=== PATIENT | female | born 1980 | race Hispanic/Latino ===

== ENCOUNTER 2017-12-18 16:40 | Emergency (ER) | payer SELFPAY ==
[2017-12-18] MEDS ORDERED: HYDROCODONE/APAP 10/325 TAB ONE (17:52)
[2017-12-18] MEDS ORDERED: IBUPROFEN 400 MG TAB ONE (17:52)
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
[2017-12-18 18:52] VITALS: BP 110/76; TEMP 98.1; O2SAT 96
== END 2017-12-18 18:47 | disposition home or self-care (01) ==
LOC: ER 16:40
DX: S39.012A Strain of muscle, fascia and tendon of lower back, initial encounter (principal); F41.9 Anxiety disorder, unspecified; V49.49XA Driver injured in collision with other motor vehicles in traffic accident, initial encounter
CPT/HCPCS: 72100; 99284

== ENCOUNTER 2020-02-27 18:29 | Emergency (ER) | payer SELFPAY, OTHER ==
--- OUTSIDE RECORDS SUMMARY | 2020-02-27 18:33 | XMS REPORT | Clinical Summary ---
:1980 Author Organization [facility] Address [address] [place] [id number] Care Team Providers Name Role Phone Unavailable Primary Care Provider Unavailable Allergies Active Allergy Reactions Severity Noted Date Comments Codeine Rash, Swelling High 11/14/2019 Medications Medication Sig Dispensed Refills Start End Date Status Date traZODone (DESYREL) Take 1-2 30 tablet 0 Active 50 mg tablets by 9 tabletIndications: mouth Insomnia, unspecified nightly at type bedtime as needed for Sleep. venlafaxine (EFFEXOR Take 1 28 capsule 0 Active XR) 150 mg extended capsule by 9 release mouth daily. capsuleIndications: Bipolar disorder in partial remission, most recent episode unspecified type hydrOXYzine (ATARAX) Take 1 84 tablet 0 Active 25 mg tablet by 9 tabletIndications: mouth 3 Anxiety times daily as needed for Anxiety or Insomnia. divalproex (DEPAKOTE) Take 1 60 tablet 0 Active 500 mg delayed tablet by 9 release mouth 2 tabletIndications: times daily. Bipolar disorder in partial remission, most recent episode unspecified type lurasidone HCl Take by 0 Activ e (LATUDA OR) mouth. ferrous sulfate 325 Take 1 30 tablet 0 Active mg (65 mg iron) tablet by 0 tabletIndications: mouth daily Iron deficiency (with anemia, unspecified breakfast). iron deficiency anemia type famotidine (PEPCID) Take 1 30 tablet 0 Active 40 mg tablet by 0 tabletIndications: mouth daily Gastroesophageal as needed reflux disease, for esophagitis presence Heartburn. not specified ibuprofen (MOTRIN) Take 1 20 tablet 0 A ctive 400 mg tablet by 0 tabletIndications: mouth every Intractable migraine 8 hours as without status needed for migrainosus, Pain. unspecified migraine type SUMAtriptan (IMITREX) Take 1 9 tablet 0 Active 50 mg tablet by 0 tabletIndications: mouth at Intractable migraine onset of without status headache. migrainosus, Repeat after unspecified migraine 2 hours if type needed. Maximum 200mg/24 hours.. fluticasone Use 1 [place] 16 g 0 Active propionate (FLONASE) in each 0 50 mcg/actuation nostril nasal daily. sprayIndications: Seasonal allergic rhinitis, unspecified trigger loratadine (CLARITIN) Take 1 30 tablet 0 Active 10 mg tablet by 0 tabletIndications: mouth daily. Seasonal allergic rhinitis, unspecified trigger propranolol (INDERAL) Take 1 60 tablet 0 Active 40 mg tablet by 0 tabletIndications: mouth 2 Intractable migraine times daily. without status migrainosus, unspecified migraine type meclizine (ANTIVERT) Take 1 60 tablet 0 Active 25 mg TabIndications: tablet by 0 Intermittent mouth 2 lightheadedness times daily. omeprazole (PRILOSEC) Take 1 30 capsule 1 Active 20 mg delayed release capsule by 0 capsuleIndications: mouth every Gastroesophageal morning reflux disease, (before esophagitis presence breakfast). not specified traZODone (DESYREL) Take 1-2 30 tablet 0 03/05/20 Discontinued 50 mg tablets by 05 29 (Reorder) tabletIndications: mouth Insomnia, unspecified nightly at type bedtime as needed for Sleep. propranolol (INDERAL) Take 1 60 tablet 0 03/05/20 Discontinued 40 mg tablet by 05 29 (Reorder) tabletIndications: mouth 2 Anxiety times daily. propranolol (INDERAL) Take 1 60 tablet 0 11/04/19 Discontinued 40 mg tablet by 05 30 (Dose tabletIndications: mouth 2 a djustment) Anxiety times daily. amitriptyline Take 1 30 tablet 0 10/20/19 Discon tinued (ELAVIL) 50 mg tablet by 05 30 (Othe r) tabletIndications: mouth at Bipolar disorder in bedtime partial remission, nightly. most recent episode unspecified type omeprazole (PRILOSEC) Take 1 30 capsule 0 0 Discontinued 20 mg delayed release capsule by 9 19 (Reorder) capsuleIndications: mouth at Gastroesophageal bedtime reflux disease, nightly. esophagitis presence not specified omeprazole (PRILOSEC) Take 1 30 capsule 0 0 Discontinued 20 mg delayed release capsule by 9 20 (Other) capsuleIndications: mouth at Gastroesophageal bedtime reflux disease, nightly. esophagitis presence not specified ferrous sulfate 325 Take 1 30 tablet 0 09/22/19 Discontinued mg (65 mg iron) tablet by 9 20 (Reo rder) tabletIndications: mouth daily Iron deficiency (with anemia, unspecified breakfast). iron deficiency anemia type ibuprofen (MOTRIN) Take 1 20 tablet 0 10/20/19 D iscontinued 400 mg tablet by 9 20 (Reorder) tabletIndications: mouth every Pain, dental 8 hours as needed for Pain. fluticasone Use 1 [place] 16 g 0 11/04/19 Discon tinued propionate (FLONASE) in each 0 20 (Reorder) 50 mcg/actuation nostril nasal daily. sprayIndications: Acute sinusitis, recurrence not specified, unspecified location ferrous sulfate 325 Take 1 30 tablet 0 10/20/19 Discontinued mg (65 mg iron) tablet by 0 20 (Reo rder) tabletIndications: mouth daily Iron deficiency (with anemia, unspecified breakfast). iron deficiency anemia type famotidine (PEPCID) Take 1 30 tablet 0 10/20/19 Discontinued 40 mg tablet by 0 20 (Reorder) tabletIndications: mouth daily Gastroesophageal as needed reflux disease, for esophagitis presence Heartburn. not specified doxycycline Take 1 20 tablet 0 10/02/19 (VIBRA-TABS) 100 mg tablet by 0 20 tabletIndications: mouth 2 Acute sinusitis, times daily recurrence not for 10 days. specified, unspecified location GUAIFENESIN-DM CR Take 1 10 tablet 0 11/18/19 Di scontinued (MUCINEX DM) 30-600 tablet by 0 20 (Patient mg tabletIndications: mouth 2 Discharge) Acute sinusitis, times daily. recurrence not specified, unspecified location SUMAtriptan (IMITREX) Take 1 9 tablet 0 11/04/19 Discontinued 50 mg tablet by 0 20 (Reorder) tabletIndications: mouth at Intractable migraine onset of without status headache. migrainosus, Repeat after unspecified migraine 2 hours if type needed. Maximum 200mg/24 hours.. propranolol (INDERAL) Take 1 60 tablet 0 11/04/19 Discontinued 20 mg tablet by 0 20 (Dose tabletIndications: mouth 2 a djustment) Intractable migraine times daily. without status migrainosus, unspecified migraine type propranolol (INDERAL) Take 1 60 tablet 0 11/04/19 Discontinued 40 mg tablet tablet by 0 20 (Reorde r) mouth 2 times daily. Active Problems Problem Noted Date BPPV (benign paroxysmal positional vertigo), left 04/2020 Class 1 obesity due to excess calories without serious comorbidity with 04/28/2019 body mass index (BMI) of 34.0 to 34.9 in adult Iron deficiency anemia 04/28/2019 Gastroesophageal reflux disease 04/28/2019 Homelessness 04/28/2019 Menorrhagia with irregular cycle 04/28/2019 Blurry vision, bilateral Nonintractable headache Right foot pain Dizziness Palpitations Syncope Intermittent lightheadedness Postural dizziness with presyncope Normocytic anemia Arachnoid cyst Encounters Date Type Specialty Care Team Description 11/26/2019 Emergency Emergency Ashanti Agarwal Right foot pa in Medicine MD Moiz (Primary Dx) 11/13/2019 - Emergency Kevon Cantu Intermittent lightheadedness (Primary Dx); 11/18/2019 MD Lucien Palpitations; Trip [place], Syncope, uns pecified syncope type; Dizziness; Bipolar I disor jaleel; Allergic state, sequela; Anxiety state; Gastroesophagea l reflux disease, esophagitis presence not specified; Menorrhagia wit h irregular cycle; Hearing loss of right ear, unspecified hearing loss type; Postural dizzin ess with presyncope 11/12/2019 - Emergency Emergency Kingsley Peña NP Acute right ankle pain 11/13/2019 Medicine (Primary Dx) 11/04/2019 Office Visit Family Practice Frank Roberson, Intractable migraine without status migrainosus, unspecified migraine type (Primary Dx); Physician Acute sinusitis , recurrence not specified, unspecified location; Seasonal allerg ic rhinitis, unspecified trigger 10/31/2019 Patient Education Health Education Carmen [place] o abuse counseling (Pauly cristal Dx) 10/25/2019 - Emergency Emergency Zeinali, Vargasen, Right foot p ain (Primary Dx); 10/26/2019 Medicine Nonintractable headache, unspecified chronicity pattern, unspecified headache type; Foot sprain, ri ght, initial encounter 10/20/2019 Office Visit [facility] Quiroz Gastroes ophageal reflux disease, esophagitis presence not specified (Primary Dx); Iron deficiency anemia, unspecified iron deficiency anemia type; Pain, dental; Intractable alesia ines without status migrainosus, unspecified migraine type; Influenza vacci ne needed 10/17/2019 - Emergency Emergency Josep Chan, New onset he adache (Primary Dx); 10/18/2019 Medicine Blurry vision, bilateral Candida Craven MD 10/03/2019 Patient Education Health Education Marcella Coffey, Landon tatum abuse MD counseling (Primary Dx) Elisabeth Owen 09/24/2019 Clinical Case [facility] Quang Gomez 09/22/2019 Office Visit [facility] Quiroz Acute si nusitis, recurrence not specified, unspecified location (Primary Dx); Iron deficiency anemia, unspecified iron deficiency anemia type; Gastroesophagea l reflux disease, esophagitis presence not specified 04/28/2019 Clinical Case [facility] Quang Caro 04/28/2019 Office Visit [facility] Quiroz Gastroes ophageal reflux disease, esophagitis presence not specified (Primary Dx); Iron deficiency anemia, unspecified iron deficiency anemia type; Pain, dental; Class 1 obesity due to excess calories without serious comorbidity with body mass index (BMI) of 34.0 to 34.9 in adult; Homelessness; Menorrhagia wit h irregular cycle 03/31/2019 Office Visit [facility] Quiroz Gastroes ophageal reflux disease, esopha gitis presence not sp ecified (Primary Dx) 03/05/2019 Office Visit [facility] Quiroz Bipolar disorder in partial remission, most recent episode unspecified type (Primary Dx); Preventative he alth care; Insomnia, unspe cified type; Anxiety 02/26/2019 Clinical Case [facility] [employer] [facility] Frankie Parham 02/26/2019 Office Visit Family Practice Francisca Quiroz Class 1 obesity due to excess calories without serious comorbidity with body mass index (BMI) of 34.0 to 34.9 in adult (Primary Dx); Family history of diabetes mellitus; Depression, uns pecified depression type; Well woman exam with routine gynecological exam; IV drug abuse after 02/26/2019 Immunizations Name Administration Dates Next Due Influenza, Vaccine <FLUCELVAX>(Preservative-Free) 10/20/2019 Td <Unspecified> 03/05/2016 Twinrix-HEP A&b 03/05/2019 Family History Medical History Relation Name Comments Heart Father Hypertension Father Diabetes Mother Psychiatry Mother Stroke Mother Psychiatry Sister Relation Name Status Comments Father [place] at 56 Mother Anxiety, stroke at 55 years Sister Anxiety Social History Tobacco Use Types Packs/Day Years Used Date Former Smoker Smokeless Tobacco: Never Used Tobacco Cessation: Counseling Given: Yes Comments: Stopped smoking in 2018 Alcohol Use Drinks/Week oz/Week Comments Not Currently Sex Assigned at Date Recorded Not on file Job Start Date Occupation Industry Not on file Not on file Not on file Travel History Travel Start Travel End No recent travel history available. Last Filed Vital Signs Vital Sign Reading Time Taken Comments Blood Pressure 108/68 11/26/2019 11:17 AM CDT Pulse 72 11/26/2019 3:13 PM CDT Temperature 36.7 C (98.1 F) 11/26/2019 3:13 PM CDT Respiratory Rate 18 11/26/2019 3:13 PM CDT Oxygen Saturation 100% 11/26/2019 3:13 PM CDT Inhaled Oxygen Concentration - - Weight 92.3 kg (203 lb 6.4 oz) 11/13/2019 9:00 PM WEATHERIZATION COORDINATOR Height 162.6 cm (5' 4") 11/13/2019 9:00 PM WEATHERIZATION COORDINATOR Body Mass Index 34.91 11/13/2019 9:00 PM WEATHERIZATION COORDINATOR Plan of Treatment Date Type Specialty Care Team Description 03/02/2020 Office Visit Neurology Health Maintenance Due Date Last Done Comments IMM Influenza Seasonal Jun to November (>/= 19 yrs) 06/10/2020 10/20/2019 Cervical Cancer Scrn (5 Yrs) 02/27/2024 02/26/2019 Procedures Procedure Name Priority Date/Time Associated Diagnosis Comme nts XRAY TIBIA AND FIBULA STAT 11/26/2019 2:00 Right foot pain Results for this 2 VIEWS PM CDT procedure are i n the results section. XRAY ANKLE 3 VIEW MIN STAT 11/26/2019 2:00 Right foot pain Results for this PM CDT procedure are i n the results section. XRAY FOOT 3 VIEWS MIN STAT 11/26/2019 2:00 Right foot pain Results for this PM CDT procedure are i n the results section. CBC Routine 11/18/2019 4:22 Results for this AM CDT procedure are i n the results section. MAGNESIUM Routine 11/18/2019 4:22 Results for this AM CDT procedure are i n the results section. BASIC METABOLIC PANEL Routine 11/18/2019 4:22 Re sults for this AM CDT procedure are i n the results section. CBC/DIFF Routine 11/18/2019 4:22 Results for this AM CDT procedure are i n the results section. CBC Routine 11/17/2019 3:46 Results for this AM CDT procedure are i n the results section. MAGNESIUM Routine 11/17/2019 3:46 Results for this AM CDT procedure are i n the results section. BASIC METABOLIC PANEL Routine 11/17/2019 3:46 Re sults for this AM CDT procedure are i n the results section. CBC/DIFF Routine 11/17/2019 3:46 Results for this AM CDT procedure are i n the results section. GLUCOSE POC Routine 11/16/2019 3:54 Results for this PM CDT procedure are i n the results section. MRI BRAIN W/O Routine 11/16/2019 2:46 Intermittent Results fo r this CONTRAST PM CDT lightheadedness procedure ar e in the results section. CBC Routine 11/16/2019 3:44 Results for this AM CDT procedure are i n the results section. MAGNESIUM Routine 11/16/2019 3:44 Results for this AM CDT procedure are i n the results section. BASIC METABOLIC PANEL Routine 11/16/2019 3:44 Re sults for this AM CDT procedure are i n the results section. CBC/DIFF Routine 11/16/2019 3:44 Results for this AM CDT procedure are i n the results section. XRAY SKULL 4 VIEWS Routine 11/15/2019 12:04 Intermittent Resul ts for this MIN PM WEATHERIZATION COORDINATOR lightheadedness procedure ar e in the results section. CBC Routine 11/15/2019 3:57 Results for this AM WEATHERIZATION COORDINATOR procedure are i n the results section. MAGNESIUM Routine 11/15/2019 3:57 Results for this AM WEATHERIZATION COORDINATOR procedure are i n the results section. BASIC METABOLIC PANEL Routine 11/15/2019 3:57 Re sults for this AM WEATHERIZATION COORDINATOR procedure are i n the results section. CBC/DIFF Routine 11/15/2019 3:57 Results for this AM WEATHERIZATION COORDINATOR procedure are i n the results section. LEAD, WHOLE BLOOD Timed 11/14/2019 1:14 Result s for this (ADULT) PM WEATHERIZATION COORDINATOR procedure are i n the results section. INFUSION PUMP Routine 11/14/2019 9:21 AM WEATHERIZATION COORDINATOR CBC Routine 11/14/2019 3:45 Results for this AM WEATHERIZATION COORDINATOR procedure are i n the results section. MAGNESIUM Routine 11/14/2019 3:45 Results for this AM WEATHERIZATION COORDINATOR procedure are i n the results section. BASIC METABOLIC PANEL Routine 11/14/2019 3:45 Re sults for this AM WEATHERIZATION COORDINATOR procedure are i n the results section. CBC/DIFF Routine 11/14/2019 3:45 Results for this AM WEATHERIZATION COORDINATOR procedure are i n the results section. VITAMIN B12 Add-on 11/13/2019 8:01 Results for this PM WEATHERIZATION COORDINATOR procedure are i n the results section. VIT D, 25-HYDROXY Routine 11/13/2019 8:01 Result s for this PM WEATHERIZATION COORDINATOR procedure are i n the results section. SYPHILIS SCREEN FOR Routine 11/13/2019 8:01 Resu lts for this INFECTION PM WEATHERIZATION COORDINATOR procedure are i n the results section. ANASTACIO Routine 11/13/2019 8:01 Results for this PM WEATHERIZATION COORDINATOR procedure are i n the results section. HEPATITIS PANEL Routine 11/13/2019 8:01 Results for this PM WEATHERIZATION COORDINATOR procedure are i n the results section. HIV-1/HIV-2 ROUTINE Routine 11/13/2019 8:01 Resu lts for this SCREENING PM WEATHERIZATION COORDINATOR procedure are i n the results section. FOLIC ACID Routine 11/13/2019 8:01 Results for this PM WEATHERIZATION COORDINATOR procedure are i n the results section. IRON PROFILE Routine 11/13/2019 8:01 Results for this PM WEATHERIZATION COORDINATOR procedure are i n the results section. FERRITIN Routine 11/13/2019 8:01 Results for this PM WEATHERIZATION COORDINATOR procedure are i n the results section. BASIC METABOLIC PANEL Routine 11/13/2019 8:01 Re sults for this PM WEATHERIZATION COORDINATOR procedure are i n the results section. VALPROIC ACID Routine 11/13/2019 8:01 Results fo r this PM WEATHERIZATION COORDINATOR procedure are i n the results section. POCT URINE DIPSTICK - STAT 11/13/2019 9:36 Re sults for this AM WEATHERIZATION COORDINATOR procedure are i n the results section. TEST STAT 11/13/2019 9:31 Results f or this AM WEATHERIZATION COORDINATOR procedure are i n the results section. CT HEAD W/O CONTRAST STAT 11/13/2019 9:26 Intermittent Res ults for this AM WEATHERIZATION COORDINATOR lightheadedness procedure ar e in the results section. CREATININE POC Routine 11/13/2019 6:27 Results f or this AM WEATHERIZATION COORDINATOR procedure are i n the results section. BMP POC Routine 11/13/2019 6:26 Results for this AM WEATHERIZATION COORDINATOR procedure are i n the results section. CBC STAT 11/13/2019 6:21 Results for this AM WEATHERIZATION COORDINATOR procedure are i n the results section. CBC/DIFF STAT 11/13/2019 6:21 Results for this AM WEATHERIZATION COORDINATOR procedure are i n the results section. ECHG EKG PROC 12 LEAD Routine 11/13/2019 5:20 Re sults for this EKG; TRACING ONLY AM WEATHERIZATION COORDINATOR procedure are in the results section. GLUCOSE POC Routine 11/13/2019 4:51 Results for this AM WEATHERIZATION COORDINATOR procedure are i n the results section. XRAY FOOT 3 VIEWS - STAT 11/12/2019 11:10 Acute right ankle pain Results for this ROUTINE PM WEATHERIZATION COORDINATOR procedure are i n the results section. XRAY ANKLE 3 VIEWS - STAT 11/12/2019 11:10 Acute right ankl e pain Results for this ROUTINE PM WEATHERIZATION COORDINATOR procedure are i n the results section. POCT URINE DIPSTICK - STAT 11/12/2019 10:22 Re sults for this PM WEATHERIZATION COORDINATOR procedure are i n the results section. XRAY FOOT 3 VIEWS - STAT 10/25/2019 9:38 Right foot pain R esults for this ROUTINE PM WEATHERIZATION COORDINATOR procedure are i n the results section. CTA HEAD W CONTRAST STAT 10/18/2019 12:51 New onset headach e Results for this AM WEATHERIZATION COORDINATOR procedure are i n the results section. CT HEAD W/O CONTRAST STAT 10/17/2019 11:28 New onset headac he Results for this PM WEATHERIZATION COORDINATOR procedure are i n the results section. AMMONIA STAT 10/17/2019 2:37 Results for this PM WEATHERIZATION COORDINATOR procedure are i n the results section. VALPROIC ACID STAT 10/17/2019 2:37 Results fo r this PM WEATHERIZATION COORDINATOR procedure are i n the results section. TEST STAT 10/17/2019 1:12 Results f or this PM WEATHERIZATION COORDINATOR procedure are i n the results section. CBC STAT 10/17/2019 12:07 Results for this PM WEATHERIZATION COORDINATOR procedure are i n the results section. CBC/DIFF STAT 10/17/2019 12:07 Results for this PM WEATHERIZATION COORDINATOR procedure are i n the results section. BASIC METABOLIC PANEL STAT 10/17/2019 12:07 Re sults for this PM WEATHERIZATION COORDINATOR procedure are i n the results section. POC HIV RAPID Routine 03/05/2019 Preventative health Results for this 1/2-FQHC MANUALLY care procedure are in ENTERED the results section. POC URINE DIPSTICK Routine 02/26/2019 10:48 Well woman exam wi th Results for this W/O MICRO-FQHC AM CDT routine gynecological proc edure are in MANUALLY ENTERED exam the results section. HPV, LOW VOLUME RFX Routine 02/26/2019 9:00 Resu lts for this AM CDT procedure are i n the results section. HEP B SURFACE AB Routine 02/26/2019 9:00 IV drug abuse Result s for this AM CDT procedure are i n the results section. HBSAG SCREEN Routine 02/26/2019 9:00 IV drug abuse Results fo r this AM CDT procedure are i n the results section. HCV ANTIBODY Routine 02/26/2019 9:00 IV drug abuse Results fo r this AM CDT procedure are i n the results section. HEMOGLOBIN A1C Routine 02/26/2019 9:00 Class 1 obesity due to Results for this AM CDT excess calories procedure ar e in without serious the results comorbidity with body sectio n. mass index (BMI) of 34.0 to 34.9 in adult Family history of diabetes mellitus TSH Routine 02/26/2019 9:00 Depression, Results for this AM CDT unspecified depression proce dure are in type the results section. CBC WITH Routine 02/26/2019 9:00 Class 1 obesity due to R esults for this DIFFERENTIAL/PLATELET AM CDT excess calories pro cedure are in without serious the results comorbidity with body sectio n. mass index (BMI) of 34.0 to 34.9 in adult Family history of diabetes mellitus COMPREHENSIVE Routine 02/26/2019 9:00 Class 1 obesity due to Results for this METABOLIC PANEL(14) AM CDT excess calories proce dure are in without serious the results comorbidity with body sectio n. mass index (BMI) of 34.0 to 34.9 in adult Family history of diabetes mellitus PAP IG,HPV-HR Routine 02/26/2019 9:00 Well woman exam with Re sults for this AM CDT routine gynecological proced ure are in exam the results section. T PALLIDUM AB Routine 02/26/2019 9:00 Well woman exam with Re sults for this (FTA-AB) AM CDT routine gynecological proced ure are in exam the results section. CT,NG,TRICH VAG BY Routine 02/26/2019 9:00 Well woman exam wi th Results for this YOLANDA AM CDT routine gynecological proced ure are in exam the results section. POC URINE Routine 02/26/2019 Well woman exam with Results for this [facility] routine gynecological proc edure are in MANUALLY ENTERED exam the results section. after 02/26/2019 Results XRAY FOOT 3 VIEWS MIN (11/26/2019 2:00 PM CDT) Specimen Impressions Performed At IMPRESSION: SMS No acute abnormality seen in the right t ibia and fibula, ankle and foot. Signed By: Janet Wilson MD, 11/26/2019 2:17 PM Narrative Performed At RIGHT TIBIA AND FIBULA SERIES, 2 views. SMS RIGHT ANKLE SERIES, 3 views. RIGHT FOOT SERIES, 3 views. DATE: 11/26/2019 2:13 PM CLINICAL INDICATION: R foot pain s/p fal ling COMPARISON: Right foot and right ankle p erformed 11/12/2019. TECHNIQUE: Frontal and lateral views of the right tibia and fibula, frontal, oblique and lateral views of th e right ankle and right foot are obtained and submitted for interpretatio n. DISCUSSION: There is no fracture or malalignment vis ualized in the tibia, fibula, ankle and foot. Ankle mortise, subtalar joint and tibi ofibular syndesmosis appear preserved. Midtarsal, metatarsal and phalangeal bon es are intact. Joint spaces of the foot are preserved. There is mild hallux valgus deformity, unchanged. No abnormal bone erosions, periosteal re action or flattening is demonstrated. Plantar calcaneal enthesop hyte is again seen. No evidence of joint effusion is noted. The surrounding soft tissues are unremar kable. Procedure Note Interface, Rad/Mammog In - 11/26/2019 2 :22 PM CDT RIGHT TIBIA AND FIBULA SERIES, 2 views. RIGHT ANKLE SERIES, 3 views. RIGHT FOOT SERIES, 3 views. DATE: 11/26/2019 2:13 PM CLINICAL INDICATION: R foot pain s/p fal ling COMPARISON: Right foot and right ankle p erformed 11/12/2019. TECHNIQUE: Frontal and lateral views of the right tibia and fibula, frontal, oblique and lateral views of th e right ankle and right foot are obtained and submitted for interpretatio n. DISCUSSION: There is no fracture or malalignment vis ualized in the tibia, fibula, ankle and foot. Ankle mortise, subtalar joint and tibio fibular syndesmosis appear preserved. Midtarsal, metatarsal and phalangeal bon es are intact. Joint spaces of the foot are preserved. There is mild hallux valgus deformity, unchanged. No abnormal bone erosions, periosteal re action or flattening is demonstrated. Plantar calcaneal enthesop hyte is again seen. No evidence of joint effusion is noted. The surrounding soft tissues are unremar kable. IMPRESSION IMPRESSION: No acute abnormality seen in the right t ibia and fibula, ankle and foot. Signed By: Janet Wilson MD, 11/26/2019 2:17 PM Performing Organization Address City/State/Zipcode Phone Number [facility] XRAY ANKLE 3 VIEW MIN (11/26/2019 2:00 PM CDT) Specimen Impressions Performed At IMPRESSION: [facility] No acute abnormality seen in the right t ibia and fibula, ankle and foot. Signed By: Janet Wilson MD, 11/26/2019 2:17 PM Narrative Performed At RIGHT TIBIA AND FIBULA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 the study and agree with the findings in this report. Signed By: Nixon Gabriel DO, 11/13/2019 3 :59 AM Performing Organization Address City/State/Zipcode Phone Number SMS CTA HEAD W CONTRAST (10/18/2019 12:51 AM WEATHERIZATION COORDINATOR) Specimen Impressions Performed At IMPRESSION: SMS 1. Severely hypoplastic right vertebra l artery, likely congenital. 2. Otherwise, no additional abnormalit ies on this CTA of the head. Specifically, no large vessel occlusion or aneurysm. Dictated By: Stephane Murphy DO, 0 1:13 AM I have reviewed the study and agree with the findings in this report. Signed By: Wendy Craft MD, 10/18/2019 1:20 AM Narrative Performed At Exams: Intracranial CT angiogram SMS History: Headache, acute, normal neuro e xam Comparison studies: Same day head CT. Technique: Axial CT scans obtained from the skull b ase to the vertex without contrast Axial images obtained through the intrac ranial region during injection of IV contrast. Axial CT scans obtained from the skull b ase to the vertex after the CTA. Coronal and sagittal reconstructions obt ained from the axial data. For optimization of anatomic evaluation, multiplanar reconstruction, maximum intensity projections, and [employer] 3-D off-line postprocessing were obtained on a dedicated stand-alone work station under the direct supervision of the interpreting physicia n. IV Contrast 100 cc of Omnipaque. Complication: None Radiation dose: Total DLP: 1032 mGy*cm Estimated Effective Dose: DLP x 0.031 mS v FINDINGS: Head CT with contrast: No interval changes when compared to the previous CT. No enhancing abnormalities. CTA [place]: Carotid arteries: Patent, no abnormalities.. Vertebrobasilar Circulation: Vertebral arteries: The right vertebral artery is not visualized. The left vertebral artery is patent. Basilar artery: Patent, no abnormalities . Anterior cerebral arteries: Patent A1 an d A2 segments. Middle cerebral arteries: Patent M1 and M2 segments. Posterior cerebral arteries: Patent P1 and P2 segments, no abnormalities. Normal Variants: Anteriro communicating artery: Patent Posterior communicating arteries: Not vi sualized bilaterally, may be hypoplastic or absent. Vertebral arteries: The right vertebral artery is not visualized. The left vertebral artery is patent. Incidental findings: Mucosal thickening of the left ethmoid a ir cells. Procedure Note Interface, Rad/Mammog In - 10/18/2019 1 :25 AM WEATHERIZATION COORDINATOR Exams: Intracranial CT angiogram History: Headache, acute, normal neuro e xam Comparison studies: Same day head CT. Technique: Axial CT scans obtained from the skull b ase to the vertex without contrast Axial images obtained through the intrac ranial region during injection of IV contrast. Axial CT scans obtained from the skull b ase to the vertex after the CTA. Coronal and sagittal reconstructions obt ained from the axial data. For optimization of anatomic evaluation, multiplanar reconstruction, maximum intensity projections, and [employer] 3-D off-line postprocessing were obtained on a dedicated stand-alone work station under the direct supervision of the interpreting physicia n. IV Contrast 100 cc of Omnipaque. Complication: None Radiation dose: Total DLP: 1032 mGy*cm Estimated Effective Dose: DLP x 0.031 mS v FINDINGS: Head CT with contrast: No interval changes when compared to the previous CT. No enhancing abnormalities. CTA [place]: Carotid arteries: Patent, no abnormalities.. Vertebrobasilar Circulation: Vertebral arteries: The right vertebral artery is not visualized. The left vertebral artery is patent. Basilar artery: Patent, no abnormalities . Anterior cerebral arteries: Patent A1 an d A2 segments. Middle cerebral arteries: Patent M1 and M2 segments. Posterior cerebral arteries: Patent P1 and P2 segments, no abnormalities. Normal Variants: Anteriro communicating artery: Patent Posterior communicating arteries: Not vi sualized bilaterally, may be hypoplastic or absent. Vertebral arteries: The right vertebral artery is not visualized. The left vertebral artery is patent. Incidental findings: Mucosal thickening of the left ethmoid a ir cells. IMPRESSION IMPRESSION: 1. Severely hypoplastic right vertebral artery, likely congenital. 2. Otherwise, no additional abnormaliti es on this CTA of the head. Specifically, no large vessel occlusion or aneurysm. Dictated By: Stephane Murphy DO, 0 1:13 AM I have reviewed the study and agree with the findings in this report. Signed By: Wendy Craft MD, 10/18/2019 1:20 AM Performing Organization Address City/State/Zipcode Phone Number SMS Ammonia (10/17/2019 2:37 PM WEATHERIZATION COORDINATOR) Pathologist [facility] Ammonia 31.0 16.0 - 53.0 umol/L [facility] Specimen Blood Performing Organization Address City/[facility]/Zipcode Phone Number [facility] [address] [place] [address] POC HIV RAPID 1/2-FQHC MANUALLY ENTERED (03/05/2019) Pathologist [facility] Rapid HIV 1/2 Negative Specimen POC URINE DIPSTICK W/O MICRO-FQHC MANUALLY ENTERED (02/26/2019 10:48 AM CDT) Pathologist Sig nature Blood POC neg Urobilinogen POC 4 Bilirubin POC 1 Protein POC 30 Nitrate POC neg Ketone POC neg Glucose POC neg Ph POC 7 Spec Dumont POC 1.010 Leukocyte POC neg COLOR POC NA Clarity POC NA Specimen Urine COMPREHENSIVE METABOLIC PANEL(14) (02/26/2019 9:00 AM CDT) Pathologist Sig nature Glucose, Serum 86 65 - 99 mg/dL [facility] 01 BUN 18 6 - 20 mg/dL [facility] 01 Creatinine, Serum 0.88 0.57 - 1.00 mg/dL [facility] 01 eGFR If NonAfricn Am 84 >59 mL/min/1.73 [facility] 01 eGFR If Africn Am 97 >59 mL/min/1.73 [facility] 01 BUN/Creatinine Ratio 20 9 - 23 [facility] 01 Sodium, Serum 138 134 - 144 mmol/L [facility] 01 Potassium, Serum 4.7 3.5 - 5.2 mmol/L [facility] 01 Chloride, Serum 100 96 - 106 mmol/L [facility] 01 Carbon Dioxide, Total 25 20 - 29 mmol/L [facility] 01 Calcium, Serum 8.9 8.7 - 10.2 mg/dL [facility] 01 Protein, Total, Serum 6.8 6.0 - 8.5 g/dL [facility] 01 Albumin, Serum 3.9 3.5 - 5.5 g/dL [facility] 01 Globulin, Total 2.9 1.5 - 4.5 g/dL [facility] 01 A/G Ratio 1.3 1.2 - 2.2 [facility] 01 Bilirubin, Total 0.2 0.0 - 1.2 mg/dL [facility] 01 Alkaline Phosphatase 54 39 - 117 IU/L [facility] 01 AST (SGOT) 17 0 - 40 IU/L [facility] 01 ALT (SGPT) 10 0 - 32 IU/L [facility] 01 Specimen Narrative Performed At Performed at: 01 - [facility] [address] [place], [place] [address] 143 Instrumentation Designer: Hemanth Frey MD, Phone: [phone] Performing Organization Address [facility] Phone Number [facility] [address] [place] [address] 145 [facility] 01 T PALLIDUM AB (FTA-AB) (02/26/2019 9:00 AM CDT) Pathologist Sig nature T pallidum Ab (FTA-Ab) Non Reactive Non Reactive [facility] 01 Specimen Narrative Performed At Performed at: - [facility] [address] [place], [place] [address] 361 Instrumentation Designer: Diana Rodriguez MD, Phone: [phone] Performing Organization Address [facility] Phone Number [facility] [address] [place] [address] [phone] [facility] [address],NG,TRICH VAG BY YOLANDA (02/26/2019 9:00 AM CDT) Pathologist Sig nature CHLAMYDIA BY YOLANDA Negative Negative [facility] 01 GONOCOCCUS BY YOLANDA Negative Negative [facility] 01 TRICH VAG BY YOLANDA Negative Negative [facility] 01 Specimen Other (Specify in Comments) - Cervix, en docervix Narrative Performed At Performed at: 01 - [facility] [address] [facility], T X [id number] Instrumentation Designer: Alicja Felipe MD, Phone: [phone] Performing Organization Address City/State/Zipcode Phone Number [facility] [address] [facility], [place] [address] [facility] 01 PAP IG,HPV-HR (02/26/2019 9:00 AM CDT) Diagnosis CommentComment: NEGATIVE [facility] 01 FOR INTRAEPITHELIAL LESION OR MALIGNANCY. Specimen Adequacy: Comment [facility] 01 Comment: Satisfactory for evaluation. Endocervical and/or squ amous metaplastic cells (endocervical component) are present. CLINICIAN PROVIDED Comment [facility] 01 ICD10: Comment: E66.09 Z68.34 Z01.419 Z83.3 F32.9 F19.10 Performed by: CommentComment: Fatmata [facility] 01 Gerard Ear Muff Assembler (ASCP) . . [facility] 01 Note: Comment [facility] 01 Comment: The Pap smear is a screening test designed to aid in t he detection of premalignant and malignant conditions of the uterine c ervix. It is not a diagnostic procedure and should not be used as the kole e means of detecting cervical cancer. Both false-positive and false-negat ina reports do occur. TEST METHODOLOGY: Comment [facility] 01 Comment: This liquid based ThinPrep(R) pap test was screened wi th the use of an image guided system. HPV High Risk CANCELED [facility] 02 Comment: The quantity of specimen remaining in the vial after P ap slide preparation was less than the 4 mL minimum cell suspen francis required. Low sample cellularity may be the cause. See HPV, lo w volume rfx test result. This high-risk HPV test detects thirteen high-risk typ es (16/18/31/33/35/39/45/51/52/56/58/59/68) without diffe rentiation. Result canceled by the ancillary. Specimen Narrative Performed At Performed at: 01 - [facility] [address] [facility] [address] [facility], X [id number] Instrumentation Designer: Alicja Felipe MD, Phone: [phone] Performed at: 02 - [facility] [address] [facility], X [id number] Instrumentation Designer: Alicja Felipe MD, Phone: [phone] Specimen Comment: Source.............Cer vix;Endocervix Specimen Comment: No. of containers..01 ThinPrep Vial Performing Organization Address [facility] Phone Number [facility] [address] [facility], [place] [address] 145 [facility] 01 [facility] 02 HCV ANTIBODY (02/26/2019 9:00 AM CDT) Hep C Virus Ab <0.1 0.0 - 0.9 s/co [facility] 01 Comment: ratio Neg ative: < 0.8 Indetermina te: 0.8 - 0.9 Pos itive: > 0.9 The CDC recommends that a positive HCV antibody resul t be followed up with a HCV Nucleic Acid Amplification test (307641). Specimen Narrative Performed At Performed at: [facility] [address] [place] [id number] 143 Instrumentation Designer: Hemanth Frey MD, Phone: [phone] Performing Organization Address [facility] Phone Number [facility] [address] [facility], [place] [address] [phone] [facility] 01 CBC WITH DIFFERENTIAL/PLATELET (02/26/2019 9:00 AM CDT) Pathologist [facility] WBC 6.1 3.4 - 10.8 [facility] 01 x10E3/uL RBC 4.29 3.77 - 5.28 [facility] 01 x10E6/uL Hemoglobin 10.9 (L) 11.1 - 15.9 g/dL [facility] 01 Hematocrit 35.6 34.0 - 46.6 % [facility] 01 MCV 83 79 - 97 fL [facility] 01 MCH 25.4 (L) 26.6 - 33.0 pg [facility] 01 MCHC 30.6 (L) 31.5 - 35.7 g/dL [facility] 01 RDW 14.6 12.3 - 15.4 % [facility] 01 Platelets 324 150 - 450 x10E3/uL [facility] 01 Neutrophils 66 Not Estab. % [facility] 01 Lymphs 26 Not Estab. % [facility] 01 Monocytes 7 Not Estab. % [facility] 01 Eos 1 Not Estab. % [facility] 01 Basos 0 Not Estab. % [facility] 01 Neutrophils (Absolute) 4.0 1.4 - 7.0 x10E3/uL [facility] 01 Lymphs (Absolute) 1.6 0.7 - 3.1 x10E3/uL [facility] 01 Monocytes(Absolute) 0.4 0.1 - 0.9 x10E3/uL [facility] 01 Eos (Absolute) 0.1 0.0 - 0.4 x10E3/uL [facility] 01 Baso (Absolute) 0.0 0.0 - 0.2 x10E3/uL [facility] 01 Immature Granulocytes 0 Not Estab. % [facility] 01 Immature Grans (Abs) 0.0 0.0 - 0.1 x10E3/uL [facility] 01 Specimen Blood Narrative Performed At Performed at: [address] [place] [address] [facility] [address] [place] [address] 143 Instrumentation Designer: Hemanth Frey MD, Phone: [phone] Performing Organization Address [facility] Phone Number [facility] [address] [place] [address] 145 [facility] 01 HEP B SURFACE AB (02/26/2019 9:00 AM CDT) Pathologist Sig nature Hep B Surface Ab, Non Reactive [facility] 01 Qual Comment: Non Reactive: Inconsistent with i mmunity, less than 10 mIU/mL Reactive: Consistent with i mmunity, greater than 9.9 mIU/mL Specimen Blood Narrative Performed At Performed at: [address] [place] [address] [facility] [address] [place] [id number] Instrumentation Designer: Hemanth Frey MD, Phone: [phone] Performing Organization Address [facility] Phone Number [facility] [address] [place] [address] 145 [facility] 01 HPV, LOW VOLUME RFX (02/26/2019 9:00 AM CDT) Pathologist Sig nature HPV,low volume rfx Negative Negative [facility] 03 Comment: This test detects fourteen high-risk HPV types (16,18, 31,33,35,39,45, 51,52,56,58,59,66,68) without differentiation. Specimen Narrative Performed At Performed at: 03 - [facility] [address] [place], [place] [address] 361 Instrumentation Designer: Diana Rodriguez MD, Phone: [phone] Performing Organization Address City/[facility] Phone Number [facility] [address] [place] [address] 145 [facility] 03 HBSAG SCREEN (02/26/2019 9:00 AM CDT) Pathologist Sig nature HBsAg Screen Negative Negative [facility] 01 Specimen Narrative Performed At [facility]formed at: [facility] [address] [place] [id number] 143 Instrumentation Designer: Hemanth Frey MD, Phone: [phone] Performing Organization Address [facility] Phone Number [facility] [address] [place] [address] 145 [facility] 01 HEMOGLOBIN A1C (02/26/2019 9:00 AM CDT) Pathologist [facility] Hemoglobin A1c 5.2 4.8 - 5.6 % [facility] 01 Comment: Prediabetes: 5.7 - 6.4 Diabetes: >6.4 Glycemic control for adults with diabetes : <7.0 Specimen Blood Narrative Performed At Performed at: [facility] [address] [place], [place] [address] 143 Instrumentation Designer: Hemanth Frey MD, Phone: [phone] Performing Organization Address [facility] Phone Number [facility] [address] [place] [address] [phone] [facility] 01 TSH (02/26/2019 9:00 AM CDT) Pathologist [facility] TSH 2.500 0.450 - 4.500 uIU/mL [facility] 01 Specimen Blood Narrative Performed At Performed at: 01 [facility] [address] [place], [place] [address] 143 Instrumentation Designer: Hemanth Frey MD, Phone: [phone] Performing Organization Address [facility] Phone Number [facility] [address] [place] [address] 145 [facility] 01 POC URINE -FQHC MANUALLY ENTERED (02/26/2019) Pathologist Sig nature POC negative Specimen after 02/26/2019 Insurance Payer Benefit Plan / Subscriber ID Effective Dates Phone Addre ss Type Group [employer] SELF-PAY xxxxxxx 2020-20 [phone] [id number] MADISYN SELF-PAY SCREENED [address] [place] [address] Advance Directives Code Status Date Activated Date Inactivated Comments Full Code 11/13/2019 6:17 PM 11/18/2019 4:30 PM
--- OUTSIDE RECORDS SUMMARY | 2020-02-27 18:37 | XMS REPORT | Continuity of Care Document ---
:1980 Author Organization [facility] t Address [address] [place] [address] Care Team Providers Name Role Phone Ashanti Agarwal MD Attending Clinician Alondra CARNES T Attending Clinician Mahnaz [place] MD Attending Clinician Casey FLOOR PRESS OPERATOR Attending Clinician Da Physician Attending Clinician Valencia Attending Clinician Johnie CARNES Attending Clinician Richie Attending Clinician Dustin CARNES, P Attending Clinician Herber CARNES M Attending Clinician Alexx CARNES Attending Clinician Lexie Attending Clinician Jason Attending Clinician Prasad Attending Clinician Payers Payer Name Policy Type Policy Number Effective Date Expiration Date S [facility] xxxxxxx 2020 2030 [place] [facility] SELF-PAYSELF- 00:00:00 23:59:59 PAY SCREENEDxxxxx [id number] [place] [address] Problems Condition Condition Condition Status Onset Resolution Last Treating Co mments Source Name Details Category Date Date Treatment Clinician Date 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 paroxysmal 00:00: positional positional 00 vertigo), vertigo), left left Class 1 Class 1 Disease Active [place] obesity obesity 04-28 Health due to due to 00:00: excess excess 00 calories calories without without serious serious comorbidit comorbidit y with y with body mass body mass index index (BMI) of (BMI) of 34.0 to 34.0 to 34.9 in 34.9 in adult adult Iron Iron Disease Active Singh deficiency deficiency 04-28 He alth anemia anemia 00:00: 00 Gastroesop Gastroesop Disease Active H arris hageal hageal 04-28 Health reflux reflux 00:00: disease disease 00 Homelessne Homelessne Disease Active H arris ss ss 8 Health 00:00: 00 Menorrhagi Menorrhagi Disease Active H arris a with a with 04-28 Health irregular irregular 00:00: cycle cycle 00 Blurry Blurry Disease Active [place] vision, vision, Health bilateral bilateral Nonintract Nonintract Disease Active H arris able able Health headache headache Right foot Right foot Disease Active H arris pain pain Health Dizziness Dizziness Disease Active [facility] Health Palpitatio Palpitatio Disease Active H arris ns ns Health Syncope Syncope Disease Active [place] [facility] Intermitte Intermitte Disease Active H arris nt nt Health lightheade lightheade dness dness Postural Postural Disease Active Harri s dizziness dizziness Heal th with with presyncope presyncope Normocytic Normocytic Disease Active H arris anemia anemia Health 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 Health Allergies, Adverse Reactions, Alerts Allergy Allergy Status Severity Reaction(s) Onset Inactive Treating Comm ents Source Name Type Date Date Clinician Yessica Lehman Active Rash, Singh ty to Swelling 11-13 Health adverse 00:00: reaction 00 s to drug No Known DA Active [facility] Allergie 24 Clear s 00:00: Sepulveda 00 [facility] Family History Family Member Diagnosis Comments Start Date Stop Date Source Natural father Heart [facility] Natural father Hypertension [facility] Natural mother Diabetes [facility] Natural mother Psychiatry [facility] Natural mother Stroke [facility] Natural sister Psychiatry [facility] Social History Social Habit Start Date Stop Date Quantity Comments Source Sex Assigned At [facility] Alcohol intake 2019-11-16 2019-11-16 [facility] 00:00:00 00:00:00 Tobacco Comment 2019-02-17 2019-02-17 Stopped smoking [facility] 00:00:00 00:00:00 in 2018 Smoking Status Start Date Stop Date Source Former smoker 2019-11-16 00:00:00 2019-11-16 00:00:00 [facility] Medications Ordered Filled Start Stop Current Ordering Indication Dosage Frequency Signature Comments Components Source Medication Medication Date Date Medication? Clinician (SIG) Name Name omeprazole 2019-0 Yes Gastroesoph 20mg QD Take 1 Singh (PRILOSEC) 3-11 ageal capsule by [facility] 20 mg 00:00: reflux mouth delayed 00 disease, every release esophagitis morning capsule presence (before not breakfast) specified . lurasidone 2020-[address] [facility] is HCl (LATUDA 3-10 mouth. Health OR) 14:30: 02 meclizine 2020-0 Yes Intermitten 25mg Q.5D Take 1 Singh (ANTIVERT) 3-10 t tablet by [facility] 25 mg Tab 00:00: lightheaded mouth 2 00 ness times daily. SUMAtriptan 2020-0 Yes Intractable Take 1 Singh (IMITREX) 2-25 migraine tablet by [facility] 50 mg 00:00: without mouth at tablet 00 status onset of migrainosus headache. , Repeat unspecified after 2 migraine hours if type needed. Maximum 200mg/24 hours.. fluticasone 2020-0 Yes Seasonal 1{spray QD Use 1 Singh propionate 2-25 allergic } [place] [facility] (FLONASE) 00:00: rhinitis, each 50 00 unspecified nostril mcg/actuati trigger daily. on nasal spray loratadine 2020-0 Yes Seasonal 10mg QD Take 1 H arris (CLARITIN) 2-25 allergic tablet by [facility] 10 mg 00:00: rhinitis, mouth tablet 00 unspecified daily. trigger propranolol 2019- Yes Intractable 40mg Q.5D Take 1 Singh (INDERAL) 2-25 migraine tablet by [facility] 40 mg 00:00: without mouth 2 tablet 00 status times migrainosus daily. , unspecified migraine type propranolol 2019- No Intractable 20mg Q.5D Take 1 Singh (INDERAL) 2-25 -25 migraine tablet by [facility] 20 mg 00:00: 00:00 without mouth 2 tablet 00 :00 status times migrainosus daily. , unspecified migraine type propranolol 2019- No 40mg Q.5D Take 1 Adelso ris (INDERAL) 2-25 -25 tablet by [facility] 40 mg 00:00: 00:00 mouth 2 tablet 00 :00 times daily. ferrous 2019- Yes Iron 325mg QD Take 1 [place] sulfate 325 2-10 deficiency tablet by [facility] mg (65 mg 00:00: anemia, mouth iron) 00 unspecified daily tablet iron (with deficiency breakfast) anemia type . famotidine Yes Gastroesoph 40mg Take 1 [place] (PEPCID) 40 2-10 ageal tablet by alth mg tablet 00:00: reflux mouth 00 disease, daily as esophagitis needed for presence Heartburn. not specified ibuprofen Yes Intractable 400mg Take 1 Singh (MOTRIN) 2-10 migraine tablet by alth 400 mg 00:00: without mouth tablet 00 status every 8 migrainosus hours as , needed for unspecified Pain. migraine type SUMAtriptan 2019- No Intractable Take 1 Singh (IMITREX) 2-10 - migraine tablet by [facility] 50 mg 00:00: 00:00 without mouth at tablet 00 :00 status onset of migrainosus headache. , Repeat unspecified after 2 migraine hours if type needed. Maximum 200mg/24 hours.. GUAIFENESIN 2019- No Acute 1{tbl} Q.5D Take 1 Singh -DM CR - 03-10 sinusitis, tablet by [facility] (MUCINEX 00:00: 00:00 recurrence mouth 2 DM) 30-600 00 :00 not times mg tablet specified, daily. unspecified location fluticasone 2019- No Acute 1{spray QD Use 1 [place] propionate 09-22 sinusitis, } [place] [facility] (FLONASE) 00:00: 00:00 recurrence each 50 00 :00 not nostril mcg/actuati specified, daily. on nasal unspecified spray location ferrous 2019- No Iron 325mg QD Take 1 Singh sulfate 325 09-22 deficiency tablet by [employer] mg (65 mg 00:00: 00:00 anemia, mouth iron) 00 :00 unspecified daily tablet iron (with deficiency breakfast) anemia type . famotidine No Gastroesoph 40mg Take 1 Singh (PEPCID) 40 09-22 ageal tablet by H ealth mg tablet 00:00: 00:00 reflux mouth 00 :00 disease, daily as esophagitis needed for presence Heartburn. not specified doxycycline 2019- No Acute 100mg Q.5D Take 1 H arris (VIBRA-TABS 09-22 sinusitis, tablet by [facility] ) 100 mg 00:00: 23:59 recurrence mouth 2 tablet 00 :00 not times specified, daily for unspecified 10 days. location omeprazole 2019- No Gastroesoph 20mg Take 1 Singh (PRILOSEC) 04-28 ageal capsule by H ealth 20 mg 00:00: 00:00 reflux mouth at delayed 00 :00 disease, bedtime release esophagitis nightly. capsule presence not specified ibuprofen 2019- No Pain, 400mg Take 1 Ad[place] ris (MOTRIN) 04-28 dental tablet by [facility] lt 400 mg 00:00: 00:00 mouth tablet 00 :00 every 8 hours as needed for Pain. ferrous No Iron 325mg QD Take 1 Singh sulfate 325 04-28 deficiency tablet by [employer] mg (65 mg 00:00: 00:00 anemia, mouth iron) 00 :00 unspecified daily tablet iron (with deficiency breakfast) anemia type . omeprazole No Gastroesoph 20mg Take 1 Singh (PRILOSEC) 03-31 ageal capsule by H ealth 20 mg 00:00: 00:00 reflux mouth at delayed 00 :00 disease, bedtime release esophagitis nightly. capsule presence not specified traZODone Yes Insomnia, 50mg Take 1-2 Singh (DESYREL) 6-26 unspecified tablets by [facility] 50 mg 00:00: type mouth tablet 00 nightly at bedtime as needed for Sleep. venlafaxine Yes Bipolar 150mg QD Take 1 [place] (EFFEXOR 03-05 disorder in capsule by [facility] XR) 150 mg 00:00: partial mouth extended 00 remission, daily. release most recent capsule episode unspecified type hydrOXYzine Yes Anxiety 25mg Take 1 H arris (ATARAX) 25 03-05 tablet by [facility] lth mg tablet 00:00: mouth 3 00 times daily as needed for Anxiety or Insomnia. divalproex Yes Bipolar 500mg Q.5D Take 1 H arris (DEPAKOTE) 03-05 disorder in tablet by [facility] 500 mg 00:00: partial mouth 2 delayed 00 remission, times release most recent daily. tablet episode unspecified type propranolol 2019- No Anxiety 40mg Q.5D Take 1 Singh (INDERAL) 03-05 tablet by [facility] 40 mg 00:00: 00:00 mouth 2 tablet 00 :00 times daily. amitriptyli 2019- No Bipolar 50mg Take 1 [place] ne (ELAVIL) 03-05 disorder in tablet by [facility] 50 mg 00:00: 00:00 partial mouth at tablet 00 :00 remission, bedtime most recent nightly. episode unspecified type traZODone 2019- No Insomnia, 50mg Take 1-2 Singh (DESYREL) 02-17 unspecified tablets by [facility] 50 mg 00:00: 00:00 type mouth tablet 00 :00 nightly at bedtime as needed for Sleep. propranolol 2018- No Anxiety 40mg Q.5D Take 1 [place] (INDERAL) 02-17 tablet by [facility] 40 mg 00:00: 00:00 mouth 2 tablet 00 :00 times daily. Immunizations Ordered Immunization Filled Immunization Date Status Commen ts Source Name Name Influenza, Vaccine 2019-10-20 Completed [facility] <FLUCELVAX>(Preserva 00:00:00 tive-Free) Twinrix-HEP A&b 2019-03-05 Completed [facility] 00:00:00 Td <Unspecified> 2016-03-05 Completed [facility] Vital Signs Vital Name Observation Time Observation Value Comments Source Heart rate 2019-11-26 15:13:00 72 /min [facility] Body temperature 2019-11-26 15:13:00 36.72 Navya Amaris is [facility] Respiratory rate 2019-11-26 15:13:00 18 /min Amaris is [facility] Oxygen saturation in 2019-11-26 15:13:00 100 /min [facility] Arterial blood by Pulse oximetry Systolic blood pressure 2019-11-26 11:17:00 108 mm[Hg] [facility] Diastolic blood pressure 2019-11-26 11:17:00 68 mm[Hg] [facility] Body height 2019-11-13 21:00:00 162.6 cm [facility] Body weight 2019-11-13 21:00:00 92.262 kg [facility] BMI 2019-11-13 21:00:00 34.91 kg/m2 [facility] Procedures Procedure Date / Time Performed Performing Clinician Sourkeron e XRAY FOOT 3 VIEWS MIN 2019-11-26 19:00:00 Chad Candie Leung [facility] XRAY ANKLE 3 VIEW MIN 2019-11-26 19:00:00 Erin Bonillawyatt Leung [facility] XRAY TIBIA AND FIBULA 2 2019-11-26 19:00:00 Candie Bonilla [facility] is Health VIEWS CBC/DIFF 2019-11-18 09:22:00 Mobile [facility] BASIC METABOLIC PANEL 2019-11-18 09:22:00 [facility] hospitalJoberatorJuan Jose Timothy [facility] [employer] MAGNESIUM 2019-11-18 09:22:00 [facility] CBC 2019-11-18 09:22:00 [facility] CBC/DIFF 2019-11-17 08:46:00 [employer] dba BoounceFluidJuan Jose [facility] BASIC METABOLIC PANEL 2019-11-17 08:46:00 Archive Systemsjano Timothy Glassy [employer] MAGNESIUM 2019-11-17 08:46:00 [facility]omThatFluidJuan [facility] CBC 2019-11-17 08:46:00 [facility] GLUCOSE POC 2019-11-16 20:54:00 [facility] [place] [facility] MRI BRAIN W/O CONTRAST 2019-11-16 19:46:18 Deshaun Waldron [facility] Health CBC/DIFF 2019-11-16 08:44:00 Samuel Timothy [facility] BASIC METABOLIC PANEL 2019-11-16 08:44:00 KatarinaMarenJuan Jose Timothy [facility] MAGNESIUM 2019-11-16 08:44:00 Samuel Timothy [facility] CBC 2019-11-16 08:44:00 Samuel Timothy [facility] XRAY SKULL 4 VIEWS MIN 2019-11-15 18:04:17 Deshaun Waldron [facility] Health CBC/DIFF 2019-11-15 09:57:00 Samuel Timothy [facility] BASIC METABOLIC PANEL 2019-11-15 09:57:00 KatarinaMarenJuan Jose Timothy [facility] MAGNESIUM 2019-11-15 09:57:00 Samuel Timothy [facility] CBC 2019-11-15 09:57:00 Samuel Timothy [facility] LEAD, WHOLE BLOOD (ADULT) 2019-11-14 19:14:00 [place] [facility]an [facility] INFUSION PUMP 2019-11-14 15:21:01 [facility] [place] [facility] CBC/DIFF 2019-11-14 09:45:00 Samuel Timothy [facility] BASIC METABOLIC PANEL 2019-11-14 09:45:00 Samuel Timothy [facility] MAGNESIUM 2019-11-14 09:45:00 Samuel Timothy [facility] CBC 2019-11-14 09:45:00 Samuel Timothy [facility] VALPROIC ACID 2019-11-14 02:01:00 Samuel Timothy [facility] BASIC METABOLIC PANEL 2019-11-14 02:01:00 Samuel Timothy [facility] FERRITIN 2019-11-14 02:01:00 Samuel Timothy [facility] IRON PROFILE 2019-11-14 02:01:00 Samuel Timothy [facility] FOLIC ACID 2019-11-14 02:01:00 Samuel Timothy [facility] HIV-1/HIV-2 ROUTINE 2019-11-14 02:01:00 Samuel Timothy [facility] Health SCREENING HEPATITIS PANEL 2019-11-14 02:01:00 Laurel Bakershayy Singh [facility] ANASTACIO 2019-11-14 02:01:00 Laurel Bakershayy Singh [facility] SYPHILIS SCREEN FOR 2019-11-14 02:01:00 Sheestuardo Timothy [facility] INFECTION VIT D, 25-HYDROXY 2019-11-14 02:01:00 KatarinaJuan Jose Timothy [facility] VITAMIN B12 2019-11-14 02:01:00 [facility]INE DIPSTICK - 2019-11-13 15:36:00 Jennifer Ta [facility] TEST 2019-11-13 15:31:[address] HEAD W/O CONTRAST 2019-11-13 15:26:47 Jennifer [facility] CREATININE POC 2019-11-13 12:27:00 Unknown, Provider Francsico [facility] BMP POC 2019-11-13 12:26:00 Unknown, Provider Francisco [facility] CBC/DIFF 2019-11-13 12:21:00 Neelam Germain CBC 2019-11-13 12:21:00 Neelam Germain [facility] ECHG EKG PROC 12 LEAD EKG; 2019-11-13 11:20:07 Neelam Germain [facility] TRACING ONLY GLUCOSE POC 2019-11-13 10:51:00 Kingsley Pe[facility] X[facility] ANKLE 3 VIEWS - ROUTINE 2019-11-13 05:10:00 Phillip Abraham [facility] XRAY FOOT 3 VIEWS - ROUTINE 2019-11-13 05:10:00 Phillip Abraham [facility] POCT URINE DIPSTICK - 2019-11-13 04:22:00 Phillip [facility] XRAY FOOT 3 VIEWS - ROUTINE 2019-10-26 03:38:36 Jennifer Vides [facility] CTA HEAD W CONTRAST 2019-10-18 06:51:[address] HEAD W/O CONTRAST 2019-10-18 05:28:40 Aries Mcintosh [facility] VALPROIC ACID 2019-10-17 20:37:00 [facility] 2019-10-17 20:37:00 Frank Waldronng [facility] h TEST 2019-10-17 19:12:00 Jennifer Vides [facility] BASIC METABOLIC PANEL 2019-10-17 18:07:00 Jennifer Vides Health CBC/DIFF 2019-10-17 18:07:00 Jennifer Vides [facility] CBC 2019-10-17 18:07:00 Jennifer Vides [facility] POC HIV RAPID 1/2-FQHC 2019-03-05 00:00:00 Francisca Quiroz is [facility] MANUALLY ENTERED POC URINE DIPSTICK W/O 2019-02-26 15:48:00 Francisca Quiroz is Health MICRO-FQHC MANUALLY ENTERED CT,NG,TRICH VAG BY YOLANDA 2019-02-26 14:00:00 Francisca Quiroz is Health T PALLIDUM AB (FTA-AB) 2019-02-26 14:00:00 Francisca Quiroz is [facility] PAP IG,HPV-HR 2019-02-26 14:00:00 Francisca Quiroz [facility] COMPREHENSIVE METABOLIC 2019-02-26 14:00:[address] [facility] PANEL(14) CBC WITH 2019-02-26 14:00:00 Francisca Quiroz [facility] DIFFERENTIAL/PLATELET TSH 2019-02-26 14:00:00 Francisca Quiroz [facility] HEMOGLOBIN A1C 2019-02-26 14:00:00 Francisca Quiroz [facility] HCV ANTIBODY 2019-02-26 14:00:00 Francisca Quiroz [facility] HBSAG SCREEN 2019-02-26 14:00:00 Francisca Quiroz [facility] HEP B SURFACE AB 2019-02-26 14:00:00 Francisca Quiroz [facility] HPV, LOW VOLUME RFX 2019-02-26 14:00:00 Francisca Quiroz [facility] POC URINE -FQHC 2019-02-26 00:00:00 [facility] MAN[facility] Plan of Care Planned Activity Planned Date Details Comments Source Future Scheduled Test 2024-02-27 00:00:00 Cervical Cancer Scrn [facility] (5 Yrs) [code = Cervical Cancer Scrn (5 Yrs)] Future Scheduled Test 2020-06-10 00:00:00 IMM Influenza [facility] Seasonal Jun to November (>/= 19 yrs) [code = IMM Influenza Seasonal Jun to November (>/= 19 yrs)] Encounters Start End Encounter Admission Attending Care Care Encounter Source Date/Time Date/Time Type Type Clinicians Facility Department ID 2020-03-02 2020-03-02 Outpatient [facility] [id number] [place] 00:00:00 00:00:00 [facility] 2019-11-26 2019-11-26 Emergency [facility] [id number] [place] 13:47:57 13:47:57 [facility] 2019-11-26 2019-11-26 Emergency [facility] [id number] [place] 11:21:06 11:21:06 [facility] 2019-11-17 2019-11-17 Outpatient [facility] [id number] [facility] 00:00:00 00:00:00 2019-11-16 2019-11-16 Outpatient [facility] [id number] [place] 11:26:52 11:26:52 Health 2019-11-15 2019-11-15 Outpatient [facility] [id number] [place] 11:58:23 11:58:23 Health 2019-11-15 2019-11-15 Outpatient [facility] [id number] [place] 11:43:04 11:43:04 Health 2019-11-14 2019-11-14 Outpatient [facility] [id number] [place] 10:26:02 10:26:02 [facility] 2019-11-13 2019-11-13 Emergency [facility] [id number] [place] 09:21:23 09:21:23 Health 2019-11-13 2019-11-13 Outpatient [facility] [id number] [place] 06:32:39 06:32:39 Health 2019-11-12 2019-11-12 Emergency [facility] [id number] [place] 22:50:38 22:50:38 [facility] 2019-11-12 2019-11-12 Emergency [facility] [id number] [place] 19:42:14 19:42:14 Health 2019-11-04 2019-11-04 Outpatient [facility] [id number] [facility] 14:33:46 14:33:46 2019-10-31 2019-10-31 Outpatient [facility] [id number] [facility] 15:44:39 15:44:39 2019-10-25 2019-10-25 Emergency [facility] [id number] [place] 23:23:24 23:23:24 [facility] 2019-10-25 2019-10-25 Emergency [facility] [id number] [place] 21:03:20 21:03:20 [facility] 2019-10-25 2019-10-25 Emergency [facility] [id number] [place] 00:00:00 00:00:00 [facility] 2019-10-20 2019-10-20 Outpatient [facility] [id number] [facility] 13:26:36 13:26:36 2019-10-18 2019-10-18 Emergency [facility] [id number] [place] 00:10:57 00:10:57 [facility] 2019-10-17 2019-10-17 Emergency [facility] [id number] [place] 23:08:41 23:08:41 [facility] 2019-10-17 2019-10-17 [facility] [id number] [place] 12:52:25 12:52:25 [facility] 2019-09-24 2019-09-24 Outpatient [facility] [id number] [facility] 09:00:30 09:00:30 Results Test Description Test Test Results Result Source Time Comments Comments XR Chest 1 View 2020-02- Patient: SOURAV BEY 16:17:32 Date/Time02/12/2020 16:10 CDTReason for ExamPneumoniaReportDictation location R16:Portable chest one view.HISTORY: PneumoniaCOMMENT: Compared to 02/09/2020 . There is moderate peribronchial thickening with no consolidation, pneumothorax or effusion. The heart and pulmonary vasculature is normal. Visualized soft tissues and skeletal structures are unremarkable.IMPRESSION: No active disease or changes in the chest. Final Dictated by: MD Glez Phebe CDictated DT/TM: 02/12/2020 4:16 pmSigned by: MD Glez Phebe CSigned (Electronic Signature): 02/12/2020 4:17 pm Procalcitonin 2020-02- <0.02 A procalcitonin (PCT) 04 level above 2.0 ng/mL on the 12:09:38 firstday of ICU admission is associated with a high risk forprogression to severe sepsis and/or septic shock. A PCT level below 0.5 ng/mL on the first day of ICUadmission is associated with a low risk for progressionto severe sepsis and/or septic shock. Note: Concentrations <0.5 ng/mL do not exclude aninfection, on account of localized infections (withoutsystemic signs) which can be associated with such lowconcentrations, or a systemic infection in its initialstages (<6 hours).Furthermore, increased procalcitonin can occur withoutinfection. PCT concentrations between 0.5 and 2.0 ng/mLshould be interpreted taking into account the patient'shistory. It is recommended to retest PCT within 6-24 hoursif any concentrations <2 ng/mL are obtained.Performed At: [facility] [id number] Kyle L MD Ph:[phone] Novel Coronavirus 2020-02- Not DetectedTesting was (COVID-19), YOLANDA 04 performed using the miguel(R) LC 10:12:58 SARS-CoV-2 test.This test was developed and its performance characteristicsdetermined by [facility]. This test has not beenFDA cleared or approved. This test has been authorized byFDA under an Emergency Use Authorization (EUA). This testis only authorized for the duration of time the declarationthat circumstances exist justifying the authorization ofthe emergency use of in vitro diagnostic tests fordetection of SARS-CoV-2 virus and/or diagnosis of COVID-19infection under section 564(b)(1) of the Act, 21 U.S.C.360bbb-3(b)(1), unless the authorization is terminated orrevoked sooner. When diagnostic testing is negative, thepossibility of a false negative result should be consideredin the context of a patient's recent exposures and thepresence of clinical signs and symptoms consistent withCOVID-19. An individual without symptoms of COVID-19 andwho is not shedding SARS-CoV-2 virus would expect to have anegative (not detected) result in this assay.Performed At: [address] [id number] Ortiz MD Ph:[id number] Ferritin 2020-02-11 09:17:16 Test Item Value Reference Range Interpretation Comme nts Ferritin Level (test code = Ferritin Level) 18 ng/mL 13-150 Basic Metabolic [id number] 06:58:24 Test Item Value Reference Range Interpretation Comments Sodium Level (test 135.0 mmol/L 135.0-145.0 code = Sodium Level) Potassium Level 4.1 mmol/L 3.5-5.1 (test code = Potassium Level) Chloride Level (test 101 mmol/L 98-105 code = Chloride Level) CO2 (test code = 27 mmol/L 22-29 CO2) Anion Gap (test code 7 mmol/L 7-16 = Anion Gap) BUN (test code = 12.00 mg/dL 6.00-20.00 BUN) Creatinine Level 0.90 mg/dL 0.50-0.90 (test code = Creatinine Level) BUN/Creat Ratio 13 N (test code = BUN/Creat Ratio) Glucose Level (test 100 mg/dL 70-115 code = Glucose Level) Calcium Level (test 8.8 mg/dL 8.3-10.6 code = Calcium Level) eGFR AA (test code = >60 N eGFR (e stimated eGFR AA) mL/min/1.73 m2 Glomerular Filtration Rate ) is an estimated va lue, calculated from the patient's serum creatinine usin g the MDRD equation. It is NOT the patient 's actual GFR. The eGFR provides a more clinically usef ul measure of kidn ey disease than se rum creatinine alone.This calculation sean es sex and race in to account, if the information is provided. If th e race is not provided, and t he patient is -Isabel n, multiply by 1.2 12. If sex is not provided, and t he patient is fema le, multiply by 0.7 42. Results for pat ients <18 years of ag e have not been validated by th e MDRD study and should be interpreted wit h caution. eGFR R esult Interpretation: eGFR > or = 60 is in the Normal RangeeGF R < 60 may mean kid carmelina diseaseeGFR < 1 5 may mean kidney failure Rang es recommended by the National Kidney Foundation, http://nkdep.ni h.gov eGFR Non-AA (test >60.00 N eGFR (rafita mated code = eGFR Non-AA) mL/min/1.73 m2 Glomer ular Filtration Rate ) is an estimated va lue, calculated from the patient's serum creatinine usin g the MDRD equation. It is NOT the patient 's actual GFR. The eGFR provides a more clinically usef ul measure of kidn ey disease than se rum creatinine alone.This calculation sean es sex and race in to account, if the information is provided. If th e race is not provided, and t he patient is -Isabel n, multiply by 1.2 12. If sex is not provided, and t he patient is fema le, multiply by 0.7 42. Results for pat ients <18 years of ag e have not been validated by th e MDRD study and should be interpreted wit h caution. eGFR R esult Interpretation: eGFR > or = 60 is in the Normal RangeeGF R < 60 may mean kid carmelina diseaseeGFR < 1 5 may mean kidney failure Rang es recommended by the National Kidney Foundation, http://nkdep.ni h.gov Hepatic Function [id number] 05:35:45 Test Item Value Reference Range Interpretation Comments Protein Total (test 6.3 g/dL 6.4-8.3 L code = Protein Total) Albumin Level (test 3.5 g/dL 3.5-5.2 code = Albumin Level) Bilirubin Total 0.2 mg/dL 0.1-0.9 (test code = Bilirubin Total) Bilirubin Direct <0.2 mg/dL 0.0-0.3 Direct Bili portillo (test code = methodology may be Bilirubin Direct) affected b y hemolysis. Bilirubin Indirect >0.00 mg/dL N (test code = Bilirubin Indirect) Alk Phos (test code 62 U/L 35-104 = Alk Phos) AST (test code = 18 U/L 1-32 AST) ALT (test code = 12 U/L 1-33 ALT) A/G Ratio (test code 1.2 ratio N = A/G Ratio) Globulin (test code 2.8 g/dL 2.9-3.1 L = Globulin) Lactate [id number] 05:35:45 Test Item Value Reference Range Interpretation Comments LDH (test code = LDH) 206 U/L 135-214 C Reactive [id number] 05:35:45 Test Item Value Reference Range Interpretation Comments CRP (test code = CRP) 6.4 mg/L 0.0-5.0 H Lactic Acid, Plasma (Venous)2020-02-11 05:12:57 Test Item Value Reference Range Interpretation Comments Lactic Acid, Plasma (Venous) (test 0.7 mmol/L 0.5-1.9 code = Lactic Acid, Plasma (Venous)) Fibrinogen [id number] 05:04:01 Test Item Value Reference Range Interpretation Comments Fibrinogen Level (test code = 226.0 mg/dL 188.5-473.8 Fibrinogen Level) D-Dimer [id number] 05:04:01 Test Item Value Reference Range Interpretation Comments D Dimer, (Quant.) (test code = D 406 ng/mL 0-500 Dimer, (Quant.)) Complete Blood Count with [id number] 04:56:23 Test Item Value Reference Range Interpretation Comments WBC (test code = 6.6 x10 4.4-10.5 WBC) RBC (test code = 4.10 x10 3.75-5.20 RBC) Hgb (test code = 10.9 g/dL 12.2-14.8 L Hgb) MCV (test code = 87.60 fL 80.00-100.00 MCV) Hct (test code = 35.9 % 36.5-44.4 L Hct) MCHC (test code = 30.40 g/dL 32.00-37.50 L MCHC) RDW CV (test code = 13.4 % 11.5-14.5 RDW CV) MCH (test code = 26.6 pg 27.0-32.5 L MCH) Platelets (test code 305.0 x10 140.0-440.0 Delta c heck = Platelets) investigated va lues correlate with patients condition, no r mar givenResults ca lled to and read back b y: AUDREY Garcia 02/11/2020 04:56:13 CDT CE MPV (test code = 9.1 fL N MPV) Slide Review (test Auto Auto Result cr eated by code = Slide Review) GL_SJM_ SLIDE_REV_AUTO nRBC (test code = 0 N nRBC) NRBC Abs (test code 0.00 x10 N = NRBC Abs) IPF (test code = 0 % N IPF) Automated [id number] 04:56:23 Test Item Value Reference Range Interpretation Comments Neutro Auto (test code = Neutro 45.7 % 36.0-70.0 Auto) Lymph Auto (test code = Lymph Auto) 39.7 % 12.0-44.0 Barber Auto (test code = Barber Auto) 10.7 % 0.0-11.0 Eos, Auto (test code = Eos, Auto) 2.9 % 0.0-7.0 Basophil Auto (test code = Basophil 0.5 % 0.0-2.0 Auto) Neutro Absolute (test code = Neutro 3.0 x10 1.6-7.4 Absolute) Lymph Absolute (test code = Lymph 2.61 x10 .50-4.60 Absolute) Barber Absolute (test code = Barber .70 x10 .00-1.20 Absolute) Eos Absolute (test code = Eos 0.19 x10 0.00-0.74 Absolute) Baso Absolute (test code = Baso 0.03 x10 0.00-0.21 Absolute) IG [id number] 04:56:23 Test Item Value Reference Range Interpretation Comments IG (test code = IG) 0.5 % 0.0-5.0 IG Abs (test code = IG Abs) 0 x10 N Comprehensive Metabolic [id number] 15:04:07 Test Item Value Reference Range Interpretation Comments Sodium Level (test 135.0 mmol/L 135.0-145.0 code = Sodium Level) Potassium Level 4.4 mmol/L 3.5-5.1 (test code = Potassium Level) Chloride Level (test 101 mmol/L 98-105 code = Chloride Level) CO2 (test code = 27 mmol/L 22-29 CO2) Anion Gap (test code 7 mmol/L 7-16 = Anion Gap) BUN (test code = 13.60 mg/dL 6.00-20.00 BUN) Creatinine Level 0.80 mg/dL 0.50-0.90 (test code = Creatinine Level) BUN/Creat Ratio 17 N (test code = BUN/Creat Ratio) Glucose Level (test 103 mg/dL 70-115 code = Glucose Level) Calcium Level (test 8.1 mg/dL 8.3-10.6 L done on Atellicanew code = Calcium reference ran ge: Level) 8.3-10.6 mg/dL Alk Phos (test code 64 U/L 35-104 = Alk Phos) Bilirubin Total 0.2 mg/dL 0.1-0.9 (test code = Bilirubin Total) Albumin Level (test 3.6 g/dL 3.5-5.2 code = Albumin Level) Protein Total (test 6.5 g/dL 6.4-8.3 code = Protein Total) ALT (test code = 13 U/L 1-33 ALT) AST (test code = 19 U/L 1-32 AST) Globulin (test code 2.9 g/dL 2.9-3.1 = Globulin) A/G Ratio (test code 1.2 ratio N = A/G Ratio) eGFR AA (test code = >60 N eGFR (e stimated eGFR AA) mL/min/1.73 m2 Glomerular Filtration Rate ) is an estimated va lue, calculated from the patient's serum creatinine usin g the MDRD equation. It is NOT the patient 's actual GFR. The eGFR provides a more clinically usef ul measure of kidn ey disease than se rum creatinine alone.This calculation sean es sex and race in to account, if the information is provided. If th e race is not provided, and t he patient is -Isabel n, multiply by 1.2 12. If sex is not provided, and t he patient is fema le, multiply by 0.7 42. Results for pat ients <18 years of ag e have not been validated by th e MDRD study and should be interpreted wit h caution. eGFR R esult Interpretation: eGFR > or = 60 is in the Normal RangeeGF R < 60 may mean kid carmelina diseaseeGFR < 1 5 may mean kidney failure Rang es recommended by the National Kidney Foundation, http://nkdep.ni h.gov eGFR Non-AA (test >60.00 N eGFR (rafita mated code = eGFR Non-AA) mL/min/1.73 m2 Glomer ular Filtration Rate ) is an estimated va lue, calculated from the patient's serum creatinine usin g the MDRD equation. It is NOT the patient 's actual GFR. The eGFR provides a more clinically usef ul measure of kidn ey disease than se rum creatinine alone.This calculation sean es sex and race in to account, if the information is provided. If th e race is not provided, and t he patient is -Isabel n, multiply by 1.2 12. If sex is not provided, and t he patient is fema le, multiply by 0.7 42. Results for pat ients <18 years of ag e have not been validated by th e MDRD study and should be interpreted wit h caution. eGFR R esult Interpretation: eGFR > or = 60 is in the Normal RangeeGF R < 60 may mean kid carmelina diseaseeGFR < 1 5 may mean kidney failure Rang es recommended by the National Kidney Foundation, http://nkdep.ni h.gov C Reactive [id number] 12:02:24 Test Item Value Reference Range Interpretation Comments CRP (test code = CRP) 2.8 mg/L 0.0-5.0 Automated [id number] 10:31:00 Test Item Value Reference Range Interpretation Comments Neutro Auto (test code = Neutro 49.7 % 36.0-70.0 Auto) Lymph Auto (test code = Lymph Auto) 31.5 % 12.0-44.0 Barber Auto (test code = Barber Auto) 12.3 % 0.0-11.0 H Eos, Auto (test code = Eos, Auto) 5.5 % 0.0-7.0 Basophil Auto (test code = Basophil 0.6 % 0.0-2.0 Auto) Neutro Absolute (test code = Neutro 2.3 x10 1.6-7.4 Absolute) Lymph Absolute (test code = Lymph 1.48 x10 .50-4.60 Absolute) Barber Absolute (test code = Barber .58 x10 .00-1.20 Absolute) Eos Absolute (test code = Eos 0.26 x10 0.00-0.74 Absolute) Baso Absolute (test code = Baso 0.03 x10 0.00-0.21 Absolute) IG [id number] 10:31:00 Test Item Value Reference Range Interpretation Comments IG (test code = IG) 0.4 % 0.0-5.0 IG Abs (test code = IG Abs) 0 x10 N Complete Blood Count with [id number] 10:30:59 Test Item Value Reference Range Interpretation Comments WBC (test code = WBC) 4.7 x10 4.4-10.5 RBC (test code = RBC) 4.04 x10 3.75-5.20 Hgb (test code = Hgb) 11.3 g/dL 12.2-14.8 L MCV (test code = MCV) 88.40 fL 80.00-100.00 Hct (test code = Hct) 35.7 % 36.5-44.4 L MCHC (test code = 31.70 g/dL 32.00-37.50 L MCHC) RDW CV (test code = 17.2 % 11.5-14.5 H RDW CV) MCH (test code = MCH) 28.0 pg 27.0-32.5 Platelets (test code = 179.0 x10 140.0-440.0 Platelets) MPV (test code = MPV) 8.7 fL N Slide Review (test Auto Auto Result cr eated by code = Slide Review) GL_SJM_ SLIDE_REV_AUTO nRBC (test code = 0 N nRBC) NRBC Abs (test code = 0.00 x10 N NRBC Abs) IPF (test code = IPF) 0 % N Urine [id number] 10:00:32 C Urine Added by GL_SJM_UA_CUL_IND>=100,000 cfu/ml Diphtheroids 10,000 cfu/ml Gamma Streptococcus <10,000 cfu/ml Alpha Streptococcus Multiple organisms present, no further workup in progress. Fibrinogen [id number] 23:35:18 Test Item Value Reference Range Interpretation Comments Fibrinogen Level (test code = 226.0 mg/dL 188.5-473.8 Fibrinogen Level) [id number] 23:32:29 Test Item Value Reference Range Interpretation Comments Ferritin Level (test code = Ferritin 17 ng/mL 13-150 Level) Lactate [id number] 22:35:45 Test Item Value Reference Range Interpretation Comments LDH (test code = LDH) 246 U/L 135-214 H C Reactive [id number] 22:35:45 Test Item Value Reference Range Interpretation Comments CRP (test code = CRP) 2.8 mg/L 0.0-5.0 Complete Blood Count with [id number] 22:00:38 Test Item Value Reference Range Interpretation Comments WBC (test code = 6.1 x10 4.4-10.5 WBC) RBC (test code = 4.10 x10 3.75-5.20 RBC) Hgb (test code = 11.2 g/dL 12.2-14.8 L Hgb) MCV (test code = 90.00 fL 80.00-100.00 MCV) Hct (test code = 36.9 % 36.5-44.4 Hct) MCHC (test code = 30.40 g/dL 32.00-37.50 L MCHC) RDW CV (test code = 14.1 % 11.5-14.5 RDW CV) MCH (test code = 27.3 pg 27.0-32.5 MCH) Platelets (test code 302.0 x10 140.0-440.0 Delta c heck = Platelets) investigated va lues correlate with patients condition, no r mar givenResults ca lled to and read back b y: Abhishek RN 02/09/2020 22:00:30 CDT CE MPV (test code = 9.1 fL N MPV) Slide Review (test Auto Auto Result cr eated by code = Slide Review) GL_SJM_ SLIDE_REV_AUTO nRBC (test code = 0 N nRBC) NRBC Abs (test code 0.00 x10 N = NRBC Abs) IPF (test code = 0 % N IPF) Automated [id number] 22:00:38 Test Item Value Reference Range Interpretation Comments Neutro Auto (test code = Neutro 45.4 % 36.0-70.0 Auto) Lymph Auto (test code = Lymph Auto) 37.4 % 12.0-44.0 Barber Auto (test code = Barber Auto) 11.4 % 0.0-11.0 H Eos, Auto (test code = Eos, Auto) 4.6 % 0.0-7.0 Basophil Auto (test code = Basophil 0.7 % 0.0-2.0 Auto) Neutro Absolute (test code = Neutro 2.8 x10 1.6-7.4 Absolute) Lymph Absolute (test code = Lymph 2.27 x10 .50-4.60 Absolute) Barber Absolute (test code = Barber .69 x10 .00-1.20 Absolute) Eos Absolute (test code = Eos 0.28 x10 0.00-0.74 Absolute) Baso Absolute (test code = Baso 0.04 x10 0.00-0.21 Absolute) IG [id number] 22:00:38 Test Item Value Reference Range Interpretation Comments IG (test code = IG) 0.5 % 0.0-5.0 IG Abs (test code = IG Abs) 0 x10 N Troponin [id number] 19:40:14 Test Item Value Reference Range Interpretation Comments Troponin-T (test <6.000 ng/L 0.000-14.000 The CV of t he assay at code = Troponin-T) 99th perc entile for both male and female patient population is < 10%. A rise and fall i n DAYO with at least o ne value above the 99th percentile with clinical evidence of desire cardial ischemia would support a diagnosis of AM I. A delta of at farhad st 20% is recommended to assess acute changes i n results above the 99th percentile in s erial measurements. S table DAYO levels (<20%) d elta above the 99th percentile URL would support a diagn osis of chronic myocard ial injury. Urine Drug [id number] 19:31:13 Test Item Value Reference Range Interpretation Comments Amphetamine Screen Ur Negative Negative (test code = Amphetamine Screen Ur) Barbiturate Screen Ur Negative Negative (test code = Barbiturate Screen Ur) Benzodiazepines Ur (test Negative Negative code = Benzodiazepines Ur) Cocaine Screen Ur (test Negative Negative code = Cocaine Screen Ur) U Methadone Scr (test Negative Negative code = U Methadone Scr) Opiate Screen Ur (test Negative Negative code = Opiate Screen Ur) U PCP Scrn (test code = POSITIVE Negative A U PCP Scrn) Cannabinoid Screen Ur Negative Negative (test code = Cannabinoid Screen Ur) U TCA (test code = U Negative Negative The res ults of all TCA) drug screen jan ts are only preliminar y. Clinical consideration a nd professional ju dgment should be appli ed to any drug of abu se test result, particularly wh en preliminary pos itive results are obt ained. Please order a separate confir matory test if desired . HCG Qualitative [id number] 19:08:08 Test Item Value Reference Range Interpretation Comments HCG, Serum Qual (test code = HCG, Negative Serum Qual) Lot # (test code = Lot #) [id number] N Expiration Dt (test code = 2021-07-10 N Expiration Dt) Neg Control (test code = Neg Negative Control) Pos Control (test code = Pos Positive Control) Internal QC (test code = Internal Acceptable QC) Urinalysis [id number] 19:04:03 Test Item Value Reference Range Interpretation Comments UA WBC (test code = UA WBC) None Seen 0-5 UA RBC (test code = UA RBC) 6-10 0-5 A UA Bacteria (test code = UA Few A Bacteria) UA Squam Epithelial (test code = UA 20-29 A Squam Epithelial) Comprehensive Metabolic [id number] 19:03:43 Test Item Value Reference Range Interpretation Comments Sodium Level (test code = Sodium 134.0 mmol/L 135.0-145.0 L Level) Potassium Level (test code = 4.4 mmol/L 3.5-5.1 Potassium Level) Chloride Level (test code = 98 mmol/L 98-105 Chloride Level) CO2 (test code = CO2) 28 mmol/L 22-29 Anion Gap (test code = Anion 8 mmol/L 7-16 Gap) BUN (test code = BUN) 13.90 mg/dL 6.00-20.00 Creatinine Level (test code = 1.00 mg/dL 0.50-0.90 H Creatinine Level) BUN/Creat Ratio (test code = 14 N BUN/Creat Ratio) Glucose Level (test code = 79 mg/dL 70-115 Glucose Level) Calcium Level (test code = 9.7 mg/dL 8.3-10.5 Calcium Level) Alk Phos (test code = Alk Phos) 75 U/L 35-104 Bilirubin Total (test code = 0.2 mg/dL 0.1-0.9 Bilirubin Total) Albumin Level (test code = 4.4 g/dL 3.5-5.2 Albumin Level) Protein Total (test code = 7.8 g/dL 6.4-8.3 Protein Total) ALT (test code = ALT) 16 U/L 1-33 AST (test code = AST) 22 U/L 1-32 Globulin (test code = Globulin) 3.4 g/dL 2.9-3.1 H A/G Ratio (test code = A/G 1.3 ratio N Ratio) Comprehensive Metabolic [id number] 19:03:43 Test Item Value Reference Range Interpretation Comments Sodium Level (test 134.0 mmol/L 135.0-145.0 L code = Sodium Level) Potassium Level 4.4 mmol/L 3.5-5.1 (test code = Potassium Level) Chloride Level (test 98 mmol/L 98-105 code = Chloride Level) CO2 (test code = 28 mmol/L 22-29 CO2) Anion Gap (test code 8 mmol/L 7-16 = Anion Gap) BUN (test code = 13.90 mg/dL 6.00-20.00 BUN) Creatinine Level 1.00 mg/dL 0.50-0.90 H (test code = Creatinine Level) BUN/Creat Ratio 14 N (test code = BUN/Creat Ratio) Glucose Level (test 79 mg/dL 70-115 code = Glucose Level) Calcium Level (test 9.7 mg/dL 8.3-10.5 code = Calcium Level) Alk Phos (test code 75 U/L 35-104 = Alk Phos) Bilirubin Total 0.2 mg/dL 0.1-0.9 (test code = Bilirubin Total) Albumin Level (test 4.4 g/dL 3.5-5.2 code = Albumin Level) Protein Total (test 7.8 g/dL 6.4-8.3 code = Protein Total) ALT (test code = 16 U/L 1-33 ALT) AST (test code = 22 U/L 1-32 AST) Globulin (test code 3.4 g/dL 2.9-3.1 H = Globulin) A/G Ratio (test code 1.3 ratio N = A/G Ratio) eGFR AA (test code = >60 N eGFR (e stimated eGFR AA) mL/min/1.73 m2 Glomerular Filtration Rate ) is an estimated va lue, calculated from the patient's serum creatinine usin g the MDRD equation. It is NOT the patient 's actual GFR. The eGFR provides a more clinically usef ul measure of kidn ey disease than se rum creatinine alone.This calculation sean es sex and race in to account, if the information is provided. If th e race is not provided, and t he patient is -Isabel n, multiply by 1.2 12. If sex is not provided, and t he patient is fema le, multiply by 0.7 42. Results for pat ients <18 years of ag e have not been validated by e MDRD study and should be interpreted wit h caution. eGFR R esult Interpretation: eGFR > or = 60 is in the Normal RangeeGF R < 60 may mean kid carmelina diseaseeGFR < 1 5 may mean kidney failure Rang es recommended by the National Kidney Foundation, http://nkdep.ni h.gov Alcohol [id number] 19:03:43 Test Item Value Reference Range Interpretation Comments Ethanol Level (test <0.00 g/dL 0.00-0.01 Intoxica ginger 0.080 g/dL code = Ethanol or more Level) Ethanol Inst (test <0 N code = Ethanol Inst) Comprehensive Metabolic [id number] 19:03:43 Test Item Value Reference Range Interpretation Comments Sodium Level (test 134.0 mmol/L 135.0-145.0 L code = Sodium Level) Potassium Level 4.4 mmol/L 3.5-5.1 (test code = Potassium Level) Chloride Level (test 98 mmol/L 98-105 code = Chloride Level) CO2 (test code = 28 mmol/L 22-29 CO2) Anion Gap (test code 8 mmol/L 7-16 = Anion Gap) BUN (test code = 13.90 mg/dL 6.00-20.00 BUN) Creatinine Level 1.00 mg/dL 0.50-0.90 H (test code = Creatinine Level) BUN/Creat Ratio 14 N (test code = BUN/Creat Ratio) Glucose Level (test 79 mg/dL 70-115 code = Glucose Level) Calcium Level (test 9.7 mg/dL 8.3-10.5 code = Calcium Level) Alk Phos (test code 75 U/L 35-104 = Alk Phos) Bilirubin Total 0.2 mg/dL 0.1-0.9 (test code = Bilirubin Total) Albumin Level (test 4.4 g/dL 3.5-5.2 code = Albumin Level) Protein Total (test 7.8 g/dL 6.4-8.3 code = Protein Total) ALT (test code = 16 U/L 1-33 ALT) AST (test code = 22 U/L 1-32 AST) Globulin (test code 3.4 g/dL 2.9-3.1 H = Globulin) A/G Ratio (test code 1.3 ratio N = A/G Ratio) eGFR AA (test code = >60 N eGFR (e stimated eGFR AA) mL/min/1.73 m2 Glomerular Filtration Rate ) is an estimated va lue, calculated from the patient's serum creatinine usin g the MDRD equation. It is NOT the patient 's actual GFR. The eGFR provides a more clinically usef ul measure of kidn ey disease than se rum creatinine alone.This calculation sean es sex and race in to account, if the information is provided. If th e race is not provided, and t he patient is -Isabel n, multiply by 1.2 12. If sex is not provided, and t he patient is fema le, multiply by 0.7 42. Results for pat ients <18 years of ag e have not been validated by [facility] MDRD study and should be interpreted wit h caution. eGFR R esult Interpretation: eGFR > or = 60 is in the Normal RangeeGF R < 60 may mean kid carmelina diseaseeGFR < 1 5 may mean kidney failure Rang es recommended by the National Kidney Foundation, http://nkdep.ni h.gov eGFR Non-AA (test >60.00 N eGFR (rafita mated code = eGFR Non-AA) mL/min/1.73 m2 Glomer ular Filtration Rate ) is an estimated va lue, calculated from the patient's serum creatinine usin g the MDRD equation. It is NOT the patient 's actual GFR. The eGFR provides a more clinically usef ul measure of kidn ey disease than se rum creatinine alone.This calculation sean es sex and race in to account, if the information is provided. If th e race is not provided, and t he patient is -Isabel n, multiply by 1.2 12. If sex is not provided, and t he patient is fema le, multiply by 0.7 42. Results for pat ients <18 years of ag e have not been validated by [facility] MDRD study and should be interpreted wit h caution. eGFR R esult Interpretation: eGFR > or = 60 is in the Normal RangeeGF R < 60 may mean kid carmelina diseaseeGFR < 1 5 may mean kidney failure Rang es recommended by the National Kidney Foundation, http://nkdep.ni h.gov XR Chest 1 View [id number] 18:52:37Patient: SOURAV BEY Date/Time02/09/202018:31 CDTReason for ExamShortness of breathReportDICTATION LOCATION: [id number]: Female, 39 years of age with Shortness of breathEXAM: CHEST X-RAY, ONE VIEWCOMPARISON: NoneCOMMENT: Frontal view of the chest is provided. Faint interstitial opacities are seen in the right upper lobe, right lower lobe, and left lower lobe. No lobar consolidation, mass, or pleural effusion. Cardiac silhouette is within normal limits. No acute bony abnormalities.IMPRESSION: Mild nonspecific perihilar interstitialopacities. Imaging features can be seen with COVID-19 pneumonia, though are nonspecific and can occur with a variety of infectious and noninfectious processes. Final Dictated by: Clarissa White LDictated DT/TM: 02/09/2020 6:51 pmSigned by: Clarissa White LSigned (Electronic Signature): 02/09/2020 6:52 pmUrinalysis with Culture, if [id number] 18:46:10 Test Item Value Reference Range Interpretation Comments UA Color (test code = UA Color) YELLO Yellow UA Appear (test code = UA Appear) CLEAR Clear UA pH (test code = UA pH) 6.5 UA Spec Grav (test code = UA Spec 1.020 1.001-1.035 Grav) UA Glucose (test code = UA Glucose) NEG Negative UA Bili (test code = UA Bili) NEG Negative UA Ketones (test code = UA Ketones) NEG Negative UA Blood (test code = UA Blood) MOD Negative A UA Protein (test code = UA Protein) NEG Negative UA Urobilinogen (test code = UA .2 mg/dL >0.2 Urobilinogen) UA Nitrite (test code = UA Nitrite) NEG Negative UA Leuk Est (test code = UA Leuk NEG Negative Est) UA Micro Ind? (test code = UA Micro Indicated Not Indicated A Ind?) IG [id number] 18:42:20 Test Item Value Reference Range Interpretation Comments IG (test code = IG) 0.7 % 0.0-5.0 IG Abs (test code = IG Abs) 0 x10 N Complete Blood Count with [id number] 18:42:19 Test Item Value Reference Range Interpretation Comments WBC (test code = WBC) 5.5 x10 4.4-10.5 RBC (test code = RBC) 4.46 x10 3.75-5.20 Hgb (test code = Hgb) 12.4 g/dL 12.2-14.8 MCV (test code = MCV) 90.80 fL 80.00-100.00 Hct (test code = Hct) 40.5 % 36.5-44.4 MCHC (test code = 30.60 g/dL 32.00-37.50 L MCHC) RDW CV (test code = 21.6 % 11.5-14.5 H RDW CV) MCH (test code = MCH) 27.8 pg 27.0-32.5 Platelets (test code = 195.0 x10 140.0-440.0 Platelets) MPV (test code = MPV) 7.8 fL N Slide Review (test Auto Auto Result cr eated by code = Slide Review) GL_SJM_ SLIDE_REV_AUTO GL_SJM_XN_RFLX nRBC (test code = 0 N nRBC) NRBC Abs (test code = 0.00 x10 N NRBC Abs) Pos Morph XN (test A N code = Pos Morph XN) IPF (test code = IPF) 0 % N Automated [id number] 18:42:19 Test Item Value Reference Range Interpretation Comments Neutro Auto (test code = Neutro 43.0 % 36.0-70.0 Auto) Lymph Auto (test code = Lymph Auto) 39.3 % 12.0-44.0 Barber Auto (test code = Barber Auto) 11.4 % 0.0-11.0 H Eos, Auto (test code = Eos, Auto) 4.9 % 0.0-7.0 Basophil Auto (test code = Basophil 0.7 % 0.0-2.0 Auto) Neutro Absolute (test code = Neutro 2.4 x10 1.6-7.4 Absolute) Lymph Absolute (test code = Lymph 2.17 x10 .50-4.60 Absolute) Barber Absolute (test code = Barber .63 x10 .00-1.20 Absolute) Eos Absolute (test code = Eos 0.27 x10 0.00-0.74 Absolute) Baso Absolute (test code = Baso 0.04 x10 0.00-0.21 Absolute) XRAY TIBIA AND FIBULA 2 [id number] 14:17:40IMPRESSION: No acute abnormality seen in the right tibia and fibula, ankle and foot. Signed By: Janet Wilson MD, 11/26/2019 2:17 PM Interface, Rad/Mammog In - 11/26/2019 2:22 PM CDTRIGHT TIBIA AND FIBULA SERIES, 2 views.RIGHT ANKLE SERIES, 3 views.RIGHT FOOT SERIES, 3 views.DATE: 11/26/2019 2:13 PMCLINICAL INDICATION: R foot pain s/p falling COMPARISON: Right foot and right ankle performed 11/12/2019.TECHNIQUE: Frontal and lateral views of the right tibia and fibula,frontal, oblique and lateral views of the right ankle and right foot areobtained and submitted for interpretation. DISCUSSION: There is no fracture or malalignment visualized in the tibia, fibula,ankle and foot. Ankle mortise, subtalarjoint and tibiofibular syndesmosis appearpreserved. Midtarsal, metatarsal and phalangeal bones are intact. Joint spaces of the foot are preserved. There is mild hallux valgusdeformity, unchanged.No abnormal bone erosions, periosteal reaction or flattening isdemonstrated. Plantar calcaneal enthesophyte is again seen.No evidence of joint effusion is noted. The surrounding soft tissues are unremarkable. IMPRESSIONIMPRESSION:No acute abnormality seen in the right tibia and fibula, ankle and foot.Signed By: Janet Wilson MD, 11/26/2019 2:17 PMHarris HealthXRAY ANKLE 3 VIEW [id number] 14:17:40IMPRESSION: No acute abnormality seen in the right tibia and fibula, ankle and foot. Signed By: Janet Wilson MD, 11/26/2019 2:17 PM Interface, Naga/Nadia In - 11/26/2019 2:22 PM CDTRIGHT TIBIA AND FIBULA SERIES, 2 views.RIGHT ANKLE SERIES, 3 views.RIGHT FOOT SERIES, 3 views.DATE: 11/26/2019 2:13 PMCLINICAL INDICATION: R foot pain s/p falling COMPARISON: Right foot and right ankle performed 11/12/2019.TECHNIQUE: Frontal and lateral views of the right tibia and fibula,frontal, oblique and lateral views of the right ankle and right foot areobtained and submitted for interpretation. DISCUSSION: There is no fracture or malalignment visualized in the tibia, fibula,ankle and foot. Ankle mortise, subtalarjoint and tibiofibular syndesmosis appearpreserved. Midtarsal, metatarsal and phalangeal bones are intact. Joint spaces of the foot are preserved. There is mild hallux valgusdeformity, unchanged.No abnormal bone erosions, periosteal reaction or flattening isdemonstrated. Plantar calcaneal enthesophyte is again seen.No evidence of joint effusion is noted. The surrounding soft tissues are unremarkable. IMPRESSIONIMPRESSION:No acute abnormality seen in the right tibia and fibula, ankle and foot.Signed By: Janet Wilson MD, 11/26/2019 2:17 PMHarris HealthXRAY FOOT 3 VIEWS [id number]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 (test code = 1.3 1.2-2.2 1758-0) Bilirubin, Total (test 0.2 mg/dL 0-1.2 code = 1974-2) Alkaline Phosphatase 54 39- 117 IU/L (test code = 6768-6) AST (SGOT) (test code = 17 0- 40 IU/L 1919-) ALT (SGPT) (test code = 10 0- 32 IU/L 1741-) KARIS (test code = KARIS) Performed at: [facility] [id number] Director: Hemanth Frey MD, Phone: [phone] [facility] WITH DIFFERENTIAL/[id number] 04:09:00 Test Item Value Reference Range Interpretation Comments WBC (test code = 6690-2) 6.1 3.4- 10.8 x10E3/uL RBC (test code = 789-8) 4.29 3.77- 5.28 x10E6/uL Hemoglobin (test code = 10.9 g/dL 11.1-15.9 L 718-7) Hematocrit (test code = 35.6 % 34-46.6 4544-3) MCV (test code = 787-2) 83 fL 79-97 MCH (test code = 785-6) 25.4 pg 26.6-33 L MCHC (test code = 786-4) 30.6 g/dL 31.5-35.7 L RDW (test code = 788-0) 14.6 % 12.3-15.4 Platelets (test code = 324 150- 450 x10E3/uL 777-3) Neutrophils (test code = 66 % Not Estab. 770-8) Lymphs (test code = 26 % Not Estab. 736-9) Monocytes (test code = 7 % Not Estab. 5905-5) Eos (test code = 713-8) 1 % Not Estab. Basos (test code = 0 % Not Estab. 706-2) Neutrophils (Absolute) 4.0 1.4- 7.0 x10E3/uL (test code = 751-8) Lymphs (Absolute) (test 1.6 0.7- 3.1 x10E3/uL code = 731-0) Monocytes(Absolute) 0.4 0.1- 0.9 x10E3/uL (test code = 742-7) Eos (Absolute) (test 0.1 0.0- 0.4 x10E3/uL code = 711-2) Baso (Absolute) (test 0.0 0.0- 0.2 x10E3/uL code = 704-7) Immature Granulocytes 0 % Not Estab. (test code = 92210-9) Immature Grans (Abs) 0.0 0.0- 0.1 x10E3/uL (test code = 06468-3) KARIS (test code = KARIS) Performed at: [address] [place] [id number] Director: Hemanth Frey MD, Phone: [phone] Lab Interpretation (test Abnormal code = 99627-5) [facility] URINE -FQHC MANUALLY [id number] 00:00:00 Test Item Value Reference Range Interpretation Comments POC (test code = 94967379) negative [facility] URINE DIPSTICK W/O MICRO-FQHC MANUALLY [id number] 00:00:00 Test Item Value Reference Range Interpretation Comments Blood POC (test code = 19821863) neg Urobilinogen POC (test code = 98738843) 4 Bilirubin POC (test code = 33977590) 1 Protein POC (test code = 98868204) 30 Nitrate POC (test code = 27180072) neg Ketone POC (test code = 10023226) neg Glucose POC (test code = 43798243) neg Ph POC (test code = 36055414) 7 Spec [place] POC (test code = 56576745) 1.010 Leukocyte POC (test code = 22508689) neg COLOR POC (test code = 56763015) NA Clarity POC (test code = 29914069) NA [facility]- XR CHEST 1 [id number] 12:29:00 FAX: Cali Ramos MD [phone] [place]: St: REG Name: SOURAV BEY [facility] : 1980 Age/S: 38/F [address] [facility] Unit#: [id number] Loc: [place], [place] Phys: [place] [address] Acct: [id number] Dis Date: Status: REG ER PHONE #: [phone] Exam Date: 12/06/2018 1205 FAX #: [phone] Reason: hyperventilation EXAMS: CPT CODE: [id number] XR CHEST 1 V 73050 Chest Radiograph History: hyperventilation Comparison: None at this time Location: R16 A single frontal view of the chest is submitted. The heart is within normal limits in size. Pulmonary vasculature is unremarkable. The visualized lung christensen appear to be free of disease. The bones appear unremarkable. IMPRESSION: There is no radiographic evidence of acute cardiopulmonary disease. at 1997 Reported and signed by: Mathew Vazquez M.D. CC: Cali Ramos MD Technologist: JOSUE BARBA Trnscrd Date/Time/By: 12/06/2018 (8317) : By: HermelindoPMT PAGE 1 Signed Report FAX: Cali Ramos MD [phone] [place]: St: REG Name: SOURAV BEY [facility] : 1980 Age/S: 38/F [address] [facility] [place] Unit [facility]: [id number] Loc: [place], [place]: [place] [id number] Acct: [id number] Dis Date: Status: REG ER PHONE #: [phone] Exam Date: 12/06/2018 1205 FAX #: [phone] Reason: hyperventilation EXAMS: CPT CODE: [id number] XR CHEST 1 V 95284 <Continued> Orig Print D/T: S: 12/06/2018 (2414) PAGE 2 Signed ReportURINALYSIS [id number] 12:27:00 Test Item Value Reference Range Interpretation Comments UA COLOR (test code = COLU) LT YELLOW UA APPEARANCE (test code = CLEAR APPU) UA GLUCOSE DIPSTICK (test NORMAL mg/dl NORMAL code = DGLUU) UA BILIRUBIN DIPSTICK (test NEGATIVE mg/dL NEGATIVE code = BILU) UA KETONE DIPSTICK (test NEGATIVE mg/dl NEGATIVE code = KETU) UA SPECIFIC GRAVITY (test 1.015 1.000-1.030 code = SGU) UA BLOOD DIPSTICK (test NEGATIVE Rik/micL NEGATIVE code = SERENITY) UA PH DIPSTICK (test code = 8.0 5.0-9.0 YVONNE) UA PROTEIN DIPSTICK (test NEGATIVE mg/dl NEGATIVE code = PROU) UA UROBILINIOGEN DIPSTICK NORMAL mg/dl NORMAL (test code = URO) UA NITRITE DIPSTICK (test NEGATIVE NEGATIVE code = JENNIFER) UA LEUKOCYTE ESTERASE NEGATIVE Chloé/micL NEGATIVE DIPSTICK (test code = LEUU) UA WBC (test code = WBCU) 0-2 WBC/HPF NONE UA RBC (test code = RBCU) 0-2 RBC/HPF 0-3 UA EPITHELIAL CELLS (test 0-3 EPI/HPF 0-3 code = EPIU) UA BACTERIA (test code = FEW NONE BACU) URINALYSIS [id number] 12:18:00 Test Item Value Reference Range Interpretation Comments UA COLOR (test code = COLU) LT YELLOW UA APPEARANCE (test code = CLEAR APPU) UA GLUCOSE DIPSTICK (test NORMAL mg/dl NORMAL code = DGLUU) UA BILIRUBIN DIPSTICK (test NEGATIVE mg/dL NEGATIVE code = BILU) UA KETONE DIPSTICK (test NEGATIVE mg/dl NEGATIVE code = KETU) UA SPECIFIC GRAVITY (test 1.015 1.000-1.030 code = SGU) UA BLOOD DIPSTICK (test NEGATIVE Rik/micL NEGATIVE code = SERENITY) UA PH DIPSTICK (test code = 8.0 5.0-9.0 YVONNE) UA PROTEIN DIPSTICK (test NEGATIVE mg/dl NEGATIVE code = PROU) UA UROBILINIOGEN DIPSTICK NORMAL mg/dl NORMAL (test code = URO) UA NITRITE DIPSTICK (test NEGATIVE NEGATIVE code = JENNIFER) UA LEUKOCYTE ESTERASE NEGATIVE Chloé/micL NEGATIVE DIPSTICK (test code = LEUU) UA WBC (test code = WBCU) WBC/HPF NONE UA RBC (test code = RBCU) RBC/HPF 0-3 UA EPITHELIAL CELLS (test EPI/HPF 0-3 code = EPIU) UA BACTERIA (test code = NONE BACU) - CT ABD PELVIS W/O [id number] 10:32:00 FAX: Addie Mccarthy MD [phone] [place]: St: REG Name: SOURAV BEY [facility] : 1980 Age/S: 38/F [address] [facility] [employer] Unit: [id number] Loc: [place], [place]: [place] [address] Acct: [id number] Dis Date: Status: REG ER PHONE #: [phone] Exam Date: 11/22/2018 1012 FAX #: [phone] Reason: LOW BACK/ FLANK PAIN WITH URINARY SX EXAMS: CPT CODE: [id number] CT ABD PELVIS W/O CONT 00553 HISTORY: Low back pain, flank pain with urinary symptoms, kidney infections/stones, left lower quadrant pain over several weeks. CT abdomen and pelvis, unenhanced. Reformatted sagittal and coronal images. COMPARISON: None Automated exposure control, iterative reconstruction technique, and/or adjustment of mA and/or kV according to patient's size was utilized for optimum radiation dose reduction. Neither intravenous nor oral contrast is requested for the exam. Significant pathology may be obscured. The study includes some of the lung bases, which appear to be clear. No pericardial or pleural fluid can be found. The kidneys appear to be symmetric with no evidence of stones, obstruction or stranding. No adjacent edema in the renal fat can be seen. The liver and spleen have normal size and uniform density. Gallbladder intact. The adrenal glands and the pancreas are uniform in thickness and density. Normal aortic diameter. No retroperitoneal adenopathy. Bowel loops do not show obstruction. Large bowel with borderline constipation. Normal appendix seen. The study of the pelvis shows the bladder empty limiting detail. Uterus extending to the abdominal wall likely from scarring of previous C- section. There is a left ovarian cyst, only 2.2 cm in diameter however. Right ovary intact. No bowel loop dilatation. Trace cul-de-sac fluid could be present, likely physiologic. No inguinal hernia or suspicious adenopathy. The bony structures are well mineralized with no bony destructive changes.. Reformatted images show any renal stones edema or stranding. There is some hypodensity in the pancreatic head but not cystic in appearance more of diffuse edema pattern or more focal fatty changes or atrophy. PAGE 1 Signed Report (CONTINUED) FAX: Addie Mccarthy MD [phone] [place]: St: REG Name: SOURAV BEY [facility] : 1980 Age/S: 38/F [address] [facility] Unit: [id number] Loc: [place], [place] Phys: Addie Mccarthy WMD [address] Acct: [id number] Dis Date: Status: REG ER PHONE #: [phone] Exam Date: 11/22/2018 1012 FAX #: [phone] Reason: LOW BACK/ FLANK PAIN WITH URINARY SXEXAMS: CPT CODE: [id number] CT ABD PELVIS W/O CONT 18414 <Continued> Correlate for any pancreatic enzymeabnormalities as to the need for further workup. No obvious contour deformity seen nor mass effect produced on the local structures. IMPRESSION: Limited Study. No kidney stones can be seen nor inflammatory changes. Bladder empty limiting detail.2.2 cm left ovarian cyst. Constipation. Normal appendix. Slightly unusual appearance to the pancreas could indicate some fatty changes. Pancreatic head may be more involved but further correlation clinically with pancreatic enzyme abnormalities may be needed and possibly further workup. Unusual appearance to the pancreas for the age of the patient. Location: U19 at 1032 Reported and signed by: Aries Tierney M.D. CC:Addie Mccarthy MD Technologist: JAMES GERARD Trnscrd Dt/Tm: 11/22/2018 (1032) tANDREE Orig Print D/T: S: 11/22/2018(1035 PAGE 2 Signed ReportBASI METABOLIC [id number] 09:28:00 Test Item Value Reference Range Interpretation Comments SODIUM (test code = NA) 141 mmol/l 134.0-147.0 N POTASSIUM (test code = K) 3.8 mmol/L 3.6-5.2 N CHLORIDE (test code = CL) 106 mmol/l 98.0-107.0 N CARBON DIOXIDE (test code = CO2) 26.7 mmol/l 21.0-33.0 N ANION GAP (test code = GAP) 12.1 0-20 N GLUCOSE (test code = GLU) 87 mg/dl 70.0-110.0 N BLOOD UREA NITROGEN (test code = 7 mg/dl 7.0-18.0 N BUN) CREATININE (test code = CREAT) 0.95 mg/dL 0.60-1.30 N GFR NON BLACK (test code = 70 mL/min 105-110 L GFRNONBLACK) GFR BLACK (test code = GFRBLACK) 85 mL/min 127-133 L CALCIUM (test code = CA) 9.4 mg/dl 8.0-10.5 N Specimen comments: Clean CatchHEPATIC FUNCTION PANEL [id number] 09:28:00 Test Item Value Reference Range Interpretation Comments TOTAL PROTEIN (test code = PROT) 7.4 gm/dL 6.4-8.2 N ALBUMIN (test code = ALB) 3.6 gm/dl 3.2-4.7 N BILIRUBIN TOTAL (test code = BILT) 0.3 mg/dl 0.0-1.0 N BILIRUBIN DIRECT (test code = 0.1 mg/dl 0.0-0.3 N BILD) SGOT/AST (test code = AST) 13 Units/L 15.0-37.0 L SGPT/ALT (test code = ALT) 15 Units/L 12.0-78.0 N ALKALINE PHOSPHATASE TOTAL (test 82 Units/L 50.0-136.0 N code = ALKP) Specimen comments: Clean [id number] 09:28:00 Test Item Value Reference Range Interpretation Comments LIPASE (test code = LIP) 123 Units/L 65.0-230.0 N Specimen comments: Clean CatchHCG SERUM [id number] 09:28:00 Test Item Value Reference Range Interpretation Comments HCG SERUM QUAL (test code = HCGQL) NEGATIVE NEGATIVE Specimen comments: Clean CatchPROTHROMBIN [id number] 09:26:00 Test Item Value Reference Range Interpretation Comments PROTHROMBIN TIME 10.7 SECONDS 9.9-12.8 N PATIENT (test code = PTP) INTERNATIONAL NORMAL 0.9 0.89-1.14 N THE INR IS TO BE USED RATIO (test code = ONLY FOR MONITORING INR) ORAL ANTICOAGULANTTH ERAPY. THE FOLLOWING A RE SUGGESTED RANGE S FROM THEDIGN[facility] LEGE OF CHEST PHYSICIANS:CARMEN CATION INR VALUEPROPHYLAXI S OF VENOUS THROMBOS IS (ORTHOPEDIC ALHAJI KIMI) 2.0 - 3.0PROP HYLAXIS OF VENOUS THROM BOSIS (OTHER THAN HIG H-RISK SURGERY) 2.0 - 3.0TRE ATMENT OF DEEP VEIN THROMBOSIS OR PULMONARY EMBOL ISM 2.0 - 3.0PREV ENTION OF SYSTEMIC EMB OLISM TISSUE HEART VA LVES 2.0 - 3.0 AC RJ MYOCARDIAL INFA RCTION (TO PREVENT SYSTEMIC EMBOLI SM) 2.0 - 3.0 ACUTE MYOCARDIA L INFARCTION (TO PREVENT RECURRE NT INFARCT) 2.5 - 3.0 VALV ULAR HEART DISEASE 2.0 - 3.0 ATRIAL FIBRILATION 2.0 - 3.0BILEAFLET MECHANICAL VALV E IN AORTIC POSITION 2.0 - 3.0MECHAN ICAL PROSTHETIC VALV ES (HIGH RISK) 2.5 - 3.5PRESEN CE OF LUPUS ANTICOAGU LANT OR ANTIPHOSPHOLIP ID ANTIBODIES 2.5 - 3 .5 Specimen comments: Clean CatchURINALYSIS [id number] 09:23:00 Test Item Value Reference Range Interpretation Comments UA COLOR (test code = YELLOW COLU) UA APPEARANCE (test code HAZY = APPU) UA GLUCOSE DIPSTICK (test NORMAL mg/dl NORMAL code = DGLUU) UA BILIRUBIN DIPSTICK NEGATIVE mg/dL NEGATIVE (test code = BILU) UA KETONE DIPSTICK (test NEGATIVE mg/dl NEGATIVE code = KETU) UA SPECIFIC GRAVITY (test 1.020 1.000-1.030 code = SGU) UA BLOOD DIPSTICK (test 25 Rik/micL Rik/micL NEGATIVE A code = SERENITY) UA PH DIPSTICK (test code 6.0 5.0-9.0 = YVONNE) UA PROTEIN DIPSTICK (test 30 mg/dl NEGATIVE A code = PROU) UA UROBILINIOGEN DIPSTICK NORMAL mg/dl NORMAL (test code = URO) UA NITRITE DIPSTICK (test NEGATIVE NEGATIVE code = JENNIFER) UA LEUKOCYTE ESTERASE 500 Chloé/micL NEGATIVE A DIPSTICK (test code = Chloé/micL LEUU) UA WBC (test code = WBCU) 100-200/HPF WBC/HPF NONE A UA RBC (test code = RBCU) 3-5 RBC/HPF 0-3 UA EPITHELIAL CELLS (test 10-15 EPI/HPF 0-3 A code = EPIU) UA BACTERIA (test code = MOD NONE BACU) UA TRICHOMONAS (test code FEW NEGATIVE = TRICHU) Specimen comments: Clean CatchBASIC METABOLIC [id number] 09:23:00 Test Item Value Reference Range Interpretation Comments SODIUM (test code = NA) 141 mmol/l 134.0-147.0 N POTASSIUM (test code = K) 3.8 mmol/L 3.6-5.2 N CHLORIDE (test code = CL) 106 mmol/l 98.0-107.0 N CARBON DIOXIDE (test code = CO2) 26.7 mmol/l 21.0-33.0 N ANION GAP (test code = GAP) 12.1 0-20 N GLUCOSE (test code = GLU) mg/dl 70.0-110.0 BLOOD UREA NITROGEN (test code = mg/dl 7.0-18.0 BUN) CREATININE (test code = CREAT) mg/dL 0.60-1.30 GFR NON BLACK (test code = mL/min 105-110 GFRNONBLACK) GFR BLACK (test code = GFRBLACK) mL/min 127-133 CALCIUM (test code = CA) mg/dl 8.0-10.5 Specimen comments: PlayCafeHEPATIC FUNCTION PANEL [id number] 09:23:00 Test Item Value Reference Range Interpretation Comments TOTAL PROTEIN (test code = PROT) gm/dL 6.4-8.2 ALBUMIN (test code = ALB) gm/dl 3.2-4.7 BILIRUBIN TOTAL (test code = BILT) mg/dl 0.0-1.0 BILIRUBIN DIRECT (test code = BILD) mg/dl 0.0-0.3 SGOT/AST (test code = AST) Units/L 15.0-37.0 SGPT/ALT (test code = ALT) Units/L 12.0-78.0 ALKALINE PHOSPHATASE TOTAL (test Units/L 50.0-136.0 code = ALKP) Specimen comments: Clean [id number] 09:23:00 Test Item Value Reference Range Interpretation Comments LIPASE (test code = LIP) Units/L 65.0-230.0 Specimen comments: Clean CatchHCG SERUM [id number] 09:23:00 Test Item Value Reference Range Interpretation Comments HCG SERUM QUAL (test code = HCGQL) NEGATIVE NEGATIVE Specimen comments: Clean CatchBASIC METABOLIC [id number] 09:21:00 Test Item Value Reference Range Interpretation Comments SODIUM (test code = NA) mmol/l 134.0-147.0 POTASSIUM (test code = K) mmol/L 3.6-5.2 CHLORIDE (test code = CL) mmol/l 98.0-107.0 CARBON DIOXIDE (test code = CO2) mmol/l 21.0-33.0 ANION GAP (test code = GAP) 0-20 GLUCOSE (test code = GLU) mg/dl 70.0-110.0 BLOOD UREA NITROGEN (test code = BUN) mg/dl 7.0-18.0 CREATININE (test code = CREAT) mg/dL 0.60-1.30 GFR NON BLACK (test code = mL/min 105-110 GFRNONBLACK) GFR BLACK (test code = GFRBLACK) mL/min 127-133 CALCIUM (test code = CA) mg/dl 8.0-10.5 Specimen comments: Clean CatchHEPATIC FUNCTION PANEL [id number] 09:21:00 Test Item Value Reference Range Interpretation Comments TOTAL PROTEIN (test code = PROT) gm/dL 6.4-8.2 ALBUMIN (test code = ALB) gm/dl 3.2-4.7 BILIRUBIN TOTAL (test code = BILT) mg/dl 0.0-1.0 BILIRUBIN DIRECT (test code = BILD) mg/dl 0.0-0.3 SGOT/AST (test code = AST) Units/L 15.0-37.0 SGPT/ALT (test code = ALT) Units/L 12.0-78.0 ALKALINE PHOSPHATASE TOTAL (test Units/L 50.0-136.0 code = ALKP) Specimen comments: Clean [id number] 09:21:00 Test Item Value Reference Range Interpretation Comments LIPASE (test code = LIP) Units/L 65.0-230.0 Specimen comments: Clean CatchHCG SERUM [id number] 09:21:00 Test Item Value Reference Range Interpretation Comments HCG SERUM QUAL (test code = HCGQL) NEGATIVE NEGATIVE Specimen comments: Clean CatchURINALYSIS [id number] 09:17:00 Test Item Value Reference Range Interpretation Comments UA COLOR (test code = YELLOW COLU) UA APPEARANCE (test code HAZY = APPU) UA GLUCOSE DIPSTICK (test NORMAL mg/dl NORMAL code = DGLUU) UA BILIRUBIN DIPSTICK NEGATIVE mg/dL NEGATIVE (test code = BILU) UA KETONE DIPSTICK (test NEGATIVE mg/dl NEGATIVE code = KETU) UA SPECIFIC GRAVITY (test 1.020 1.000-1.030 code = SGU) UA BLOOD DIPSTICK (test 25 Rik/micL Rik/micL NEGATIVE A code = SERENITY) UA PH DIPSTICK (test code 6.0 5.0-9.0 = YVONNE) UA PROTEIN DIPSTICK (test 30 mg/dl NEGATIVE A code = PROU) UA UROBILINIOGEN DIPSTICK NORMAL mg/dl NORMAL (test code = URO) UA NITRITE DIPSTICK (test NEGATIVE NEGATIVE code = JENNIFER) UA LEUKOCYTE ESTERASE 500 Chloé/micL NEGATIVE A DIPSTICK (test code = Chloé/micL LEUU) UA WBC (test code = WBCU) WBC/HPF NONE UA RBC (test code = RBCU) RBC/HPF 0-3 UA EPITHELIAL CELLS (test EPI/HPF 0-3 code = EPIU) UA BACTERIA (test code = NONE BACU) Specimen comments: Clean CatchCBC W/AUTO [id number] 09:11:00 Test Item Value Reference Range Interpretation Comments WHITE BLOOD CELL (test code = 5.8 K/mm3 4.5-11.0 N WBC) RED BLOOD CELL (test code = 3.89 M/mm3 3.80-5.20 N RBC) HEMOGLOBIN (test code = HGB) 9.8 gm/dL 12.0-16.0 L HEMATOCRIT (test code = HCT) 32.6 % 36.0-48.0 L MEAN CELL VOLUME (test code = 83.8 UM3 82.0-99.0 N MCV) MEAN CELL HGB (test code = MCH) 25.2 UUG 25.5-32.5 L MEAN CELL HGB CONCETRATION 30.1 gm/dL 29.0-35.5 N (test code = MCHC) RED CELL DISTRIBUTION WIDTH 15.0 % 11.5-15.0 N (test code = RDW) RED CELL DISTRIBUTION WIDTH SD 45.7 fL 34.8-50.2 N (test code = RDW-SD) PLATELET COUNT (test code = 378 K/mm3 150-400 N PLT) MEAN PLATELET VOLUME (test code 9.6 fl 7.4-10.4 N = MPV) NEUTROPHIL % (test code = NT%) 56.5 % 49.0-76.0 N IMMATURE GRANULOCYTE % (test 0.7 % 0.0-0.4 H code = IG%) LYMPHOCYTE % (test code = LY%) 31.8 % 23.0-38.0 N MONOCYTE % (test code = MO%) 9.1 % 1.0-10.0 N EOSINOPHIL % (test code = EO%) 1.2 % 1.0-5.0 N BASOPHIL % (test code = BA%) 0.7 % 0.0-1.0 N NEUTROPHIL # (test code = NT#) 3.3 K/mm3 2.4-6.3 N IMMATURE GRANULOCYTE # (test 0.04 x10 3/uL 0.00-0.07 N code = IG#) LYMPHOCYTE # (test code = LY#) 1.9 K/mm3 1.2-4.0 N MONOCYTE # (test code = MO#) 0.5 K/mm3 0.0-0.6 N EOSINOPHIL # (test code = EO#) 0.1 K/MM3 0.0-0.7 N BASOPHIL # (test code = BA#) 0.0 K/mm3 0.0-0.2 N
--- NOTE | 2020-02-27 20:02 | RAD REPORT ---
EXAM DESCRIPTION: RAD - Chest Single View - 02/27/2020 7:56 pm CLINICAL HISTORY: COUGH Chest pain. COMPARISON: CHEST PA AND LAT 2 VIEW dated 09/13/2013; CHEST SINGLE VIEW dated 03/29/2012; CHEST SINGLE VIEW dated 11/24/2010; CHEST SINGLE VIEW dated 03/18/2009 FINDINGS: Portable technique limits examination quality. Small opacity is seen in the right suprahilar region suggests mild interstitial pneumonia. The lungs are otherwise clear. The heart is normal in size. No displaced fractures.
[2020-02-27] MEDS ORDERED: ALBUTEROL INHALER 60 PUFF/8 GM IH ONE (21:26)
--- NOTE | 2020-02-27 22:10 | ER ---
Nurse's Notes [facility] Name: Sariah Maria Age: 39 yrs Sex: Female : 1980 Arrival Date: 02/27/2020 Time: 18:32 Bed 28 Private MD: Diagnosis: suspected Covid Presentation: 02/26 18:38 Chief complaint: Patient states: SOB for 3 days with chest pressure. + cough. States ll1 she had a positive roommate in [place] 2 weeks ago. Fever 101 at home. + nausea. Coronavirus screen: Surgical mask placed on patient. Patient moved to private room, placed in contact and droplet isolation with eye protection until further assessment. Patient reports a cough. Patient reports shortness of breath or difficulty breathing. Patient reports a measured and/or subjective temperature greater than 100.4F. Patient denies travel on a cruise ship or to a country the [facility] currently lists as an affected area. Patient reports contact with known and/or suspected case of COVID-19. Ebola Screen: Patient denies travel to an Ebola-affected area in the 21 days before illness onset. Initial Sepsis Screen: Does the patient meet any 2 criteria? No. Patient's initial sepsis screen is negative. Risk Assessment: Do you want to hurt yourself or someone else? Patient reports no desire to harm self or others. Onset of symptoms was February 24, 2020. 18:38 Method Of Arrival: Ambulatory ll1 18:38 Acuity: RICHELLE 3 ll1 19:30 Initial Sepsis Screen: Does the patient have a suspected source of infection? No. ea Patient's initial sepsis screen is negative. Historical: - Allergies: 18:41 [place]; ll1 - PMHx: 18:41 Anxiety; ll1 - PSHx: 18:41 3 facial surgery; ; ll1 - Immunization history:: Flu vaccine is up to date. - Social history:: Smoking status: Patient/guardian denies using tobacco, the patient reports quitting approximately 10 years ago, Patient/guardian denies using alcohol, street drugs, tobacco products. Screenin:56 Abuse screen: Denies threats or abuse. Nutritional screening: No deficits noted. ea Tuberculosis screening: No symptoms or risk factors identified. Fall Risk None identified. Assessment: 19:55 General: Appears in no apparent distress. Behavior is appropriate for age. Pain: ea Complains of pain in chest Pain does not radiate. Pain began gradually. Neuro: Level of Consciousness is awake, alert, obeys commands, Oriented to person, place, time, situation. Cardiovascular: Patient's skin is warm and dry. Respiratory: Airway is patent Respiratory effort is even, unlabored, Respiratory pattern is regular, symmetrical. Derm: Skin is pink, warm \T\ dry. 20:39 Reassessment: Patient and/or family updated on plan of care and expected duration. Pain ea level reassessed. Patient is alert, oriented x 3, equal unlabored respirations, skin warm/dry/pink. Awaiting on CT results. 21:00 Reassessment: Patient and/or family updated on plan of care and expected duration. Pain ea level reassessed. Patient is alert, oriented x 3, equal unlabored respirations, skin warm/dry/pink. 21:42 Reassessment: Provider at bedside updating patient on plan of care. ea 22:23 Reassessment: Patient and/or family updated on plan of care and expected duration. Pain ea level reassessed. Patient is alert, oriented x 3, equal unlabored respirations, skin warm/dry/pink. Discharge instruction given to patient, verbalized the understanding of instruction. Pt left ED ambulatory tolerating well. Family at facility to take pt home. Vital Signs: 18:38 BP 107 / 74; Pulse 81; Resp 18; Temp 97.1; Pulse Ox 100% ; Weight 90.72 kg; Height 5 ll1 ft. 4 in. (162.56 cm); Pain 8/10; 20:12 BP 99 / 59; Pulse 78; Resp 18; Pulse Ox 100% on R/A; ea 21:28 BP 110 / 59; Pulse 78; Resp 18; Temp 98.5; Pulse Ox 100% on R/A; ea 22:15 BP 124 / 79; Pulse 75; Resp 18; Pulse Ox 98% on R/A; ea 18:38 Body Mass Index 34.33 (90.72 kg, 162.56 cm) ll1 ED Course: 18:32 Patient arrived in ED. bp1 18:41 Triage completed. ll1 18:42 Arm band placed on. ll1 19:20 Glory Tovar RN is Primary Nurse. ea 19:27 Benjamin Corona MD is Attending Physician. tw4 19:56 Patient has correct armband on for positive identification. Placed in gown. Bed in low ea position. Call light in reach. library monitor on. Pulse ox on. NIBP on. 19:56 Patient maintains SpO2 saturation greater than 95% on room air. ea 19:57 CXR XRAY In Process Unspecified. EDMS 22:23 No provider procedures requiring assistance completed. Patient did not have IV access ea during this emergency room visit. Administered Medications: 21:28 Drug: Albuterol HFA Inhaler 2 puffs Route: Inhalation; ea 22:20 Drug: Atarax 25 mg Route: PO; ea 22:22 Follow up: Response: Medication administered at discharge. ea Outcome: 22:10 Discharge ordered by . tw4 22:23 Discharged to home ambulatory, with family. ea 22:23 Condition: stable 22:23 Discharge instructions given to patient, Instructed on discharge instructions, follow up and referral plans. medication usage, Demonstrated understanding of instructions, follow-up care, medications, Prescriptions given X 1. 22:24 Patient left the ED. ea Addendum: 03/02/2020 18:44 Addendum: Other pt notified of negative COVID-19 swab results. Pt advised to remain in d m5 isolation until fever free for 3 days and to return to the ED for worsening symptoms. Signatures: Dispatcher [employer] Aziza Aguillon, RN RN cesar5 Glory Tovar, RN Benjamin Marks ea, MD MD tw4 Angel Perera RN RN ll1 Farhana Oliveira bp1
--- NOTE | 2020-02-27 22:10 | EDPHYS ---
Physician Documentation [facility] Name: Sariah Maria Age: 39 yrs Sex: Female : 1980 Arrival Date: 02/27/2020 Time: 18:32 Bed 28 Private MD: ED Physician Benjamin Corona HPI: 02/27 06:29 This 39 yrs old Female presents to ER via Ambulatory with complaints of Chest tw4 Pain, Shortness Of Breath. 06:29 The patient or guardian reports chest pain that is located primarily in the anterior tw4 chest wall. The pain does not radiate. Associated signs and symptoms: Pertinent positives: shortness of breath. The chest pain is described as a pressure. Duration: The patient or guardian reports a single episode, that is still ongoing. Modifying factors: The symptoms are alleviated by nothing. the symptoms are aggravated by nothing. Severity of pain: At its worst the pain was moderate in the emergency department the pain is unchanged. The patient has not experienced similar symptoms in the past. Historical: - Allergies: 02/26 18:41 [place]; ll1 - PMHx: 18:41 Anxiety; ll1 - PSHx: 18:41 3 facial surgery; ; ll1 - Immunization history:: Flu vaccine is up to date. - Social history:: Smoking status: Patient/guardian denies using tobacco, the patient reports quitting approximately 10 years ago, Patient/guardian denies using alcohol, street drugs, tobacco products. ROS: 02/27 06:29 Eyes: Negative for injury, pain, redness, and discharge. tw4 06:30 Constitutional: Negative for fever, chills, and weight loss, Cardiovascular: Negative tw4 for chest pain, palpitations, and edema. 06:30 Abdomen/GI: Negative for abdominal pain, nausea, vomiting, diarrhea, and constipation, Back: Negative for injury and pain, MS/Extremity: Negative for injury and deformity, Skin: Negative for injury, rash, and discoloration, Neuro: Negative for headache, weakness, numbness, tingling, and seizure. 06:30 Cardiovascular: Positive for chest pain, Negative for edema, orthopnea, palpitations. 06:30 Respiratory: Positive for cough, shortness of breath, Negative for dyspnea on exertion, hemoptysis, orthopnea, pleurisy. Exam: 06:30 Constitutional: This is a well developed, well nourished patient who is awake, alert, tw4 and in no acute distress. Head/Face: Normocephalic, atraumatic. Chest/axilla: Normal chest wall appearance and motion. Nontender with no deformity. No lesions are appreciated. Cardiovascular: Regular rate and rhythm with a normal S1 and S2. No gallops, murmurs, or rubs. Normal PMI, no JVD. No pulse deficits. Respiratory: Lungs have equal breath sounds bilaterally, clear to auscultation and percussion. No rales, rhonchi or wheezes noted. No increased work of breathing, no retractions or nasal flaring. Abdomen/GI: Soft, non-tender, with normal bowel sounds. No distension or tympany. No guarding or rebound. No evidence of tenderness throughout. Back: No spinal tenderness. No costovertebral tenderness. Full range of motion. MS/ Extremity: Pulses equal, no cyanosis. Neurovascular intact. Full, normal range of motion. Neuro: Awake and alert, GCS 15, oriented to person, place, time, and situation. Cranial nerves II-XII grossly intact. Motor strength 5/5 in all extremities. Sensory grossly intact. Cerebellar exam normal. Normal gait. Vital Signs: 02/26 18:38 BP 107 / 74; Pulse 81; Resp 18; Temp 97.1; Pulse Ox 100% ; Weight 90.72 kg; Height 5 ll1 ft. 4 in. (162.56 cm); Pain 8/10; 20:12 BP 99 / 59; Pulse 78; Resp 18; Pulse Ox 100% on R/A; ea 21:28 BP 110 / 59; Pulse 78; Resp 18; Temp 98.5; Pulse Ox 100% on R/A; ea 22:15 BP 124 / 79; Pulse 75; Resp 18; Pulse Ox 98% on R/A; ea 18:38 Body Mass Index 34.33 (90.72 kg, 162.56 cm) ll1 MDM: 22:10 Patient medically screened. tw4 02/27 06:31 Data reviewed: vital signs, nurses notes. Data interpreted: Pulse oximetry: tw4 Interpretation: normal. Counseling: I had a detailed discussion with the patient and/or guardian regarding: the historical points, exam findings, and any diagnostic results supporting the discharge/admit diagnosis. 02/26 19:21 Order name: Flu 02/26 19:21 Order name: Strep 02/26 19:23 Order name: Influenza Screen (A [facility] 02/26 19:30 Order name: COVID-19 sg 02/26 21:07 Order name: Throat Culture [facility] 02/26 19:21 Order name: CXR XRAY; Complete Time: 22:07 02/26 19:21 Order name: Document PUI# 02/26 19:21 Order name: Droplet/Contact Precautions; Complete Time: 20:22 02/26 19:21 Order name: Labs collected and sent; Complete Time: 20:22 02/26 19:21 Order name: Notify Health Dept [id number]/ 02/26 19:21 Order name: O2 Per Protocol; Complete Time: 20:20 02/26 19:56 Order name: EKG - Nurse/Tech; Complete Time: 20:20 EC:32 Rhythm is regular. QRS [place] is Normal. MO interval is normal. QRS interval is normal. tw4 QT interval is normal. No Q waves. T waves are Normal. No ST changes noted. Clinical impression: Normal ECG. Interpreted by me. Reviewed by me. Administered Medications: 02/26 21:28 Drug: Albuterol HFA Inhaler 2 puffs Route: Inhalation; ea 22:20 Drug: Atarax 25 mg Route: PO; ea 22:22 Follow up: Response: Medication administered at discharge. Disposition: 02/27/20 22:10 Discharged to Home. Impression: suspected Covid. - Condition is Stable. - Discharge Instructions: Upper Respiratory Infection, Adult. - Prescriptions for Zithromax Z- Brandin 250 mg Oral Tablet - take 1 tablet by ORAL route as directed for 5 days Day 1 - take two (2) tablets one time. Day 2, 3, 4 , 5 take one (1) tablet once daily.; 6 tablet. - Medication Reconciliation Form, Thank You Letter, Antibiotic Education, Prescription Opioid Use form. - Follow up: Private Physician; When: Upon discharge from the Emergency Department; Reason: Recheck today's complaints, Continuance of care, Re-evaluation by your physician. - Problem is new. - Symptoms have improved. Signatures: Dispatcher [employer] EDMS Glory Tovar RN RN Benjamin Srivastava MD MD tw4 Angel Perera RN RN ll1 Corrections: (The following items were deleted from the chart) 22:24 22:10 02/27/2020 22:10 Discharged to Home. Impression: suspected Covid. Condition is ea Stable. Forms are Medication Reconciliation Form, Thank You Letter, Antibiotic Education, Prescription Opioid Use. Follow up: Private Physician; When: Upon discharge from the Emergency Department; Reason: Recheck today's complaints, Continuance of care, Re-evaluation by your physician. Problem is new. Symptoms have improved. tw4
[2020-02-27] MEDS ORDERED: hydrOXYzine HCL 25 MG TAB ONE (22:17)
[2020-02-27 22:45] VITALS: TEMP 98.5
[2020-02-27 22:46] VITALS: BP 124/79; O2SAT 98
== END 2020-02-27 22:24 | disposition home or self-care (01) ==
LOC: ER 18:29
DX: R06.02 Shortness of breath (principal); Z20.828 Contact with and (suspected) exposure to other viral communicable diseases
CPT/HCPCS: 71045; 87070; 87081; 87804; 93005; 99285; U0001

== ENCOUNTER 2020-03-17 18:44 | Emergency (ER) | payer OTHER, SELFPAY ==
--- OUTSIDE RECORDS SUMMARY | 2020-03-17 18:47 | XMS REPORT | Clinical Summary ---
:1980 Author Organization [facility] Address [address] [place] [id number] Care Team Providers Name Role Phone Unavailable [...] needed. Maximum 200mg/24 hours.. fluticasone Use 1 [place]en 16 g 0 Active propionate (FLONASE) in [...] disease, (before esophagitis presence breakfast). not specified propranolol (INDERAL) Take 1 60 tablet 0 [...] Discontinued 20 mg delayed release capsule by 05 29 (Reorder) capsuleIndications: mouth at Gastroesophageal bedtime reflux disease, nightly. esophagitis presence not specified omeprazole (PRILOSEC) Take 1 30 capsule 0 0 Discontinued 20 mg delayed release capsule by 05 30 (Other) capsuleIndications: mouth at Gastroesophageal bedtime reflux [...] as needed for Pain. fluticasone Use 1 [place] 16 g 0 11/04/19 Discon tinued propionate [...] (Primary Dx); 11/18/2019 MD Lucien Palpitations; Trip [place], Syncope, uns pecified syncope type; Dizziness; Bipolar [...] (Pauly cristal Dx) 10/25/2019 - Emergency Emergency Yuliana Jett, Right foot p ain (Primary Dx); 10/26/2019 Medicine Nonintractable headache, unspecified chronicity pattern, unspecified headache type; Foot sprain, ri ght, initial encounter 10/20/2019 Office Visit Family Practice Richie, Francisca Gastroes ophageal reflux disease, esophagitis presence not specified (Primary Dx); Iron deficiency anemia, unspecified iron deficiency anemia type; Pain, dental; Intractable alesia ines without status migrainosus, unspecified migraine type; Influenza vacci ne needed 10/17/2019 - Emergency Emergency Dustin Josep Jaleesa, New onset he adache (Primary Dx); 10/18/2019 Medicine MD Blurry vision, bilateral Candida Craven MD 10/03/2019 Patient Education Health Education Marcella Coffey, Landon pace MD counseling (Primary Dx) Elisabeth Owen 09/24/2019 Clinical Case t [employer] Quang Gomez 09/22/2019 Office Visit [facility] Francisca Quiroz Acute si nusitis, recurrence not specified, unspecified location (Primary Dx); Iron deficiency anemia, unspecified iron deficiency anemia type; Gastroesophagea l reflux disease, esophagitis presence not specified 04/28/2019 Clinical Case [facility] [employer] [facility] Quang Gomez 04/28/2019 Office Visit [facility] Francisca Quiroz Gastroes ophageal reflux disease, esophagitis presence not specified (Primary Dx); Iron deficiency anemia, unspecified iron deficiency anemia type; Pain, dental; Class 1 obesity due to excess calories without serious comorbidity with body mass index (BMI) of 34.0 to 34.9 in adult; Homelessness; Menorrhagia wit h irregular cycle 03/31/2019 Office Visit [facility] Ricihe Francisca Gastroes ophageal reflux disease, esopha gitis presence not sp ecified (Primary Dx) after 03/17/2019 Immunizations Name Administration Dates Next Due Influenza, Vaccine <FLUCELVAX>(Preservative-Free) 10/20/2019 Td <Unspecified> 03/05/2016 Twinrix-HEP A&b 03/05/2019 Family History Medical History Relation Name Comments Heart Father Hypertension Father Diabetes Mother Psychiatry Mother Stroke Mother Psychiatry Sister Relation Name Status Comments Father [place] at 56 Mother Anxiety, stroke at 55 [...] (203 lb 6.4 oz) 11/13/2019 9:00 PM ACCESS CLINICIAN Height 162.6 cm (5' 4") 11/13/2019 9:00 PM ACCESS CLINICIAN Body Mass Index 34.91 11/13/2019 9:00 PM ACCESS CLINICIAN Plan of Treatment Health Maintenance Due Date Last Done Comments IMM Influenza Seasonal Jun to November (>/= 19 yrs) 06/10/2020 10/20/2019 Cervical Cancer Scrn (5 Yrs) 02/27/2024 02/26/2019 Procedures Procedure Name Priority Date/Time Associated Diagnosis Comme nts XRAY TIBIA AND STAT 11/26/2019 2:00 Right foot pain Result s for this FIBULA 2 VIEWS PM CDT procedure are in the results section. XRAY ANKLE 3 VIEW STAT 11/26/2019 2:00 Right foot pain Res ults for this MIN PM CDT procedure are i n the results section. XRAY FOOT 3 VIEWS STAT 11/26/2019 2:00 Right foot pain Res ults for this MIN PM CDT procedure are i n the results section. CBC Routine 11/18/2019 4:22 Results for this AM CDT procedure are i n the results section. MAGNESIUM Routine 11/18/2019 4:22 Results for this AM CDT procedure are i n the results section. BASIC METABOLIC Routine 11/18/2019 4:22 Results for this PANEL AM CDT procedure are i n the results section. CBC/DIFF Routine 11/18/2019 4:22 Results for this AM CDT procedure are i n the results section. CBC Routine 11/17/2019 3:46 Results for this AM CDT procedure are i n the results section. MAGNESIUM Routine 11/17/2019 3:46 Results for this AM CDT procedure are i n the results section. BASIC METABOLIC Routine 11/17/2019 3:46 Results for this PANEL AM CDT procedure are i n the [...] i n the results section. BASIC METABOLIC Routine 11/16/2019 3:44 Results for this PANEL AM CDT procedure are i n the results section. CBC/DIFF Routine 11/16/2019 3:44 Results for this AM CDT procedure are i n the results section. XRAY SKULL 4 VIEWS Routine 11/15/2019 12:04 Intermittent Resul ts for this MIN PM ACCESS CLINICIAN lightheadedness procedure ar e in the results section. CBC Routine 11/15/2019 3:57 Results for this AM ACCESS CLINICIAN procedure are i n the results section. MAGNESIUM Routine 11/15/2019 3:57 Results for this AM ACCESS CLINICIAN procedure are i n the results section. BASIC METABOLIC Routine 11/15/2019 3:57 Results for this PANEL AM ACCESS CLINICIAN procedure are i n the results section. CBC/DIFF Routine 11/15/2019 3:57 Results for this AM ACCESS CLINICIAN procedure are i n the results section. LEAD, WHOLE BLOOD Timed 11/14/2019 1:14 Result s for this (ADULT) PM ACCESS CLINICIAN procedure are i n the results section. INFUSION PUMP Routine 11/14/2019 9:21 AM ACCESS CLINICIAN CBC Routine 11/14/2019 3:45 Results for this AM ACCESS CLINICIAN procedure are i n the results section. MAGNESIUM Routine 11/14/2019 3:45 Results for this AM ACCESS CLINICIAN procedure are i n the results section. BASIC METABOLIC Routine 11/14/2019 3:45 Results for this PANEL AM ACCESS CLINICIAN procedure are i n the results section. CBC/DIFF Routine 11/14/2019 3:45 Results for this AM ACCESS CLINICIAN procedure are i n the results section. VITAMIN B12 Add-on 11/13/2019 8:01 Results for this PM ACCESS CLINICIAN procedure are i n the results section. VIT D, 25-HYDROXY Routine 11/13/2019 8:01 Result s for this PM ACCESS CLINICIAN procedure are i n the results section. SYPHILIS SCREEN FOR Routine 11/13/2019 8:01 Resu lts for this INFECTION PM ACCESS CLINICIAN procedure are i n the results section. ANASTACIO Routine 11/13/2019 8:01 Results for this PM ACCESS CLINICIAN procedure are i n the results section. HEPATITIS PANEL Routine 11/13/2019 8:01 Results for this PM ACCESS CLINICIAN procedure are i n the results section. HIV AG/AB COMBO Routine 11/13/2019 8:01 Results for this ROUTINE SCREENING PM ACCESS CLINICIAN procedure are in the results section. FOLIC ACID Routine 11/13/2019 8:01 Results for this PM ACCESS CLINICIAN procedure are i n the results section. IRON PROFILE Routine 11/13/2019 8:01 Results for this PM ACCESS CLINICIAN procedure are i n the results section. FERRITIN Routine 11/13/2019 8:01 Results for this PM ACCESS CLINICIAN procedure are i n the results section. BASIC METABOLIC Routine 11/13/2019 8:01 Results for this PANEL PM ACCESS CLINICIAN procedure are i n the results section. VALPROIC ACID Routine 11/13/2019 8:01 Results fo r this PM ACCESS CLINICIAN procedure are i n the results section. POCT URINE DIPSTICK STAT 11/13/2019 9:36 Resu lts for this - AM ACCESS CLINICIAN procedure are i n the results section. TEST STAT 11/13/2019 9:31 Results f or this AM ACCESS CLINICIAN procedure are i n the results section. CT HEAD W/O STAT 11/13/2019 9:26 Intermittent Results for this CONTRAST AM ACCESS CLINICIAN lightheadedness procedure ar e in the results section. CREATININE POC Routine 11/13/2019 6:27 Results f or this AM ACCESS CLINICIAN procedure are i n the results section. BMP POC Routine 11/13/2019 6:26 Results for this AM ACCESS CLINICIAN procedure are i n the results section. CBC STAT 11/13/2019 6:21 Results for this AM ACCESS CLINICIAN procedure are i n the results section. CBC/DIFF STAT 11/13/2019 6:21 Results for this AM ACCESS CLINICIAN procedure are i n the results section. ECHG EKG PROC 12 Routine 11/13/2019 5:20 Results for this LEAD EKG; TRACING AM ACCESS CLINICIAN procedure are in ONLY the results section. GLUCOSE POC Routine 11/13/2019 4:51 Results for this AM ACCESS CLINICIAN procedure are i n the results section. XRAY FOOT 3 VIEWS - STAT 11/12/2019 11:10 Acute right ankle pain Results for this ROUTINE PM ACCESS CLINICIAN procedure are i n the results section. XRAY ANKLE 3 VIEWS STAT 11/12/2019 11:10 Acute right ankle pain Results for this - ROUTINE PM ACCESS CLINICIAN procedure are i n the results section. POCT URINE DIPSTICK STAT 11/12/2019 10:22 Resu lts for this - PM ACCESS CLINICIAN procedure are i n the results section. XRAY FOOT 3 VIEWS - STAT 10/25/2019 9:38 Right foot pain R esults for this ROUTINE PM ACCESS CLINICIAN procedure are i n the results section. CTA HEAD W CONTRAST STAT 10/18/2019 12:51 New onset headach e Results for this AM ACCESS CLINICIAN procedure are i n the results section. CT HEAD W/O STAT 10/17/2019 11:28 New onset headache Resul ts for this CONTRAST PM ACCESS CLINICIAN procedure are i n the results section. AMMONIA STAT 10/17/2019 2:37 Results for this PM ACCESS CLINICIAN procedure are i n the results section. VALPROIC ACID STAT 10/17/2019 2:37 Results fo r this PM ACCESS CLINICIAN procedure are i n the results section. TEST STAT 10/17/2019 1:12 Results f or this PM ACCESS CLINICIAN procedure are i n the results section. CBC STAT 10/17/2019 12:07 Results for this PM ACCESS CLINICIAN procedure are i n the results section. CBC/DIFF STAT 10/17/2019 12:07 Results for this PM ACCESS CLINICIAN procedure are i n the results section. BASIC METABOLIC STAT 10/17/2019 12:07 Results for this PANEL PM ACCESS CLINICIAN procedure are i n the results section. after 03/17/2019 Results XRAY FOOT 3 VIEWS MIN (11/26/2019 2:00 PM CDT) Specimen Impressions Performed At IMPRESSION: [facility] No acute abnormality seen in the right t ibia and fibula, ankle and foot. Signed By: Janet Wilson MD, 11/26/2019 2:17 PM Narrative Performed At RIGHT TIBIA AND FIBULA SERIES, 2 views. [facility] RIGHT ANKLE SERIES, 3 views. RIGHT FOOT [...] PM Performing Organization Address City/State/Zipcode Phone Number [facility] XRAY ANKLE 3 VIEW MIN (11/26/2019 2:00 PM CDT) Specimen Impressions Performed At IMPRESSION: [facility] No acute abnormality seen in the right [...] and fibula, ankle and foot. Signed By: Latifa Sanhaji MD, 11/26/2019 2:17 PM Performing Organization Address City/State/Zipcode Phone Number SMS XRAY TIBIA AND FIBULA 2 VIEWS (11/26/2019 2:00 PM CDT) Specimen Impressions Performed At IMPRESSION: [facility] No acute abnormality seen in the right t ibia and fibula, ankle and foot. Signed By: Janet Wilson MD, 11/26/2019 2:17 PM Narrative Performed At RIGHT TIBIA AND FIBULA SERIES, 2 views. [facility] RIGHT ANKLE SERIES, 3 views. RIGHT FOOT [...] PM Performing Organization Address City/State/Zipcode Phone Number [facility] CBC/Diff (11/18/2019 4:22 AM CDT)Only the most [...] [facility] Specimen Blood Performing Organization Address [facility] Phone Number [facility] [address] [place], [place] [phone] Magnesium (11/18/2019 4:22 AM CDT)Only the most recent of5 resultswithin the time period is included. Pathologist Sig nature Magnesium 1.8 (L) 1.9 - 2.7 mg/dL [facility] Specimen Blood Performing Organization Address [facility] Phone Number [facility] [address] [place] [address] Basic Metabolic Panel (11/18/2019 4:22 AM CDT)Only [...] [facility] Specimen Blood Performing Organization Address [facility] Phone Number [facility] [address] [place], [place] [phone] POCT GLUCOSE POC docked device (11/16/2019 3:54 PM CDT)Only the most recent of2 resultswithin the time period is included. Pathologist Sig nature Glucose POC 115 (H) 74 - 106 mg/dL [facility] Specimen Blood Performing Organization Address City/State/Zipcode Phone Number [facility] [address] [place] [address] MRI BRAIN W/O CONTRAST (11/16/2019 2:46 PM CDT) Specimen Impressions Performed At IMPRESSION: SMS 1. No acute intracranial abnormality. 2. No [...] 2. No changes compared to Head CT 020, when accounting for differences in technique. If the report is "FINALIZED" it indicate s that the attending/staff radiologist has reviewed the images and agrees with the resident's interpretation. Dictated By: Aries Chang MD, 11/17/2019 3:45 PM I have reviewed the study and agree with the findings in this report. Signed By: Blayne Burgos MD, 11/17/2019 4:11 PM Performing Organization Address City/State/Zipcode Phone Number SMS XRAY SKULL 4 VIEWS MIN (11/15/2019 12:04 PM ACCESS CLINICIAN) Specimen Impressions Performed At IMPRESSION: SMS Punctate [...] MD, 11/16/2019 8:56 AM Performing Organization Address [facility] Phone Number SMS Lead, Whole Blood (Adult) (11/14/2019 1:14 PM ACCESS CLINICIAN) Pathologist [facility] Lead, Blood <1 0 - 4 ug/dL BT [facility] (Adult) Comment: Analysis by atomic absorption spectroscopy (AAS). Environmental E xposure: WHO Recommenda tion <20 Occupational Ex posure: OSHA Lead Std 40 CASIMIRO 30 Detect ion Limit = 1 Specimen Blood Narrative Performed At Performed at: 01 - [facility] [address] [place], [place] [id number] 143 Business Investor: Hemanth Frey MD, Phone: [phone] Performing Organization Address [facility] Phone Number [facility] [address] [place] [address] Syphilis Screen for Infection (11/13/2019 8:01 PM ACCESS CLINICIAN) Pathologist Sig nature TPA Negative Negative, Equivocal [facility] Final Report Negative Negative [facility] Specimen Blood Performing Organization Address [facility] Phone Number [facility] [address] [place] [address] Vitamin D, 25-Hydroxycalciferol (11/13/2019 8:01 PM ACCESS CLINICIAN) Vit D, 25-Hydroxy 33.8 30.0 - 100.0 [facility] ng/mL [facility]ORY Vitamin D Sufficient Sufficient [facility] Interpretation Comment: LABORATORY Sufficient: >30.0 Insufficient: 20.0 - 29.9 Deficient: <20.0 Specimen Blood Performing Organization Address [facility] Phone Number [facility] [address] [place], [place] [phone] HIV-1/HIV-2 Routine Screening (11/13/2019 8:01 PM ACCESS CLINICIAN) Pathologist [facility] HIV Ag/Ab Combo Negative Negative [facility] Specimen Blood Performing Organization Address [facility] Phone Number [facility] [address] [place], [place] [phone] Folic Acid (11/13/2019 8:01 PM ACCESS CLINICIAN) Pathologist [facility] Folic Acid 14.1 5.9 - 24.8 ng/mL [facility] Specimen Blood Performing Organization Address [facility] Phone Number [facility] [address] [place] [address] Ferritin (11/13/2019 8:01 PM ACCESS CLINICIAN) Pathologist [facility] Ferritin 60.2 11.0 - 306.8 ng/mL [facility] Specimen Blood Performing Organization Address [facility] Phone Number [facility] [address] [place] [address] [phone] Vitamin B12 (11/13/2019 8:01 PM ACCESS CLINICIAN) Pathologist [facility] Vitamin B12 894 See comment pg/mL [facility] Comment: Normal: 180-914 pg/mL Intermittent: 145-180 pg/mL Deficient: <=145.0 pg/mL Specimen Blood Performing Organization Address [facility] Phone Number [facility] [address] [place] [address] [phone] Valproic Acid (11/13/2019 8:01 PM ACCESS CLINICIAN)Only the most recent of2 resultswithin the time period is included. Pathologist Sig [facility] Valproic Acid 67.2 50.0 - 100.0 ug/mL [facility] Specimen Blood Performing Organization Address [facility] Phone Number [facility] [address] [place], [place] [phone] Iron Profile (11/13/2019 8:01 PM ACCESS CLINICIAN) Pathologist [facility] Iron 114 50 - 212 ug/dL [facility] TIBC 319 250 - 450 ug/dL [facility] % Iron Sat 36 % [facility] Transferrin 228.14 203.00 - 362.00 mg/dL [facility] Specimen Blood Performing Organization Address [facility] Phone Number [facility] [address] [place] [address] [phone] Hepatitis Panel (11/13/2019 8:01 PM ACCESS CLINICIAN) Pathologist Sig [facility] Hepatitis C Virus (HCV) Negative Negative [facility] RY Antibody Hep B Surface Ag Negative Negative [facility] Hep A Vir Ab IgM Negative Negative [facility] Hep B Core Ab IgM Negative Negative [facility] Specimen Blood Performing Organization Address [facility] Phone Number [facility] [address] [place] [address] ANASTACIO (11/13/2019 8:01 PM ACCESS CLINICIAN) Pathologist Sig [facility] ANASTACIO Screen Negative Negative [facility] Specimen Blood Performing Organization Address [facility] Phone Number [facility] [address] [place] [address] [phone] POCT Urine - (11/13/2019 9:36 AM ACCESS CLINICIAN)Only the most recent of2 results within the time period is included. Pathologist Sig [facility] Control passed negative Test (11/13/2019 9:31 AM ACCESS CLINICIAN)Only the most recent of2 resultswithin the time period is included. Pathologist Sig nature Negative Negative [facility] Specimen Urine Performing Organization Address [facility] Phone Number [facility] [address] [place] [address] CT HEAD W/O CONTRAST (11/13/2019 9:26 AM ACCESS CLINICIAN)Only the most recent of2 results within the [...] Rad/Mammog In - 11/13/2019 11 :25 AM ACCESS CLINICIAN Exam : Head CT without contrast History: [...] MD, 11/13/2019 11:20 AM Performing Organization Address [facility] Phone Number [facility] POCT CREATININE POC docked device (11/13/2019 6:27 AM ACCESS CLINICIAN) Creatinine POC 0.8Comment: 017 0.6 - 1.3 mg/dL [facility] GFR, Estimated >90 >=90 [facility] mL/min/1.73 m2 Specimen Blood, venous Performing Organization Address [facility] Phone Number [facility] [address] [place] [address] POCT BMP POC docked device (11/13/2019 6:26 AM ACCESS CLINICIAN) Sodium POC 141 136 - 145 [facility] [...] LABORATORY Specimen Blood, venous Performing Organization Address [facility] Phone Number [facility] [address] [place] [address] 12 LEAD EKG (11/13/2019 5:20 AM ACCESS CLINICIAN) 12 LEAD EKG FOR [facility] SMS Test Date: 2019-11-13 Pat Name: SARIAH BEY Department : 5520 Room: 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1980 Requested By: NEELAM RASHID Order Number: [id number] Nathaniel dunbar MD: Dolores Walker Measu rements Intervals [place] Rate: 70 P: 49 IA: 162 QRS: 38 QRSD: 84 T: 7 QT: 377 QTc: 409 Interpretive S tatements SINUS RHYTHM NONSPECIFIC T-WAVE ABNORMALITY Electronically Signed On 11-13-2019 5:52:58 ACCESS CLINICIAN by Hiren Walker Specimen Performing Organization Address City/State/Zipcode Phone Number SMS XRAY FOOT 3 VIEWS - ROUTINE (11/12/2019 11:10 PM ACCESS CLINICIAN)Only the most recent of2 resultswithin the time [...] Rad/Mammog In - 11/13/2019 4 :04 AM ACCESS CLINICIAN X-ray right ankle, 3 views X-ray right [...] 11/13/2019 3 :59 AM Performing Organization Address City[facility] Phone Number [facility] XRAY ANKLE 3 VIEWS - ROUTINE (11/12/2019 11:10 PM ACCESS CLINICIAN) Specimen Impressions Performed At IMPRESSION: SMS No [...] Rad/Mammog In - 11/13/2019 4 :04 AM ACCESS CLINICIAN X-ray right ankle, 3 views X-ray right [...] AM Performing Organization Address City/State/Zipcode Phone Number [facility] CTA HEAD W CONTRAST (10/18/2019 12:51 AM ACCESS CLINICIAN) Specimen Impressions Performed At IMPRESSION: SMS 1. [...] evaluation, multiplanar reconstruction, maximum intensity projections, and advan khris 3-D off-line postprocessing were obtained on a dedicated stand-alone work station under the direct supervision of the interpreting physicia n. IV Contrast 100 cc of Omnipaque. Complication: None Radiation dose: Total DLP: 1032 mGy*cm Estimated Effective Dose: DLP x 0.031 mS v FINDINGS: Head CT with contrast: No interval changes when compared to the previous CT. No enhancing abnormalities. CTA [place]: Carotid arteries: Patent, no abnormalities.. [...] Rad/Mammog In - 10/18/2019 1 :25 AM ACCESS CLINICIAN Exams: Intracranial CT angiogram History: Headache, acute, [...] evaluation, multiplanar reconstruction, maximum intensity projections, and advan khris 3-D off-line postprocessing were obtained on a dedicated stand-alone work station under the direct supervision of the interpreting physicia n. IV Contrast 100 cc of Omnipaque. Complication: None Radiation dose: Total DLP: 1032 mGy*cm Estimated Effective Dose: DLP x 0.031 mS v FINDINGS: Head CT with contrast: No interval changes when compared to the previous CT. No enhancing abnormalities. CTA [place]: Carotid arteries: Patent, no abnormalities.. [...] MD, 10/18/2019 1:20 AM Performing Organization Address City/[facility]/Zipcode Phone Number SMS Ammonia (10/17/2019 2:37 PM ACCESS CLINICIAN) Pathologist Sig nature Ammonia 31.0 16.0 - 53.0 umol/L [facility] Specimen Blood Performing Organization Address City/[facility] Phone Number [facility] [address] [place] [address] after 03/17/2019 Insurance Payer Benefit Plan / Subscriber ID Effective Dates Phone Addre ss Type Group HD SELF-PAY xxxxxxx 2020-20 [phone] [id number] SELF-PAY SCREENED [address] [place] [address] Advance Directives Code Status Date Activated Date Inactivated Comments Full Code 11/13/2019 6:17 PM 11/18/2019 4:30 PM
--- OUTSIDE RECORDS SUMMARY | 2020-03-17 18:49 | XMS REPORT | Continuity of Care Document ---
:1980 Author Organization [facility] t Address [address] [place] [address] Care Team Providers Name Role Phone Ashanti Agarwal MD Attending Clinician Alondra CARNES T Attending Clinician Mahnaz [place] MD Attending Clinician Casey MENDOZA Attending Clinician Da Physician Attending Clinician Valencia Attending Clinician Johnie CARNES Attending Clinician Richie Attending Clinician Dustin CARNES, P Attending Clinician Herber CARNES M Attending Clinician Alexx CARNES Attending Clinician Lexie Attending Clinician Jason Attending Clinician Herrera Attending Clinician Unavailable Eron Attending Clinician Unavailable Ace Attending Clinician Unavailable Opal Attending Clinician [phone] Acosta Attending Clinician Unavailable Dicks Unavailable [phone] Payers Payer Name Policy Type Policy Number Effective Date Expiration Date Madhu gonzalez [facility] [id number] 2020 2030 [facility] SELF-PAYSELF 00:00:00 23:59:59 -PAY SCREENEDxxxx xxx2020- 01/13/2030713- [id number] [place] [address] [id number] 2019 2020 [facility] 00:00:00 00:00:00 [facility] [id number] 2019 2020 [facility] 00:00:00 00:00:00 [facility] Problems Condition Condition Condition Status Onset Resolution Last Treating Co mments Source Name Details Category Date Date Treatment Clinician Date BPPV BPPV Disease Active Francisco (benign (benign 08 Health paroxysmal paroxysmal 00:00: positional positional 00 vertigo), vertigo), left left Myopia - Condition Active 2019-05-19 Mark Joseph egacy OU 05-19 15:30:00 [facility]i Communi 00:00: ty 00 Health Regular Condition Active 2019-05-19 Aditi Joseph astigmatis 05-19 15:30:00 Adi Comm uni m, 00:00: ty bilateral 00 Health Class 1 Class 1 Disease Active Singh obesity obesity 04-28 Health due to due to 00:00: excess excess 00 calories calories without without serious serious comorbidit comorbidit y with y with body mass body mass index index (BMI) of (BMI) of 34.0 to 34.0 to 34.9 in 34.9 in adult adult Iron Iron Disease Active Singh deficiency deficiency 04-28 He alth anemia anemia 00:00: 00 Gastroesop Gastroesop Disease Active H lissett hageal hageal 04-28 Health reflux reflux 00:00: disease disease 00 Homelessne Homelessne Disease Active H lissett ss ss 04-28 Health 00:00: 00 Menorrhagi Menorrhagi Disease Active H lisstet a with a with 04-28 Health irregular irregular 00:00: cycle cycle 00 Blurry Blurry Disease Active Francisco vision, vision, Health bilateral bilateral Nonintract Nonintract Disease Active H lissett able able Health headache headache Right foot Right foot Disease Active H arris pain pain Health Dizziness Dizziness Disease Active Adelso [facility] Health Palpitatio Palpitatio Disease Active H arris ns ns Health Syncope Syncope Disease Active [facility] Intermitte Intermitte Disease Active H arris nt nt Health lightheade lightheade dness dness Postural Postural Disease Active Harrjenifer s dizziness dizziness Heal th with with presyncope presyncope Normocytic Normocytic Disease Active H arris anemia anemia Health 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 Health Allergies, Adverse Reactions, Alerts Allergy Allergy Status Severity Reaction(s) Onset Inactive Treating Comm ents Source Name Type Date Date Clinician Yessica Lehman Active Rash, [place] ty to Swelling 11-13 Health adverse 00:00: reaction 00 s to drug No Known DA Active [facility] Allergie 06-03 Clear s 00:00: Sepulveda 00 [facility] Family History Family Member Diagnosis Comments Start Date Stop Date Source Natural father Heart Merged with [facility] Natural father Hypertension [facility] Natural mother Diabetes Merged with [facility] Natural mother Psychiatry Merged with [facility] Natural mother Stroke Merged with [facility] Natural sister Psychiatry Merged with [facility] Social History Social Habit Start Date Stop Date Quantity Comments Source Sex Assigned At [facility] Alcohol intake 2019-11-16 2019-11-16 Merged with [facility] 00:00:00 00:00:00 time of call 2019-05-26 2019-05-26 05/26/2019 10:54 [facility] 10:54:05 10:54:05 AM Health Tobacco Comment 2019-02-17 2019-02-17 Stopped smoking [facility] 00:00:00 00:00:00 in 2018 Smoking Status Start Date Stop Date Source Former smoker 2019-11-16 00:00:00 2019-11-16 00:00:00 [facility] Medications Ordered Filled Start Stop Current Ordering Indication Dosage Frequency Signature Comments Components Source Medication Medication Date Date Medication? Clinician (SIG) Name Name omeprazole Yes Gastroesoph 20mg QD Take 1 Singh (PRILOSEC) 3-11 ageal capsule by Hugh monroy 20 mg 00:00: reflux mouth delayed 00 disease, every release esophagitis morning capsule presence (before not breakfast) specified . lurasidone 2019- Yes Take by [facility] is HCl (LATUDA 3-10 mouth. Health OR) 14:30: 02 meclizine 2020-0 Yes Intermitten 25mg Q.5D Take 1 Singh (ANTIVERT) 3-10 t tablet by [facility] 25 mg Tab 00:00: lightheaded mouth 2 00 ness times daily. SUMAtriptan 2020-0 Yes Intractable Take 1 Singh (IMITREX) 2-25 migraine tablet by H ealth 50 mg 00:00: without mouth at tablet 00 status onset of migrainosus headache. , Repeat unspecified after 2 migraine hours if type needed. Maximum 200mg/24 hours.. fluticasone 2020-0 Yes Seasonal 1{spray QD Use 1 Singh propionate 2-25 allergic } [place] in H ealt (FLONASE) 00:00: rhinitis, each 50 00 unspecified nostril mcg/actuati trigger daily. on nasal spray loratadine 2019-0 Yes Seasonal 10mg QD Take 1 H arris (CLARITIN) 2-25 allergic tablet by [facility] 10 mg 00:00: rhinitis, mouth tablet 00 unspecified daily. trigger propranolol 2019-0 Yes Intractable 40mg Q.5D Take 1 Singh (INDERAL) 2-25 migraine tablet by ealt 40 mg 00:00: without mouth 2 tablet 00 status times migrainosus daily. , unspecified migraine type propranolol 2019-0 2020- No Intractable 20mg Q.5D Take 1 Singh (INDERAL) 2-25 02-25 migraine tablet by [facility] 20 mg 00:00: 00:00 without mouth 2 tablet 00 :00 status times migrainosus daily. , unspecified migraine type propranolol 2020-0 2020- No 40mg Q.5D Take 1 Adelso ris (INDERAL) 2-25 02-25 tablet by [facility] 40 mg 00:00: 00:00 mouth 2 tablet 00 :00 times daily. ferrous 2020-0 Yes Iron 325mg QD Take 1 Singh sulfate 325 2-10 deficiency tablet by [facility] mg (65 mg 00:00: anemia, mouth iron) 00 unspecified daily tablet iron (with deficiency breakfast) anemia type . famotidine 2020-0 Yes Gastroesoph 40mg Take 1 Singh (PEPCID) 40 2-10 ageal tablet by alth mg tablet 00:00: reflux mouth 00 disease, daily as esophagitis needed for presence Heartburn. not specified ibuprofen 2019-0 Yes Intractable 400mg Take 1 Singh (MOTRIN) 2-10 migraine tablet by alth 400 mg 00:00: without mouth tablet 00 status every 8 migrainosus hours as , needed for unspecified Pain. migraine type SUMAtriptan 2019- No Intractable Take 1 Francisco (IMITREX) 10-20 migraine tablet by [facility] 50 mg 00:00: 00:00 without mouth at tablet 00 :00 status onset of migrainosus headache. , Repeat unspecified after 2 migraine hours if type needed. Maximum 200mg/24 hours.. GUAIFENESIN 2019- No Acute 1{tbl} Q.5D Take 1 Singh -DM CR 09-22 sinusitis, tablet by H ealth (MUCINEX 00:00: 00:00 recurrence mouth 2 DM) 30-600 00 :00 not times mg tablet specified, daily. unspecified location fluticasone 2019- No Acute 1{spray QD Use 1 Francisco propionate 09-22 sinusitis, } [place] in Health (FLONASE) 00:00: 00:00 recurrence each 50 00 :00 not nostril mcg/actuati specified, daily. on nasal unspecified spray location ferrous 2019- No Iron 325mg QD Take 1 Francisco sulfate 325 09-22 deficiency tablet by [facility] mg (65 mg 00:00: 00:00 anemia, mouth iron) 00 :00 unspecified daily tablet iron (with deficiency breakfast) anemia type . famotidine 2019- No Gastroesoph 40mg Take 1 Francisco (PEPCID) 40 09-22 ageal tablet by H ealth mg tablet 00:00: 00:00 reflux mouth 00 :00 disease, daily as esophagitis needed for presence Heartburn. not specified doxycycline 2019- No Acute 100mg Q.5D Take 1 H arris (VIBRA-TABS 09-22 sinusitis, tablet by [facility] ) 100 mg 00:00: 23:59 recurrence mouth 2 tablet 00 :00 not times specified, daily for unspecified 10 days. location TRAZODONE Yes [facility] HCL 05-19 Communi (TRAZODONE 00:00: ty HCL TABS) 00 Health TABS DEPAKOTE Yes [facility] (DIVALPROEX 05-19 Communi SODIUM 00:00: ty TBEC) TBEC 00 Health EFFEXOR XR Yes [facility] (VENLAFAXIN 05-19 Communi E HCL) 75 00:00: ty MG 00 Health PA88P-AUG HYDROXYZINE Yes [facility] HCL 05-19 Communi (HYDROXYZIN 00:00: ty E HCL TABS) 00 Health TABS omeprazole 2019- No Gastroesoph 20mg Take 1 Singh (PRILOSEC) 04-28 ageal capsule by H ealth 20 mg 00:00: 00:00 reflux mouth at delayed 00 :00 disease, bedtime release esophagitis nightly. capsule presence not specified ibuprofen 2019- No Pain, 400mg Take 1 Adelso ris (MOTRIN) 04-28 dental tablet by [facility] 400 mg 00:00: 00:00 mouth tablet 00 :00 every 8 hours as needed for Pain. ferrous 2019- No Iron 325mg QD Take 1 Singh sulfate 325 04-28 deficiency tablet by [facility] (65 mg 00:00: 00:00 anemia, mouth [...] 1-2 Singh (DESYREL) 6-26 unspecified tablets by Health 50 mg 00:00: type mouth tablet 00 nightly at bedtime as needed for Sleep. venlafaxine Yes Bipolar 150mg QD Take 1 Singh (EFFEXOR 6-26 disorder in capsule by [facility] XR) 150 mg 00:00: partial mouth extended 00 remission, daily. release most recent capsule episode unspecified type hydrOXYzine Yes Anxiety 25mg Take 1 H arris (ATARAX) 25 6-26 tablet by [facility] lt mg tablet 00:00: mouth 3 00 times daily as needed for Anxiety or Insomnia. divalproex Yes Bipolar 500mg Q.5D Take 1 H arris (DEPAKOTE) 6-26 disorder in tablet by Health 500 mg 00:00: partial mouth 2 delayed 00 remission, times release most recent daily. tablet episode unspecified type propranolol 2019- Anxiety 40mg Q.5D Take 1 [place] (INDERAL) 03-05 tablet by [facility] th 40 mg 00:00: 00:00 mouth 2 tablet 00 :00 times daily. amitriptyli 2019- Bipolar 50mg Take 1 [place] ne (ELAVIL) 03-05 disorder in tablet by Health 50 mg 00:00: 00:00 partial mouth at tablet 00 :00 remission, bedtime most recent nightly. episode unspecified type Immunizations Ordered Immunization Filled Immunization Date Status Commen ts Source Name Name Influenza, Vaccine 2019-10-20 Completed [facility] <FLUCELVAX>(Preserva 00:00:00 tive-Free) Twinrix-HEP A&b 2019-03-05 Completed [facility] alth 00:00:00 Td <Unspecified> 2016-03-05 Completed [facility] Vital Signs Vital Name Observation Time Observation Value Comments Source Heart rate 2019-11-26 15:13:00 72 /min [facility] Body temperature 2019-11-26 15:13:00 36.72 Navya [facility] Respiratory rate 2019-11-26 15:13:00 18 /min [facility] Oxygen saturation in 2019-11-26 15:13:00 100 /min [facility] Arterial blood by Pulse oximetry Systolic blood pressure 2019-11-26 11:17:00 108 mm[Hg] [facility] Diastolic blood pressure 2019-11-26 11:17:00 68 mm[Hg] [facility] Body height 2019-11-13 21:00:00 162.6 cm [facility] Body weight 2019-11-13 21:00:00 92.262 kg [facility] BMI 2019-11-13 21:00:00 34.91 kg/m2 [facility] Procedures Procedure Date / Time Performing Clinician Source Performed XRAY FOOT 3 VIEWS MIN 2019-11-26 19:00:00 Candie Bonilla [facility] XRAY ANKLE 3 VIEW MIN 2019-11-26 19:00:00 Candie Bonilla [facility] XRAY TIBIA AND FIBULA 2 2019-11-26 19:00:00 Candie Bonilla [facility] VIEWS CBC/DIFF 2019-11-18 09:22:00 Samuel Timothy [facility] BASIC METABOLIC PANEL 2019-11-18 09:22:00 Katarina-Juan [facility]Timothy [facility] MAGNESIUM 2019-11-18 09:22:00 Katarina-Juan JoseTimothy [facility] CBC 2019-11-18 09:22:00 Timothy Baker [facility] CBC/DIFF 2019-11-17 08:46:00 Timothy Baker [facility] BASIC METABOLIC PANEL 2019-11-17 08:46:00 Katarina-Juan [facility]Timothy [facility] MAGNESIUM 2019-11-17 08:46:00 Katarina-Juan JoseTimothy [facility] CBC 2019-11-17 08:46:00 Timothy Baker [facility] GLUCOSE POC 2019-11-16 20:54:00 Trip [place] [facility] MRI BRAIN W/O CONTRAST 2019-11-16 19:46:18 Deshaun Waldron s [facility] CBC/DIFF 2019-11-16 08:44:00 Katarina-Timothy Ingram [facility] BASIC METABOLIC PANEL 2019-11-16 08:44:00 Katarina-Juan JoseTimothy [facility] Health MAGNESIUM 2019-11-16 08:44:00 Katarina-Juan JoseTimothy [facility] CBC 2019-11-16 08:44:00 GeorgieoTimothy [facility] XRAY SKULL 4 VIEWS MIN 2019-11-15 18:04:17 Deshaun Waldron s [facility] CBC/DIFF 2019-11-15 09:57:00 Katarina-Juan Jose Timothy [facility] BASIC METABOLIC PANEL 2019-11-15 09:57:00 Preeta-Juan [facility]Timothy [facility] MAGNESIUM 2019-11-15 09:57:00 Preeta-Juan JoseTimothy [facility] CBC 2019-11-15 09:57:00 Katarina-Juan JoseTimothy [facility] LEAD, WHOLE BLOOD 2019-11-14 19:14:00 Trip [place] [facility] lt (ADULT) INFUSION PUMP 2019-11-14 15:21:01 Trip [place] h CBC/DIFF 2019-11-14 09:45:00 EdnaJuan Jose, Timothy [facility] BASIC METABOLIC PANEL 2019-11-14 09:45:00 EdnaJuan Jose [facility] MAGNESIUM 2019-11-14 09:45:00 EdnaJuan Jose Timothy [facility] CBC 2019-11-14 09:45:00 KatarinaRene Timothy [facility] VALPROIC ACID 2019-11-14 02:01:00 Samuel Timothy [facility] BASIC METABOLIC PANEL 2019-11-14 02:01:00 EdnaJuan Jose Timothy [facility] FERRITIN 2019-11-14 02:01:00 PreetwyattJuan Jose Timothy [facility] IRON PROFILE 2019-11-14 02:01:00 FcomaríawyattJuan Jose Timothy [facility] FOLIC ACID 2019-11-14 02:01:00 PreetJuan Jose Timothy [facility] HIV AG/AB COMBO ROUTINE 2019-11-14 02:01:00 Samuel Timothy [facility] SCREENING HEPATITIS PANEL 2019-11-14 02:01:00 PreetwyattJuan Jose Timothy [facility] ANASTACIO 2019-11-14 02:01:00 [facility] SYPHILIS SCREEN FOR 2019-11-14 02:01:00 KatarinaJuan Jose Timothy [facility] INFECTION VIT D, 25-HYDROXY 2019-11-14 02:01:00 [facility] VITAMIN B12 2019-11-14 02:01:00 Deshaun Waldron POCT URINE DIPSTICK - 2019-11-13 15:36:[address] [facility] TEST 2019-11-13 15:31:[address] HEAD W/O CONTRAST 2019-11-13 15:26[facility] 2019-11-13 12:27:00 Unknown, Provider Francisco Lee lt BMP POC 2019-11-13 12:26:00 Unknown, Provider Francisco Lee [facility] CBC/DIFF 2019-11-13 12:21:00 Neelam Germain [facility] h CBC 2019-11-13 12:21:00 Neelam Germain [facility] ECHG EKG PROC 12 LEAD 2019-11-13 11:20:07 Neelam Germain [facility] EKG; TRACING ONLY GLUCOSE POC 2019-11-13 10:51:00 Kingsley Peña [facility] XRAY ANKLE 3 VIEWS - 2019-11-13 05:10:00 Phillip Abraham [facility] ROUTINE XRAY FOOT 3 VIEWS - 2019-11-13 05:10:00 Phillip Abraham [facility] ROUTINE POCT URINE DIPSTICK - 2019-11-13 04:22:00 Phillip Abraham [facility] XRAY FOOT 3 VIEWS - 2019-10-26 03:38:36 Jennifer Vides [facility] ROUTINE CTA HEAD W CONTRAST 2019-10-18 06:51:16 Aries Mcintosh [facility] ealth CT HEAD W/O CONTRAST 2019-10-18 05:28:40 Aries Mcintosh [facility] VALPROIC ACID 2019-10-17 20:37:00 Chivo Frankmj Parker [facility] h AMMONIA 2019-10-17 20:37:00 [facility] 2019-10-17 19:12:00 Jennifer Vides [facility] BASIC METABOLIC PANEL 2019-10-17 18:07:00 Jennifer Vides [facility] CBC/DIFF 2019-10-17 18:07:00 Jennifer Vides [facility] CBC 2019-10-17 18:07:00 Jennifer Vides [facility] Spherocyl, SV, plano to 2019-05-20 09:06:19 Juanita Littlejohn [facility] +/- 4.00d sphere, 0.12 Health to 2.00d cyl, per lens Frames, purchases deluxe 2019-05-20 09:05:57 Juanita Littlejohn [facility] New Patient Intermediate 2019-05-19 15:29:33 Adi Joseph [facility] Opt - [id number] Health Vaccines Ordered - Print 2019-02-14 14:18:30 Macy Shane [facility] Consent/Declination Health Forms Vaccines Ordered - Print 2019-02-12 14:21:00 Macy Shane [facility] Consent/Declination Health Forms Plan of Care Planned Activity Planned Date Details Comments Source Future Scheduled Test 2024-02-27 00:00:00 Cervical Cancer Scrn [facility] (5 Yrs) [code = Cervical Cancer Scrn (5 Yrs)] Future Scheduled Test 2020-06-10 00:00:00 IMM Influenza [facility] Seasonal Jun to November (>/= 19 yrs) [code = IMM Influenza Seasonal Jun to November (>/= 19 yrs)] Encounters Start End Encounter Admission Attending Care Care Encounter Source Date/Time Date/Time Type Type Clinicians Facility Department ID 2020-03-02 2020-03-02 Outpatient [facility] [id number] [place] 00:00:00 00:00:00 Health 2019-11-26 2019-11-26 Emergency [facility] [id number] [place] 13:47:57 13:47:57 Health 2019-11-26 2019-11-26 Emergency [facility] MED [id number] [place] 11:21:06 11:21:06 Health 2019-11-17 2019-11-17 [facility] [id number] [facility] 00:00:00 00:00:00 2019-11-16 2019-11-16 Outpatient [facility] [id number] [place] 11:26:52 11:26:52 Health 2019-11-15 2019-11-15 Outpatient [facility] [id number] [place] 11:58:23 11:58:23 Health 2019-11-15 2019-11-15 Outpatient [facility] [id number] [place] 11:43:04 11:43:04 Health 2019-11-14 2019-11-14 Outpatient [facility] [id number] [place] 10:26:02 10:26:02 Health 2019-11-13 2019-11-13 Emergency [facility] [id number] [place] 09:21:23 09:21:23 Health 2019-11-13 2019-11-13 Outpatient [facility] MED [id number] Singh 06:32:39 06:32:39 Health 2019-11-12 2019-11-12 Emergency [facility] [id number] [place] 22:50:38 22:50:38 Health 2019-11-12 2019-11-12 Emergency [facility] MED [id number] Singh 19:42:14 19:42:14 Health 2019-11-04 2019-11-04 [facility] [id number] [facility] 14:33:46 14:33:46 2019-10-31 2019-10-31 Outpatient [facility] [id number] [facility] 15:44:39 15:44:39 2019-10-25 2019-10-25 Emergency [facility] [id number] Singh 23:23:24 23:23:24 Health 2019-10-25 2019-10-25 Emergency [facility] [id number] Singh 21:03:20 21:03:20 [facility] 2019-10-25 2019-10-25 Emergency [facility] [id number] Singh 00:00:00 00:00:00 [facility] 2019-10-20 2019-10-20 [facility] [id number] [facility] 13:26:36 13:26:36 2019-10-18 2019-10-18 Emergency [facility] [id number] Singh 00:10:57 00:10:57 [facility] 2019-10-17 2019-10-17 Emergency [facility] [id number] [place] 23:08:41 23:08:41 [facility] 2019-10-17 2019-10-17 Emergency [facility] [id number] Singh 12:52:25 12:52:25 [facility] 2019-09-24 2019-09-24 [facility] [id number] [facility] 09:00:30 09:00:30 2019-09-08 2019-09-08 Office Herrera [facility] Vision Encoun ter/ [facility] 00:00:00 00:00:00 Visit Della [id number] Com [place] [id number] [facility] 2019-05-26 2019-05-26 Office Eron [facility] Vision Encoun ter/ [facility] 00:00:00 00:00:00 Visit Juanita [id number] Com [place] [id number] [facility] 2019-05-26 2019-05-26 Office Graciela [facility] Public Enc ounter/ [facility] 00:00:00 00:00:00 Visit Roxanne schneider [facility] [id number] Wi [facility]i Services [id number] [facility] 2019-05-21 2019-05-21 Office Adi Joseph [facility] Vision Enc ounter/ Legacy 00:00:00 00:00:00 Visit [id number] Com [place]on [id number] [facility] 2019-05-19 2019-05-19 [facility] 00:00:00 00:00:00 Visit Juanita [id number] Com [place] [id number] [facility] 2019-05-19 2019-05-19 Office Adi oJseph [facility] Vision Enc ounter/ [facility] 00:00:00 00:00:00 Visit [id number] Com [place] [id number] [facility] 2019-05-19 2019-05-19 Office Adi Joseph [facility] Vision Enc ounter/ [facility] 00:00:00 00:00:00 Visit [id number] Com [place] [id number] [facility] 2019-05-19 2019-05-19 Office Adi Joseph [facility] Vision Enc ounter/ Legacy 00:00:00 00:00:00 Visit [id number] Com [place]on [id number] [facility] 2019-05-19 2019-05-19 Office Adi Joseph [facility] Vision Enc ounter/ [facility] 00:00:00 00:00:00 Visit Eron Juanita [id number] Communi [id number] [facility] 2019-02-14 2019-02-[address] [facility] Adult Encoun ter/ [facility] 00:00:00 00:00:00 Visit Macy Medicine [id number] Co mmuni [id number] [facility] 2019-02-12 2019-02-[address] [facility] Adult Encoun ter/ [facility] 00:00:00 00:00:00 Visit [facility] [id number] Co mmuni [id number] [facility] 2019-02-12 2019-02-[address] [facility] Adult Encoun ter/ [facility] 00:00:00 00:00:00 Visit [facility] [id number] Co mmuni [id number] [facility] Results Test Description Test Test Results Result Source Time Comments Comments XR Chest 1 View 2020-02- Patient: SOURAV BEY REYES 16:17:32 Date/Time02/12/2020 16:10 CDTReason for ExamPneumoniaReportDictation location [...] CSigned (Electronic Signature): 02/12/2020 4:17 pm Procalcitonin LC 2020-02- <0.02 A procalcitonin (PCT) 04 level [...] any concentrations <2 ng/mL are obtained.Performed At: [address] [id number] Kyle L MD Ph:[phone] Novel Coronavirus 2020-02- Not DetectedTesting was (COVID-19), YOLANDA 04 performed using the miguel(R) LC 10:12:58 SARS-CoV-2 test.This test was developed and its performance characteristicsdetermined by [facility]. This test has not beenFDA cleared or approved. This test has been authorized byA under an Emergency Use Authorization (EUA). This [...] (not detected) result in this assay.Performed At: [facility] [id number] Sanjai MD Ph:[phone] Ferritin 2020-02-11 09:17:16 Test Item Value Reference Range Interpretation Comme nts Ferritin Level (test code = Ferritin Level) 18 ng/mL 13-150 Basic Metabolic [id number] 06:58:24 Test Item Value Reference Range Interpretation [...] ag e have not been validated by [facility] MDRD study and should be interpreted wit [...] ag e have not been validated by [facility] MDRD study and should be interpreted wit h caution. eGFR R esult Interpretation: eGFR > or = 60 is in the Normal RangeeGF R < 60 may mean kid carmelina diseaseeGFR < 1 5 may mean kidney failure Rang es recommended by the National Kidney Foundation, http://nkdep.ni h.gov Hepatic Function [id number] 05:35:45 Test Item Value Reference Range Interpretation [...] 2.8 g/dL 2.9-3.1 L = Globulin) Lactate [id number] 05:35:45 Test Item Value Reference Range Interpretation Comments LDH (test code = LDH) 206 U/L 135-214 C Reactive Vbmuujo5469-54-04 05:35:45 Test Item Value Reference Range Interpretation Comments CRP (test code = CRP) 6.4 mg/L 0.0-5.0 H Lactic Acid, Plasma (Venous)2020-02-11 05:12:57 Test Item Value Reference Range Interpretation Comments Lactic Acid, Plasma (Venous) (test 0.7 mmol/L 0.5-1.9 code = Lactic Acid, Plasma (Venous)) Fibrinogen Udlfd8158-73-99 05:04:01 Test Item Value Reference Range Interpretation Comments Fibrinogen Level (test code = 226.0 mg/dL 188.5-473.8 Fibrinogen Level) D-Dimer Qfhhhhkakstz4254-90-86 05:04:01 Test Item Value Reference Range Interpretation Comments D Dimer, (Quant.) (test code = D 406 ng/mL 0-500 Dimer, (Quant.)) Complete Blood Count with Tisaujhztkkj3518-69-54 04:56:23 Test Item Value Reference Range Interpretation [...] code = 0 % N IPF) Automated Mpvnunspqwju9206-54-32 04:56:23 Test Item Value Reference Range Interpretation Comments Neutro Auto (test code = Neutro 45.7 % 36.0-70.0 Auto) Lymph Auto (test code = Lymph Auto) 39.7 % 12.0-44.0 [facility] Auto (test code = [facility] Auto) 10.7 % 0.0-11.0 Eos, Auto (test code = Eos, Auto) 2.9 % 0.0-7.0 Basophil Auto (test code = Basophil 0.5 % 0.0-2.0 Auto) Neutro Absolute (test code = Neutro 3.0 x10 1.6-7.4 Absolute) Lymph Absolute (test code = Lymph 2.61 x10 .50-4.60 Absolute) [facility] Absolute (test code = [facility] .70 x10 .00-1.20 Absolute) Eos Absolute (test code = Eos 0.19 x10 0.00-0.74 Absolute) Baso Absolute (test code = Baso 0.03 x10 0.00-0.21 Absolute) IG Pdqya2650-84-26 04:56:23 Test Item Value Reference Range Interpretation Comments IG (test code = IG) 0.5 % 0.0-5.0 IG Abs (test code = IG Abs) 0 x10 N Comprehensive Metabolic Hhppo7916-73-81 15:04:07 Test Item Value Reference Range Interpretation [...] account, if the information is provided. If e race is not provided, and t he patient is -Isabel n, multiply by 1.2 12. If sex is not provided, and t he patient is fema le, multiply by 0.7 42. Results for pat ients <18 years of ag e have not been validated by [facility] MDRD study and should be interpreted wit h caution. eGFR R esult Interpretation: eGFR > or = 60 is in the Normal RangeeGF R < 60 may mean kid carmelina diseaseeGFR < 1 5 may mean kidney failure Rang es recommended by the National Kidney Foundation, http://nkdep.ni h.gov C Reactive Hvyztsj6562-61-31 12:02:24 Test Item Value Reference Range Interpretation Comments CRP (test code = CRP) 2.8 mg/L 0.0-5.0 Automated Fiwxanknpeor4341-94-67 10:31:00 Test Item Value Reference Range Interpretation Comments Neutro Auto (test code = Neutro 49.7 % 36.0-70.0 Auto) Lymph Auto (test code = Lymph Auto) 31.5 % 12.0-44.0 [facility] Auto (test code = [facility] Auto) 12.3 % 0.0-11.0 H Eos, Auto (test code = Eos, Auto) 5.5 % 0.0-7.0 Basophil Auto (test code = Basophil 0.6 % 0.0-2.0 Auto) Neutro Absolute (test code = Neutro 2.3 x10 1.6-7.4 Absolute) Lymph Absolute (test code = Lymph 1.48 x10 .50-4.60 Absolute) [facility] Absolute (test code = [facility] .58 x10 .00-1.20 Absolute) Eos Absolute (test code = Eos 0.26 x10 0.00-0.74 Absolute) Baso Absolute (test code = Baso 0.03 x10 0.00-0.21 Absolute) IG Uwdbl5968-06-42 10:31:00 Test Item Value Reference Range Interpretation Comments IG (test code = IG) 0.4 % 0.0-5.0 IG Abs (test code = IG Abs) 0 x10 N Complete Blood Count with Ujjriksffsnw2964-95-36 10:30:59 Test Item Value Reference Range Interpretation [...] code = IPF) 0 % N Urine Mmgqwod7728-21-51 10:00:32 C Urine Added by GL_SJM_UA_CUL_IND>=100,000 cfu/ml Diphtheroids 10,000 cfu/ml Gamma Streptococcus <10,000 cfu/ml Alpha Streptococcus Multiple organisms present, no further workup in progress. Fibrinogen Yhvrl0534-31-34 23:35:18 Test Item Value Reference Range Interpretation Comments Fibrinogen Level (test code = 226.0 mg/dL 188.5-473.8 Fibrinogen Level) Ndehxios0417-24-71 23:32:29 Test Item Value Reference Range Interpretation Comments Ferritin Level (test code = Ferritin 17 ng/mL 13-150 Level) Lactate Eoewezydamrcd6331-44-55 22:35:45 Test Item Value Reference Range Interpretation Comments LDH (test code = LDH) 246 U/L 135-214 H C Reactive Klqtuoz2974-97-04 22:35:45 Test Item Value Reference Range Interpretation Comments CRP (test code = CRP) 2.8 mg/L 0.0-5.0 Complete Blood Count with Raysdkuwbkqm7994-34-53 22:00:38 Test Item Value Reference Range Interpretation [...] code = 0 % N IPF) Automated Nmstrjcyspwn3903-74-52 22:00:38 Test Item Value Reference Range Interpretation Comments Neutro Auto (test code = Neutro 45.4 % 36.0-70.0 Auto) Lymph Auto (test code = Lymph Auto) 37.4 % 12.0-44.0 [facility] Auto (test code = [facility] Auto) 11.4 % 0.0-11.0 H Eos, Auto (test code = Eos, Auto) 4.6 % 0.0-7.0 Basophil Auto (test code = Basophil 0.7 % 0.0-2.0 Auto) Neutro Absolute (test code = Neutro 2.8 x10 1.6-7.4 Absolute) Lymph Absolute (test code = Lymph 2.27 x10 .50-4.60 Absolute) [facility] Absolute (test code = [facility] .69 x10 .00-1.20 Absolute) Eos Absolute (test code = Eos 0.28 x10 0.00-0.74 Absolute) Baso Absolute (test code = Baso 0.04 x10 0.00-0.21 Absolute) IG Ubrcp6385-66-54 22:00:38 Test Item Value Reference Range Interpretation Comments IG (test code = IG) 0.5 % 0.0-5.0 IG Abs (test code = IG Abs) 0 x10 N Troponin [id number] 19:40:14 Test Item Value Reference Range Interpretation [...] of chronic myocard ial injury. Urine Drug Qbvkdi6321-53-93 19:31:13 Test Item Value Reference Range Interpretation [...] matory test if desired . HCG Qualitative Rhics3061-99-91 19:08:08 Test Item Value Reference Range Interpretation Comments HCG, Serum Qual (test code = HCG, Negative Serum Qual) Lot # (test code = Lot #) [id number] N Expiration Dt (test code = 2021-07-10 N Expiration Dt) Neg Control (test code = Neg Negative Control) Pos Control (test code = Pos Positive Control) Internal QC (test code = Internal Acceptable QC) Urinalysis Foxsogqtcxs2584-34-45 19:04:03 Test Item Value Reference Range Interpretation Comments UA WBC (test code = UA WBC) None Seen 0-5 UA RBC (test code = UA RBC) 6-10 0-5 A UA Bacteria (test code = UA Few A Bacteria) UA Squam Epithelial (test code = UA 20-29 A Squam Epithelial) Comprehensive Metabolic Ijmnu2708-10-15 19:03:43 Test Item Value Reference Range Interpretation [...] A/G 1.3 ratio N Ratio) Comprehensive Metabolic Teubj7913-64-00 19:03:43 Test Item Value Reference Range Interpretation [...] the National Kidney Foundation, http://nkdep.ni h.gov Alcohol Rbhuo0240-56-86 19:03:43 Test Item Value Reference Range Interpretation Comments Ethanol Level (test <0.00 g/dL 0.00-0.01 Intoxica ginger 0.080 g/dL code = Ethanol or more Level) Ethanol Inst (test <0 N code = Ethanol Inst) Comprehensive Metabolic Nklvi4329-45-90 19:03:43 Test Item Value Reference Range Interpretation [...] Foundation, http://nkdep.ni h.gov XR Chest 1 View Hhmuzgn1944-15-09 18:52:37Patient: SOURAV BEY Date/Time02/09/202018:31 CDTReason for ExamShortness of breathReportDICTATION LOCATION: [id number]: Female, 39 years of age with Shortness [...] Signature): 02/09/2020 6:52 pmUrinalysis with Culture, if curjeggza3788-20-50 18:46:10 Test Item Value Reference Range Interpretation [...] Micro Indicated Not Indicated A Ind?) IG Iidql1984-95-15 18:42:20 Test Item Value Reference Range Interpretation Comments IG (test code = IG) 0.7 % 0.0-5.0 IG Abs (test code = IG Abs) 0 x10 N Complete Blood Count with Vujkwazeqopv4388-82-27 18:42:19 Test Item Value Reference Range Interpretation [...] code = IPF) 0 % N Automated Avxzqoxrlalw8239-73-15 18:42:19 Test Item Value Reference Range Interpretation Comments Neutro Auto (test code = Neutro 43.0 % 36.0-70.0 Auto) Lymph Auto (test code = Lymph Auto) 39.3 % 12.0-44.0 [facility] Auto (test code = [facility] Auto) 11.4 % 0.0-11.0 H Eos, Auto (test code = Eos, Auto) 4.9 % 0.0-7.0 Basophil Auto (test code = Basophil 0.7 % 0.0-2.0 Auto) Neutro Absolute (test code = Neutro 2.4 x10 1.6-7.4 Absolute) Lymph Absolute (test code = Lymph 2.17 x10 .50-4.60 Absolute) [facility] Absolute (test code = [facility] .63 x10 .00-1.20 Absolute) Eos Absolute (test code = Eos 0.27 x10 0.00-0.74 Absolute) Baso Absolute (test code = Baso 0.04 x10 0.00-0.21 Absolute) XRAY TIBIA AND FIBULA 2 PHTQI3407-48-75 14:17:40IMPRESSION: No acute abnormality seen in the [...] 11/26/2019 2:17 PMHarris HealthXRAY ANKLE 3 VIEW PWT7974-64-97 14:17:40IMPRESSION: No acute abnormality seen in the [...] 11/26/2019 2:17 PMHarris HealthXRAY FOOT 3 VIEWS AYB8946-08-83 14:17:40IMPRESSION: No acute abnormality seen in the right tibia and fibula, ankle and foot. Signed By: Janet Wilson MD, 11/26/2019 2:17 PM Interface, Naga/Mammog In - 11/26/2019 2:22 PM CDTRIGHT TIBIA [...] foot.Signed By: Janet Wilson MD, 11/26/2019 2:[facility]2019-11-20 08:12:00 Test Item Value Reference Range Interpretation Comments Lead, Blood <1 0-4 Analysis by yon[facility] (Adult) (test absorption code = spectroscopy (A ). 89420-5) Environmental Exposure: WH O Recommendation <20 Occupational Exposure: OS MORENO Lead Std 40 CASIMIRO 30 Detectio n Limit = 1 [facility] (test code Performed at: 01 = KARIS) - [facility] [address] [place], [place] [id number] Director: Hemanth Frey MD, Phone: [phone] [facility] Metabolic Kpbbh8224-74-65 05:35:00 Test Item Value Reference Range Interpretation Comments Sodium (test code = 2951-2) 138 mmol/L 136-145 Potassium (test code = 2823-3) 4.4 mmol/L 3.5-5.1 Chloride (test code = 2075-0) 104 mmol/L 98-107 CO2 (test code = 26443694) 28 mmol/L 21-31 Urea Nitrogen (test code = 23.0 mg/dL 7-25 84373265) Creatinine (test code = 0.8 mg/dL 0.6-1.2 26163760) Glucose (test code = 89229771) 85 mg/dL 70-110 Calcium (test code = 62029341) 8.4 mg/dL 8.6-10.3 L GFR, Estimated (test code = 80 >=90 mL/min/1.73 m2 L 75133237) Anion Gap (test code = 6 mmol/L 5-16 22079861) Lab Interpretation (test code Abnormal = 33823-4) [facility] HealthZjibqgLopugiced7808-06-91 05:35:00 Test Item Value Reference Range Interpretation Comments Magnesium (test code = 08831744) 1.8 mg/dL 1.9-2.7 L Lab Interpretation (test code = Abnormal 92406-3) [facility] HealthCBC/Yrgi3337-04-93 05:11:00 Test Item Value Reference Range Interpretation [...] g/dL 32-36 L RDW (test code = 15055-2) 48.0 fL 36.4-46.3 H Platelet (test code = 777-3) 208 K/uL 150-400 Mean Platelet Volume (test code = 10.1 fL 9.4-12.4 69259-0) Percent NRBC (test code = 04219152) 0.0 % Neutrophil (test code = 770-8) 55.3 % 34-70 Lymphs (test code = 736-9) 31.9 % 20-50 Monocytes (test code = 5905-5) 10.2 % 5-12 Eos (test code = 713-8) 1.4 % 0.7-5 Basos (test code = 706-2) 0.4 % 0.1-1.2 Immature Granulocytes (test code = 0.8 % 0-0.5 H 09166868) Neutrophils (Absolute) (test code = 4.65 K/uL 1.56-6.13 79351433) Lymphs (Absolute) (test code = 2.68 K/uL 1.18-3.74 67438639) Monocytes(Absolute) (test code = 0.86 K/uL 0.24-0.36 H 41404368) Eos (Absolute) (test code = 0.12 K/uL 0.04-0.36 34829689) Baso (Absolute) (test code = 0.03 K/uL 0.01-0.08 77150779) Immature Grans (Abs) (test code = 0.07 K/uL 0-0.03 H 77354134) Absolute NRBC (test code = 0.00 K/uL 27834087) Lab Interpretation (test code = Abnormal 01236-1) [facility] BRAIN W/O MUFHLXXP9249-73-51 16:11:53IMPRESSION: 1. No acute intracranial abnormality.2. No [...] T1 and T2 flair, gradient echo, Coronal H5Maaog, DWI and ADCContrast: NoneComplic ations: NoneFINDINGS: Scalp: [...] this report.SignedBy: Blayne Burgos MD, 11/17/2019 4:[facility]ed rjgewp2340-65-40 15:55:00 Test Item Value Reference Range Interpretation Comments Glucose POC (test code = 53117049) 115 mg/dL 74-106 H Lab Interpretation (test code = Abnormal 91202-7) [facility] HealthXRAY SKULL 4 VIEWS QGR7860-45-06 08:56:41IMPRESSION: Punctate metallic fragments are seen in [...] this report.Signed By: Gemma Martinez MD,11/16/2019 8:56 [facility]TWU8388-[facility]-18 15:22:00 Test Item Value Reference Range Interpretation Comments ANASTACIO Screen (test code = 41058148) Negative Negative Lab Interpretation (test code = Normal 48690-2) [facility] HealthHepatitis Sqvnx5672-03-31 14:02:00 Test Item Value Reference Range Interpretation Comments Hepatitis C Virus (HCV) Antibody Negative Negative (test code = 87265-7) Hep B Surface Ag (test code = Negative Negative 5196-1) Hep A Vir Ab IgM (test code = Negative Negative 94385-4) Hep B Core Ab IgM (test code = Negative Negative 13892-7) Lab Interpretation (test code = Normal 92080-1) [facility] HealthVitamin Y549838-93-15 11:52:00 Test Item Value Reference Range Interpretation Comments Vitamin B12 (test code 894 pg/mL See comment Esther l: 180-914 = 21020864) pg/mLIntermitte nt: 145-180 pg/mLDeficient: <=145.0 pg/mL [facility] HealthSyphilis Screen for Uwpvtcnxu3716-47-43 08:39:00 Test Item Value Reference Range Interpretation Comments TPA (test code = 76463-5) Negative Negative, Equivocal Final Report (test code = Negative Negative 29271-8) Lab Interpretation (test code = Normal 85629-7) [facility] HealthVitamin D, 96-Ogwbhilszjhxvydtm4398-53-06 08:06:00 Test Item Value Reference Range Interpretation Comments Vit D, 25-Hydroxy (test 33.8 ng/mL 30-100 code = 47579258) Vitamin D Interpretation Sufficient Sufficient Saucedo fficient: (test code = 92509714) >30.0 Insufficient: 20.0 - 29.9Deficient: <20.0 Lab Interpretation (test Normal code = 55947-9) [facility] HealthHIV-1/HIV-2 Routine Iphyfpzsp7973-15-53 21:34:00 Test Item Value Reference Range Interpretation Comments HIV Ag/Ab Combo (test code = Negative Negative 68298-3) Lab Interpretation (test code = Normal 89462-9) [facility] HealthFolic Iwym4205-23-34 21:33:00 Test Item Value Reference Range Interpretation Comments Folic Acid (test code = 92778742) 14.1 ng/mL 5.9-24.8 Lab Interpretation (test code = Normal 47092-8) [facility] HealthBxssrjNooagagc2634-17-42 21:26:00 Test Item Value Reference Range Interpretation Comments Ferritin (test code = 28189164) 60.2 ng/mL 11-306.8 Lab Interpretation (test code = Normal 18086-1) [facility] HealthIron Aecijta4933-43-50 21:07:00 Test Item Value Reference Range Interpretation Comments Iron (test code = 03935477) 114 ug/dL 50-212 TIBC (test code = 45687070) 319 ug/dL 250-450 % Iron Sat (test code = 36 % 25330058) Transferrin (test code = 228.14 mg/dL 203-362 88984878) [facility] HealthValproic Evqg1677-69-55 21:07:00 Test Item Value Reference Range Interpretation Comments Valproic Acid (test code = 67.2 ug/mL 50-100 96818816) Lab Interpretation (test code = Normal 20503-2) [facility] HEAD W/O MZYTWAIW3275-58-39 11:20:20IMPRESSION: No acute abnormalities. No change from [...] report.Signed By: Wendy Craft MD, 11/13/2019 11:20 [facility] HealthP[facility] Iwpd7100-19-28 09:57:00 Test Item Value Reference Range Interpretation Comments (test code = 98763729) Negative Negative Lab Interpretation (test code = Normal 58641-2) [facility] Urine - Isnafjnbj1015-72-06 09:36:00 Test Item Value Reference Range Interpretation Comments Control (test code = 7172) passed (test code = 7173) negative Lab Interpretation (test code = Normal 40852-5) [facility] CREATININE POC docked lbvyxt6862-63-64 06:31:00 Test Item Value Reference Range Interpretation Comments Creatinine POC (test code = 0.8 mg/dL 0.6-1.3 017 26111655) GFR, Estimated (test code = >90 >=90 mL/min/1.73 m2 13141287) Lab Interpretation (test code = Normal 39728-2) [facility] BMP POC docked ttoldj1553-86-71 06:30:00 Test Item Value Reference Range Interpretation Comments Sodium POC (test code = 43945767) 141 mmol/L 136-145 Potassium POC (test code = 4.5 mmol/L 3.5-5.1 63280247) Chloride POC (test code = 102 mmol/L 98-107 94280839) TCO2 POC (test code = 76113519) 32 mmol/L 21-32 017 Urea Nitrogen POC (test code = 19 mg/dL 7-18 H 41368297) Glucose POC (test code = 77268678) 86 mg/dL 74-106 Hemoglobin POC (test code = 13.6 g/dL 12-16 85023554) Hematocrit POC (test code = 40.0 % 37-47 02723349) Lab Interpretation (test code = Abnormal 03128-1) [place] [address] LEAD HZL8963-12-87 05:53:0112 LEAD EKG FOR [facility] Test Date: 7004-73-50Izu Name: SOURAV BEY Department: 5520Patient ID: [id number] Room: Gender: 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 If the report is "FINALIZED" it indicates that the attending/staffradiologist has reviewed the images and agrees with the resident'sinterpretation. Dictated By: Shakir Boyer MD, 11/13/2019 12:55 AM I have reviewed the study and agree with the findings in this report. Signed By: Nixon Gabriel DO, 11/13/2019 3:59 AM InterfaceNaga/Nadia In - 11/13/2019 4:04 AM CSTX-ray right [...] report.Signed By: Nixon Gabriel DO, 11/13/2019 3:59 [facility] HealthXRAY FOOT 3 VIEWS - JVDBNTJ2245-74-33 03:59:29IMPRESSION: No acute abnormalities.Plantar enthesopathy. If the [...] report.Signed By: Nixon Gabriel DO, 11/13/2019 3:59 [facility] HealthCTA HEAD W DTUGJGAO1174-74-49 01:20:17 IMPRESSION: 1. Severely hypoplastic right vertebral artery, likely congenital.2. Otherwise, no additional abnormalities on this CTA of the head.Specifically, no large vessel occlusion or aneurysm. Dictated By: Stephane Murphy DO, 10/18/2019 1:13 AM I have reviewed the study and agree with the findings in this report. Signed By: Wendy Craft MD, 10/18/2019 1:20 AM Interface, Naga/Mammog In - 10/18/2019 1:25 AM CSTExams: Intracranial [...] compared to the previous CT.No enhancing abnormalities.CTA [place]: Carotid arteries:Patent, no abnormalities.. Vertebrobasilar [...] report.Signed By: Wendy Craft MD, 10/18/2019 1:20 [facility] CenterLccbzgOivufzy9602-02-30 16:24:00 Test Item Value Reference Range Interpretation Comments Ammonia (test code = 53606185) 31.0 umol/L 16-53 Lab Interpretation (test code = Normal 32789-3) [facility] results in vd7857-51-58 14:09:10 Test Item Value Reference Range Interpretation Comments PPD results in mm (test code = 745049) 0 mm [facility]- XR CHEST 1 [id number] 12:29:00 FAX: Cali Ramos MD [phone] [place]: St: REG Name: SOURAV BEY [facility] : 1980 Age/S: 38/F [address] [facility] [employer] Unit#: [id number] Loc: [place], [place] Phys: [place] [address] Acct: [id number] Dis Date: Status: REG ER PHONE #: [phone] Exam Date: 12/06/2018 1205 FAX #: [phone] Reason: hyperventilation EXAMS: CPT CODE: [id number] XR CHEST 1 V 04045 Chest Radiograph History: hyperventilation Comparison: None at this time Location: R16 A single frontal view of the chest is submitted. The heart is within normal limits in size. Pulmonary vasculature is unremarkable. The visualized lung christensen appear to be free of disease. The bones appear unremarkable. IMPRESSION: There is no radiographic evidence of acute cardiopulmonary disease. at 7504 Reported and signed by: Mathew Vazquez M.D. CC: Cali Ramos MD Technologist: JOSUE BARBA Trnscrd Date/Time/By: 12/06/2018 (0721) : By: HermelindoPMT PAGE 1 Signed Report FAX: Cali Ramos MD [phone] [place]: St: REG Name: SOURAV BEY [facility] : 1980 Age/S: 38/F [address] [employer] Unit #: [id number] Loc: EARIAN[place], [place]: [place] [address] Acct: [id number] Dis Date: Status: REG ER PHONE #: [phone] Exam Date: 12/06/2018 1205 FAX #: [phone] Reason: hyperventilation EXAMS: CPT CODE: [id number] XR CHEST 1 V 03859 <Continued> Orig Print D/T: S: 12/06/2018 (9681) PAGE 2 Signed ReportURINALYSIS [id number] 12:27:00 Test Item Value Reference Range Interpretation [...] (test code = FEW NONE BACU) URINALYSIS ESBPULHO8589-30-71 12:18:00 Test Item Value Reference Range Interpretation [...] NONE BACU) - CT ABD PELVIS W/O [id number] 10:32:00 FAX: Addie Mccarthy MD [phone] [place]: St: REG Name: SOURAV BEY [facility] : 1980 Age/S: 38/F [address] [facility]: [id number] Loc: E.LIZBETH [place], [place]: [place] [address] Acct: [id number] Dis Date: Status: REG ER PHONE #: [phone] Exam Date: 11/22/2018 1012 FAX #: [phone] Reason: LOW BACK/ FLANK PAIN WITH URINARY SX EXAMS: CPT CODE: [id number] CT ABD PELVIS W/O CONT 13566 HISTORY: Low back pain, flank pain with [...] Signed Report (CONTINUED) FAX: Addie Mccarthy MD [phone] [place]: St: REG Name: SOURAV BEY [facility] : 1980 Age/S: 38/F [address] [facility] Unit: [id number] Loc: E.ERS [place], [place] Phys: Addie Mccarthy WMD [address] Acct: [id number] Dis Date: Status: REG ER PHONE #: [phone] Exam Date: 11/22/2018 1012 FAX #: [phone] Reason: LOW BACK/ FLANK PAIN WITH URINARY SXEXAMS: CPT CODE: [id number] CT ABD PELVIS W/O CONT 71933 <Continued> Correlate for any pancreatic enzymeabnormalities as [...] for the age of the patient. Location: [facility] at 1032 Reported and signed by: Aries Tierney M.D. CC:Addie Mccarthy MD Technologist: JAMES GERARD Trnscrd Dt/Tm: 11/22/2018 (1032) t.AUDREY Orig Print D/T: S: 11/22/2018(1035 PAGE 2 Signed ReportBASIC METABOLIC [id number] 09:28:00 Test Item Value Reference Range Interpretation [...] N Specimen comments: Clean CatchHEPATIC FUNCTION PANEL [id number] 09:28:00 Test Item Value Reference Range Interpretation [...] N code = ALKP) Specimen comments: Clean EyntoCSWEMJ9152-59-18 09:28:00 Test Item Value Reference Range Interpretation Comments LIPASE (test code = LIP) 123 Units/L 65.0-230.0 N Specimen comments: Clean CatchHCG SERUM [id number] 09:28:00 Test Item Value Reference Range Interpretation Comments HCG SERUM QUAL (test code = HCGQL) NEGATIVE NEGATIVE Specimen comments: Clean CatchPROTHROMBIN [id number] 09:26:00 Test Item Value Reference Range Interpretation Comments PROTHROMBIN TIME 10.7 SECONDS 9.9-12.8 N PATIENT (test code = PTP) INTERNATIONAL NORMAL 0.9 0.89-1.14 N THE INR IS TO BE USED RATIO (test code = ONLY FOR MONITORING INR) ORAL ANTICOAGULANTTH ERAPY. THE FOLLOWING A RE SUGGESTED RANGE S FROM [facility] LEGE OF CHEST PHYSICIANS:CARMEN CATION INR VALUEPROPHYLAXI S OF VENOUS THROMBOS IS (ORTHOPEDIC ALHAJI KIMI) 2.0 - 3.0PROP HYLAXIS OF VENOUS THROM BOSIS (OTHER THAN HIG H-RISK SURGERY) 2.0 - 3.0TRE ATMENT OF DEEP VEIN THROMBOSIS OR PULMONARY EMBOL ISM 2.0 - 3.0PREV ENTION OF SYSTEMIC EMB OLISM TISSUE HEART VA LVES 2.0 - 3.0 AC SELDOVIA MYOCARDIAL INFA RCTION (TO PREVENT SYSTEMIC EMBOLI [...] - 3 .5 Specimen comments: Clean CatchURINALYSIS [id number] 09:23:00 Test Item Value Reference Range Interpretation [...] = TRICHU) Specimen comments: Clean CatchBASIC METABOLIC [id number] 09:23:00 Test Item Value Reference Range Interpretation [...] code = CA) mg/dl 8.0-10.5 Specimen comments: Shipping CompanyHEPATIC FUNCTION PANEL [id number] 09:23:00 Test Item Value Reference Range Interpretation [...] 50.0-136.0 code = ALKP) Specimen comments: Clean [id number] 09:23:00 Test Item Value Reference Range Interpretation Comments LIPASE (test code = LIP) Units/L 65.0-230.0 Specimen comments: Clean CatchHCG SERUM [id number] 09:23:00 Test Item Value Reference Range Interpretation Comments HCG SERUM QUAL (test code = HCGQL) NEGATIVE NEGATIVE Specimen comments: Clean CatchBASIC METABOLIC [id number] 09:21:00 Test Item Value Reference Range Interpretation [...] 8.0-10.5 Specimen comments: Clean CatchHEPATIC FUNCTION PANEL [id number] 09:21:00 Test Item Value Reference Range Interpretation [...] 50.0-136.0 code = ALKP) Specimen comments: Clean [id number] 09:21:00 Test Item Value Reference Range Interpretation Comments LIPASE (test code = LIP) Units/L 65.0-230.0 Specimen comments: Clean CatchHCG SERUM [id number] 09:21:00 Test Item Value Reference Range Interpretation Comments HCG SERUM QUAL (test code = HCGQL) NEGATIVE NEGATIVE Specimen comments: Clean CatchURINALYSIS [id number] 09:17:00 Test Item Value Reference Range Interpretation [...] = SGU) UA BLOOD DIPSTICK (test 25 Irk/micL Rik/micL NEGATIVE A code = SERENITY) UA [...] NONE BACU) Specimen comments: Clean CatchCBC W/AUTO [id number] 09:11:00 Test Item Value Reference Range Interpretation [...]
--- NOTE | 2020-03-17 21:14 | RAD REPORT ---
EXAM DESCRIPTION: RAD - Foot Right 3 View - 03/17/2020 9:02 pm CLINICAL HISTORY: PAINfall, twisting injury COMPARISON: No comparisons FINDINGS: No fracture, dislocation or periosteal reaction. No acute or destructive bone process. Mil d hallux valgus deformity is present. No erosive or destructive bone process. Patient has a small charles ntar spur. Soft tissues are thickened or edematous. No air or foreign body. IMPRESSION: Soft tissue swelling with no acute right foot finding. Mild hallux valgus deformity.
--- NOTE | 2020-03-17 21:15 | RAD REPORT ---
EXAM DESCRIPTION: RAD - Ankle Right 3 View - 03/17/2020 9:02 pm CLINICAL HISTORY: PAIN, ankle pain, twisting injury COMPARISON: Ankle Right 3 View dated 03/16/2014 FINDINGS: No fracture, dislocation or periosteal reaction. No joint effusion seen. No joint space na rrowing. Mild soft tissue swelling around the ankle joint. Small plantar spur is present. IMPRESSION: Soft tissue swelling around the right ankle without acute bone or joint finding.
--- NOTE | 2020-03-17 21:20 | ER ---
Nurse's Notes [facility] Name: Sariah Maria Age: 39 yrs Sex: Female : 1980 Arrival Date: 03/17/2020 Time: 18:46 Bed 12 Private MD: Diagnosis: Pain in right ankle and joints of right foot Presentation: 03/17 19:02 Chief complaint: Patient states: R ankle pain that began after falling 2 days ago. Coronavirus screen: Proceed with normal triage. Patient denies a cough. Patient denies shortness of breath or difficulty breathing. Patient denies measured and/or subjective temperature greater than 100.4F prior to today's visit. Patient denies travel on a cruise ship or to a country the [facility] currently lists as an affected area. Patient denies contact with known and/or suspected case of COVID-19. Ebola Screen: Patient denies exposure to infectious person. Patient denies travel to an Ebola-affected area in the 21 days before illness onset. Initial Sepsis Screen: Does the patient meet any 2 criteria? No. Patient's initial sepsis screen is negative. Does the patient have a suspected source of infection? No. Patient's initial sepsis screen is negative. Risk Assessment: Do you want to hurt yourself or someone else? Patient reports no desire to harm self or others. Onset of symptoms was March 15, 2020. 19:02 Method Of Arrival: Ambulatory 19:02 Acuity: RICHELLE 4 Historical: - Allergies: 19:03 [place]; ss - PMHx: 19:03 Anxiety; ss - PSHx: 19:03 3 facial surgery; ; ss - Immunization history:: Adult Immunizations up to date. - Social history:: Smoking status: Patient denies any tobacco usage or history of. Screenin:04 Abuse screen: Denies threats or abuse. Denies injuries from another. Nutritional lp1 screening: No deficits noted. Tuberculosis screening: No symptoms or risk factors identified. Fall Risk None identified. Assessment: 21:01 General: Appears in no apparent distress. Behavior is appropriate for age. Pain: lp1 Complains of pain in right foot Pain currently is 6 out of 10 on a pain scale. Neuro: No deficits noted. Cardiovascular: Patient's skin is warm and dry. Respiratory: No deficits noted. GI: No signs and/or symptoms were reported involving the gastrointestinal system. : No signs and/or symptoms were reported regarding the genitourinary system. EENT: No signs and/or symptoms were reported regarding the EENT system. Derm: Bruising that is dark purple, on right foot. Musculoskeletal: Swelling present in right foot. Vital Signs: 19:03 BP 103 / 70; Pulse 89; Resp 16; Temp 98.1(TE); Pulse Ox 100% on R/A; Weight 102.51 kg; ss Height 5 ft. 4 in. (162.56 cm); Pain 8/10; 19:03 Body Mass Index 38.79 (102.51 kg, 162.56 cm) ED Course: 18:46 Patient arrived in ED. ag5 19:03 Triage completed. ss 19:03 Arm band placed on right wrist. ss 20:42 Yaw Wilburn PA is PHCP. cp 20:42 Yaw Kraus MD is Attending Physician. cp 20:58 Joselyn Sanches, RN is Primary Nurse. lp1 21:04 Patient has correct armband on for positive identification. lp1 21:04 Patient did not have IV access during this emergency room visit. lp1 21:19 Fred Martinez MD is Referral Physician. cp 21:22 No provider procedures requiring assistance completed. lp1 22:10 Crutch training done. Max wrap to right ankle. lp1 Administered Medications: 21:22 Drug: Ibuprofen 800 mg Route: PO; lp1 21:45 Follow up: Response: Medication administered at discharge. lp1 21:22 Drug: Tylenol 650 mg Route: PO; lp1 21:45 Follow up: Response: Medication administered at discharge. lp1 Outcome: 21:20 Discharge ordered by MD. cp 22:11 Discharged to home with crutches. lp1 22:11 Condition: good 22:11 Discharge instructions given to patient, Instructed on discharge instructions, follow up and referral plans. medication usage, Demonstrated understanding of instructions, follow-up care, medications, Prescriptions given X 1. 22:11 Patient left the ED. lp1 Signatures: Samia Renteria RN RN Joselyn Sanches RN RN [facility] Yaw Wilburn PA PA cp Aditi Mack ag5
--- NOTE | 2020-03-17 21:20 | EDPHYS ---
Physician Documentation [facility] Name: Sariah Maria Age: 39 yrs Sex: Female : 1980 Arrival Date: 03/17/2020 Time: 18:46 Bed 12 Private MD: [place]ENT[place] Physician Yaw Kraus HPI: 03/17 19:10 This 39 yrs old Female presents to ER via Ambulatory with complaints of Fall cp Injury, Ankle Injury. 19:10 The patient presents with an injury, pain, that is acute, swelling, tenderness. The cp complaints affect the right ankle, lateral aspect of right foot, anterior aspect of right ankle and dorsum of right foot. Context: resulted from the patient falling, the patient can partially bear weight, the patient is able to ambulate, with moderate difficulty. Onset: The symptoms/episode began/occurred 2 day(s) ago. 19:10 Associated signs and symptoms: Pertinent negatives calf tenderness, numbness, tingling. cp Historical: - Allergies: 19:03 [place]; ss - PMHx: 19:03 Anxiety; ss - PSHx: 19:03 3 facial surgery; ; ss - Immunization history:: Adult Immunizations up to date. - Social history:: Smoking status: Patient denies any tobacco usage or history of. ROS: 19:15 MS/extremity: Positive for ecchymosis, pain, swelling, tenderness, of the right ankle cp and right foot, Negative for deformity. 19:15 Eyes: Negative for injury, pain, redness, and discharge. cp 19:15 Constitutional: Negative for fever. 19:15 Neck: Negative for pain with movement, pain at rest. 19:15 Cardiovascular: Negative for chest pain. 19:15 Respiratory: Negative for cough, shortness of breath. 19:15 Back: Negative for pain at rest, pain with movement. 19:15 All other systems are negative. Exam: 19:22 Constitutional: The patient appears in no acute distress, alert, awake, well developed, cp well nourished. 19:22 Head/Face: Normocephalic, atraumatic. cp 19:22 Chest/axilla: Inspection: normal. 19:22 Cardiovascular: Rate: normal. 19:22 Respiratory: the patient does not display signs of respiratory distress, Respirations: normal. 19:22 Musculoskeletal/extremity: Extremities: grossly normal except: noted in the dorsum of right foot and anterior aspect of right ankle and lateral aspect of right foot and right ankle: ecchymosis, pain, swelling, tenderness, There is no evidence of decreased ROM, ROM: limited passive range of motion due to pain, in the right foot and right ankle, Perfusion: the extremity is normally perfused throughout, Sensation intact. Achilles tendon palpated and intact. 19:22 Skin: intact. Vital Signs: 19:03 BP 103 / 70; Pulse 89; Resp 16; Temp 98.1(TE); Pulse Ox 100% on R/A; Weight 102.51 kg; ss Height 5 ft. 4 in. (162.56 cm); Pain 8/10; 19:03 Body Mass Index 38.79 (102.51 kg, 162.56 cm) ss MDM: 20:42 Patient medically screened. ana 21:00 Differential diagnosis: dislocation, closed fracture, contusion, dislocation. cp 21:16 Data reviewed: vital signs, nurses notes, radiologic studies, plain films. Test cp interpretation: by ED physician or midlevel provider: xrays of right ankle negative for fracture and xrays of right foot negative for fracture. 21:20 Counseling: I had a detailed discussion with the patient and/or guardian regarding: the cp historical points, exam findings, and any diagnostic results supporting the discharge/admit diagnosis, radiology results, to return to the emergency department if symptoms worsen or persist or if there are any questions or concerns that arise at home. 03/17 19:07 Order name: XRAY Ankle RIGHT 3 view 03/17 19:07 Order name: XRAY Foot RIGHT 3 View 03/17 21:16 Order name: RAD; Complete Time: 21:17 EDMN 03/17 21:17 Interpretation: Report reviewed. cp 03/17 21:16 Order name: RAD; Complete Time: 21:17 EDMN 03/17 21:17 Interpretation: Report reviewed. cp 03/17 21:18 Order name: Crutches; Complete Time: 22:10 cp Administered Medications: 21:22 Drug: Ibuprofen 800 mg Route: PO; lp1 21:45 Follow up: Response: Medication administered at discharge. lp1 21:22 Drug: Tylenol 650 mg Route: PO; lp1 21:45 Follow up: Response: Medication administered at discharge. lp1 Disposition: 07/09 06:03 Co-signature as Attending Physician, Yaw Kraus MD I agree with the assessment and ana plan of care. Disposition: 03/17/20 21:20 Discharged to Home. Impression: Pain in right ankle and joints of right foot. - Condition is Stable. - Discharge Instructions: Elastic Bandage and RICE, Ankle Sprain, Foot Sprain. - Prescriptions for Naprosyn 500 mg Oral Tablet - take 1 tablet by ORAL route 2 times per day take with food; 20 tablet. - Medication Reconciliation Form, Thank You Letter, Antibiotic Education, Prescription Opioid Use form. - Follow up: Fred Martinez MD; When: 1 week; Reason: Recheck today's complaints. - Problem is new. - Symptoms have improved. Signatures: Dispatcher [employer] EDMS Yaw Kraus MD MD cha Smirch, Shelby RN RN ss Joselyn Sanches RN RN lp1 Yaw Wilburn, PA PA cp Corrections: (The following items were deleted from the chart) 03/17 22:10 21:18 Walking boot ordered. cp lp1 22:11 21:20 03/17/2020 21:20 Discharged to Home. Impression: Pain in right ankle and joints lp1 of right foot. Condition is Stable. Forms are Medication Reconciliation Form, Thank You Letter, Antibiotic Education, Prescription Opioid Use. Follow up: Fred Martinez; When: 1 week; Reason: Recheck today's complaints. Problem is new. Symptoms have improved. cp
[2020-03-17] MEDS ORDERED: ACETAMINOPHEN 325 MG TABLET ONE (21:27)
[2020-03-17] MEDS ORDERED: IBUPROFEN 400 MG TAB ONE (21:27)
[2020-03-17 23:49] VITALS: BP 103/70; TEMP 98.1; O2SAT 100
== END 2020-03-17 22:11 | disposition home or self-care (01) ==
LOC: ER 18:44
DX: M25.571 Pain in right ankle and joints of right foot (principal); Z91.018 Allergy to other foods
CPT/HCPCS: 99283

== ENCOUNTER 2020-04-14 11:58 | Emergency (ER) | payer SELFPAY ==
--- OUTSIDE RECORDS SUMMARY | 2020-04-14 12:06 | XMS REPORT | Clinical Summary ---
:1980 Author Organization [facility] Address [address] [place] [address] Care Team Providers Name Role Phone Unavailable [...] needed. Maximum 200mg/24 hours.. fluticasone Use 1 [place] 16 g 0 Active propionate (FLONASE) in [...] as needed for Pain. fluticasone Use 1 [place] 16 g 0 11/04/19 Discon tinued propionate [...] ne needed 10/17/2019 - Emergency Emergency Josep Chan Jaleesa, New onset he adache (Primary Dx); 10/18/2019 Medicine MD Blurry vision, bilateral Candida Craven MD 10/03/2019 Patient Education Health Education Marcella Coffey, Landon pace MD counseling (Primary Dx) Elisabeth Owen 09/24/2019 Clinical Case [facility] Quang Gomez 09/22/2019 Office Visit [facility] Francisca Quiroz Acute si nusitis, recurrence not specified, unspecified location (Primary Dx); Iron deficiency anemia, unspecified iron deficiency anemia type; Gastroesophagea l reflux disease, esophagitis presence not specified 04/28/2019 Clinical Case [facility] [place] Quang Gomez 04/28/2019 Office Visit [facility] Francisca Quiroz Gastroes ophageal reflux disease, esophagitis presence not specified (Primary Dx); Iron deficiency anemia, unspecified iron deficiency anemia type; Pain, dental; Class 1 obesity due to excess calories without serious comorbidity with body mass index (BMI) of 34.0 to 34.9 in adult; Homelessness; Menorrhagia wit h irregular cycle after 04/14/2019 Immunizations Name Administration Dates Next Due Influenza, Vaccine <FLUCELVAX>(Preservative-Free) 10/20/2019 Td <Unspecified> 03/05/2016 Twinrix-HEP A&b 03/05/2019 Family History Medical History Relation Name Comments Heart Father Hypertension Father Diabetes Mother Psychiatry Mother Stroke Mother Psychiatry Sister Relation Name Status Comments Father DC at 56 Mother Anxiety, stroke at 55 [...] (203 lb 6.4 oz) 11/13/2019 9:00 PM LOSS CLAIM CLERK Height 162.6 cm (5' 4") 11/13/2019 9:00 PM LOSS CLAIM CLERK Body Mass Index 34.91 11/13/2019 9:00 PM LOSS CLAIM CLERK Plan of Treatment Health Maintenance Due Date [...] Intermittent Resul ts for this MIN PM LOSS CLAIM CLERK lightheadedness procedure ar e in the results section. CBC Routine 11/15/2019 3:57 Results for this AM LOSS CLAIM CLERK procedure are i n the results section. MAGNESIUM Routine 11/15/2019 3:57 Results for this AM LOSS CLAIM CLERK procedure are i n the results section. BASIC METABOLIC Routine 11/15/2019 3:57 Results for this PANEL AM LOSS CLAIM CLERK procedure are i n the results section. CBC/DIFF Routine 11/15/2019 3:57 Results for this AM LOSS CLAIM CLERK procedure are i n the results section. LEAD, WHOLE BLOOD Timed 11/14/2019 1:14 Result s for this (ADULT) PM LOSS CLAIM CLERK procedure are i n the results section. INFUSION PUMP Routine 11/14/2019 9:21 AM LOSS CLAIM CLERK CBC Routine 11/14/2019 3:45 Results for this AM LOSS CLAIM CLERK procedure are i n the results section. MAGNESIUM Routine 11/14/2019 3:45 Results for this AM LOSS CLAIM CLERK procedure are i n the results section. BASIC METABOLIC Routine 11/14/2019 3:45 Results for this PANEL AM LOSS CLAIM CLERK procedure are i n the results section. CBC/DIFF Routine 11/14/2019 3:45 Results for this AM LOSS CLAIM CLERK procedure are i n the results section. VITAMIN B12 Add-on 11/13/2019 8:01 Results for this PM LOSS CLAIM CLERK procedure are i n the results section. VIT D, 25-HYDROXY Routine 11/13/2019 8:01 Result s for this PM LOSS CLAIM CLERK procedure are i n the results section. SYPHILIS SCREEN FOR Routine 11/13/2019 8:01 Resu lts for this INFECTION PM LOSS CLAIM CLERK procedure are i n the results section. ANASTACIO Routine 11/13/2019 8:01 Results for this PM LOSS CLAIM CLERK procedure are i n the results section. HEPATITIS PANEL Routine 11/13/2019 8:01 Results for this PM LOSS CLAIM CLERK procedure are i n the results section. HIV AG/AB COMBO Routine 11/13/2019 8:01 Results for this ROUTINE SCREENING PM LOSS CLAIM CLERK procedure are in the results section. FOLIC ACID Routine 11/13/2019 8:01 Results for this PM LOSS CLAIM CLERK procedure are i n the results section. IRON PROFILE Routine 11/13/2019 8:01 Results for this PM LOSS CLAIM CLERK procedure are i n the results section. FERRITIN Routine 11/13/2019 8:01 Results for this PM LOSS CLAIM CLERK procedure are i n the results section. BASIC METABOLIC Routine 11/13/2019 8:01 Results for this PANEL PM LOSS CLAIM CLERK procedure are i n the results section. VALPROIC ACID Routine 11/13/2019 8:01 Results fo r this PM LOSS CLAIM CLERK procedure are i n the results section. POCT URINE DIPSTICK STAT 11/13/2019 9:36 Resu lts for this - AM LOSS CLAIM CLERK procedure are i n the results section. TEST STAT 11/13/2019 9:31 Results f or this AM LOSS CLAIM CLERK procedure are i n the results section. CT HEAD W/O STAT 11/13/2019 9:26 Intermittent Results for this CONTRAST AM LOSS CLAIM CLERK lightheadedness procedure ar e in the results section. CREATININE POC Routine 11/13/2019 6:27 Results f or this AM LOSS CLAIM CLERK procedure are i n the results section. BMP POC Routine 11/13/2019 6:26 Results for this AM LOSS CLAIM CLERK procedure are i n the results section. CBC STAT 11/13/2019 6:21 Results for this AM LOSS CLAIM CLERK procedure are i n the results section. CBC/DIFF STAT 11/13/2019 6:21 Results for this AM LOSS CLAIM CLERK procedure are i n the results section. ECHG EKG PROC 12 Routine 11/13/2019 5:20 Results for this LEAD EKG; TRACING AM LOSS CLAIM CLERK procedure are in ONLY the results section. GLUCOSE POC Routine 11/13/2019 4:51 Results for this AM LOSS CLAIM CLERK procedure are i n the results section. XRAY FOOT 3 VIEWS - STAT 11/12/2019 11:10 Acute right ankle pain Results for this ROUTINE PM LOSS CLAIM CLERK procedure are i n the results section. XRAY ANKLE 3 VIEWS STAT 11/12/2019 11:10 Acute right ankle pain Results for this - ROUTINE PM LOSS CLAIM CLERK procedure are i n the results section. POCT URINE DIPSTICK STAT 11/12/2019 10:22 Resu lts for this - PM LOSS CLAIM CLERK procedure are i n the results section. XRAY FOOT 3 VIEWS - STAT 10/25/2019 9:38 Right foot pain R esults for this ROUTINE PM LOSS CLAIM CLERK procedure are i n the results section. CTA HEAD W CONTRAST STAT 10/18/2019 12:51 New onset headach e Results for this AM LOSS CLAIM CLERK procedure are i n the results section. CT HEAD W/O STAT 10/17/2019 11:28 New onset headache Resul ts for this CONTRAST PM LOSS CLAIM CLERK procedure are i n the results section. AMMONIA STAT 10/17/2019 2:37 Results for this PM LOSS CLAIM CLERK procedure are i n the results section. VALPROIC ACID STAT 10/17/2019 2:37 Results fo r this PM LOSS CLAIM CLERK procedure are i n the results section. TEST STAT 10/17/2019 1:12 Results f or this PM LOSS CLAIM CLERK procedure are i n the results section. CBC STAT 10/17/2019 12:07 Results for this PM LOSS CLAIM CLERK procedure are i n the results section. CBC/DIFF STAT 10/17/2019 12:07 Results for this PM LOSS CLAIM CLERK procedure are i n the results section. BASIC METABOLIC STAT 10/17/2019 12:07 Results for this PANEL PM LOSS CLAIM CLERK procedure are i n the results section. after 04/14/2019 Results XRAY FOOT 3 VIEWS MIN (11/26/2019 2:00 PM CDT) Specimen Impressions Performed At IMPRESSION: [facility] No acute abnormality seen in the right [...] PM Performing Organization Address City/State/Zipcode Phone Number [facility] XRAY ANKLE 3 VIEW MIN (11/26/2019 2:00 PM CDT) Specimen Impressions Performed At IMPRESSION: [facility] No acute abnormality seen in the right t ibia and fibula, ankle and foot. Signed By: Janet Wilson MD, 11/26/2019 2:17 PM Narrative Performed At RIGHT TIBIA AND FIBULA SERIES, 2 views. [facility] RIGHT ANKLE SERIES, 3 views. RIGHT FOOT [...] PM CDT) Specimen Impressions Performed At IMPRESSION: [facility] No acute abnormality seen in the right t ibia and fibula, ankle and foot. Signed By: Janet Wilson MD, 11/26/2019 2:17 PM Narrative Performed At RIGHT TIBIA AND FIBULA SERIES, 2 views. [facility] RIGHT ANKLE SERIES, 3 views. RIGHT FOOT [...] PM Performing Organization Address City/State/Zipcode Phone Number [facility] CBC/Diff (11/18/2019 4:22 AM CDT)Only the most [...] [facility] Specimen Blood Performing Organization Address [facility] [place] Number [facility] [address] [place] [address] Magnesium (11/18/2019 4:22 AM CDT)Only the most recent of5 resultswithin the time period is included. Pathologist Sig nature Magnesium 1.8 (L) 1.9 - 2.7 mg/dL [facility] Specimen Blood Performing Organization Address [facility] Phone Number [facility] [address] [place] [address] Basic Metabolic Panel (11/18/2019 4:22 AM CDT)Only [...] [facility] Specimen Blood Performing Organization Address [facility] Phone Number [facility] [address] [place] [address] POCT GLUCOSE POC docked device (11/16/2019 3:54 PM CDT)Only the most recent of2 resultswithin the time period is included. Pathologist Sig nature Glucose POC 115 (H) 74 - 106 mg/dL [facility] Specimen Blood Performing Organization Address City/State/Zipcode Phone Number [facility] [address] [place] [address] [phone] MRI BRAIN W/O CONTRAST (11/16/2019 2:46 PM [...] SKULL 4 VIEWS MIN (11/15/2019 12:04 PM LOSS CLAIM CLERK) Specimen Impressions Performed At IMPRESSION: SMS Punctate [...] MD, 11/16/2019 8:56 AM Performing Organization Address [facility] Phone Number SMS Lead, Whole Blood (Adult) (11/14/2019 1:14 PM LOSS CLAIM CLERK) Lead, Blood <1 0 - 4 ug/dL [facility] (Adult) Comment: Analysis by atomic absorption spectroscopy (AAS). Environmental E xposure: WHO Recommenda tion <20 Occupational Ex posure: OSHA Lead Std 40 CASIMIRO 30 Detect ion Limit = 1 Specimen Blood Narrative Performed At Performed at: [facility] [place], [place] [address] 143 Identifier Horse: Hemanth Frey MD, Phone: [phone] Performing Organization Address [facility] Phone Number [facility] [address] [place] [address] Syphilis Screen for Infection (11/13/2019 8:01 PM LOSS CLAIM CLERK) Pathologist Sig nature TPA Negative Negative, Equivocal [facility] Final Report Negative Negative [facility] Specimen Blood Performing Organization Address [facility] Phone Number [facility] [address] [place] [address] [phone] Vitamin D, 25-Hydroxycalciferol (11/13/2019 8:01 PM LOSS CLAIM CLERK) Vit D, 25-Hydroxy 33.8 30.0 - 100.0 [facility] ng/mL [facility] Vitamin D Sufficient Sufficient [facility] Interpretation Comment: [facility] Sufficient: >30.0 Insufficient: 20.0 - 29.9 Deficient: <20.0 Specimen Blood Performing Organization Address [facility] Phone Number [facility] [address] [place] [address] HIV-1/HIV-2 Routine Screening (11/13/2019 8:01 PM LOSS CLAIM CLERK) Pathologist [facility] HIV Ag/Ab Combo Negative Negative [facility] Specimen Blood Performing Organization Address [facility] Phone Number [facility] [address] [place], [place] [phone] Folic Acid (11/13/2019 8:01 PM LOSS CLAIM CLERK) Pathologist [facility] Folic Acid 14.1 5.9 - 24.8 ng/mL [facility] Specimen Blood Performing Organization Address [facility] Phone Number [facility] [address] [place], [place] [phone] Ferritin (11/13/2019 8:01 PM LOSS CLAIM CLERK) Pathologist [facility] Ferritin 60.2 11.0 - 306.8 ng/mL [facility] Specimen Blood Performing Organization [facility] Phone Number [facility] [address] [place] [phone] Vitamin B12 (11/13/2019 8:01 PM LOSS CLAIM CLERK) [facility] Vitamin B12 894 See comment pg/mL [facility] Comment: Normal: 180-914 pg/mL Intermittent: 145-180 pg/mL Deficient: <=145.0 pg/mL Specimen Blood Performing Organization [facility] Number [facility] [address] [place], [place] [phone] Valproic Acid (11/13/2019 8:01 PM LOSS CLAIM CLERK)Only the most recent of2 resultswithin the time period is included. Pathologist [facility] Valproic Acid 67.2 50.0 - 100.0 ug/mL [facility] Specimen Blood Performing Organization Address [facility] Phone Number [facility] [address] [place], [place] [phone] Iron Profile (11/13/2019 8:01 PM LOSS CLAIM CLERK) [facility] Iron 114 50 - 212 ug/dL [facility] TIBC 319 250 - 450 ug/dL [facility] % Iron Sat 36 % [facility] Transferrin 228.14 203.00 - 362.00 mg/dL [facility] Specimen Blood Performing Organization Address [facility] Phone Number [facility] [address] [place] [address] Hepatitis Panel (11/13/2019 8:01 PM LOSS CLAIM CLERK) Pathologist Sig nature Hepatitis C Virus (HCV) Negative Negative [facility] RY Antibody Hep B Surface Ag Negative Negative [facility] Hep A Vir Ab IgM Negative Negative [facility] Hep B Core Ab IgM Negative Negative [facility] Specimen Blood Performing Organization Address [facility] Phone Number [facility] [address] [place] [address] [phone] ANASTACIO (11/13/2019 8:01 PM LOSS CLAIM CLERK) Pathologist Sig nature ANASTACIO Screen Negative Negative [facility] Specimen Blood Performing Organization Address [facility] Phone Number [facility] [address] [place] [address] POCT Urine - (11/13/2019 9:36 AM LOSS CLAIM CLERK)Only the most recent of2 results within the time period is included. Pathologist Sig nature Control passed negative Test (11/13/2019 9:31 AM LOSS CLAIM CLERK)Only the most recent of2 resultswithin the time period is included. Pathologist Sig nature Negative Negative [facility] Specimen Urine Performing Organization Address [facility] Phone Number [facility] [address] [place] [address] [phone] HEAD W/O CONTRAST (11/13/2019 9:26 AM LOSS CLAIM CLERK)Only the most recent of2 results within the [...] Rad/Mammog In - 11/13/2019 11 :25 AM LOSS CLAIM CLERK Exam : Head CT without contrast History: [...] MD, 11/13/2019 11:20 AM Performing Organization Address [facility] Phone Number [facility] POCT CREATININE POC docked device (11/13/2019 6:27 AM LOSS CLAIM CLERK) Creatinine POC 0.8Comment: 017 0.6 - 1.3 mg/dL [facility] GFR, Estimated >90 >=90 [facility] mL/min/1.73 m2 Specimen Blood, venous Performing Organization Address [facility] Phone Number [facility] [address] [place] [address] POCT BMP POC docked device (11/13/2019 6:26 AM LOSS CLAIM CLERK) Sodium POC 141 136 - 145 [facility] [...] LABORATORY Specimen Blood, venous Performing Organization Address 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 : 1980 Requested By: NEELAM RASHID Order Number: [id number] Nathaniel dunbar MD: Dolores Walker Measu rements Intervals [place] Rate: 70 P: 49 NE: 162 QRS: 38 QRSD: 84 T: 7 QT: 377 QTc: 409 Interpretive S tatements SINUS RHYTHM NONSPECIFIC T-WAVE ABNORMALITY Electronically Signed On 11-13-2019 5:52:58 LOSS CLAIM CLERK by Hiren Walker Specimen Performing Organization Address [facility]/Zipcode Phone Number SMS XRAY FOOT 3 VIEWS - ROUTINE (11/12/2019 11:10 PM LOSS CLAIM CLERK)Only the most recent of2 resultswithin the time [...] Rad/Mammog In - 11/13/2019 4 :04 AM LOSS CLAIM CLERK X-ray right ankle, 3 views X-ray right [...] AM Performing Organization Address City/State/Zipcode Phone Number [facility] XRAY ANKLE 3 VIEWS - ROUTINE (11/12/2019 11:10 PM LOSS CLAIM CLERK) Specimen Impressions Performed At IMPRESSION: SMS No [...] Rad/Mammog In - 11/13/2019 4 :04 AM LOSS CLAIM CLERK X-ray right ankle, 3 views X-ray right [...] AM Performing Organization Address City/State/Zipcode Phone Number [facility] CTA HEAD W CONTRAST (10/18/2019 12:51 AM LOSS CLAIM CLERK) Specimen Impressions Performed At IMPRESSION: SMS 1. [...] evaluation, multiplanar reconstruction, maximum intensity projections, and TwoChopan khris 3-D off-line postprocessing were obtained on a dedicated stand-alone work station under the direct supervision of the interpreting physicia n. IV Contrast 100 cc of Omnipaque. Complication: None Radiation dose: Total DLP: 1032 mGy*cm Estimated Effective Dose: DLP x 0.031 mS v FINDINGS: Head CT with contrast: No interval changes when compared to the previous CT. No enhancing abnormalities. CTA [place]: Carotid arteries: Patent, no abnormalities.. [...] Rad/Mammog In - 10/18/2019 1 :25 AM LOSS CLAIM CLERK Exams: Intracranial CT angiogram History: Headache, acute, [...] evaluation, multiplanar reconstruction, maximum intensity projections, and TwoChopan khris 3-D off-line postprocessing were obtained on a dedicated stand-alone work station under the direct supervision of the interpreting physicia n. IV Contrast 100 cc of Omnipaque. Complication: None Radiation dose: Total DLP: 1032 mGy*cm Estimated Effective Dose: DLP x 0.031 mS v FINDINGS: Head CT with contrast: No interval changes when compared to the previous CT. No enhancing abnormalities. CTA [place]: Carotid arteries: Patent, no abnormalities.. [...] the findings in this report. Signed By: Wedny Craft MD, 10/18/2019 1:20 AM Performing Organization Address [facility] Phone Number SMS Ammonia (10/17/2019 2:37 PM LOSS CLAIM CLERK) Pathologist Sig nature Ammonia 31.0 16.0 - 53.0 umol/L [facility] Specimen Blood Performing Organization Address City[facility] Phone Number [facility] [address] [place] [address] after 04/14/2019 Insurance Payer Benefit Plan / Subscriber ID Effective Dates Phone Addre ss Type Group [facility] SELF-PAY xxxxxxx 2020-20 [phone] [id number] M[address]ISYN SELF-PAY SCREENED [address] [place] [address] Advance Directives Code Status Date Activated Date Inactivated Comments Full Code 11/13/2019 6:17 PM 11/18/2019 4:30 PM
--- OUTSIDE RECORDS SUMMARY | 2020-04-14 12:09 | XMS REPORT | Continuity of Care Document ---
:1980 Author Organization [facility] t Address [address] [place] [address] Care Team Providers Name Role Phone Ashanti [...] Ace Attending Clinician Unavailable Opal Attending Clinician [phone] Acosta Attending Clinician Unavailable Dicks Unavailable [id number] Payers Payer Name Policy Type Policy Number Effective Date Expiration Date Madhu gonzalez [facility] xxxxxxx 2020 2030 [facility] SELF-PAYSELF 00:00:00 23:59:59 -PAY SCREENEDxxxx xxx2020- 01/13/2030713- [phone] [place] [address] [id number] 2019 2020 [facility] 00:00:00 00:00:00 [facility]ly [facility] [id number] 2019 2020 [facility] 00:00:00 00:00:00 [facility] Problems Condition Condition Condition Status Onset [...] 00:00: 00 Menorrhagi Menorrhagi Disease Active H lissett a with a with 04-28 Health irregular irregular 00:00: cycle cycle 00 Blurry Blurry Disease Active Francisco vision, vision, Health bilateral bilateral Nonintract Nonintract Disease Active H lissett able able Health headache headache Right foot Right foot Disease Active H arris pain pain Health Dizziness Dizziness Disease Active Adelso [facility] Health Palpitatio Palpitatio Disease Active H arris ns ns Health Syncope Syncope Disease Active [facility] Intermitte Intermitte Disease Active H arris nt [...] Date Date Clinician Yessica Lehman Active Rash, [place] ty to Swelling 11-13 Health adverse 00:00: reaction 00 s to drug No Known DA Active U [facility] Allergie 06-03 Clear s 00:00: Sepulveda 00 [facility] Family History Family Member Diagnosis Comments Start Date Stop Date Source Natural father Heart [facility] Natural father Hypertension [facility] Natural mother Diabetes [facility] Natural mother Psychiatry [facility] Natural mother Stroke [facility] Natural sister Psychiatry [facility] Social History Social Habit Start Date Stop Date Quantity Comments Source Sex Assigned At [facility] Alcohol intake 2019-11-16 2019-11-16 Ex-drinker [facility] 00:00:00 00:00:00 (finding) time of call 2019-05-26 2019-05-26 05/26/2019 10:54 [facility] 10:54:05 10:54:05 AM Health Tobacco Comment 2019-02-17 2019-02-17 Stopped smoking [facility] 00:00:00 00:00:00 in 2018 Smoking Status Start Date Stop Date Source Former smoker 2019-11-16 00:00:00 2019-11-16 00:00:00 [facility] Medications Ordered Filled Start Stop Current Ordering Indication Dosage Frequency Signature Comments Components Source Medication Medication Date Date Medication? Clinician (SIG) Name Name omeprazole Yes Gastroesoph 20mg QD Take 1 Singh (PRILOSEC) 3-11 ageal capsule by Hugh monroy 20 mg 00:00: reflux mouth delayed 00 disease, every release esophagitis morning capsule presence (before not breakfast) specified . lurasidone Yes Take by [facility] is HCl (LATUDA 3-10 mouth. Health OR) 14:30: 02 meclizine 2020-0 Yes Intermitten 25mg Q.5D Take 1 [place] (ANTIVERT) 3-10 t tablet by [facility] 25 mg Tab 00:00: lightheaded mouth 2 00 ness times daily. SUMAtriptan 2020-0 Yes Intractable Take 1 Singh (IMITREX) 2-25 migraine tablet by [facility] 50 mg 00:00: without mouth at tablet 00 status onset of migrainosus headache. , Repeat unspecified after 2 migraine hours if type needed. Maximum 200mg/24 hours.. fluticasone 2020-0 Yes Seasonal 1{spray QD Use 1 Singh propionate 2-25 allergic } [place] [facility] (FL[facility] 00:00: rhinitis, each 50 00 unspecified nostril mcg/actuati trigger daily. on nasal spray loratadine 2019-0 Yes Seasonal 10mg QD Take 1 H arris (CLARITIN) 2-25 allergic tablet by [facility] 10 mg 00:00: rhinitis, mouth tablet 00 unspecified daily. trigger propranolol 2019-0 Yes Intractable 40mg Q.5D Take 1 Singh (INDERAL) 2-25 [facility] 00:00: without mouth 2 tablet 00 status times migrainosus daily. , unspecified migraine type propranolol 2019-0 2020- No Intractable 20mg Q.5D Take 1 Singh (INDERAL) 2-25 02-25 migraine tablet by [facility] 20 mg 00:00: 00:00 without mouth 2 tablet 00 :00 status times migrainosus daily. , unspecified migraine type propranolol 2020-0 2020- No 40mg Q.5D Take 1 Adelso ris (INDERAL) 2-25 02-25 tablet by [facility] 40 mg 00:00: 00:00 mouth 2 tablet 00 :00 times daily. ferrous 2020-0 Yes Iron 325mg QD Take 1 [place] sulfate 325 2-10 deficiency tablet by [facility] mg (65 mg 00:00: anemia, mouth iron) 00 unspecified daily tablet iron (with deficiency breakfast) anemia type . famotidine 2019-0 Yes Gastroesoph 40mg Take 1 [place] (PEPCID) 40 2-10 ageal tablet by alth [...] 2019- No Intractable Take 1 Singh (IMITREX) 10-20 migraine tablet by [facility] 50 mg 00:00: 00:00 without mouth at tablet 00 :00 status onset of migrainosus headache. , Repeat unspecified after 2 migraine hours if type needed. Maximum 200mg/24 hours.. GUAIFENESIN 2019- No Acute 1{tbl} Q.5D Take 1 Singh -DM CR 09-22 sinusitis, tablet by [facility] (MUCINEX 00:00: 00:00 recurrence mouth 2 DM) 30-600 00 :00 not times mg tablet specified, daily. unspecified location fluticasone No Acute 1{spray QD Use 1 Singh propionate 09-22 sinusitis, } [place] in [facility] (FLONASE) 00:00: 00:00 recurrence each 50 00 :00 not nostril mcg/actuati specified, daily. on nasal unspecified spray location ferrous No Iron 325mg QD Take 1 Singh sulfate 325 09-22 deficiency tablet by [facility] mg (65 mg 00:00: 00:00 anemia, mouth iron) 00 :00 unspecified daily tablet iron (with deficiency breakfast) anemia type . famotidine No Gastroesoph 40mg Take 1 [place] (PEPCID) 40 09-22 ageal tablet by H ealth mg tablet 00:00: 00:00 reflux mouth 00 :00 disease, daily as esophagitis needed for presence Heartburn. not specified doxycycline No Acute 100mg Q.5D Take 1 H arris (VIBRA-TABS 09-22 sinusitis, tablet by [facility] ) 100 mg 00:00: 23:59 recurrence mouth 2 tablet 00 :00 not times specified, daily for unspecified 10 days. location TRAZODONE Yes [facility] HCL 05-19 [facility] (TRAZODONE 00:00: ty HCL TABS) 00 Health TABS DEPAKOTE Yes [facility] (DIVALPROEX 05-19 Communi SODIUM 00:00: ty TBEC) TBEC 00 Health EFFEXOR XR Yes [facility] (VENLAFAXIN 05-19 Communi E HCL) 75 00:00: ty MG 00 Health [id number] HYDROXYZINE Yes [facility] HCL 05-19 [facility] (HYDROXYZIN 00:00: ty E HCL TABS) 00 Health TABS omeprazole 2019- No Gastroesoph 20mg Take 1 Singh (PRILOSEC) 04-28 ageal capsule by H ealth 20 mg 00:00: 00:00 reflux mouth at delayed 00 :00 disease, bedtime release esophagitis nightly. capsule presence not specified ibuprofen 2019- No Pain, 400mg Take 1 Adelso ris (MOTRIN) 04-28 dental tablet by [facility] 400 mg 00:00: 00:00 mouth tablet 00 :00 every 8 hours as needed for Pain. ferrous 2019- No Iron 325mg QD Take 1 Singh sulfate 325 04-28 deficiency tablet by [facility] mg (65 mg 00:00: 00:00 anemia, mouth iron) 00 :00 unspecified daily tablet iron (with deficiency breakfast) anemia type . omeprazole No Gastroesoph 20mg Take 1 Singh (PRILOSEC) 03-31 ageal capsule by [facility] 20 mg 00:00: 00:00 reflux mouth at delayed 00 :00 disease, bedtime release esophagitis nightly. capsule presence not specified traZODone Yes Insomnia, 50mg Take 1-2 Singh (DESYREL) 6-26 unspecified tablets by Health 50 mg 00:00: type mouth tablet 00 nightly at bedtime as needed for Sleep. venlafaxine Yes Bipolar 150mg QD Take 1 Singh (EFFEXOR 6-26 disorder in capsule by [employer] XR) 150 mg 00:00: partial mouth extended 00 remission, daily. release most recent capsule episode unspecified type hydrOXYzine Yes Anxiety 25mg Take 1 H arris (ATARAX) 25 6-26 tablet by [facility] lth mg tablet 00:00: mouth 3 00 times daily as needed for Anxiety or Insomnia. divalproex Yes Bipolar 500mg Q.5D Take 1 H arris (DEPAKOTE) 6-26 disorder in tablet by [employer] 500 mg 00:00: partial mouth 2 delayed 00 remission, times release most recent daily. tablet episode unspecified type propranolol 2019- Anxiety 40mg Q.5D Take 1 [place] (INDERAL) 03-05 tablet by [facility] 40 mg 00:00: 00:00 mouth 2 tablet 00 :00 times daily. amitriptyli 2019- Bipolar 50mg Take 1 [facility] (ELAVIL) 03-05 disorder in tablet by [facility] 50 mg 00:00: 00:00 partial mouth at tablet 00 :00 remission, bedtime most recent nightly. episode unspecified type Immunizations Ordered Immunization Filled Immunization Date Status Commen ts Source Name Name Influenza, Vaccine 2019-10-20 Completed [facility] <FLUCELVAX>(Preserva 00:00:00 tive-Free) Twinrix-HEP A&b 2019-03-05 Completed [facility] alth 00:00:00 Td <Unspecified> 2016-03-05 Completed [facility] ealt 00:00:00 Vital Signs Vital Name Observation Time Observation Value Comments Source Heart rate 2019-11-26 15:13:00 72 /min [facility] Body temperature 2019-11-26 15:13:00 36.72 Navya [facility] Respiratory rate 2019-11-26 15:13:00 18 /min [facility] Oxygen saturation in 2019-11-26 15:13:00 100 /min [facility] Arterial blood by Pulse oximetry Systolic blood pressure 2019-11-26 11:17:00 108 mm[Hg] [facility] Diastolic blood pressure 2019-11-26 11:17:00 68 mm[Hg] [facility] Body height 2019-11-13 21:00:00 162.6 cm [facility] Body weight 2019-11-13 21:00:00 92.262 kg [facility] BMI 2019-11-13 21:00:00 34.91 kg/m2 [facility] Procedures Procedure Date / Time Performing Clinician Source Performed XRAY FOOT 3 VIEWS MIN 2019-11-26 14:00:00 Candie Bonilla [facility] XRAY ANKLE 3 VIEW MIN 2019-11-26 14:00:00 Candie Bonilla [facility] XRAY TIBIA AND FIBULA 2 2019-11-26 14:00:[address] [facility] VIEWS CBC/DIFF 2019-11-18 04:22:00 Deleija-Juan JoseTimothy [facility] BASIC METABOLIC PANEL 2019-11-18 04:22:00 Preeta-Juan Jose, [facility] MAGNESI[facility] 2019-11-18 04:22:00 Katarina-Juan JoseTimothy [facility] CBC 2019-11-18 04:22:00 Timothy Baker [facility] CBC/DIFF 2019-11-17 03:46:00 Katarina-Juanj OseTimothy [facility] BASIC METABOLIC PANEL 2019-11-17 03:46:00 Katarina-Juan Jose Timothy [facility] Health MAGNESIUM 2019-11-17 03:46:00 Katarina-Juan JoseTimothy [facility] CBC 2019-11-17 03:46:00 Timothy Baker [facility] GLUCOSE POC 2019-11-16 15:54:00 Trip [place] h MRI BRAIN W/O CONTRAST 2019-11-16 14:46:18 Deshaun Waldron s Health CBC/DIFF 2019-11-16 03:44:00 Katarina-Juan Jose Timothy [facility] BASIC METABOLIC PANEL 2019-11-16 03:44:00 Katarina-Juan Jose [facility] MAGNESIUM 2019-11-16 03:44:00 Preet-Juan Jose Timothy [facility] CBC 2019-11-16 03:44:00 GeorgieoTimothy [facility] XRAY SKULL 4 VIEWS MIN 2019-11-15 12:04:17 [facility] CBC/DIFF 2019-11-15 03:57:00 Katarina-Juan Jose Timothy [facility] BASIC METABOLIC PANEL 2019-11-15 03:57:00 Preeta-Juan Jose Timothy [facility] Health MAGNESIUM 2019-11-15 03:57:00 Preeta-Juan Jose, Timothy [facility] CBC 2019-11-15 03:57:00 Katarina-Juan Jose Timothy [facility] LEAD, WHOLE BLOOD 2019-11-14 13:14:00 Trip [place] [facility] (ADULT) INFUSION PUMP 2019-11-14 09:21:01 [place] h CBC/DIFF 2019-11-14 03:45:00 KatarinaJuan Jose, [facility] BASIC METABOLIC PANEL 2019-11-14 03:45:00 Georgiejimy Timothy [facility] MAGNESIUM 2019-11-14 03:45:00 Georgiejimy Timothy [facility] CBC 2019-11-14 03:45:00 KatarinaJuan Jose [facility] VALPROIC ACID 2019-11-13 20:01:00 KatarinaJuan Jose, [facility] BASIC METABOLIC PANEL 2019-11-13 20:01:00 KatarinaJuan Jose, Timothy [facility] FERRITIN 2019-11-13 20:01:00 [facility] IRON PROFILE 2019-11-13 20:01:00 PreetJuan Jose [facility] FOLIC ACID 2019-11-13 20:01:00 [facility] HIV AG/AB COMBO ROUTINE 2019-11-13 20:01:00 PreetJuan Jose [facility] SCREENING HEPATITIS PANEL 2019-11-13 20:01:00 [facility] ANASTACIO 2019-11-13 20:01:00 [facility] SYPHILIS SCREEN FOR 2019-11-13 20:01:00 [facility] HospitalJuan Jose, Timothy [facility] INFECTION VIT D, 25-HYDROXY 2019-11-13 20:01:00 [facility] VITAMIN B12 2019-11-13 20:01:00 Deshaun Waldron POCT URINE DIPSTICK - 2019-11-13 09:36:00 [facility] TEST 2019-11-13 09:31:[address] HEAD W/O CONTRAST 2019-11-13 09:26:47 [facility] 2019-11-13 06:27:00 Unknown, Provider Francisco Lee lt BMP POC 2019-11-13 06:26:00 Unknown, Provider Francisco Lee lt CBC/DIFF 2019-11-13 06:21:00 Neelam Germain [facility] CBC 2019-11-13 06:21:00 Neelam Germain [facility] ECHG EKG PROC 12 LEAD 2019-11-13 05:20:07 Neelam Germain [facility] EKG; TRACING ONLY GLUCOSE POC 2019-11-13 04:51:00 Kingsley Peña [facility] XRAY ANKLE 3 VIEWS - 2019-11-12 23:10:00 Phillip Abraham [facility] ROUTINE XRAY FOOT 3 VIEWS - 2019-11-12 23:10:00 Phillip Abraham [facility] ROUTINE POCT URINE DIPSTICK - 2019-11-12 22:22:00 Phillip Abraham [facility] XRAY FOOT 3 VIEWS - 2019-10-25 21:38:36 Jennifer Vides [facility] ROUTINE CTA HEAD W CONTRAST 2019-10-18 00:51:16 Aries Mcintosh [facility] ealth CT HEAD W/O CONTRAST 2019-10-17 23:28:40 Aries Mcintosh [facility] VALPROIC ACID 2019-10-17 14:37:00 ChiovFrank [facility] AMMONIA 2019-10-17 14:37:00 [facility] 2019-10-17 13:12:00 Jennifer Vides [facility] BASIC METABOLIC PANEL 2019-10-17 12:07:00 [facility] CBC/DIFF 2019-10-17 12:07:00 Jennifer Vides [facility] CBC 2019-10-17 12:07:00 Elham Videsah Nathaniel [facility] Spherocyl, SV, plano to 2019-05-20 09:06:19 Juanita [facility] +/- 4.00d sphere, 0.12 Health to 2.00d cyl, per lens Frames, purchases deluxe 2019-05-20 09:05:57 Juanita Littlejohn [facility] New Patient Intermediate 2019-05-19 15:29:33 Adi Joseph [facility] Opt - [id number] Health Vaccines Ordered - Print 2019-02-14 14:18:30 Macy Shane [facility] Consent/Declination Health Forms Vaccines Ordered - Print 2019-02-12 14:21:00 Macy Shane [facility] Consent/Declination Health Forms Plan of Care Planned Activity Planned Date Details Comments Source Future Scheduled Test 2024-02-27 00:00:00 Screening for [facility] malignant neoplasm of cervix (procedure) [code = 509027713] Future Scheduled Test 2020-06-10 00:00:00 IMM Influenza [facility] Seasonal Jun to November (>/= 19 yrs) [code = IMM Influenza Seasonal Jun to November (>/= 19 yrs)] Encounters Start End Encounter Admission Attending Care Care Encounter Source Date/Time Date/Time Type Type Clinicians Facility Department ID 2020-03-02 2020-03-02 Outpatient [facility] [id number] [place] 00:00:00 00:00:00 [facility] 2019-11-26 2019-11-26 Emergency [facility] [id number] [place] 13:47:57 13:47:57 Health 2019-11-26 2019-11-26 Emergency [facility] [id number] [place] 11:21:06 11:21:06 Health 2019-11-17 2019-11-17 Outpatient [facility] [id number] [facility] 00:00:00 00:00:00 2019-11-16 2019-11-16 Outpatient [facility] [id number] [place] 11:26:52 11:26:52 Health 2019-11-15 2019-11-15 Outpatient [facility] [id number] [place] 11:58:23 11:58:23 Health 2019-11-15 2019-11-15 Outpatient [facility] [id number] [place] 11:43:04 11:43:04 Health 2019-11-14 2019-11-14 Outpatient [facility] [id number] [place] 10:26:02 10:26:02 Health 2019-11-13 2019-11-13 Emergency [facility] [id number] [place] 09:21:23 09:21:23 Health 2019-11-13 2019-11-13 Outpatient [facility] [id number] Singh 06:32:39 06:32:39 Health 2019-11-12 2019-11-12 Emergency [facility] [id number] Singh 22:50:38 22:50:38 Health 2019-11-12 2019-11-12 Emergency [facility] [id number] Singh 19:42:14 19:42:14 Health 2019-11-04 2019-11-04 Outpatient [facility] [id number] HH 14:33:46 14:33:46 2019-10-31 2019-10-31 Outpatient [facility] [id number] [facility] 15:44:39 15:44:39 2019-10-25 2019-10-25 Emergency [facility] [id number] Singh 23:23:24 23:23:24 Health 2019-10-25 2019-10-25 Emergency [facility] [id number] Singh 21:03:20 21:03:20 Health 2019-10-25 2019-10-25 Emergency [facility] [id number] Singh 00:00:00 00:00:00 [facility] 2019-10-20 2019-10-20 Outpatient [facility] [id number] [facility] 13:26:36 13:26:36 2019-10-18 2019-10-18 Emergency [facility] [id number] Singh 00:10:57 00:10:57 [facility] 2019-10-17 2019-10-17 Emergency [facility] [id number] Singh 23:08:41 23:08:41 Health 2019-10-17 2019-10-17 Emergency [facility] [id number] Singh 12:52:25 12:52:25 [facility] 2019-09-24 2019-09-24 Outpatient [facility] [id number] [facility] 09:00:30 09:00:30 2019-09-08 2019-09-08 Office Herrera [facility] Vision Encoun ter/ [facility] 00:00:00 00:00:00 Visit Della [id number] [place] [id number] [facility] 2019-05-26 2019-05-26 Office Eron [facility] Vision Encoun ter/ [facility] 00:00:00 00:00:00 Visit Juanita [id number] Com [place] [id number] [facility] 2019-05-26 2019-05-26 Office Graciela [facility] Public Enc ounter/ [facility] 00:00:00 00:00:00 Visit Roxanne schneider [facility] [id number] [facility] [id number] [facility] 2019-05-21 2019-05-21 Office Adi Joseph [facility] Vision Enc ounter/ [facility] 00:00:00 00:00:00 Visit [id number] Com [place] [id number] [facility] 2019-05-19 2019-05-19 [facility] 00:00:00 00:00:00 Visit Juanita [id number] Com [place] [id number] [facility] 2019-05-19 2019-05-19 Office Adi Joseph [facility] Vision Enc ounter/ [facility] 00:00:00 00:00:00 Visit [id number] Com [place] [id number] [facility] 2019-05-19 2019-05-19 Office Adi Joseph [facility] Vision Enc ounter/ [facility] 00:00:00 00:00:00 Visit [id number] Com [place] [id number] [facility] 2019-05-19 2019-05-19 Office Adi Joseph [facility] Vision Enc ounter/ [facility] 00:00:00 00:00:00 Visit [id number] Com [place] [id number] [facility] 2019-05-19 2019-05-19 Office Adi Joseph [facility] Vision Enc ounter/ [facility] 00:00:00 00:00:00 Visit Littlejohn Juanita [id number] Communi [id number] [facility] 2019-02-14 2019-02-14 Office [facility] Adult Encoun ter/ [facility] 00:00:00 00:00:00 Visit [facility] [id number] [facility] mmuni [id number] [facility] 2019-02-12 2019-02-12 Office [facility] Adult Encoun ter/ [facility] 00:00:00 00:00:00 Visit [facility] [id number] Co mmuni [id number] [facility] 2019-02-12 2019-02-12 Office [facility] Adult Encoun ter/ [facility] 00:00:00 00:00:00 Visit [facility] [id number] Co mmuni [id number] [facility] Results Test Description Test Test Results Result Source Time Comments Comments XR Chest 1 View 2020-02- Patient: SOURAV BEY AMY 16:17:32 Date/Time02/12/2020 16:10 CDTReason for ExamPneumoniaReportDictation location [...] any concentrations <2 ng/mL are obtained.Performed At: [address] [id number] Hemanth Flores MD Ph:[phone] Novel Coronavirus 2020-02- Not DetectedTesting was (COVID-19), YOLANDA 04 performed using the miguel(R) LC 10:12:58 SARS-CoV-2 test.This test was developed and its performance characteristicsdetermined by [facility]. This test has not beenFDA cleared or [...] (not detected) result in this assay.Performed At: [facility] [id number] Sanjai MD Ph:[phone] Ferritin 2020-02-11 09:17:16 Test Item Value Reference Range Interpretation Comme nts Ferritin Level (test code = Ferritin Level) 18 ng/mL 13-150 Basic Metabolic [id number] 06:58:24 Test Item Value Reference Range Interpretation [...] ag e have not been validated by [facility] MDRD study and should be interpreted wit [...] ag e have not been validated by [facility] MDRD study and should be interpreted wit h caution. eGFR R esult Interpretation: eGFR > or = 60 is in the Normal RangeeGF R < 60 may mean kid carmelina diseaseeGFR < 1 5 may mean kidney failure Rang es recommended by the National Kidney Foundation, http://nkdep.ni h.gov Hepatic Function [id number] 05:35:45 Test Item Value Reference Range Interpretation [...] 2.8 g/dL 2.9-3.1 L = Globulin) Lactate [id number] 05:35:45 Test Item Value Reference Range Interpretation Comments LDH (test code = LDH) 206 U/L 135-214 C Reactive [id number] 05:35:45 Test Item Value Reference Range Interpretation Comments CRP (test code = CRP) 6.4 mg/L 0.0-5.0 H Lactic Acid, Plasma (Venous)2020-02-11 05:12:57 Test Item Value Reference Range Interpretation Comments Lactic Acid, Plasma (Venous) (test 0.7 mmol/L 0.5-1.9 code = Lactic Acid, Plasma (Venous)) Fibrinogen [id number] 05:04:01 Test Item Value Reference Range Interpretation Comments Fibrinogen Level (test code = 226.0 mg/dL 188.5-473.8 Fibrinogen Level) D-Dimer [id number] 05:04:01 Test Item Value Reference Range Interpretation Comments D Dimer, (Quant.) (test code = D 406 ng/mL 0-500 Dimer, (Quant.)) Complete Blood Count with [id number] 04:56:23 Test Item Value Reference Range Interpretation [...] lled to and read back b y: BAUDREY rocah 02/11/2020 04:56:13 CDT CE MPV (test code = 9.1 fL N MPV) Slide Review (test Auto Auto Result cr eated by code = Slide Review) GL_SJM_ SLIDE_REV_AUTO nRBC (test code = 0 N nRBC) NRBC Abs (test code 0.00 x10 N = NRBC Abs) IPF (test code = 0 % N IPF) Automated [id number] 04:56:23 Test Item Value Reference Range Interpretation Comments Neutro Auto (test code = Neutro 45.7 % 36.0-70.0 Auto) Lymph Auto (test code = Lymph Auto) 39.7 % 12.0-44.0 Grant Auto (test code = Grant Auto) 10.7 % 0.0-11.0 Eos, Auto (test code = Eos, Auto) 2.9 % 0.0-7.0 Basophil Auto (test code = Basophil 0.5 % 0.0-2.0 Auto) Neutro Absolute (test code = Neutro 3.0 x10 1.6-7.4 Absolute) Lymph Absolute (test code = Lymph 2.61 x10 .50-4.60 Absolute) Grant Absolute (test code = Grant .70 x10 .00-1.20 Absolute) Eos Absolute (test code = Eos 0.19 x10 0.00-0.74 Absolute) Baso Absolute (test code = Baso 0.03 x10 0.00-0.21 Absolute) IG [id number] 04:56:23 Test Item Value Reference Range Interpretation Comments IG (test code = IG) 0.5 % 0.0-5.0 IG Abs (test code = IG Abs) 0 x10 N Comprehensive Metabolic Wdbcc7551-98-05 15:04:07 Test Item Value Reference Range Interpretation [...] ag e have not been validated by [facility] MDRD study and should be interpreted wit [...] ag e have not been validated by [facility] MDRD study and should be interpreted wit h caution. eGFR R esult Interpretation: eGFR > or = 60 is in the Normal RangeeGF R < 60 may mean kid carmelina diseaseeGFR < 1 5 may mean kidney failure Rang es recommended by the National Kidney Foundation, http://nkdep.ni h.gov C Reactive Khzjnpu6843-89-23 12:02:24 Test Item Value Reference Range Interpretation Comments CRP (test code = CRP) 2.8 mg/L 0.0-5.0 Automated Raqxepexsgak6745-62-43 10:31:00 Test Item Value Reference Range Interpretation Comments Neutro Auto (test code = Neutro 49.7 % 36.0-70.0 Auto) Lymph Auto (test code = Lymph Auto) 31.5 % 12.0-44.0 Grant Auto (test code = Grant Auto) 12.3 % 0.0-11.0 H Eos, Auto (test code = Eos, Auto) 5.5 % 0.0-7.0 Basophil Auto (test code = Basophil 0.6 % 0.0-2.0 Auto) Neutro Absolute (test code = Neutro 2.3 x10 1.6-7.4 Absolute) Lymph Absolute (test code = Lymph 1.48 x10 .50-4.60 Absolute) Grant Absolute (test code = Grant .58 x10 .00-1.20 Absolute) Eos Absolute (test code = Eos 0.26 x10 0.00-0.74 Absolute) Baso Absolute (test code = Baso 0.03 x10 0.00-0.21 Absolute) IG [id number] 10:31:00 Test Item Value Reference Range Interpretation Comments IG (test code = IG) 0.4 % 0.0-5.0 IG Abs (test code = IG Abs) 0 x10 N Complete Blood Count with Petsurmefxej8573-44-39 10:30:59 Test Item Value Reference Range Interpretation [...] code = IPF) 0 % N Urine Fgzmuce4925-87-97 10:00:32 C Urine Added by GL_SJM_UA_CUL_IND>=100,000 cfu/ml Diphtheroids 10,000 cfu/ml Gamma Streptococcus <10,000 cfu/ml Alpha Streptococcus Multiple organisms present, no further workup in progress. Fibrinogen Ewjmj4447-78-46 23:35:18 Test Item Value Reference Range Interpretation Comments Fibrinogen Level (test code = 226.0 mg/dL 188.5-473.8 Fibrinogen Level) Tarnjyim1892-81-66 23:32:29 Test Item Value Reference Range Interpretation Comments Ferritin Level (test code = Ferritin 17 ng/mL 13-150 Level) Lactate Ffxcsedkncfox9601-84-25 22:35:45 Test Item Value Reference Range Interpretation Comments LDH (test code = LDH) 246 U/L 135-214 H C Reactive Qtlbyso1192-00-10 22:35:45 Test Item Value Reference Range Interpretation Comments CRP (test code = CRP) 2.8 mg/L 0.0-5.0 Complete Blood Count with Zraojfimxfka1032-59-82 22:00:38 Test Item Value Reference Range Interpretation [...] code = 0 % N IPF) Automated Jedheligbujt8041-90-19 22:00:38 Test Item Value Reference Range Interpretation Comments Neutro Auto (test code = Neutro 45.4 % 36.0-70.0 Auto) Lymph Auto (test code = Lymph Auto) 37.4 % 12.0-44.0 Grant Auto (test code = Grant Auto) 11.4 % 0.0-11.0 H Eos, Auto (test code = Eos, Auto) 4.6 % 0.0-7.0 Basophil Auto (test code = Basophil 0.7 % 0.0-2.0 Auto) Neutro Absolute (test code = Neutro 2.8 x10 1.6-7.4 Absolute) Lymph Absolute (test code = Lymph 2.27 x10 .50-4.60 Absolute) Grant Absolute (test code = Grant .69 x10 .00-1.20 Absolute) Eos Absolute (test code = Eos 0.28 x10 0.00-0.74 Absolute) Baso Absolute (test code = Baso 0.04 x10 0.00-0.21 Absolute) IG Eddpf4307-78-80 22:00:38 Test Item Value Reference Range Interpretation Comments IG (test code = IG) 0.5 % 0.0-5.0 IG Abs (test code = IG Abs) 0 x10 N Troponin [id number] 19:40:14 Test Item Value Reference Range Interpretation [...] of chronic myocard ial injury. Urine Drug Dnrowk5703-72-08 19:31:13 Test Item Value Reference Range Interpretation [...] matory test if desired . HCG Qualitative Efjkt1053-88-35 19:08:08 Test Item Value Reference Range Interpretation Comments HCG, Serum Qual (test code = HCG, Negative Serum Qual) Lot # (test code = Lot #) [id number] N Expiration Dt (test code = 2021-07-10 N Expiration Dt) Neg Control (test code = Neg Negative Control) Pos Control (test code = Pos Positive Control) Internal QC (test code = Internal Acceptable QC) Urinalysis Huprosfqscj1810-30-28 19:04:03 Test Item Value Reference Range Interpretation Comments UA WBC (test code = UA WBC) None Seen 0-5 UA RBC (test code = UA RBC) 6-10 0-5 A UA Bacteria (test code = UA Few A Bacteria) UA Squam Epithelial (test code = UA 20-29 A Squam Epithelial) Comprehensive Metabolic Ramkz2658-07-56 19:03:43 Test Item Value Reference Range Interpretation [...] A/G 1.3 ratio N Ratio) Comprehensive Metabolic Ytkjb6092-50-55 19:03:43 Test Item Value Reference Range Interpretation [...] the National Kidney Foundation, http://nkdep.ni h.gov Alcohol Cpnop8351-97-13 19:03:43 Test Item Value Reference Range Interpretation Comments Ethanol Level (test <0.00 g/dL 0.00-0.01 Intoxica ginger 0.080 g/dL code = Ethanol or more Level) Ethanol Inst (test <0 N code = Ethanol Inst) Comprehensive Metabolic Kjmrp3420-51-96 19:03:43 Test Item Value Reference Range Interpretation [...] Foundation, http://nkdep.ni h.gov XR Chest 1 View Snatxpi5840-81-99 18:52:37Patient: SOURAV BEY Date/Time02/09/202018:31 CDTReason for ExamShortness of breathReportDICTATION LOCATION: E18TZSDLTS: Female, 39 years of age with Shortness [...] Signature): 02/09/2020 6:52 pmUrinalysis with Culture, if tnyjfxpyh7007-78-66 18:46:10 Test Item Value Reference Range Interpretation [...] Micro Indicated Not Indicated A Ind?) IG Etmua5227-82-56 18:42:20 Test Item Value Reference Range Interpretation Comments IG (test code = IG) 0.7 % 0.0-5.0 IG Abs (test code = IG Abs) 0 x10 N Complete Blood Count with Bpzmoundsaiz4490-08-94 18:42:19 Test Item Value Reference Range Interpretation [...] code = IPF) 0 % N Automated Vjqprwwrpuiw7617-51-12 18:42:19 Test Item Value Reference Range Interpretation Comments Neutro Auto (test code = Neutro 43.0 % 36.0-70.0 Auto) Lymph Auto (test code = Lymph Auto) 39.3 % 12.0-44.0 Grant Auto (test code = Grant Auto) 11.4 % 0.0-11.0 H Eos, Auto (test code = Eos, Auto) 4.9 % 0.0-7.0 Basophil Auto (test code = Basophil 0.7 % 0.0-2.0 Auto) Neutro Absolute (test code = Neutro 2.4 x10 1.6-7.4 Absolute) Lymph Absolute (test code = Lymph 2.17 x10 .50-4.60 Absolute) Grant Absolute (test code = Grant .63 x10 .00-1.20 Absolute) Eos Absolute (test code = Eos 0.27 x10 0.00-0.74 Absolute) Baso Absolute (test code = Baso 0.04 x10 0.00-0.21 Absolute) XRAY TIBIA AND FIBULA 2 [id number] 14:17:40IMPRESSION: No acute abnormality seen in the [...] 11/26/2019 2:17 PMHarris HealthXRAY ANKLE 3 VIEW [id number] 14:17:40IMPRESSION: No acute abnormality seen in the [...] 11/26/2019 2:17 PMHarris HealthXRAY FOOT 3 VIEWS [id number] 14:17:40IMPRESSION: No acute abnormality seen in the [...] foot.Signed By: Janet Wilson MD, 11/26/2019 2:17 [facility] HospitalLe, Whole Blood (Adult)2019-11-20 08:12:00 Test Item Value Reference Range Interpretation Comments Lead, Blood <1 0-4 Analysis by [facility] (Adult) (test absorption code = spectroscopy (A ). 31569-6) Environmental Exposure: WH O Recommendation <20 Occupational Exposure: OS MORENO Lead Std 40 CASIMIRO 30 Detectio n Limit = 1 [facility] (test code Performed at: 01 = [facility]IS) - [facility] [address], [place] [id number] Director: Hemanth Frey MD, Phone: [phone] [facility] Metabolic Yjeir2802-31-30 05:35:00 Test Item Value Reference Range Interpretation Comments Sodium (test code = 2951-2) 138 mmol/L 136-145 Potassium (test code = 2823-3) 4.4 mmol/L 3.5-5.1 Chloride (test code = 2075-0) 104 mmol/L 98-107 CO2 (test code = 51985269) 28 mmol/L 21-31 Urea Nitrogen (test code = 23.0 mg/dL 7-25 36304490) Creatinine (test code = 0.8 mg/dL 0.6-1.2 36151595) Glucose (test code = 84042188) 85 mg/dL 70-110 Calcium (test code = 12801836) 8.4 mg/dL 8.6-10.3 L GFR, Estimated (test code = 80 >=90 mL/min/1.73 m2 L 26244234) Anion Gap (test code = 6 mmol/L 5-16 39104419) Lab Interpretation (test code Abnormal = 13876-4) [facility] HospitalKenratOkzxsibpb2906-69-10 05:35:00 Test Item Value Reference Range Interpretation Comments Magnesium (test code = 49983837) 1.8 mg/dL 1.9-2.7 L Lab Interpretation (test code = Abnormal 59208-2) [facility] HospitalCBC/Fohq4735-92-76 05:11:00 Test Item Value Reference Range Interpretation [...] g/dL 32-36 L RDW (test code = 53579-7) 48.0 fL 36.4-46.3 H Platelet (test code = 777-3) 208 K/uL 150-400 Mean Platelet Volume (test code = 10.1 fL 9.4-12.4 10023-5) Percent NRBC (test code = 22108940) 0.0 % Neutrophil (test code = 770-8) 55.3 % 34-70 Lymphs (test code = 736-9) 31.9 % 20-50 Monocytes (test code = 5905-5) 10.2 % 5-12 Eos (test code = 713-8) 1.4 % 0.7-5 Basos (test code = 706-2) 0.4 % 0.1-1.2 Immature Granulocytes (test code = 0.8 % 0-0.5 H 94797682) Neutrophils (Absolute) (test code = 4.65 K/uL 1.56-6.13 19444559) Lymphs (Absolute) (test code = 2.68 K/uL 1.18-3.74 23761902) Monocytes(Absolute) (test code = 0.86 K/uL 0.24-0.36 H 58236062) Eos (Absolute) (test code = 0.12 K/uL 0.04-0.36 34305087) Baso (Absolute) (test code = 0.03 K/uL 0.01-0.08 91203734) Immature Grans (Abs) (test code = 0.07 K/uL 0-0.03 H 85282505) Absolute NRBC (test code = 0.00 K/uL 27572955) Lab Interpretation (test code = Abnormal 70217-4) [facility] BRAIN W/O ETTOCAGR8928-86-10 16:11:53IMPRESSION: 1. No acute intracranial abnormality.2. No [...] T1 and T2 flair, gradient echo, Coronal G0Hdmkb, DWI and ADCContrast: NoneComplic ations: NoneFINDINGS: Scalp: [...] this report.SignedBy: Blayne Burgos MD, 11/17/2019 4:11 PMWeirton Unity TechnologiesUngalli GLUCOSE POC docked rablvo5502-79-94 15:55:00 Test Item Value Reference Range Interpretation Comments Glucose POC (test code = 91952244) 115 mg/dL 74-106 H Lab Interpretation (test code = Abnormal 38331-4) [facility] HospitalXRAY SKULL 4 VIEWS UQH3571-31-51 08:56:41IMPRESSION: Punctate metallic fragments are seen in [...] this report.Signed By: Gemma Martinez MD,11/16/2019 8:56 [facility] HospitalWortxvHMJ8385-23-98 15:22:00 Test Item Value Reference Range Interpretation Comments ANASTACIO Screen (test code = 63212972) Negative Negative Lab Interpretation (test code = Normal 52537-1) [facility] HospitalHepatitis Bodny7249-30-08 14:02:00 Test Item Value Reference Range Interpretation Comments Hepatitis C Virus (HCV) Antibody Negative Negative (test code = 16730-1) Hep B Surface Ag (test code = Negative Negative 5196-1) Hep A Vir Ab IgM (test code = Negative Negative 49526-3) Hep B Core Ab IgM (test code = Negative Negative 22752-3) Lab Interpretation (test code = Normal 10400-1) [facility] HospitalVitamin I169419-98-02 11:52:00 Test Item Value Reference Range Interpretation Comments Vitamin B12 (test code 894 pg/mL See comment Esther l: 180-914 = 17497318) pg/mLIntermitte nt: 145-180 pg/mLDeficient: <=145.0 pg/mL [facility] HospitalSyphilis Screen for Xitnopura8335-44-72 08:39:00 Test Item Value Reference Range Interpretation Comments TPA (test code = 58241-6) Negative Negative, Equivocal Final Report (test code = Negative Negative 75203-7) Lab Interpretation (test code = Normal 41386-4) [facility] HospitalVitamin D, 91-Dbymfyqwzxwlfphqb6325-87-06 08:06:00 Test Item Value Reference Range Interpretation Comments Vit D, 25-Hydroxy (test 33.8 ng/mL 30-100 code = 08903923) Vitamin D Interpretation Sufficient Sufficient Saucedo fficient: (test code = 83907953) >30.0 Insufficient: 20.0 - 29.9Deficient: <20.0 Lab Interpretation (test Normal code = 63064-5) [facility] HospitalHIV-1/HIV-2 Routine Khtoilxnr1522-42-69 21:34:00 Test Item Value Reference Range Interpretation Comments HIV Ag/Ab Combo (test code = Negative Negative 29438-0) Lab Interpretation (test code = Normal 55250-7) [facility] HospitalFolic Utiw3465-93-77 21:33:00 Test Item Value Reference Range Interpretation Comments Folic Acid (test code = 05780778) 14.1 ng/mL 5.9-24.8 Lab Interpretation (test code = Normal 94557-6) [facility] HospitalXbdjewTnttazpd1689-00-69 21:26:00 Test Item Value Reference Range Interpretation Comments Ferritin (test code = 56983670) 60.2 ng/mL 11-306.8 Lab Interpretation (test code = Normal 24310-4) [facility] HospitalIron Ltuuqqx9906-83-45 21:07:00 Test Item Value Reference Range Interpretation Comments Iron (test code = 85963037) 114 ug/dL 50-212 TIBC (test code = 84179761) 319 ug/dL 250-450 % Iron Sat (test code = 36 % 75623384) Transferrin (test code = 228.14 mg/dL 203-362 86476964) [facility] HospitalValproic Vdxp3141-66-20 21:07:00 Test Item Value Reference Range Interpretation Comments Valproic Acid (test code = 67.2 ug/mL 50-100 17320969) Lab Interpretation (test code = Normal 84396-7) [facility] HEAD W/O IPLBZYZB3343-72-87 11:20:20IMPRESSION: No acute abnormalities. No change from [...] report.Signed By: Wendy Craft MD, 11/13/2019 11:20 [facility] HospitalPregnancy Zdod6110-38-33 09:57:00 Test Item Value Reference Range Interpretation Comments (test code = 08228429) Negative Negative Lab Interpretation (test code = Normal 75003-5) [facility] Urine - Fkhmrckym9020-11-14 09:36:00 Test Item Value Reference Range Interpretation Comments Control (test code = 7172) passed (test code = 7173) negative Lab Interpretation (test code = Normal 59374-6) [facility] CREATININE POC docked urhkhx0062-19-62 06:31:00 Test Item Value Reference Range Interpretation Comments Creatinine POC (test code = 0.8 mg/dL 0.6-1.3 017 44023423) GFR, Estimated (test code = >90 >=90 mL/min/1.73 m2 25856004) Lab Interpretation (test code = Normal 96946-9) [facility] BMP POC docked estchz5136-06-43 06:30:00 Test Item Value Reference Range Interpretation Comments Sodium POC (test code = 31740361) 141 mmol/L 136-145 Potassium POC (test code = 4.5 mmol/L 3.5-5.1 47799251) Chloride POC (test code = 102 mmol/L 98-107 40772307) TCO2 POC (test code = 94433089) 32 mmol/L 21-32 017 Urea Nitrogen POC (test code = 19 mg/dL 7-18 H 34072247) Glucose POC (test code = 69781097) 86 mg/dL 74-106 Hemoglobin POC (test code = 13.6 g/dL 12-16 43932632) Hematocrit POC (test code = 40.0 % 37-47 18352082) Lab Interpretation (test code = Abnormal 78853-3) [place] [address] LEAD INL1785-03-26 05:53:0112 LEAD EKG FOR [facility] Test Date: 9170-05-71Zwu Name: SOURAV BEY Department: 5520Patient ID: [id number] Room: Gender: F Rn Plastic Surgery: [id number]: 1980 Requested By: NEELAM GERMAIN Order Number: [id number] Reading MD: Dolores Walker MeasurementsIntervals [place] Rate: 70 P: 49PR: 162 QRS: 38QRSD: 84 T: 7QT: 377 QTc: 409 Interpretive StatementsSINUS RHYTHMNONSPECIFIC T-WAVE ABNORMALITYElectronically Signed On 11-13-2019 5:52:58 OTHER SPATIAL SCIENTIST by Dolores NathanPenn State Health [facility] Medical CenterXRAY ANKLE 3 VIEWS - JKJFVKG7498-64-53 03:59:29 IMPRESSION: No acute abnormalities.Plantar enthesopathy. If the report is "FINALIZED" it indicates that the attending/staffradiologist has reviewed the images and agrees with the resident'sinterpretation. Dictated By: Shakir Boyer MD, 11/13/2019 12:55 AM I have reviewed the study and agree with the findings in this report. Signed By: Nixon Gabriel DO, 11/13/2019 3:59 AM Interface, Naga/Mammog In - 11/13/2019 4:04 AM CSTX-ray right [...] report.Signed By: Nixon Gabriel DO, 11/13/2019 3:59 [facility] HospitalXRAY FOOT 3 VIEWS - DZOSFKH4389-65-85 03:59:29IMPRESSION: No acute abnormalities.Plantar enthesopathy. If the [...] report.Signed By: Nixon Gabriel DO, 11/13/2019 3:59 [facility] HealthCTA HEAD W VZNYGOMI2755-11-90 01:20:17 IMPRESSION: 1. Severely hypoplastic right vertebral artery, likely congenital.2. Otherwise, no additional abnormalities on this CTA of the head.Specifically, no large vessel occlusion or aneurysm. Dictated By: Stephane Murphy DO, 10/18/2019 1:13 AM I have reviewed the study and agree with the findings in this report. Signed By: Wendy Craft MD, 10/18/2019 1:20 AM Interface, Naga/Nadia In - 10/18/2019 1:25 AM CSTExams: Intracranial [...] compared to the previous CT.No enhancing abnormalities.CTA [facility] [employer] [place] [facility] [place]: Carotid arteries:Patent, no abnormalities.. Vertebrobasilar [...] the findings in this report.Signed By: Wendy Carft MD, 10/18/2019 1:20 [facility] HospitalQwliuiZsewtzb9490-68-45 16:24:00 Test Item Value Reference Range Interpretation Comments Ammonia (test code = 26337943) 31.0 umol/L 16-53 Lab Interpretation (test code = Normal 20895-4) [facility] results in oh5681-26-95 14:09:10 Test Item Value Reference Range Interpretation Comments PPD results in mm (test code = 983413) 0 mm [facility] CHEST 1 [id number] 12:29:00 FAX: Cali Ramos MD [phone] [place]: St: REG Name: SOURAV BEY [facility] : 1980 Age/S: 38/F [address] [facility] Unit#: [id number] Loc: UL[place], [place] Phys: [place] [address] Acct: [id number] Dis Date: Status: REG ER PHONE #: [phone] Exam Date: 12/06/2018 1205 FAX #: [phone] Reason: hyperventilation EXAMS: CPT CODE: [id number] XR CHEST 1 V 12191 Chest Radiograph History: hyperventilation Comparison: None at this time Location: R16 A single frontal view of the chest is submitted. The heart is within normal limits in size. Pulmonary vasculature is unremarkable. The visualized lung christensen appear to be free of disease. The bones appear unremarkable. IMPRESSION: There is no radiographic evidence of acute cardiopulmonary disease. at 7281 Reported and signed by: Mathew Vazquez M.D. CC: Cali Ramos MD Technologist: JOSUE BARBA Trnscrd Date/Time/By: 12/06/2018 (2305) : By: HermelindoPMT PAGE 1 Signed Report FAX: Cali Ramos MD [phone] [place]: St: REG Name: SOURAV BEY [facility] : 1980 Age/S: 38/F [address] Unit #: [id number] Loc: E.[place], [place]: [place] [address] Acct: [id number] Dis Date: Status: REG ER PHONE #: [phone] Exam Date: 12/06/2018 1205 FAX #: [phone] Reason: hyperventilation EXAMS: CPT CODE: [id number] XR CHEST 1 V 10980 <Continued> Orig Print D/T: S: 12/06/2018 (0418) PAGE 2 Signed ReportURINALYSIS [id number] 12:27:00 Test Item Value Reference Range Interpretation [...] (test code = FEW NONE BACU) URINALYSIS [id number] 12:18:00 Test Item Value Reference Range Interpretation [...] NONE BACU) - CT ABD PELVIS W/O [id number] 10:32:00 FAX: Addie Mccarthy MD [phone] [place]: St: REG Name: SOURAV BEY [facility] : 1980 Age/S: 38/F [address] [facility] Unit: [id number] [place]: [place] [address] Acct: [id number] Dis Date: Status: REG ER PHONE #: [phone] Exam Date: 11/22/2018 1012 FAX #: [phone] Reason: LOW BACK/ FLANK PAIN WITH URINARY SX EXAMS: CPT CODE: [id number] CT ABD PELVIS W/O CONT 25406 HISTORY: Low back pain, flank pain with [...] Signed Report (CONTINUED) FAX: Addie Mccarthy MD [phone] [place]: St: REG Name: SOURAV BEY [facility] : 1980 Age/S: 38/F [address] [facility] Unit: [id number] Loc: ULICES [place], [place] Phys: Addie Mccarthy WMD [address] Acct: [id number] Dis Date: Status: REG ER PHONE #: [phone] Exam Date: 11/22/2018 1012 FAX #: [phone] Reason: LOW BACK/ FLANK PAIN WITH URINARY SXEXAMS: CPT CODE: [id number] CT ABD PELVIS W/O CONT 63314 <Continued> Correlate for any pancreatic enzymeabnormalities as [...] for the age of the patient. Location: 9 at 1032 Reported and signed by: Aries Tierney M.D. CC:Addie Mccarthy MD Technologist: JAMES GERARD [facility] Centerscrd Dt/Tm: 11/22/2018 (1032) tANDREE Orig Print D/T: S: 11/22/2018(1035 PAGE 2 Signed ReportBASIC METABOLIC [id number] 09:28:00 Test Item Value Reference Range Interpretation [...] N Specimen comments: Clean CatchHEPATIC FUNCTION PANEL [id number] 09:28:00 Test Item Value Reference Range Interpretation [...] N code = ALKP) Specimen comments: Clean ZhhsuQGBUDL9045-33-35 09:28:00 Test Item Value Reference Range Interpretation Comments LIPASE (test code = LIP) 123 Units/L 65.0-230.0 N Specimen comments: Clean CatchHCG SERUM [id number] 09:28:00 Test Item Value Reference Range Interpretation Comments HCG SERUM QUAL (test code = HCGQL) NEGATIVE NEGATIVE Specimen comments: Clean CatchPROTHROMBIN [id number] 09:26:00 Test Item Value Reference Range Interpretation Comments PROTHROMBIN TIME 10.7 SECONDS 9.9-12.8 N PATIENT (test code = PTP) INTERNATIONAL NORMAL 0.9 0.89-1.14 N THE INR IS TO BE USED RATIO (test code = ONLY FOR MONITORING INR) ORAL ANTICOAGULANTTH ERAPY. THE FOLLOWING A RE SUGGESTED RANGE S FROM THEENCOM[facility] LEGE OF CHEST PHYSICIANS:CARMEN CATION INR [...] - 3 .5 Specimen comments: Clean CatchURINALYSIS [id number] 09:23:00 Test Item Value Reference Range Interpretation [...] = TRICHU) Specimen comments: Clean CatchBASIC METABOLIC [id number] 09:23:00 Test Item Value Reference Range Interpretation [...] code = CA) mg/dl 8.0-10.5 Specimen comments: codebenderHEPATIC FUNCTION PANEL [id number] 09:23:00 Test Item Value Reference Range Interpretation [...] 50.0-136.0 code = ALKP) Specimen comments: Clean [id number] 09:23:00 Test Item Value Reference Range Interpretation Comments LIPASE (test code = LIP) Units/L 65.0-230.0 Specimen comments: Clean CatchHCG SERUM [id number] 09:23:00 Test Item Value Reference Range Interpretation Comments HCG SERUM QUAL (test code = HCGQL) NEGATIVE NEGATIVE Specimen comments: Clean RuffaloCODYBASIC METABOLIC [id number] 09:21:00 Test Item Value Reference Range Interpretation [...] 8.0-10.5 Specimen comments: Clean CatchHEPATIC FUNCTION PANEL [id number] 09:21:00 Test Item Value Reference Range Interpretation [...] 50.0-136.0 code = ALKP) Specimen comments: Clean [id number] 09:21:00 Test Item Value Reference Range Interpretation Comments LIPASE (test code = LIP) Units/L 65.0-230.0 Specimen comments: Clean CatchHCG SERUM [id number] 09:21:00 Test Item Value Reference Range Interpretation Comments HCG SERUM QUAL (test code = HCGQL) NEGATIVE NEGATIVE Specimen comments: Clean CatchURINALYSIS [id number] 09:17:00 Test Item Value Reference Range Interpretation [...] NONE BACU) Specimen comments: Clean CatchCBC W/AUTO [id number] 09:11:00 Test Item Value Reference Range Interpretation [...]
[2020-04-14 13:48] LABS: Urine Blood NEGATIVE (NEG); Urine Glucose NEGATIVE (NEG); Urine Protein NEGATIVE (NEG); Urine pH 7.5 (5.0-7.0)
[2020-04-14 13:56] LABS: Absolute Lymphocytes (CBC) 1.4 K/uL (0.7-4.9); Basophils % 1.4 % (0-1.3); Hematocrit 27.8 % (36.0-45.0); Lymphocytes % 25.8 % (15.3-44.8); MPV 7.9 fL (7.6-11.3); RBC Red Blood Cell Count 3.47 M/uL (3.86-4.86)
[2020-04-14 13:57] LABS: Protime INR 0.91
[2020-04-14] MEDS ORDERED: MORPHINE 4 MG/ML SYR ONE (14:07)
[2020-04-14] MEDS ORDERED: ONDANSETRON 4 MG/2 ML VIAL ONE (14:07)
[2020-04-14] MEDS ORDERED: FUROSEMIDE 40 MG/4 ML VIAL ONE (14:07)
[2020-04-14 14:23] LABS: ALT/SGPT 25 U/L (12-78); AST/SGOT 27 U/L (15-37); Albumin 2.8 g/dL (3.4-5.0); Alkaline Phosphatase 69 U/L (45-117); BUN Blood Urea Nitrogen 11 mg/dL (7-18); Bicarbonate 29 mmol/L (21-32); Bilirubin Direct < 0.1 mg/dL (0-0.2); Bilirubin Total 0.3 mg/dL (0.2-1.0); Glucose Level 96 mg/dL (74-106); Magnesium 2.2 mg/dL (1.8-2.4); NT PRO-BNP 1137 pg/mL (<125); Potassium 3.8 mmol/L (3.5-5.1); Protein, Total 6.8 g/dL (6.4-8.2); Sodium Level 140 mmol/L (136-145); Troponin (Emerg Dept Use Only) < 0.02 ng/mL (0.0-0.045)
--- NOTE | 2020-04-14 15:02 | RAD REPORT ---
EXAM DESCRIPTION: US - Extrem Venous W Compress Juan - 04/14/2020 2:46 pm CLINICAL HISTORY: Pain;Swelling COMPARISON: None. TECHNIQUE: Real-time sonographic evaluation of the bilateral lower extremity common femoral, superfi cial femoral, popliteal and posterior tibial veins was performed. FINDINGS: Normal compressibility, flow augmentation, phasic flow and spontaneous flow are identified in the left and right lower extremity common femoral, superficial femoral, popliteal and posterior t ibial veins. No intraluminal filling defects seen. IMPRESSION: No DVT in either lower extremity.
--- NOTE | 2020-04-14 16:06 | RAD REPORT ---
EXAM DESCRIPTION: CT - Chest For Pe Angio - 04/14/2020 3:50 pm CLINICAL HISTORY: COUGH COMPARISON: Extrem Venous W Compress Juan dated 04/14/2020; Chest Single View dated 04/14/2020 TECHNIQUE: Dynamically enhanced 3 mm thick images of the chest were obtained during administration o f approximately 150mL Isovue 370 IV contrast. Coronal and oblique MIP reconstruction images were gene rated and reviewed. Exam utilizes a protocol to evaluate the pulmonary arterial tree. All CT scans are performed using dose optimization technique as appropriate and may include automated exposure control or mA/KV adjustment according to patient size. FINDINGS: No pulmonary emboli are identified. The aorta as imaged shows no acute or suspicious finding. No pericardial thickening or effusion. No focal mass or consolidation. Interstitial markings are mildly prominent and could be edema or infi ltrate. No ground-glass opacification or other findings specific for a COVID-19 pneumonia. No pleural effusion or pleural thickening. No mediastinal or hilar suspicious masses. No chest wall masses or abnormal axillary lymphadenopathy. IMPRESSION: No pulmonary emboli identified. Increased interstitial prominence from infiltrate or edema.
--- NOTE | 2020-04-14 16:13 | RAD REPORT ---
EXAM DESCRIPTION: RAD - Chest Single View - 04/14/2020 3:49 pm CLINICAL HISTORY: SOB COMPARISON: Portable February 26 TECHNIQUE: AP portable chest image was obtained 04/14/2020 3:49 pm . FINDINGS: Lung volumes are low. No peripheral mass or consolidation identifiable. No failure or volu me overload. Heart and vasculature are normal. No measurable pleural effusion and no pneumothorax. No acute bony abnormality seen. No acute aortic findings suspected. IMPRESSION: No acute cardiopulmonary process. No suspicious change from comparison.
[2020-04-14] MEDS ORDERED: FENTANYL CITR 100 MCG/2 ML ONE (16:30)
--- NOTE | 2020-04-14 17:41 | ER ---
Nurse's Notes [facility] Name: Sariah Maria Age: 39 yrs Sex: Female : 1980 Arrival Date: 04/14/2020 Time: 12:05 Bed 16 Private MD: Diagnosis: Peripheral Edema Presentation: 04/14 12:18 Chief complaint: Patient states: SOB x 1-2 weeks, wheezing. Denies cough. Chest pain x ca1 1-2 weeks. Timothy leg swelling x 3 weeks with pain and tightness. Denies fever. Coronavirus screen: Client denies travel out of the [place] in the last 14 days. At this time, the client does not indicate any symptoms associated with coronavirus-19. Ebola Screen: Patient negative for fever greater than or equal to 101.5 degrees Fahrenheit, and additional compatible Ebola Virus Disease symptoms Patient denies exposure to infectious person. Patient denies travel to an Ebola-affected area in the 21 days before illness onset. No symptoms or risks identified at this time. Initial Sepsis Screen: Does the patient meet any 2 criteria? No. Patient's initial sepsis screen is negative. Does the patient have a suspected source of infection? No. Patient's initial sepsis screen is negative. Risk Assessment: Do you want to hurt yourself or someone else? Patient reports no desire to harm self or others. Onset of symptoms was April 14, 2020. 12:18 Method Of Arrival: Wheelchair ca1 12:18 Acuity: RICHELLE 3 ca1 MANAGER OF CARE: 12:24 LMP 04/09/2020 ca1 Historical: - Allergies: 12:24 [place]; ca1 18:06 Tylenol-Codeine #3; jr10 - Home Meds: 12:24 Ambien Oral [Active]; Zoloft Oral [Active]; Effexor Oral [Active]; Depakote Oral ca1 [Active]; Propranolol Oral [Active]; Latuda oral oral [Active]; - PMHx: 12:24 Anxiety; Bipolar disorder; Depression; ca1 - PSHx: 12:24 3 facial surgery; ; ca1 - Immunization history:: Adult Immunizations up to date. - Social history:: Smoking status: Patient denies any tobacco usage or history of. Screenin:35 Abuse screen: Denies threats or abuse. Denies injuries from another. Nutritional jr10 screening: No deficits noted. Tuberculosis screening: No symptoms or risk factors identified. Fall Risk IV access (20 points). Assessment: 13:35 General: Appears uncomfortable, Behavior is calm, cooperative, appropriate for age. jr10 Pain: Complains of pain in chest, right leg and left leg Pain currently is 7 out of 10 on a pain scale. Neuro: No deficits noted. Cardiovascular: Reports chest pain, shortness of breath, Capillary refill < 3 seconds Pulses are all present. Edema is 3+ to left midcalf, left ankle, left foot, left toes, right midcalf, right ankle, right foot and right toes Rhythm is pt reports anterior chest wall pain that began approx 1 week ago and has worsened over time with swelling in timothy lower extremities. Pt denies any hx of CHF or renal dx. Reports cp worse with deep breathing. Respiratory: Reports shortness of breath on exertion pain with respiration Airway is patent Respiratory effort is even, unlabored, Respiratory pattern is regular, symmetrical, Breath sounds are clear bilaterally. GI: No deficits noted. GI: No signs and/or symptoms were reported involving the gastrointestinal system. : No deficits noted. No signs and/or symptoms were reported regarding the genitourinary system. EENT: No deficits noted. No signs and/or symptoms were reported regarding the EENT system. Derm: No deficits noted. No signs and/or symptoms reported regarding the dermatologic system. Musculoskeletal: No deficits noted. No signs and/or symptoms reported regarding the musculoskeletal system. Vital Signs: 12:18 BP 99 / 70; Pulse 91; Resp 15 S; Temp 97.1(TE); Pulse Ox 98% on R/A; Weight 106.14 kg ca1 (R); Height 5 ft. 4 in. (162.56 cm) (R); Pain 7/10; 13:55 BP 115 / 85; Pulse 82; Resp 20; Pulse Ox 99% on R/A; Pain 7/10; jr10 14:11 BP 116 / 77; Pulse 85; Resp 18; Pulse Ox 97% on R/A; jr10 15:18 BP 166 / 77; Pulse 85; Resp 20; Pulse Ox 97% on R/A; jr10 16:27 BP 100 / 80; Pulse 76; Resp 16; Pulse Ox 95% on R/A; jr10 18:06 BP 116 / 76; Pulse 82; Resp 20; Temp 97.6; Pulse Ox 100% on R/A; Pain 0/10; jr10 12:18 Body Mass Index 40.17 (106.14 kg, 162.56 cm) ca1 ED Course: 12:05 Patient arrived in ED. ds1 12:22 Triage completed. ca1 12:24 Arm band placed on right wrist. ca1 12:31 Sherrell Reed, AUDREY is Primary Nurse. jr10 13:23 Ko Silva MD is Attending Physician. kdr 13:33 No provider procedures requiring assistance completed. Inserted saline lock: 20 gauge jr10 in right antecubital area, using aseptic technique. IV is patent, is intact, with good blood return, Flushed. 13:35 Patient has correct armband on for positive identification. Call light in reach. Side jr10 rails up X2. Adult w/ patient. monitor car operator on. Pulse ox on. NIBP on. 14:46 US Extremity Venous W Compression Timothy In Process Unspecified. EDMS 15:49 Chest Single View XRAY In Process Unspecified. EDMS 15:51 CT Chest For PE Angio In Process Unspecified. EDMS 17:40 Shaka Galan DO is Referral Physician. kdr 18:07 IV discontinued, bleeding controlled, No redness/swelling at site. Pressure dressing jr10 applied. Administered Medications: 14:00 Drug: Zofran (Ondansetron) 4 mg Route: IVP; Site: right antecubital; jr10 14:17 Follow up: Response: No adverse reaction jr10 14:02 Drug: morphine 4 mg Route: IVP; Site: right antecubital; jr10 14:17 Follow up: Response: No adverse reaction; Pain is decreased jr10 14:06 Drug: Lasix 40 mg Route: IVP; Site: right antecubital; jr10 14:17 Follow up: Response: No adverse reaction jr10 16:29 Drug: fentaNYL (PF) 50 mcg Route: IVP; Site: right antecubital; jr10 18:07 Follow up: Response: No adverse reaction; Pain is decreased jr10 Outcome: 17:41 Discharge ordered by . kdr 18:07 Discharged to home ambulatory. jr10 18:07 Condition: improved 18:07 Discharge instructions given to patient, Instructed on discharge instructions, follow up and referral plans. Demonstrated understanding of instructions, follow-up care, medications, Prescriptions given X 3. 18:08 Patient left the ED. jr10 Signatures: Dispatcher [employer] Ko Valdovinos MD MD kdr [place], Demi ds1 Hui Gómez RN RN ca1 Sherrell Reed RN RN jr10 Corrections: (The following items were deleted from the chart) 16:32 16:30 BP 134 / 89; Pulse 84bpm; Resp 20bpm; Pulse Ox 98% RA; jr10 jr10
--- NOTE | 2020-04-14 17:41 | EDPHYS ---
Physician Documentation [facility] Name: Sariah Maria Age: 39 yrs Sex: Female : 1980 Arrival Date: 04/14/2020 Time: 12:05 Bed 16 Private MD: ED Physician Ko Silva HPI: 04/15 07:47 This 39 yrs old Female presents to ER via Wheelchair with complaints of Leg kdr Pain \T\ awelling. 07:47 The patient presents with swelling, tenderness. The complaints affect the lateral kdr aspect of left calf, left calf, medial aspect of left calf and left gibson, lateral aspect of right calf, right calf, medial aspect of right calf and right gibson. Context: The problem was sustained at home, resulted from an unknown cause, the patient can fully bear weight, the patient is able to ambulate, with mild difficulty. Onset: The symptoms/episode began/occurred gradually, 2 month(s) ago. Modifying factors: The symptoms are alleviated by nothing. the symptoms are aggravated by movement, weight bearing. Associated signs and symptoms: Pertinent positives: calf tenderness, swelling. Treatment prior to arrival includes: no previous treatment. Severity of symptoms: At their worst the symptoms were moderate, severe, in the emergency department the symptoms are actually worse. The patient has not experienced similar symptoms in the past. The patient has not recently seen a physician. DREDGE PUMPER: 04/14 12:24 LMP 04/09/2020 ca1 Historical: - Allergies: 12:24 [place]; ca1 18:06 Tylenol-Codeine #3; jr10 - Home Meds: 12:24 Ambien Oral [Active]; Zoloft Oral [Active]; Effexor Oral [Active]; Depakote Oral ca1 [Active]; Propranolol Oral [Active]; Latuda oral oral [Active]; - PMHx: 12:24 Anxiety; Bipolar disorder; Depression; ca1 - PSHx: 12:24 3 facial surgery; ; ca1 - Immunization history:: Adult Immunizations up to date. - Social history:: Smoking status: Patient denies any tobacco usage or history of. ROS: 04/15 07:47 Constitutional: Negative for fever, chills, and weight loss, Eyes: Negative for injury, kdr pain, redness, and discharge, ENT: Negative for injury, pain, and discharge, Neck: Negative for injury, pain, and swelling, Cardiovascular: Negative for chest pain, palpitations, and edema, Respiratory: Negative for shortness of breath, cough, wheezing, and pleuritic chest pain, Abdomen/GI: Negative for abdominal pain, nausea, vomiting, diarrhea, and constipation, Back: Negative for injury and pain, : Negative for injury, bleeding, discharge, and swelling, Skin: Negative for injury, rash, and discoloration, Neuro: Negative for headache, weakness, numbness, tingling, and seizure activity. Psych: Negative for depression, anxiety, suicide ideation, homicidal ideation, and hallucinations, Allergy/Immunology: Negative for hives, rash, and allergies, Endocrine: Negative for neck swelling, polydipsia, polyuria, polyphagia, and marked weight changes, Hematologic/Lymphatic: Negative for swollen nodes, abnormal bleeding, and unusual bruising. MS/extremity: Positive for swelling, tenderness, Both lower extremities symmetircally. Exam: 04/14 18:55 ECG was reviewed by the Attending Physician. kdr 04/15 07:47 Constitutional: This is a well developed, well nourished patient who is awake, alert, kdr and in no acute distress. Head/Face: Normocephalic, atraumatic. Eyes: Pupils equal round and reactive to light, extra-ocular motions intact. Lids and lashes normal. Conjunctiva and sclera are non-icteric and not injected. Cornea within normal limits. Periorbital areas with no swelling, redness, or edema. Neck: Trachea midline, no thyromegaly or masses palpated, and no cervical lymphadenopathy. Supple, full range of motion without nuchal rigidity, or vertebral point tenderness. No Meningismus. Chest/axilla: Normal chest wall appearance and motion. Nontender with no deformity. No lesions are appreciated. Cardiovascular: Regular rate and rhythm with a normal S1 and S2. No gallops, murmurs, or rubs. Normal PMI, no JVD. No pulse deficits. Respiratory: Lungs have equal breath sounds bilaterally, clear to auscultation and percussion. No rales, rhonchi or wheezes noted. No increased work of breathing, no retractions or nasal flaring. Abdomen/GI: Soft, non-tender, with normal bowel sounds. No distension or tympany. No guarding or rebound. No evidence of tenderness throughout. Back: No spinal tenderness. No costovertebral tenderness. Full range of motion. Skin: Warm, dry with normal turgor. Normal color with no rashes, no lesions, and no evidence of cellulitis. Neuro: Awake and alert, GCS 15, oriented to person, place, time, and situation. Cranial nerves II-XII grossly intact. Motor strength 5/5 in all extremities. Sensory grossly intact. Cerebellar exam normal. Normal gait. Psych: Awake, alert, with orientation to person, place and time. Behavior, mood, and affect are within normal limits. Musculoskeletal/extremity: Extremities: grossly normal except: Both lower extremities are swollen and tense - o/w full ROM. Vital Signs: 04/14 12:18 BP 99 / 70; Pulse 91; Resp 15 S; Temp 97.1(TE); Pulse Ox 98% on R/A; Weight 106.14 kg ca1 (R); Height 5 ft. 4 in. (162.56 cm) (R); Pain 7/10; 13:55 BP 115 / 85; Pulse 82; Resp 20; Pulse Ox 99% on R/A; Pain 7/10; jr10 14:11 BP 116 / 77; Pulse 85; Resp 18; Pulse Ox 97% on R/A; jr10 15:18 BP 166 / 77; Pulse 85; Resp 20; Pulse Ox 97% on R/A; jr10 16:27 BP 100 / 80; Pulse 76; Resp 16; Pulse Ox 95% on R/A; jr10 18:06 BP 116 / 76; Pulse 82; Resp 20; Temp 97.6; Pulse Ox 100% on R/A; Pain 0/10; jr10 12:18 Body Mass Index 40.17 (106.14 kg, 162.56 cm) ca1 MDM: 17:41 Patient medically screened. kdr 04/15 07:47 Data reviewed: vital signs, nurses notes, lab test result(s), radiologic studies. kdr Counseling: I had a detailed discussion with the patient and/or guardian regarding: the historical points, exam findings, and any diagnostic results supporting the discharge/admit diagnosis, lab results, radiology results, the need for outpatient follow up. Medical screen evaluation completed. [facility]. 04/14 13:32 Order name: Basic Metabolic Panel; Complete Time: 16:28 jr10 04/14 13:32 Order name: CBC with Diff; Complete Time: 16:28 jr10 04/14 13:32 Order name: LFT's; Complete Time: 16:29 jr10 04/14 13:32 Order name: Magnesium; Complete Time: 16:29 jr10 04/14 13:32 Order name: NT PRO-BNP; Complete Time: 16:29 jr10 04/14 13:32 Order name: PT-INR; Complete Time: 16:29 10 04/14 13:32 Order name: Troponin (emerg Dept Use Only); Complete Time: 16:29 jr10 04/14 13:36 Order name: DD; Complete Time: 16:29 kdr 04/14 13:36 Order name: US Extremity Venous W Compression Juan; Complete Time: 16:29 kdr 04/14 13:43 Order name: Urine Dipstick--Ancillary (enter results); Complete Time: 16:29 bd 04/14 13:43 Order name: Urine --Ancillary (enter results); Complete Time: 16:29 bd 04/14 14:56 Order name: Chest Single View XRAY; Complete Time: 16:29 jr10 04/14 15:17 Order name: CT Chest For PE Angio; Complete Time: 16:29 kdr 04/14 13:32 Order name: EKG; Complete Time: 13:34 04/14 13:32 Order name: Cardiac monitoring; Complete Time: 13:32 jr10 04/14 13:32 Order name: EKG - Nurse/Tech; Complete Time: 13:32 10 04/14 13:32 Order name: IV Saline Lock; Complete Time: 13:32 10 04/14 13:32 Order name: Labs collected and sent; Complete Time: 13:32 jr10 04/14 13:32 Order name: O2 Per Protocol; Complete Time: 13:32 jr10 04/14 13:32 Order name: O2 Sat Monitoring; Complete Time: 13:32 EC/05 18:55 Rate is 84 beats/min. Rhythm is regular, Normal Sinus Rhythm with No ectopy. QRS [place] kdr is Normal. SC interval is normal. QRS interval is normal. QT interval is normal. No Q waves. Clinical impression: Normal ECG. Administered Medications: 14:00 Drug: Zofran (Ondansetron) 4 mg Route: IVP; Site: right antecubital; jr10 14:17 Follow up: Response: No adverse reaction jr10 14:02 Drug: morphine 4 mg Route: IVP; Site: right antecubital; jr10 14:17 Follow up: Response: No adverse reaction; Pain is decreased jr10 14:06 Drug: Lasix 40 mg Route: IVP; Site: right antecubital; jr10 14:17 Follow up: Response: No adverse reaction jr10 16:29 Drug: fentaNYL (PF) 50 mcg Route: IVP; Site: right antecubital; jr10 18:07 Follow up: Response: No adverse reaction; Pain is decreased jr10 Disposition: 04/14/20 17:41 Discharged to Home. Impression: Peripheral Edema. - Condition is Stable. - Discharge Instructions: Edema, [id number], Peripheral Edema. - Prescriptions for Lasix 20 mg Oral Tablet - take 1 tablet by ORAL route once daily; 20 tablet. Potassium Chloride 20 meq Oral Packet - take 1 packet by ORAL route once daily 1 packet in 6 (six) ounces of water or juice; Take after meal; 30 packet. Tramadol 50 mg Oral Tablet - take 1 tablet by ORAL route every 8 hours as needed; 20 tablet. - Medication Reconciliation Form, Thank You Letter form. - Follow up: Private Physician; When: 2 - 3 days; Reason: If symptoms return, Further diagnostic work-up, Recheck today's complaints, Continuance of care, Re-evaluation by your physician. Follow up: Shaka Galan DO; When: 2 - 3 days; Reason: If symptoms return, Further diagnostic work-up, Recheck today's complaints, Continuance of care, Re-evaluation by your physician. - Problem is new. - Symptoms have improved. Signatures: Dispatcher [employer] EDMN Ko Silva MD MD kdr Acob, Cheryl RN RN ca1 Sherrell Reed RN RN jr10 Corrections: (The following items were deleted from the chart) 18:08 17:41 04/14/2020 17:41 Discharged to Home. Impression: Peripheral Edema. Condition is jr10 Stable. Forms are Medication Reconciliation Form, Thank You Letter, Antibiotic Education, Prescription Opioid Use. Follow up: Private Physician; When: 2 - 3 days; Reason: If symptoms return, Further diagnostic work-up, Recheck today's complaints, Continuance of care, Re-evaluation by your physician. Follow up: Shaka Galan; When: 2 - 3 days; Reason: If symptoms return, Further diagnostic work-up, Recheck today's complaints, Continuance of care, Re-evaluation by your physician. Problem is new. Symptoms have improved. kdr
[2020-04-14 19:01] VITALS: BP 116/76; TEMP 97.6; O2SAT 100
== END 2020-04-14 18:08 | disposition home or self-care (01) ==
LOC: ER 11:58
DX: R60.9 Edema, unspecified (principal); F31.9 Bipolar disorder, unspecified; Z88.5 Allergy status to narcotic agent; Z91.018 Allergy to other foods
CPT/HCPCS: 36415; 71045; 71275; 80048; 80076; 81003; 81025; 83735; 83880; 84484; 85025; 85379; 85610; 93005; 93970; 96374; 96375; 99284; J1940; J2405; J3010; Q9967

== ENCOUNTER 2020-05-08 18:41 | Emergency (ER) | payer SELFPAY ==
--- OUTSIDE RECORDS SUMMARY | 2020-05-08 18:45 | XMS REPORT | Clinical Summary ---
:1980 Author Organization [facility] Address [address] [place] [id number] Care Team Providers Name Role Phone Unavailable [...] needed. Maximum 200mg/24 hours.. fluticasone Use 1 [place] 16 g 0 Active propionate (FLONASE) in [...] 0 11/04/19 Discontinued 40 mg tablet by 20 (Dose tabletIndications: mouth 2 a djustment) Anxiety times daily. amitriptyline Take 1 30 tablet 0 10/20/19 Discon tinued (ELAVIL) 50 mg tablet by 20 (Othe r) tabletIndications: mouth at Bipolar disorder in bedtime partial remission, nightly. most recent episode unspecified type omeprazole (PRILOSEC) Take 1 30 capsule 0 0 Discontinued 20 mg delayed release capsule by 20 (Other) capsuleIndications: mouth at Gastroesophageal bedtime reflux disease, nightly. esophagitis presence not specified ferrous sulfate 325 Take 1 30 tablet 0 09/22/19 Discontinued mg (65 mg iron) tablet by 20 (Reo rder) tabletIndications: mouth daily Iron deficiency (with anemia, unspecified breakfast). iron deficiency anemia type ibuprofen (MOTRIN) Take 1 20 tablet 0 10/20/19 D iscontinued 400 mg tablet by 9 20 (Reorder) tabletIndications: mouth every Pain, dental 8 hours as needed for Pain. fluticasone Use 1 [place] 16 g 0 11/04/19 Discon tinued propionate [...] (Pauly cristal Dx) 10/25/2019 - Emergency Emergency ZeYuliana shah, Right foot p ain (Primary Dx); 10/26/2019 Medicine Nonintractable headache, unspecified chronicity pattern, unspecified headache type; Foot sprain, ri ght, initial encounter 10/20/2019 Office Visit Family Practice Francisca Quiroz ophageal reflux disease, esophagitis presence not specified (Primary Dx); Iron deficiency anemia, unspecified iron deficiency anemia type; Pain, dental; Intractable alesia ines without status migrainosus, unspecified migraine type; Influenza vacci ne needed 10/17/2019 - Emergency Emergency Josep Chan, New onset he adache (Primary Dx); 10/18/2019 Medicine Blurry vision, bilateral Candida Craven MD 10/03/2019 Patient Education Health Education Marcella Coffey, To deepti pace MD counseling (Primary Dx) Owen Elisabeth 09/24/2019 Clinical Case Mgt Social Work Jason Quang 09/22/2019 Office Visit Family Practice Francisca Quiroz Acute si nusitis, recurrence not specified, unspecified location (Primary Dx); Iron deficiency anemia, unspecified iron deficiency anemia type; Gastroesophagea l reflux disease, esophagitis presence not specified after 05/08/2019 Immunizations Name Administration Dates Next Due Influenza, [...] (203 lb 6.4 oz) 11/13/2019 9:00 PM FIELD CLINICAL ENGINEER Height 162.6 cm (5' 4") 11/13/2019 9:00 PM FIELD CLINICAL ENGINEER Body Mass Index 34.91 11/13/2019 9:00 PM FIELD CLINICAL ENGINEER Plan of Treatment Health Maintenance Due Date [...] Intermittent Resul ts for this MIN PM FIELD CLINICAL ENGINEER lightheadedness procedure ar e in the results section. CBC Routine 11/15/2019 3:57 Results for this AM FIELD CLINICAL ENGINEER procedure are i n the results section. MAGNESIUM Routine 11/15/2019 3:57 Results for this AM FIELD CLINICAL ENGINEER procedure are i n the results section. BASIC METABOLIC Routine 11/15/2019 3:57 Results for this PANEL AM FIELD CLINICAL ENGINEER procedure are i n the results section. CBC/DIFF Routine 11/15/2019 3:57 Results for this AM FIELD CLINICAL ENGINEER procedure are i n the results section. LEAD, WHOLE BLOOD Timed 11/14/2019 1:14 Result s for this (ADULT) PM FIELD CLINICAL ENGINEER procedure are i n the results section. INFUSION PUMP Routine 11/14/2019 9:21 AM FIELD CLINICAL ENGINEER CBC Routine 11/14/2019 3:45 Results for this AM FIELD CLINICAL ENGINEER procedure are i n the results section. MAGNESIUM Routine 11/14/2019 3:45 Results for this AM FIELD CLINICAL ENGINEER procedure are i n the results section. BASIC METABOLIC Routine 11/14/2019 3:45 Results for this PANEL AM FIELD CLINICAL ENGINEER procedure are i n the results section. CBC/DIFF Routine 11/14/2019 3:45 Results for this AM FIELD CLINICAL ENGINEER procedure are i n the results section. VITAMIN B12 Add-on 11/13/2019 8:01 Results for this PM FIELD CLINICAL ENGINEER procedure are i n the results section. VIT D, 25-HYDROXY Routine 11/13/2019 8:01 Result s for this PM FIELD CLINICAL ENGINEER procedure are i n the results section. SYPHILIS SCREEN FOR Routine 11/13/2019 8:01 Resu lts for this INFECTION PM FIELD CLINICAL ENGINEER procedure are i n the results section. ANASTACIO Routine 11/13/2019 8:01 Results for this PM FIELD CLINICAL ENGINEER procedure are i n the results section. HEPATITIS PANEL Routine 11/13/2019 8:01 Results for this PM FIELD CLINICAL ENGINEER procedure are i n the results section. HIV AG/AB COMBO Routine 11/13/2019 8:01 Results for this ROUTINE SCREENING PM FIELD CLINICAL ENGINEER procedure are in the results section. FOLIC ACID Routine 11/13/2019 8:01 Results for this PM FIELD CLINICAL ENGINEER procedure are i n the results section. IRON PROFILE Routine 11/13/2019 8:01 Results for this PM FIELD CLINICAL ENGINEER procedure are i n the results section. FERRITIN Routine 11/13/2019 8:01 Results for this PM FIELD CLINICAL ENGINEER procedure are i n the results section. BASIC METABOLIC Routine 11/13/2019 8:01 Results for this PANEL PM FIELD CLINICAL ENGINEER procedure are i n the results section. VALPROIC ACID Routine 11/13/2019 8:01 Results fo r this PM FIELD CLINICAL ENGINEER procedure are i n the results section. POCT URINE DIPSTICK STAT 11/13/2019 9:36 Resu lts for this - AM FIELD CLINICAL ENGINEER procedure are i n the results section. TEST STAT 11/13/2019 9:31 Results f or this AM FIELD CLINICAL ENGINEER procedure are i n the results section. CT HEAD W/O STAT 11/13/2019 9:26 Intermittent Results for this CONTRAST AM FIELD CLINICAL ENGINEER lightheadedness procedure ar e in the results section. CREATININE POC Routine 11/13/2019 6:27 Results f or this AM FIELD CLINICAL ENGINEER procedure are i n the results section. BMP POC Routine 11/13/2019 6:26 Results for this AM FIELD CLINICAL ENGINEER procedure are i n the results section. CBC STAT 11/13/2019 6:21 Results for this AM FIELD CLINICAL ENGINEER procedure are i n the results section. CBC/DIFF STAT 11/13/2019 6:21 Results for this AM FIELD CLINICAL ENGINEER procedure are i n the results section. ECHG EKG PROC 12 Routine 11/13/2019 5:20 Results for this LEAD EKG; TRACING AM FIELD CLINICAL ENGINEER procedure are in ONLY the results section. GLUCOSE POC Routine 11/13/2019 4:51 Results for this AM FIELD CLINICAL ENGINEER procedure are i n the results section. XRAY FOOT 3 VIEWS - STAT 11/12/2019 11:10 Acute right ankle pain Results for this ROUTINE PM FIELD CLINICAL ENGINEER procedure are i n the results section. XRAY ANKLE 3 VIEWS STAT 11/12/2019 11:10 Acute right ankle pain Results for this - ROUTINE PM FIELD CLINICAL ENGINEER procedure are i n the results section. POCT URINE DIPSTICK STAT 11/12/2019 10:22 Resu lts for this - PM FIELD CLINICAL ENGINEER procedure are i n the results section. XRAY FOOT 3 VIEWS - STAT 10/25/2019 9:38 Right foot pain R esults for this ROUTINE PM FIELD CLINICAL ENGINEER procedure are i n the results section. CTA HEAD W CONTRAST STAT 10/18/2019 12:51 New onset headach e Results for this AM FIELD CLINICAL ENGINEER procedure are i n the results section. CT HEAD W/O STAT 10/17/2019 11:28 New onset headache Resul ts for this CONTRAST PM FIELD CLINICAL ENGINEER procedure are i n the results section. AMMONIA STAT 10/17/2019 2:37 Results for this PM FIELD CLINICAL ENGINEER procedure are i n the results section. VALPROIC ACID STAT 10/17/2019 2:37 Results fo r this PM FIELD CLINICAL ENGINEER procedure are i n the results section. TEST STAT 10/17/2019 1:12 Results f or this PM FIELD CLINICAL ENGINEER procedure are i n the results section. CBC STAT 10/17/2019 12:07 Results for this PM FIELD CLINICAL ENGINEER procedure are i n the results section. CBC/DIFF STAT 10/17/2019 12:07 Results for this PM FIELD CLINICAL ENGINEER procedure are i n the results section. BASIC METABOLIC STAT 10/17/2019 12:07 Results for this PANEL PM FIELD CLINICAL ENGINEER procedure are i n the results section. after 05/08/2019 Results XRAY FOOT 3 VIEWS MIN (11/26/2019 2:00 PM CDT) Specimen Impressions Performed At IMPRESSION: [facility] No acute abnormality seen in the right t ibia and fibula, ankle and foot. Signed By: Janet Wilson MD, 11/26/2019 2:17 PM Narrative Performed At RIGHT TIBIA AND FIBULA SERIES, 2 views. [facility] RIGHT ANKLE SERIES, 3 views. [...] MD, 11/26/2019 2:17 PM Performing Organization Address City[facility] Phone Number [facility] XRAY ANKLE 3 VIEW MIN (11/26/2019 2:00 PM CDT) Specimen Impressions Performed At IMPRESSION: [facility] No acute abnormality seen in [...] PM Performing Organization Address City/State/Zipcode Phone Number [facility] XRAY TIBIA AND FIBULA 2 VIEWS (11/26/2019 2:00 PM CDT) Specimen Impressions Performed At IMPRESSION: [facility] No acute abnormality seen in the right t ibia and fibula, ankle and foot. Signed By: Janet Wilson MD, 11/26/2019 2:17 PM Narrative Performed At RIGHT TIBIA AND FIBULA SERIES, 2 views. [facility] RIGHT ANKLE SERIES, 3 views. [...] Number [facility] [address] [place] [address] Magnesium (11/18/2019 4:22 AM CDT)Only the most recent of5 resultswithin the time period is included. Pathologist Sig nature Magnesium 1.8 (L) 1.9 - 2.7 mg/dL [facility] Specimen Blood Performing Organization Address [facility] Phone Number [facility] [address] [place] [address] [phone] Basic Metabolic Panel (11/18/2019 4:22 AM CDT)Only [...] [facility] Specimen Blood Performing Organization Address [facility] Phone Number [facility] [address] [place] [address] POCT GLUCOSE POC docked device (11/16/2019 3:54 PM CDT)Only the most recent of2 resultswithin the time period is included. Pathologist Sig nature Glucose POC 115 (H) 74 - 106 mg/dL [facility] Specimen Blood Performing Organization Address [facility] Phone Number [facility] [address] [place] [address] MRI BRAIN W/O CONTRAST (11/16/2019 2:46 PM CDT) Specimen Impressions Performed At IMPRESSION: [facility] 1. No acute intracranial abnormality. 2. No [...] the findings in this report. Signed By: Blanye Burgos MD, 11/17/2019 4:11 PM Performing Organization Address City/[facility] Phone Number SMS XRAY SKULL 4 VIEWS MIN (11/15/2019 12:04 PM FIELD CLINICAL ENGINEER) Specimen Impressions Performed At IMPRESSION: SMS Punctate [...] MD, 11/16/2019 8:56 AM Performing Organization Address City/[facility] Phone Number SMS Lead, Whole Blood (Adult) (11/14/2019 1:14 PM FIELD CLINICAL ENGINEER) Lead, Blood <1 0 - 4 ug/dL [facility] (Adult) Comment: Analysis by atomic absorption spectroscopy (AAS). Environmental E xposure: WHO Recommenda tion <20 Occupational Ex posure: OSHA Lead Std 40 CASIMIRO 30 Detect ion Limit = 1 Specimen Blood Narrative Performed At Performed at: 01 - [facility] [address] [place], [place] [id number] 143 [facility] Blood Bank: Hemanth Frey MD, Phone: [phone] Performing Organization Address [facility] Phone Number [facility] [address] [place] [address] Syphilis Screen for Infection (11/13/2019 8:01 PM FIELD CLINICAL ENGINEER) [facility] nature TPA Negative Negative, Equivocal [facility] Final Report Negative Negative [facility] Specimen Blood Performing Organization Address [facility] Phone Number [facility] [address] [place] [address] Vitamin D, 25-Hydroxycalciferol (11/13/2019 8:01 PM FIELD CLINICAL ENGINEER) [facility] Vit D, 25-Hydroxy 33.8 30.0 - 100.0 [facility] ng/mL [facility] Vitamin D Sufficient Sufficient [facility] Interpretation Comment: [facility] Sufficient: >30.0 Insufficient: 20.0 - 29.9 Deficient: <20.0 Specimen Blood Performing Organization Address [facility] Phone Number [facility] [address] [place] [address] [phone] HIV-1/HIV-2 Routine Screening (11/13/2019 8:01 PM FIELD CLINICAL ENGINEER) [facility] HIV Ag/Ab Combo Negative Negative [facility] Specimen Blood Performing Organization Address [facility] Phone Number [facility] [address] [place] [address] [phone] Folic Acid (11/13/2019 8:01 PM FIELD CLINICAL ENGINEER) [facility] Folic Acid 14.1 5.9 - 24.8 ng/mL [facility] Specimen Blood Performing Organization Address [facility] Phone Number [facility] [address] [place] [address] Ferritin (11/13/2019 8:01 PM FIELD CLINICAL ENGINEER) Pathologist [facility] Ferritin 60.2 11.0 - 306.8 ng/mL [facility] Specimen Blood Performing Organization Address [facility] Phone Number [facility] [address] [place] [address] Vitamin B12 (11/13/2019 8:01 PM FIELD CLINICAL ENGINEER) [facility] Vitamin B12 894 See comment pg/mL [facility] Comment: Normal: 180-914 pg/mL Intermittent: 145-180 pg/mL Deficient: <=145.0 pg/mL Specimen Blood Performing Organization Address [facility] Phone Number [facility] [address] [place] [address] [phone] Valproic Acid (11/13/2019 8:01 PM FIELD CLINICAL ENGINEER)Only the most recent of2 resultswithin the time period is included. [facility] Valproic Acid 67.2 50.0 - 100.0 ug/mL [facility] Specimen Blood Performing Organization Address [facility] Phone Number [facility] [address] [place] [address] Iron Profile (11/13/2019 8:01 PM FIELD CLINICAL ENGINEER) [facility] Iron 114 50 - 212 ug/dL [facility] TIBC 319 250 - 450 ug/dL [facility] % Iron Sat 36 % [facility] Transferrin 228.14 203.00 - 362.00 mg/dL [facility] Specimen Blood Performing Organization Address [facility] Phone Number [facility] [address] [place] [address] Hepatitis Panel (11/13/2019 8:01 PM FIELD CLINICAL ENGINEER) [facility] Hepatitis C Virus (HCV) Negative Negative [facility] RY Antibody Hep B Surface Ag Negative Negative [facility] Hep A Vir Ab IgM Negative Negative [facility] Hep B Core Ab IgM Negative Negative [facility] Specimen Blood Performing Organization Address [facility] Phone Number [facility] [address] [place] [address] ANASTACIO (11/13/2019 8:01 PM FIELD CLINICAL ENGINEER) Pathologist Sig nature ANASTACIO Screen Negative Negative [facility] Specimen Blood Performing Organization Address City/State/Zipcode Phone Number [facility] [address] [place] [address] [phone] POCT Urine - (11/13/2019 9:36 AM FIELD CLINICAL ENGINEER)Only the most recent of2 results within the time period is included. Pathologist Sig nature Control passed negative Test (11/13/2019 9:31 AM FIELD CLINICAL ENGINEER)Only the most recent of2 resultswithin the time period is included. Pathologist Sig nature Negative Negative [facility] Specimen Urine Performing Organization Address City/State/Zipcode Phone Number [facility] [address] [place] [address] CT HEAD W/O CONTRAST (11/13/2019 9:26 AM FIELD CLINICAL ENGINEER)Only the most recent of2 results within the [...] Rad/Mammog In - 11/13/2019 11 :25 AM FIELD CLINICAL ENGINEER Exam : Head CT without contrast History: [...] MD, 11/13/2019 11:20 AM Performing Organization Address City/[facility] Phone Number [facility] POCT CREATININE POC docked device (11/13/2019 6:27 AM FIELD CLINICAL ENGINEER) Creatinine POC 0.8Comment: 017 0.6 - 1.3 mg/dL [facility] GFR, Estimated >90 >=90 [facility] mL/min/1.73 m2 Specimen Blood, venous Performing Organization Address [facility] Phone Number [facility] [address] [place] [address] POCT BMP POC docked device (11/13/2019 6:26 AM FIELD CLINICAL ENGINEER) Sodium POC 141 136 - 145 [facility] [...] Hematocrit POC 40.0 37.0 - 47.0 % [facility] Specimen Blood, venous Performing Organization Address [facility] Phone Number [facility] [address] [place] [address] 12 LEAD EKG (11/13/2019 5:20 AM FIELD CLINICAL ENGINEER) 12 LEAD EKG FOR [facility] SMS Test Date: 2019-11-13 Pat Name: SARIAH BEY Department : [id number] Room: Gender: F 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: [phone] : 1980 Requested By: NEELAM RASHID Order Number: [id number] Nathaniel dunbar MD: Dolores Walker Measu rements Intervals [place] Rate: 70 P: 49 LA: 162 QRS: 38 QRSD: 84 T: 7 QT: 377 QTc: 409 Interpretive S tatements SINUS RHYTHM NONSPECIFIC T-WAVE ABNORMALITY Electronically Signed On 11-13-2019 5:52:58 FIELD CLINICAL ENGINEER by Hiren Walker Specimen Performing Organization Address [facility] Phone Number [facility] XRAY FOOT 3 VIEWS - ROUTINE (11/12/2019 11:10 PM FIELD CLINICAL ENGINEER)Only the most recent of2 resultswithin the time period is included. Specimen Impressions Performed At IMPRESSION: [facility] No acute abnormalities. Plantar enthesopathy. If the [...] Rad/Mammog In - 11/13/2019 4 :04 AM FIELD CLINICAL ENGINEER X-ray right ankle, 3 views X-ray right [...] AM Performing Organization Address City/State/Zipcode Phone Number [facility] XRAY ANKLE 3 VIEWS - ROUTINE (11/12/2019 11:10 PM FIELD CLINICAL ENGINEER) Specimen Impressions Performed At IMPRESSION: [facility] No acute abnormalities. Plantar enthesopathy. If the [...] Rad/Mammog In - 11/13/2019 4 :04 AM FIELD CLINICAL ENGINEER X-ray right ankle, 3 views X-ray right [...] AM Performing Organization Address City/State/Zipcode Phone Number [facility] CTA HEAD W CONTRAST (10/18/2019 12:51 AM FIELD CLINICAL ENGINEER) Specimen Impressions Performed At IMPRESSION: SMS 1. [...] evaluation, multiplanar reconstruction, maximum intensity projections, and dineoutan [employer] 3-D off-line postprocessing were obtained on a dedicated stand-alone work station under the direct supervision of the interpreting physicia n. IV Contrast 100 cc of Omnipaque. Complication: None Radiation dose: Total DLP: 1032 mGy*cm Estimated Effective Dose: DLP x 0.031 mS v FINDINGS: Head CT with contrast: No interval changes when compared to the previous CT. No enhancing abnormalities. CTA [place]: Carotid arteries: Patent, no abnormalities.. [...] Rad/Mammog In - 10/18/2019 1 :25 AM FIELD CLINICAL ENGINEER Exams: Intracranial CT angiogram History: Headache, acute, [...] evaluation, multiplanar reconstruction, maximum intensity projections, and Ampere 3-D off-line postprocessing were obtained on a dedicated stand-alone work station under the direct supervision of the interpreting physicia n. IV Contrast 100 cc of Omnipaque. Complication: None Radiation dose: Total DLP: 1032 mGy*cm Estimated Effective Dose: DLP x 0.031 mS v FINDINGS: Head CT with contrast: No interval changes when compared to the previous CT. No enhancing abnormalities. CTA [place]: Carotid arteries: Patent, no abnormalities.. [...] Phone Number SMS Ammonia (10/17/2019 2:37 PM FIELD CLINICAL ENGINEER) Pathologist Sig nature Ammonia 31.0 16.0 - 53.0 umol/L [facility] Specimen Blood Performing Organization Address City/State/Zipcode Phone Number [facility] [address] [place] [address] after 05/08/2019 Insurance Payer Benefit Plan / Subscriber ID Effective Dates Phone Addre ss Type Group [employer] SELF-PAY xxxxxxx 2020-20 [phone] [id number] MADISYN SELF-PAY SCREENED [address] [place] [address] Advance Directives Code Status Date Activated Date Inactivated Comments Full Code 11/13/2019 6:17 PM 11/18/2019 4:30 PM
--- OUTSIDE RECORDS SUMMARY | 2020-05-08 18:47 | XMS REPORT | Continuity of Care Document ---
:1980 Author Organization Formerly [facility] t Address [address] [place] [address] Care Team Providers Name Role Phone Ashanti [...] Ace Attending Clinician Unavailable Opal Attending Clinician [phone] Acosta Attending Clinician Unavailable Opal Unavailable [phone] Payers Payer Name Policy Type Policy Number Effective Date Expiration Date Madhu gonzalez [facility] xxxxxxx 2020 2030 [facility] SELF-PAYSELF 00:00:00 23:59:59 -PAY SCREENEDxxxx xxx2020- 01/13/2030713- [phone] [place] [address] [id number] 2019 2020 [facility] 00:00:00 00:00:00 [facility] Health [id number] 2019 2020 [facility] 00:00:00 00:00:00 [facility] Health Problems Condition Condition Condition Status Onset Resolution Last Treating Co mments Source Name Details Category Date Date Treatment Clinician Date BPPV BPPV Disease Active Francisco (benign (benign 08 Health paroxysmal paroxysmal 00:00: positional positional 00 vertigo), vertigo), left left Myopia - Condition Active 2019-05-19 Mark Joseph egacy OU 05-19 15:30:00 Adimj Khoury 00:00: ty 00 Health Regular Condition Active 2019-05-19 Aditi Joseph gacy astigmatis 05-19 15:30:00 Adi Comm uni m, 00:00: ty bilateral 00 Health Class 1 Class 1 Disease Active Francisco obesity obesity 04-28 Health due to due [...] disease disease 00 Homelessne Homelessne Disease Active lissett ss ss 04-28 Health 00:00: 00 Menorrhagi Menorrhagi Disease Active H lissett a with a with 04-28 Health irregular irregular 00:00: cycle cycle 00 Blurry Blurry Disease Active Singh vision, vision, Health bilateral bilateral Nonintract Nonintract Disease Active H lissett able able Health headache headache Right foot Right foot Disease Active H arris pain pain Health Dizziness Dizziness Disease Active Adelso [facility] Health Palpitatio Palpitatio Disease Active H arris ns ns Health Syncope Syncope Disease Active [facility] Intermitte Intermitte Disease Active H arris nt nt Health lightheade lightheade dness dness Postural Postural Disease Active Neto s dizziness dizziness Heal th with with presyncope presyncope Normocytic Normocytic Disease Active H arris anemia anemia Health 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 Health Allergies, Adverse Reactions, Alerts Allergy Allergy Status Severity Reaction(s) Onset Inactive Treating Comm ents Source Name Type Date Date Clinician Yessica Lehman Active Rash, [place] ty to Swelling 11-13 Health adverse 00:00: reaction 00 s to drug No Known DA Active [facility] Allergie 06-03 Clear s 00:00: Sepulveda 00 [facility] Family History Family Member Diagnosis Comments Start Date Stop Date Source Natural father Heart [facility] Natural father Hypertension [facility] Natural mother Diabetes [facility] Natural mother Psychiatry [facility] Natural mother Stroke [facility] Natural sister Psychiatry [facility] Social History Social Habit Start Date Stop Date Quantity Comments Source Sex Assigned At [facility] Alcohol intake 2019-11-16 2019-11-16 Ex-drinker [facility] 00:00:00 00:00:00 (finding) time of call 2019-05-26 2019-05-26 05/26/2019 10:54 [facility] 10:54:05 10:54:05 AM Health Tobacco Comment 2019-02-17 2019-02-17 Stopped smoking [facility] 00:00:00 00:00:00 in 2018 Smoking Status Start Date Stop Date Source Former smoker 2019-11-16 00:00:00 2019-11-16 00:00:00 [facility] Medications Ordered Filled Start Stop Current Ordering Indication Dosage Frequency Signature Comments Components Source Medication Medication Date Date Medication? Clinician (SIG) Name Name omeprazole Yes Gastroesoph 20mg QD Take 1 Singh (PRILOSEC) 3-11 ageal capsule by Hugh monroy 20 mg 00:00: reflux mouth delayed 00 disease, every release esophagitis morning capsule presence (before not breakfast) specified . lurasidone Yes Take by [facility] is HCl (LATUDA 3-10 mouth. Health OR) 14:30: 02 meclizine 2020-0 Yes Intermitten 25mg Q.5D Take 1 [place] (ANTIVERT) 3-10 t tablet by [facility] 25 mg Tab 00:00: lightheaded mouth 2 00 ness times daily. SUMAtriptan 2020-0 Yes Intractable Take 1 Singh (IMITREX) 2-25 migraine tablet by [facility] 50 mg 00:00: without mouth at tablet 00 status onset of migrainosus headache. , Repeat unspecified after 2 migraine hours if type needed. Maximum 200mg/24 hours.. fluticasone 2020-0 Yes Seasonal 1{spray QD Use 1 Singh propionate 2-25 allergic } [place] in H ealt (FLONASE) 00:00: rhinitis, each 50 00 unspecified nostril mcg/actuati trigger daily. on nasal spray loratadine 2020-0 Yes Seasonal 10mg QD Take 1 H arris (CLARITIN) 2-25 allergic tablet by [facility] 10 mg 00:00: rhinitis, mouth tablet 00 unspecified daily. trigger propranolol 2019-0 Yes Intractable 40mg Q.5D Take 1 Singh (INDERAL) 2-25 migraine tablet by [facility] 40 mg 00:00: without mouth 2 tablet 00 status times migrainosus daily. , unspecified migraine type propranolol 2020-0 2020- No Intractable 20mg Q.5D Take 1 Singh (INDERAL) 2-25 02-25 migraine tablet by [facility] 20 mg 00:00: 00:00 without mouth 2 tablet 00 :00 status times migrainosus daily. , unspecified migraine type propranolol 2020-0 2020- No 40mg Q.5D Take 1 Adelso ris (INDERAL) 2-25 02-25 tablet by [facility] 40 mg 00:00: 00:00 mouth 2 tablet 00 :00 times daily. ferrous 2020-0 Yes Iron 325mg QD Take 1 [place] sulfate 325 2-10 deficiency tablet by [facility] mg (65 mg 00:00: anemia, mouth iron) 00 unspecified daily tablet iron (with deficiency breakfast) anemia type . famotidine 2020-0 Yes Gastroesoph 40mg Take 1 [place] (PEPCID) 40 2-10 ageal tablet by alth mg tablet 00:00: reflux mouth 00 disease, daily as esophagitis needed for presence Heartburn. not specified ibuprofen 2020-0 Yes Intractable 400mg Take 1 Singh (MOTRIN) 2-10 migraine tablet by [facility] 400 mg 00:00: without mouth tablet 00 status every 8 migrainosus hours as , needed for unspecified Pain. migraine type SUMAtriptan 2019- No Intractable Take 1 Singh (IMITREX) 10-20 migraine tablet by [facility] 50 mg 00:00: 00:00 without mouth [...] Use 1 Singh propionate 09-22 sinusitis, } [place] in [facility] (FLONASE) 00:00: 00:00 recurrence each 50 00 :00 not nostril mcg/actuati specified, daily. on nasal unspecified spray location ferrous 2019- No Iron 325mg QD Take 1 Singh sulfate 325 09-22 deficiency tablet by [facility] mg (65 mg 00:00: 00:00 anemia, [...] H arris (VIBRA-TABS 09-22 sinusitis, tablet by [facility] ) 100 mg 00:00: 23:59 recurrence mouth 2 tablet 00 :00 not times specified, daily for unspecified 10 days. location TRAZODONE Yes [facility] HCL 05-19 [facility] (TRAZODONE 00:00: ty HCL TABS) 00 Health TABS DEPAKOTE Yes [facility] (DIVALPROEX 05-19 Communi SODIUM 00:00: ty TBEC) TBEC 00 Health EFFEXOR XR Yes [facility] (VENLAFAXIN 05-19 Communi E HCL) 75 00:00: ty MG 00 [facility] [id number] HYDROXYZINE Yes [facility] HCL 05-19 Communi (HYDROXYZIN 00:00: ty E HCL TABS) 00 Health TABS omeprazole 2019- No Gastroesoph 20mg Take 1 Singh (PRILOSEC) 04-28 ageal capsule by [facility] 20 mg 00:00: 00:00 reflux mouth at delayed 00 :00 disease, bedtime release esophagitis nightly. capsule presence not specified ibuprofen 2019- No Pain, 400mg Take 1 Adelso ris (MOTRIN) 04-28 dental tablet by [facility] 400 mg 00:00: 00:00 mouth tablet 00 :00 every 8 hours as needed for Pain. ferrous Iron 325mg QD Take 1 Singh sulfate 325 04-28 deficiency tablet by [facility] mg (65 mg 00:00: 00:00 anemia, mouth iron) 00 :00 unspecified daily tablet iron (with deficiency breakfast) anemia type . traZODone Yes Insomnia, 50mg Take 1-2 Singh (DESYREL) 6-26 unspecified tablets by [facility] 50 mg 00:00: type mouth tablet 00 nightly at bedtime as needed for Sleep. venlafaxine Yes Bipolar 150mg QD Take 1 Singh (EFFEXOR 6-26 disorder in capsule by [facility] XR) 150 mg 00:00: partial mouth extended 00 remission, daily. release most recent capsule episode unspecified type hydrOXYzine Yes Anxiety 25mg Take 1 H arris (ATARAX) 25 6-26 tablet by [facility] mg tablet 00:00: mouth 3 00 times daily as needed for Anxiety or Insomnia. divalproex Yes Bipolar 500mg Q.5D Take 1 H arris (DEPAKOTE) 6-26 disorder in tablet by [facility] 500 mg 00:00: partial mouth 2 delayed 00 remission, times release most recent daily. tablet episode unspecified type propranolol No Anxiety 40mg Q.5D Take 1 Singh (INDERAL) 6- 02-25 tablet by [facility] 40 mg 00:00: 00:00 mouth 2 tablet 00 :00 times daily. amitriptyli 2019- Bipolar 50mg Take 1 [place] ne (ELAVIL) 03-05 disorder in tablet by [facility] 50 mg 00:00: 00:00 partial mouth at tablet 00 :00 remission, bedtime most recent nightly. episode unspecified type Immunizations Ordered Immunization Filled Immunization Date Status Commen ts Source Name Name Influenza, Vaccine 2019-10-20 Completed [facility] <FLUCELVAX>(Preserva 00:00:00 tive-Free) Twinrix-HEP A&b 2019-03-05 Completed [facility] alth 00:00:00 Td <Unspecified> 2016-03-05 [facility] V[facility] Signs Vital Name Observation Time Observation Value Comments Source Heart rate 2019-11-26 15:13:00 72 /min [facility] Body temperature 2019-11-26 15:13:00 36.72 Navya Amaris is [facility] Respiratory rate 2019-11-26 15:13:00 18 /min Amaris [facility] Oxygen saturation in 2019-11-26 15:13:00 100 /min [facility] Arterial blood by Pulse oximetry Systolic blood pressure 2019-11-26 11:17:00 108 mm[Hg] [facility] Diastolic blood pressure 2019-11-26 11:17:00 68 mm[Hg] [facility] Body height 2019-11-13 21:00:00 162.6 cm [facility] Body weight 2019-11-13 21:00:00 92.262 kg [facility] BMI 2019-11-13 21:00:00 34.91 kg/m2 [facility] Procedures Procedure Date / Time Performing Clinician Source Performed XRAY FOOT 3 VIEWS MIN 2019-11-26 14:00:00 Candie Bonilla [facility] XRAY ANKLE 3 VIEW MIN 2019-11-26 14:00:00 Candie Bonilla [facility] XRAY TIBIA AND FIBULA 2 2019-11-26 14:00:00 Candie Bonilla is Health VIEWS CBC/DIFF 2019-11-18 04:22:00 Timothy Baker [facility] BASIC METABOLIC PANEL 2019-11-18 04:22:00 [facility] 2019-11-18 04:22:00 Samuel Timothy [facility] CBC 2019-11-18 04:22:00 Katarina-Juan JoseTimothy [facility] CBC/DIFF 2019-11-17 03:46:00 Katarina-Juan JoseTimothy [facility] BASIC METABOLIC PANEL 2019-11-17 03:46:00 [facility] 2019-11-17 03:46:00 Fcomaríawyatt-Juan JoseTimothy [facility] CBC 2019-11-17 03:46:00 FcomaríajovitaJuan JoseTimothy [facility] GLUCOSE POC 2019-11-16 15:54:00 Trip [place] h MRI BRAIN W/O CONTRAST 2019-11-16 14:46:18 ChivoDeshaun s [facility] CBC/DIFF 2019-11-16 03:44:00 Katarina-Juan JoseTimothy [facility] BASIC METABOLIC PANEL 2019-11-16 03:44:00 Katarina[facility]Juan Jose [facility] 2019-11-16 03:44:00 Fcomaríawyatt-Juan Jose Timothy [facility] CBC 2019-11-16 03:44:00 Katarina-Juan JoseTimothy [facility] XRAY SKULL 4 VIEWS MIN 2019-11-15 12:04:17 Deshaun Waldron Neto s [facility] CBC/DIFF 2019-11-15 03:57:00 Preeta-Juan Jose Timothy [facility] BASIC METABOLIC PANEL 2019-11-15 03:57:00 Fcomaríaa-Juan Jose Timothy arris Health MAGNESIUM 2019-11-15 03:57:00 Preeta-Juan Jose Timothy [facility] CBC 2019-11-15 03:57:00 Fcomaríaa-Juan Jose Timothy [facility] LEAD, WHOLE BLOOD 2019-11-14 13:14:00 Trip [place] [facility] lt (ADULT) INFUSION PUMP 2019-11-14 09:21:01 Trip [place] h CBC/DIFF 2019-11-14 03:45:00 Preeta-Juan Jose Timothy [facility] BASIC METABOLIC PANEL 2019-11-14 03:45:00 Deleija-[facility]uan [facility] 2019-11-14 03:45:00 Deleija-Juan JoseTimothy [facility] CBC 2019-11-14 03:45:00 EdnaJuan Jose Timothy [facility] VALPROIC ACID 2019-11-13 20:01:00 EdnaJuan Jose, Timothy [facility] BASIC METABOLIC PANEL 2019-11-13 20:01:00 EdnaJuan Jose Timothy arris [facility] FERRITIN 2019-11-13 20:01:00 EdnaJuan Jose Timothy [facility] IRON PROFILE 2019-11-13 20:01:00 EdnaJuan Jose, Timothy [facility] FOLIC ACID 2019-11-13 20:01:00 KatarinaJuan Jose Timothy [facility] HIV AG/AB COMBO ROUTINE 2019-11-13 20:01:00 KatarinaJuan Jose, Timothy [facility] SCREENING HEPATITIS PANEL 2019-11-13 20:01:00 KatarinaJuan Jose Timothy [facility] ANASTACIO 2019-11-13 20:01:00 KatarinaJuan Jose Timothy [facility] SYPHILIS SCREEN FOR 2019-11-13 20:01:00 KatarinaJuan JoseTimothy [facility] INFECTION VIT D, 25-HYDROXY 2019-11-13 20:01:00 [facility]Juan JoseFormerly named [facility] VITAMIN B12 2019-11-13 20:01:00 Deshaun Waldron POCT URINE DIPSTICK - 2019-11-13 09:36:00 [facility] TEST 2019-11-13 09:31:[address] HEAD W/O CONTRAST 2019-11-13 09:26:47 [facility] CREATININE POC 2019-11-13 06:27:00 Unknown, Provider Francisco Lee lt BMP POC 2019-11-13 06:26:00 Unknown, Provider Francisco Lee lt CBC/DIFF 2019-11-13 06:21:00 Neelam Germain h CBC 2019-11-13 06:21:00 Neelam Germain [facility] EKG PROC 12 LEAD 2019-11-13 05:20:07 Neelam Germain [facility] EKG; TRACING ONLY GLUCOSE POC 2019-11-13 04:51:00 Kingsley Peña [facility]erg[facility] h XRAY ANKLE 3 VIEWS - 2019-11-12 23:10:00 Phillip Abraham [facility] Health ROUTINE XRAY FOOT 3 VIEWS - 2019-11-12 23:10:00 Phillip Abraham [facility] ROUTINE POCT URINE DIPSTICK - 2019-11-12 22:22:00 Phillip Abraham [facility] XRAY FOOT 3 VIEWS - 2019-10-25 21:38:36 Jennifer Vides [facility] ROUTINE CTA HEAD W CONTRAST 2019-10-18 00:51:16 Aries Mcintosh [facility] ealth CT HEAD W/O CONTRAST 2019-10-17 23:28:40 Aires Mcintosh [facility] VALPROIC ACID 2019-10-17 14:37:00 [facility]ivoAnuragmj [facility] AMMONIA 2019-10-17 14:37:00 Frank [facility]ron [facility] TEST 2019-10-17 13:12:00 Jennifer Vides [facility] BASIC METABOLIC PANEL 2019-10-17 12:07:00 Jennifer Vides [facility] CBC/DIFF 2019-10-17 12:07:00 Jennifer Vides [facility] CBC 2019-10-17 12:07[facility]00 [facility] to 2019-05-20 09:06:19 Juanita Littlejohn [facility] +/- 4.00d sphere, 0.12 Health to 2.00d cyl, per lens Frames, purchases deluxe 2019-05-20 09:05:57 Juanita [facility] New Patient Intermediate 2019-05-19 15:29:33 Adi Joseph [facility] Opth - [id number] Health Vaccines Ordered - Print 2019-02-14 14:18:30 [facility] Forms Vaccines Ordered - Print 2019-02-12 14:21:00 [facility]Declination Health Forms Plan of Care Planned Activity Planned Date Details Comments Source Future Scheduled Test 2024-02-27 00:00:00 Screening for [facility] malignant neoplasm of cervix (procedure) [code = 033679661] Future Scheduled Test 2020-06-10 00:00:00 IMM Influenza [facility] Seasonal Jun to November (>/= 19 yrs) [code = IMM Influenza Seasonal Jun to November (>/= 19 yrs)] Encounters Start End Encounter Admission Attending Care Care Encounter Source Date/Time Date/Time Type Type Clinicians Facility Department ID 2020-03-02 2020-03-02 Outpatient [facility] [id number] [place] 00:00:00 00:00:00 [facility] 2019-11-26 2019-11-26 Emergency [facility] [id number] [place] 13:47:57 13:47:57 [facility] 2019-11-26 2019-11-26 Emergency [facility] [id number] [place] 11:21:06 11:21:06 [facility] 2019-11-17 2019-11-17 Outpatient [facility] [id number] [facility] 00:00:00 00:00:00 2019-11-16 2019-11-16 Outpatient [facility] [id number] [place] 11:26:52 11:26:52 Health 2019-11-15 2019-11-15 Outpatient [facility] [id number] [place] 11:58:23 11:58:23 Health 2019-11-15 2019-11-15 Outpatient [facility] [id number] [place] 11:43:04 11:43:04 Health 2019-11-14 2019-11-14 Outpatient [facility] [id number] [place] 10:26:02 10:26:02 [facility] 2019-11-13 2019-11-13 Emergency [facility] [id number] [place] 09:21:23 09:21:23 Health 2019-11-13 2019-11-13 Outpatient [facility] [id number] [place] 06:32:39 06:32:39 Health 2019-11-12 2019-11-12 Emergency [facility] [id number] [place] 22:50:38 22:50:38 Health 2019-11-12 2019-11-12 Emergency [facility] [id number] [place] 19:42:14 19:42:14 Health 2019-11-04 2019-11-04 Outpatient [facility] [id number] [facility] 14:33:46 14:33:46 2019-10-31 2019-10-[address] [facility] [id number] [facility] 15:44:39 15:44:39 2019-10-25 2019-10-25 Emergency [facility] [id number] [place] 23:23:24 23:23:24 Health 2019-10-25 2019-10-25 Emergency [facility] [id number] Singh 21:03:20 21:03:20 Health 2019-10-25 2019-10-25 Emergency [facility] [id number] [place] 00:00:00 00:00:00 [facility] 2019-10-20 2019-10-20 Outpatient [facility] [id number] [facility] 13:26:36 13:26:36 2019-10-18 2019-10-18 Emergency [facility] [id number] [place] 00:10:57 00:10:57 Health 2019-10-17 2019-10-17 Emergency [facility] [id number] [place] 23:08:41 23:08:41 Health 2019-10-17 2019-10-17 Emergency [facility] [id number] [place] 12:52:25 12:52:25 [facility] 2019-09-24 2019-09-24 Outpatient [facility] [id number] [facility] 09:00:30 09:00:30 2019-09-08 2019-09-08 Office [place], [facility] Vision Encoun ter/ [facility] 00:00:00 00:00:00 Visit Della [id number] Com leighton [id number] [facility] 2019-05-26 2019-05-26 [facility] 00:00:00 00:00:00 Visit Juanita [id number] Com leighton [id number] [facility] 2019-05-26 2019-05-26 Office Graciela [facility] Public Enc ounter/ [facility] 00:00:00 00:00:00 Visit Roxanne schneider [facility] [id number] [facility] [id number] [facility] 2019-05-21 2019-05-21 Office Adi Joseph [facility] Vision Enc ounter/ [facility] 00:00:00 00:00:00 Visit [id number] Com leighton [id number] [facility] 2019-05-19 2019-05-19 Office Littlejohn, [facility] Vision Encoun ter/ [facility] 00:00:00 00:00:00 Visit Juanita [id number] Corby leighton [id number] [facility] 2019-05-19 2019-05-19 Office Adi Joseph [facility] Vision Enc ounter/ [facility] 00:00:00 00:00:00 Visit [id number] Com leighton [id number] [facility] 2019-05-19 2019-05-19 Office Adi Joseph [facility] Vision Enc ounter/ [facility] 00:00:00 00:00:00 Visit [id number] Com leighton [id number] [facility] 2019-05-19 2019-05-19 Office Adi Joseph [facility] Vision Enc ounter/ [facility] 00:00:00 00:00:00 Visit [id number] Com leighton [id number] [facility] 2019-05-19 2019-05-19 Office Adi Joseph [facility] Vision Enc ounter/ [facility] 00:00:00 00:00:00 Visit Nick Littlejohnie [phone] Communi [id number] [facility] 2019-02-14 2019-02-14 Office [facility] Adult Encoun ter/ [facility] 00:00:00 00:00:00 Visit [facility] [id number] Co mmuni [id number] [facility] 2019-02-12 2019-02-12 Office [facility] Adult Encoun ter/ [facility] 00:00:00 00:00:00 Visit [facility] [id number] Co mmuni [id number] [facility] 2019-02-12 2019-02-12 Office [facility] Adult Encoun ter/ [facility] 00:00:00 00:00:00 Visit [facility] [id number] Co mmuni [id number] [facility] Results Test Description Test Test Results Result [...] any concentrations <2 ng/mL are obtained.Performed At: [address] [id number] Hemanth Flores MD Ph:[phone] Novel Coronavirus 2020-02- Not DetectedTesting was (COVID-19), YOLANDA 04 performed using the miguel(R) LC 10:12:58 SARS-CoV-2 test.This test was developed and its performance characteristicsdetermined by [employer]. This test has not beenFDA cleared or [...] (not detected) result in this assay.Performed At: [facility] [id number] Sanjai MD Ph:[phone] Ferritin 2020-02-11 09:17:16 Test Item Value Reference Range Interpretation Comme nts Ferritin Level (test code = Ferritin Level) 18 ng/mL 13-150 Basic Metabolic [id number] 06:58:24 Test Item Value Reference Range Interpretation [...] ag e have not been validated by [facility] MDRD study and should be interpreted [...] ag e have not been validated by [facility] MDRD study and should be interpreted wit h caution. eGFR R esult Interpretation: eGFR > or = 60 is in the Normal RangeeGF R < 60 may mean kid carmelina diseaseeGFR < 1 5 may mean kidney failure Rang es recommended by the National Kidney Foundation, http://nkdep.ni h.gov Hepatic Function [id number] 05:35:45 Test Item Value Reference Range Interpretation [...] 2.8 g/dL 2.9-3.1 L = Globulin) Lactate [id number] 05:35:45 Test Item Value Reference Range Interpretation Comments LDH (test code = LDH) 206 U/L 135-214 C Reactive [id number] 05:35:45 Test Item Value Reference Range Interpretation Comments CRP (test code = CRP) 6.4 mg/L 0.0-5.0 H Lactic Acid, Plasma (Venous)2020-02-11 05:12:57 Test Item Value Reference Range Interpretation Comments Lactic Acid, Plasma (Venous) (test 0.7 mmol/L 0.5-1.9 code = Lactic Acid, Plasma (Venous)) Fibrinogen [id number] 05:04:01 Test Item Value Reference Range Interpretation Comments Fibrinogen Level (test code = 226.0 mg/dL 188.5-473.8 Fibrinogen Level) D-Dimer [id number] 05:04:01 Test Item Value Reference Range Interpretation Comments D Dimer, (Quant.) (test code = D 406 ng/mL 0-500 Dimer, (Quant.)) Complete Blood Count with [id number] 04:56:23 Test Item Value Reference Range Interpretation [...] to and read back b y: BAUDREY roach 02/11/2020 04:56:13 CDT CE MPV (test code = 9.1 fL N MPV) Slide Review (test Auto Auto Result cr eated by code = Slide Review) GL_SJM_ SLIDE_REV_AUTO nRBC (test code = 0 N nRBC) NRBC Abs (test code 0.00 x10 N = NRBC Abs) IPF (test code = 0 % N IPF) Automated [id number] 04:56:23 Test Item Value Reference Range Interpretation Comments Neutro Auto (test code = Neutro 45.7 % 36.0-70.0 Auto) Lymph Auto (test code = Lymph Auto) 39.7 % 12.0-44.0 Gonzales Auto (test code = Gonzales Auto) 10.7 % 0.0-11.0 Eos, Auto (test code = Eos, Auto) 2.9 % 0.0-7.0 Basophil Auto (test code = Basophil 0.5 % 0.0-2.0 Auto) Neutro Absolute (test code = Neutro 3.0 x10 1.6-7.4 Absolute) Lymph Absolute (test code = Lymph 2.61 x10 .50-4.60 Absolute) Gonzales Absolute (test code = Gonzales .70 x10 .00-1.20 Absolute) Eos Absolute (test code = Eos 0.19 x10 0.00-0.74 Absolute) Baso Absolute (test code = Baso 0.03 x10 0.00-0.21 Absolute) IG [id number] 04:56:23 Test Item Value Reference Range Interpretation Comments IG (test code = IG) 0.5 % 0.0-5.0 IG Abs (test code = IG Abs) 0 x10 N Comprehensive Metabolic Loioa5270-22-62 15:04:07 Test Item Value Reference Range Interpretation [...] National Kidney Foundation, http://nkdep.ni h.gov C Reactive Tckvglf7888-01-36 12:02:24 Test Item Value Reference Range Interpretation Comments CRP (test code = CRP) 2.8 mg/L 0.0-5.0 Automated Ypvkwpglgcxr5724-34-29 10:31:00 Test Item Value Reference Range Interpretation Comments Neutro Auto (test code = Neutro 49.7 % 36.0-70.0 Auto) Lymph Auto (test code = Lymph Auto) 31.5 % 12.0-44.0 Gonzales Auto (test code = Gonzales Auto) 12.3 % 0.0-11.0 H Eos, Auto (test code = Eos, Auto) 5.5 % 0.0-7.0 Basophil Auto (test code = Basophil 0.6 % 0.0-2.0 Auto) Neutro Absolute (test code = Neutro 2.3 x10 1.6-7.4 Absolute) Lymph Absolute (test code = Lymph 1.48 x10 .50-4.60 Absolute) Gonzales Absolute (test code = Gonzales .58 x10 .00-1.20 Absolute) Eos Absolute (test code = Eos 0.26 x10 0.00-0.74 Absolute) Baso Absolute (test code = Baso 0.03 x10 0.00-0.21 Absolute) IG [id number] 10:31:00 Test Item Value Reference Range Interpretation Comments IG (test code = IG) 0.4 % 0.0-5.0 IG Abs (test code = IG Abs) 0 x10 N Complete Blood Count with Vkjxcfarzbcg9286-91-11 10:30:59 Test Item Value Reference Range Interpretation [...] code = IPF) 0 % N Urine Jtvtvph4931-68-33 10:00:32 C Urine Added by GL_SJM_UA_CUL_IND>=100,000 cfu/ml Diphtheroids 10,000 cfu/ml Gamma Streptococcus <10,000 cfu/ml Alpha Streptococcus Multiple organisms present, no further workup in progress. Fibrinogen Dfypi6574-80-03 23:35:18 Test Item Value Reference Range Interpretation Comments Fibrinogen Level (test code = 226.0 mg/dL 188.5-473.8 Fibrinogen Level) Qvuydeqc2656-85-53 23:32:29 Test Item Value Reference Range Interpretation Comments Ferritin Level (test code = Ferritin 17 ng/mL 13-150 Level) Lactate Khlemmzawvgfo6854-32-56 22:35:45 Test Item Value Reference Range Interpretation Comments LDH (test code = LDH) 246 U/L 135-214 H C Reactive Sviksna2405-73-35 22:35:45 Test Item Value Reference Range Interpretation Comments CRP (test code = CRP) 2.8 mg/L 0.0-5.0 Complete Blood Count with Pbbhwnkxmuqh1183-91-15 22:00:38 Test Item Value Reference Range Interpretation [...] code = 0 % N IPF) Automated Bhwdiqdmynhu1986-84-01 22:00:38 Test Item Value Reference Range Interpretation Comments Neutro Auto (test code = Neutro 45.4 % 36.0-70.0 Auto) Lymph Auto (test code = Lymph Auto) 37.4 % 12.0-44.0 Gonzales Auto (test code = Gonzales Auto) 11.4 % 0.0-11.0 H Eos, Auto (test code = Eos, Auto) 4.6 % 0.0-7.0 Basophil Auto (test code = Basophil 0.7 % 0.0-2.0 Auto) Neutro Absolute (test code = Neutro 2.8 x10 1.6-7.4 Absolute) Lymph Absolute (test code = Lymph 2.27 x10 .50-4.60 Absolute) Gonzales Absolute (test code = Gonzales .69 x10 .00-1.20 Absolute) Eos Absolute (test code = Eos 0.28 x10 0.00-0.74 Absolute) Baso Absolute (test code = Baso 0.04 x10 0.00-0.21 Absolute) IG Sjfdw1599-71-24 22:00:38 Test Item Value Reference Range Interpretation Comments IG (test code = IG) 0.5 % 0.0-5.0 IG Abs (test code = IG Abs) 0 x10 N Troponin [id number] 19:40:14 Test Item Value Reference Range Interpretation [...] of chronic myocard ial injury. Urine Drug Dragqc1086-10-49 19:31:13 Test Item Value Reference Range Interpretation [...] matory test if desired . HCG Qualitative Zvjve2014-19-20 19:08:08 Test Item Value Reference Range Interpretation Comments HCG, Serum Qual (test code = HCG, Negative Serum Qual) Lot # (test code = Lot #) [id number] N Expiration Dt (test code = 2021-07-10 N Expiration Dt) Neg Control (test code = Neg Negative Control) Pos Control (test code = Pos Positive Control) Internal QC (test code = Internal Acceptable QC) Urinalysis Jdknsnxxtbb7858-28-40 19:04:03 Test Item Value Reference Range Interpretation Comments UA WBC (test code = UA WBC) None Seen 0-5 UA RBC (test code = UA RBC) 6-10 0-5 A UA Bacteria (test code = UA Few A Bacteria) UA Squam Epithelial (test code = UA 20-29 A Squam Epithelial) Comprehensive Metabolic Kychl5514-21-46 19:03:43 Test Item Value Reference Range Interpretation [...] A/G 1.3 ratio N Ratio) Comprehensive Metabolic Qtqrt3143-61-16 19:03:43 Test Item Value Reference Range Interpretation [...] the National Kidney Foundation, http://nkdep.ni h.gov Alcohol Gimrh6868-14-01 19:03:43 Test Item Value Reference Range Interpretation Comments Ethanol Level (test <0.00 g/dL 0.00-0.01 Intoxica ginger 0.080 g/dL code = Ethanol or more Level) Ethanol Inst (test <0 N code = Ethanol Inst) Comprehensive Metabolic Plzda3756-97-88 19:03:43 Test Item Value Reference Range Interpretation [...] Foundation, http://nkdep.ni h.gov XR Chest 1 View Kncfopf6613-13-90 18:52:37Patient: SOURAV BEY Date/Time02/09/202018:31 CDTReason for ExamShortness of breathReportDICTATION LOCATION: [id number]: Female, 39 years of age with Shortness [...] Signature): 02/09/2020 6:52 pmUrinalysis with Culture, if ippuhzofg5456-97-75 18:46:10 Test Item Value Reference Range Interpretation [...] Micro Indicated Not Indicated A Ind?) IG Tobcu8070-60-86 18:42:20 Test Item Value Reference Range Interpretation Comments IG (test code = IG) 0.7 % 0.0-5.0 IG Abs (test code = IG Abs) 0 x10 N Complete Blood Count with Lxeyidtdsdsz8645-30-52 18:42:19 Test Item Value Reference Range Interpretation [...] code = IPF) 0 % N Automated Ptmwymdeiyve6724-70-94 18:42:19 Test Item Value Reference Range Interpretation Comments Neutro Auto (test code = Neutro 43.0 % 36.0-70.0 Auto) Lymph Auto (test code = Lymph Auto) 39.3 % 12.0-44.0 Gonzales Auto (test code = Gonzales Auto) 11.4 % 0.0-11.0 H Eos, Auto (test code = Eos, Auto) 4.9 % 0.0-7.0 Basophil Auto (test code = Basophil 0.7 % 0.0-2.0 Auto) Neutro Absolute (test code = Neutro 2.4 x10 1.6-7.4 Absolute) Lymph Absolute (test code = Lymph 2.17 x10 .50-4.60 Absolute) Gonzales Absolute (test code = Gonzales .63 x10 .00-1.20 Absolute) Eos Absolute (test code = Eos 0.27 x10 0.00-0.74 Absolute) Baso Absolute (test code = Baso 0.04 x10 0.00-0.21 Absolute) XRAY TIBIA AND FIBULA 2 [id number] 14:17:40IMPRESSION: No acute abnormality seen in the [...] 11/26/2019 2:17 PMHarris HealthXRAY ANKLE 3 VIEW [id number] 14:17:40IMPRESSION: No acute abnormality seen in the [...] 11/26/2019 2:17 PMHarris HealthXRAY FOOT 3 VIEWS [id number] 14:17:40IMPRESSION: No acute abnormality seen in the [...] foot.Signed By: Janet Wilson MD, 11/26/2019 2:17 [facility], Whole Blood (Adult)2019-11-20 08:12:00 Test Item Value Reference Range Interpretation Comments Lead, Blood <1 0-4 Analysis by yonis malu (Adult) (test absorption code = spectroscopy (A ). 84850-2) Environmental Exposure: WH O Recommendation <20 Occupational Exposure: OS MORENO Lead Std 40 CASIMIRO 30 Detectio n Limit = 1 [facility] (test code Performed at: 01 = KARIS) - [facility] [address] [place], [place] [address]xh Director: Hemanth Frey MD, Phone: [phone] [facility] Metabolic Jcsgk6537-27-69 05:35:00 Test Item Value Reference Range Interpretation Comments Sodium (test code = 2951-2) 138 mmol/L 136-145 Potassium (test code = 2823-3) 4.4 mmol/L 3.5-5.1 Chloride (test code = 2075-0) 104 mmol/L 98-107 CO2 (test code = 42006796) 28 mmol/L 21-31 Urea Nitrogen (test code = 23.0 mg/dL 7-25 39138544) Creatinine (test code = 0.8 mg/dL 0.6-1.2 60469936) Glucose (test code = 58532494) 85 mg/dL 70-110 Calcium (test code = 04678931) 8.4 mg/dL 8.6-10.3 L GFR, Estimated (test code = 80 >=90 mL/min/1.73 m2 L 25592823) Anion Gap (test code = 6 mmol/L 5-16 53757369) Lab Interpretation (test code Abnormal = 05435-2) [facility]ShaopmXznsfkzhl9059-99-99 05:35:00 Test Item Value Reference Range Interpretation Comments Magnesium (test code = 70775926) 1.8 mg/dL 1.9-2.7 L Lab Interpretation (test code = Abnormal 08999-5) [facility]CBC/Uasv4690-53-25 05:11:00 Test Item Value Reference Range Interpretation [...] g/dL 32-36 L RDW (test code = 70385-9) 48.0 fL 36.4-46.3 H Platelet (test code = 777-3) 208 K/uL 150-400 Mean Platelet Volume (test code = 10.1 fL 9.4-12.4 16022-8) Percent NRBC (test code = 89153618) 0.0 % Neutrophil (test code = 770-8) 55.3 % 34-70 Lymphs (test code = 736-9) 31.9 % 20-50 Monocytes (test code = 5905-5) 10.2 % 5-12 Eos (test code = 713-8) 1.4 % 0.7-5 Basos (test code = 706-2) 0.4 % 0.1-1.2 Immature Granulocytes (test code = 0.8 % 0-0.5 H 16829106) Neutrophils (Absolute) (test code = 4.65 K/uL 1.56-6.13 25089593) Lymphs (Absolute) (test code = 2.68 K/uL 1.18-3.74 49849638) Monocytes(Absolute) (test code = 0.86 K/uL 0.24-0.36 H 30152146) Eos (Absolute) (test code = 0.12 K/uL 0.04-0.36 78563561) Baso (Absolute) (test code = 0.03 K/uL 0.01-0.08 40585311) Immature Grans (Abs) (test code = 0.07 K/uL 0-0.03 H 18816492) Absolute NRBC (test code = 0.00 K/uL 57444273) Lab Interpretation (test code = Abnormal 78652-3) [facility] BRAIN W/O TXYUYFVA0067-29-26 16:11:53IMPRESSION: 1. No acute intracranial abnormality.2. No [...] T1 and T2 flair, gradient echo, Coronal A1Zmzhc, DWI and ADCContrast: NoneComplic ations: NoneFINDINGS: Scalp: [...] this report.SignedBy: Blayne Burgos MD, 11/17/2019 4:11 [facility]SE P[facility] docked qxtbqf6575-28-47 15:55:00 Test Item Value Reference Range Interpretation Comments Glucose POC (test code = 02588621) 115 mg/dL 74-106 H Lab Interpretation (test code = Abnormal 58030-0) [facility] SKULL 4 VIEWS CZG3543-09-75 08:56:41IMPRESSION: Punctate metallic fragments are seen in [...] this report.Signed By: Gemma Martinez MD,11/16/2019 8:56 [facility]KrpxswXOW4634-87-57 15:22:00 Test Item Value Reference Range Interpretation Comments ANASTACIO Screen (test code = 14777242) Negative Negative Lab Interpretation (test code = Normal 19169-2) [facility] Zoidw6495-25-30 14:02:00 Test Item Value Reference Range Interpretation Comments Hepatitis C Virus (HCV) Antibody Negative Negative (test code = 57588-8) Hep B Surface Ag (test code = Negative Negative 5196-1) Hep A Vir Ab IgM (test code = Negative Negative 32483-9) Hep B Core Ab IgM (test code = Negative Negative 02003-3) Lab Interpretation (test code = Normal 54224-0) [facility] [id number] 11:52:00 Test Item Value Reference Range Interpretation Comments Vitamin B12 (test code 894 pg/mL See comment Esther l: 180-914 = 32004148) pg/mLIntermitte nt: 145-180 pg/mLDeficient: <=145.0 pg/mL [facility]philis Screen for Yovqvlxdl5253-81-01 08:39:00 Test Item Value Reference Range Interpretation Comments TPA (test code = 35110-6) Negative Negative, Equivocal Final Report (test code = Negative Negative 55731-9) Lab Interpretation (test code = Normal 43345-6) [facility]itamin D, 15-Kwzrxcrmjwomvqsyl7924-28-06 08:06:00 Test Item Value Reference Range Interpretation Comments Vit D, 25-Hydroxy (test 33.8 ng/mL 30-100 code = 60728954) Vitamin D Interpretation Sufficient Sufficient Saucedo fficient: (test code = 67229256) >30.0 Insufficient: 20.0 - 29.9Deficient: <20.0 Lab Interpretation (test Normal code = 04096-9) [facility]-1/HIV-2 Routine Cbmiqiatq8222-59-90 21:34:00 Test Item Value Reference Range Interpretation Comments HIV Ag/Ab Combo (test code = Negative Negative 28363-2) Lab Interpretation (test code = Normal 00930-3) [facility] Pdws0768-01-89 21:33:00 Test Item Value Reference Range Interpretation Comments Folic Acid (test code = 60943604) 14.1 ng/mL 5.9-24.8 Lab Interpretation (test code = Normal 92514-6) [facility] HealthcareUqovfaZaeulumg8751-51-72 21:26:00 Test Item Value Reference Range Interpretation Comments Ferritin (test code = 70011027) 60.2 ng/mL 11-306.8 Lab Interpretation (test code = Normal 64059-1) [facility] Qbbzwxg0313-13-77 21:07:00 Test Item Value Reference Range Interpretation Comments Iron (test code = 65826052) 114 ug/dL 50-212 TIBC (test code = 77670651) 319 ug/dL 250-450 % Iron Sat (test code = 36 % 40696358) Transferrin (test code = 228.14 mg/dL 203-362 97975951) [facility] HealthcareValproic Csxu6709-15-74 21:07:00 Test Item Value Reference Range Interpretation Comments Valproic Acid (test code = 67.2 ug/mL 50-100 21811721) Lab Interpretation (test code = Normal 46204-3) [facility] HEAD W/O WXCEYCPT7260-23-07 11:20:20IMPRESSION: No acute abnormalities. No change from [...] report.Signed By: Wendy Craft MD, 11/13/2019 11:20 [facility] HealthPregnancy Gsev2647-62-29 09:57:00 Test Item Value Reference Range Interpretation Comments (test code = 75261486) Negative Negative Lab Interpretation (test code = Normal 44213-1) [facility] Urine - Nanjylifh5290-48-44 09:36:00 Test Item Value Reference Range Interpretation Comments Control (test code = 7172) passed (test code = 7173) negative Lab Interpretation (test code = Normal 68527-8) [facility] CREATININE POC docked ihcrgw5453-52-81 06:31:00 Test Item Value Reference Range Interpretation Comments Creatinine POC (test code = 0.8 mg/dL 0.6-1.3 017 91346074) GFR, Estimated (test code = >90 >=90 mL/min/1.73 m2 72671755) Lab Interpretation (test code = Normal 27126-9) [facility] BMP POC docked fqdtuj3675-86-23 06:30:00 Test Item Value Reference Range Interpretation Comments Sodium POC (test code = 80944718) 141 mmol/L 136-145 Potassium POC (test code = 4.5 mmol/L 3.5-5.1 09294379) Chloride POC (test code = 102 mmol/L 98-107 92949586) TCO2 POC (test code = 13906010) 32 mmol/L 21-32 017 Urea Nitrogen POC (test code = 19 mg/dL 7-18 H 44632126) Glucose POC (test code = 20570284) 86 mg/dL 74-106 Hemoglobin POC (test code = 13.6 g/dL 12-16 00059138) Hematocrit POC (test code = 40.0 % 37-47 01211274) Lab Interpretation (test code = Abnormal 41058-4) [place] [address] LEAD OPG9890-38-85 05:53:0112 LEAD EKG FOR CHP [facility] Test Date: 9669-11-10Dta Name: SOURAV BEY Department: 5520Patient ID: [id number] Room: Gender: F Cost Control Specialist: [id number]: 1980 Requested By: NEELAM GERMAIN Order Number: [id number] Reading MD: Dolores Walker MeasurementsIntervals [place] Rate: 70 P: 49PR: 162 QRS: 38QRSD: 84 T: 7QT: 377 QTc: 409 Interpretive StatementsSINUS RHYTHMNONSPECIFIC T-WAVE ABNORMALITYElectronically Signed On 11-13-2019 5:52:58 NUTRITION CONSULTANT by Dolores NathanLehigh [facility] Hospital - PoconoXR ANKLE 3 VIEWS - WKAIQDK4274-45-46 03:59:29 IMPRESSION: No acute abnormalities.Plantar enthesopathy. If [...] report.Signed By: Nixon Gabriel DO, 11/13/2019 3:59 [facility] HospitalX[facility] FOOT 3 VIEWS - FMHSRRC0266-85-64 03:59:29IMPRESSION: No acute abnormalities.Plantar enthesopathy. If the [...] report.Signed By: Nixon Gabriel DO, 11/13/2019 3:59 [facility] HospitalCTA HEAD W VJQTJVSP5865-83-62 01:20:17 IMPRESSION: 1. Severely hypoplastic right vertebral artery, likely congenital.2. Otherwise, no additional abnormalities on this CTA of the head.Specifically, no large vessel occlusion or aneurysm. Dictated By: Stephane Murphy DO, 10/18/2019 1:13 AM I have reviewed the study and agree with the findings in this report. Signed By: Wendy Craft MD, 10/18/2019 1:20 AM Interface, Shannan In - 10/18/2019 1:25 AM CSTExams: Intracranial [...] compared to the previous CT.No enhancing abnormalities.CTA [place]: Carotid arteries:Patent, no abnormalities.. Vertebrobasilar [...] report.Signed By: Wendy Craft MD, 10/18/2019 1:20 [facility] HospitalCsjopkPiskice9232-49-74 16:24:00 Test Item Value Reference Range Interpretation Comments Ammonia (test code = 06064407) 31.0 umol/L 16-53 Lab Interpretation (test code = Normal 48170-2) [facility] zq2081-10-47 14:09:10 Test Item Value Reference Range Interpretation Comments PPD results in mm (test code = 769085) 0 mm [facility]- XR CHEST 1 [id number] 12:29:00 FAX: Cali Ramos MD [phone] [place]: St: REG Name: SOURAV BEY [facility] : 1980 Age/S: 38/F [address] [facility] [place] Unit#: [id number] [place] [id number] Acct: [id number] Dis Date: Status: REG ER PHONE #: [phone] Exam Date: 12/06/2018 1205 FAX #: [phone] Reason: hyperventilation EXAMS: CPT CODE: [id number] XR CHEST 1 V 00252 Chest Radiograph History: hyperventilation Comparison: None at this time Location: R16 A single frontal view of the chest is submitted. The heart is within normal limits in size. Pulmonary vasculature is unremarkable. The visualized lung christensen appear to be free of disease. The bones appear unremarkable. IMPRESSION: There is no radiographic evidence of acute cardiopulmonary disease. at 3996 Reported and signed by: Mathew Vazquez M.D. CC: Cali Ramos MD Technologist: JOSUE BARBA Trnscrd Date/Time/By: 12/06/2018 (1603) : By: Jazzy PAGE 1 Signed Report FAX: Cali Ramos MD [phone] [place]: St: REG Name: SOURAV BEY [facility] : 1980 Age/S: 38/F [address] [facility] [employer] [facility] [place] Unit #: [id number] Loc: [place], [place]: [place] [id number] Acct: [id number] Dis Date: Status: REG ER PHONE #: [phone] Exam Date: 12/06/2018 1205 FAX #: [phone] Reason: hyperventilation EXAMS: CPT CODE: [id number] XR CHEST 1 V 61568 <Continued> Orig Print D/T: S: 12/06/2018 (0422) PAGE 2 Signed ReportURINALYSIS [id number] 12:27:00 Test Item Value Reference Range Interpretation [...] (test code = FEW NONE BACU) URINALYSIS DEZKQFNO9217-11-35 12:18:00 Test Item Value Reference Range Interpretation [...] NONE BACU) - CT ABD PELVIS W/O INHB5178-87-27 10:32:00 FAX: Addie Mccarthy MD [phone] [place]: St: REG Name: SOURAV BEY [facility] : 1980 Age/S: 38/F [address] [facility] Unit: [id number] Loc: [place]: [place] [address] Acct: [id number] Dis Date: Status: REG ER PHONE #: [phone] Exam Date: 11/22/2018 1012 FAX #: [phone] Reason: LOW BACK/ FLANK PAIN WITH URINARY SX EXAMS: CPT CODE: [id number] CT ABD PELVIS W/O CONT 48693 HISTORY: Low back pain, flank pain with [...] Signed Report (CONTINUED) FAX: Addie Mccarthy MD [phone] [place]: St: REG Name: SOURAV BEY [facility] : 1980 Age/S: 38/F [address] [facility] [place] Unit: [id number] Loc: [place], [place] Phys: Addie Mccarthy [address] Acct: [id number] Dis Date: Status: REG ER PHONE #: [phone] Exam Date: 11/22/2018 1012 FAX #: [phone] Reason: LOW BACK/ FLANK PAIN WITH URINARY SXEXAMS: CPT CODE: [id number] CT ABD PELVIS W/O CONT 48129 <Continued> Correlate for any pancreatic enzymeabnormalities as [...] S: 11/22/2018(1035 PAGE 2 Signed ReportBASIC METABOLIC [id number] 09:28:00 Test Item Value Reference Range Interpretation [...] N Specimen comments: Clean CatchHEPATIC FUNCTION PANEL [id number] 09:28:00 Test Item Value Reference Range Interpretation [...] N code = ALKP) Specimen comments: Clean HdymbVWLQEO8651-51-38 09:28:00 Test Item Value Reference Range Interpretation Comments LIPASE (test code = LIP) 123 Units/L 65.0-230.0 N Specimen comments: Clean CatchHCG SERUM [id number] 09:28:00 Test Item Value Reference Range Interpretation Comments HCG SERUM QUAL (test code = HCGQL) NEGATIVE NEGATIVE Specimen comments: Clean CatchPROTHROMBIN [id number] 09:26:00 Test Item Value Reference Range Interpretation Comments PROTHROMBIN TIME 10.7 SECONDS 9.9-12.8 N PATIENT (test code = PTP) INTERNATIONAL NORMAL 0.9 0.89-1.14 N THE INR IS TO BE USED RATIO (test code = ONLY FOR MONITORING INR) ORAL ANTICOAGULANTTH ERAPY. THE FOLLOWING A RE SUGGESTED RANGE S FROM THESIERRA [facility]ALTH CENTERAN COL LEGE OF CHEST PHYSICIANS:CARMEN CATION INR VALUEPROPHYLAXI [...] - 3 .5 Specimen comments: Clean CatchURINALYSIS [id number] 09:23:00 Test Item Value Reference Range Interpretation [...] = TRICHU) Specimen comments: Clean CatchBASIC METABOLIC [id number] 09:23:00 Test Item Value Reference Range Interpretation [...] = CA) mg/dl 8.0-10.5 Specimen comments: Clean VPIsystemsHEPATIC FUNCTION PANEL [id number] 09:23:00 Test Item Value Reference Range Interpretation [...] 50.0-136.0 code = ALKP) Specimen comments: Clean [id number] 09:23:00 Test Item Value Reference Range Interpretation Comments LIPASE (test code = LIP) Units/L 65.0-230.0 Specimen comments: Clean VPIsystemsHCG SERUM [id number] 09:23:00 Test Item Value Reference Range Interpretation Comments HCG SERUM QUAL (test code = HCGQL) NEGATIVE NEGATIVE Specimen comments: Clean VPIsystemsBASIC METABOLIC [id number] 09:21:00 Test Item Value Reference Range Interpretation [...] 8.0-10.5 Specimen comments: Clean CatchHEPATIC FUNCTION PANEL [id number] 09:21:00 Test Item Value Reference Range Interpretation [...] 50.0-136.0 code = ALKP) Specimen comments: Clean [id number] 09:21:00 Test Item Value Reference Range Interpretation Comments LIPASE (test code = LIP) Units/L 65.0-230.0 Specimen comments: Clean CatchHCG SERUM [id number] 09:21:00 Test Item Value Reference Range Interpretation Comments HCG SERUM QUAL (test code = HCGQL) NEGATIVE NEGATIVE Specimen comments: Clean CatchURINALYSIS [id number] 09:17:00 Test Item Value Reference Range Interpretation [...] NONE BACU) Specimen comments: Clean CatchCBC W/AUTO [id number] 09:11:00 Test Item Value Reference Range Interpretation [...]
[2020-05-08] MEDS ORDERED: HYDROCODONE/APAP 7.5/325 MG TAB ONE (19:54)
--- NOTE | 2020-05-08 20:13 | RAD REPORT ---
EXAM DESCRIPTION: RAD - Ankle Right 3 View - 05/08/2020 7:47 pm CLINICAL HISTORY: PAIN, trip and fall, twisting injury COMPARISON: Ankle Right 3 View dated 03/17/2020 FINDINGS: No fracture, dislocation or periosteal reaction. No joint effusion seen. No joint space na rrowing. Small plantar spur. Soft tissue swelling is present. No air or foreign body in the soft tiss ues. IMPRESSION: Soft tissue swelling with no acute bone finding. Small plantar spur.
--- NOTE | 2020-05-08 20:17 | ER ---
Nurse's Notes [facility] Name: Sariah Maria Age: 39 yrs Sex: Female : 1980 Arrival Date: 05/08/2020 Time: 18:43 Bed 20 Private MD: Diagnosis: Sprain of ankle Presentation: 05/08 18:49 Chief complaint: Patient states: tripped over her own feet a couple hours ago, rolled iw right ankle, swelling to lateral ankle. 18:49 Acuity: RICHELLE 4 iw 18:49 Method Of Arrival: Wheelchair iw 18:50 Coronavirus screen: At this time, the client does not indicate any symptoms associated iw with coronavirus-19. Ebola Screen: Patient negative for fever greater than or equal to 101.5 degrees Fahrenheit, and additional compatible Ebola Virus Disease symptoms Patient denies exposure to infectious person. Patient denies travel to an Ebola-affected area in the 21 days before illness onset. No symptoms or risks identified at this time. Initial Sepsis Screen: Does the patient meet any 2 criteria? No. Patient's initial sepsis screen is negative. Does the patient have a suspected source of infection? No. Patient's initial sepsis screen is negative. Risk Assessment: Do you want to hurt yourself or someone else? Patient reports no desire to harm self or others. Onset of symptoms was May 08, 2020. Triage Assessment: 19:42 General: Appears in no apparent distress. obese, Behavior is calm, cooperative, vc appropriate for age. Pain: Complains of pain in right lateral malleolus and right medial malleolus Pain does not radiate. Pain currently is 8 out of 10 on a pain scale. Quality of pain is described as sharp, Pain began suddenly. 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 - Social history:: Smoking status: Patient denies any tobacco usage or history of. Screenin:41 Abuse screen: Denies threats or abuse. Nutritional screening: No deficits noted. vc Tuberculosis screening: No symptoms or risk factors identified. Fall Risk Fall in past 12 months (25 points). No secondary diagnosis (0 pts). No IV (0 pts). Ambulatory Aid- None/Bed Rest/Nurse Assist (0 pts). Gait- Impaired (20 pts.). Mental Status- Oriented to own ability (0 pts). Total Quan Fall Scale indicates High Risk Score (45 or more points). Assessment: 19:50 General: Appears in no apparent distress. uncomfortable, Behavior is. Pain: Complains jb4 of pain in right ankle Pain radiates to medial aspect of right thigh Pain currently is 7 out of 10 on a pain scale. Quality of pain is described as burning, Is continuous. Neuro: Level of Consciousness is awake, alert, obeys commands, Oriented to person, place, time, situation. Cardiovascular: Capillary refill < 3 seconds in right toes Patient's skin is warm and dry. Pulses are 3+ in right dorsalis pedis artery. Respiratory: Airway is patent Respiratory effort is even, unlabored, Respiratory pattern is regular, symmetrical. GI: No signs and/or symptoms were reported involving the gastrointestinal system. : No signs and/or symptoms were reported regarding the genitourinary system. EENT: No signs and/or symptoms were reported regarding the EENT system. Derm: Skin is intact, Skin is pink, warm \T\ dry. Musculoskeletal: Circulation, motion, and sensation intact. Range of motion: limited in right ankle. 21:00 Reassessment: Patient appears in no apparent distress at this time. Patient and/or jb4 family updated on plan of care and expected duration. Pain level reassessed. Patient is alert, oriented x 3, equal unlabored respirations, skin warm/dry/pink. Splint placed on the right leg. Checked by ER physician. Pt verbalized understanding of d/c and follow up instructions. Denies questions or concerns. Vital Signs: 18:50 BP 110 / 80; Pulse 101; Resp 16; Temp 97.8; Pulse Ox 100% on R/A; Weight 101.15 kg; iw Height 5 ft. 6 in. (167.64 cm); Pain 7/10; 20:50 BP 117 / 74; Pulse 88; Resp 16; Pulse Ox 100% on R/A; jb4 18:50 Body Mass Index 35.99 (101.15 kg, 167.64 cm) ED Course: 18:43 Patient arrived in ED. ds1 18:50 Triage completed. iw 18:51 Michelle Rai FNP-C [facility]. kb 18:51 Sonam Nowak MD is Attending Physician. kb 19:40 Kt Juares, RN is Primary Nurse. jb4 19:43 Arm band placed on. vc 19:47 Ankle Right 3 View XRAY In Process Unspecified. EDMS 19:49 Patient has correct armband on for positive identification. Bed in low position. Call vc light in reach. Pulse ox on. NIBP on. Pillow given. Ice pack to injury. 20:50 No provider procedures requiring assistance completed. Patient did not have IV access jb4 during this emergency room visit. Administered Medications: 19:47 Drug: [place] (7.5 mg-325 mg) 1 tabs Route: PO; vc 21:00 Follow up: Response: No adverse reaction; Pain is decreased; RASS: Alert and Calm (0) jb4 Outcome: 20:16 Discharge ordered by . kb 21:00 Discharged to home via wheelchair, with friend. jb4 21:00 Condition: stable 21:00 Discharge instructions given to patient, Instructed on discharge instructions, follow up and referral plans. medication usage, Demonstrated understanding of instructions, follow-up care, medications, Prescriptions given X 1. 21:12 Patient left the ED. jb4 Signatures: Dispatcher [employer] EDMS Michelle Rai FNP-C FNP-Priya Vanegas ds1 Grisel Malone RN RN Kt Juares RN RN jb4 Dolores Ramírez RN RN vc Corrections: (The following items were deleted from the chart) 18:53 18:50 BP 110 / 8; Pulse 101bpm; Resp 16bpm; Pulse Ox 100% RA; Temp 97.8F; 101.15 kg; iw Height 5 ft. 6 in.; BMI: 35.9; Pain 7/10; iw
--- NOTE | 2020-05-08 20:17 | EDPHYS ---
Physician Documentation [facility] Name: Sariah Maria Age: 39 yrs Sex: Female : 1980 Arrival Date: 05/08/2020 Time: 18:43 Bed 20 Private MD: ED Physician Sonam Nowak HPI: 05/08 20:17 This 39 yrs old Female presents to ER via Wheelchair with complaints of Fall kb Injury. 19:47 Details of fall: The patient fell from an upright position, while walking. Onset: The kb symptoms/episode began/occurred at 15:00. Associated injuries: The patient sustained right lateral malleolus, decreased range of motion, painful injury, swelling. Severity of symptoms: At their worst the symptoms were moderate, in the emergency department the symptoms are unchanged. The patient has not experienced similar symptoms in the past. The patient has not recently seen a physician. 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 - Social history:: Smoking status: Patient denies any tobacco usage or history of. ROS: 19:46 Constitutional: Negative for fever, chills, and weight loss, Cardiovascular: Negative kb for chest pain, palpitations, and edema, Respiratory: Negative for shortness of breath, cough, wheezing, and pleuritic chest pain, Abdomen/GI: Negative for abdominal pain, nausea, vomiting, diarrhea, and constipation, Skin: Negative for injury, rash, and discoloration, Neuro: Negative for headache, weakness, numbness, tingling, and seizure. 19:46 MS/extremity: Positive for injury or acute deformity, decreased range of motion, pain, swelling, tenderness, of the right ankle. Exam: 19:46 Constitutional: This is a well developed, well nourished patient who is awake, alert, kb and in no acute distress. Head/Face: Normocephalic, atraumatic. Chest/axilla: Normal chest wall appearance and motion. Nontender with no deformity. No lesions are appreciated. Cardiovascular: Regular rate and rhythm with a normal S1 and S2. No gallops, murmurs, or rubs. Normal PMI, no JVD. No pulse deficits. Respiratory: Lungs have equal breath sounds bilaterally, clear to auscultation and percussion. No rales, rhonchi or wheezes noted. No increased work of breathing, no retractions or nasal flaring. Abdomen/GI: Soft, non-tender, with normal bowel sounds. No distension or tympany. No guarding or rebound. No evidence of tenderness throughout. Skin: Warm, dry with normal turgor. Normal color with no rashes, no lesions, and no evidence of cellulitis. Neuro: Awake and alert, GCS 15, oriented to person, place, time, and situation. Cranial nerves II-XII grossly intact. Motor strength 5/5 in all extremities. Sensory grossly intact. Cerebellar exam normal. Normal gait. 19:46 Musculoskeletal/extremity: Extremities: grossly normal except: noted in the right lateral malleolus: decreased ROM, pain, swelling, tenderness, ROM: limited active range of motion due to pain, in the right ankle, Circulation is intact in all extremities. Sensation intact. Weight bearing: is unable to bear weight. Vital Signs: 18:50 BP 110 / 80; Pulse 101; Resp 16; Temp 97.8; Pulse Ox 100% on R/A; Weight 101.15 kg; iw Height 5 ft. 6 in. (167.64 cm); Pain 7/10; 20:50 BP 117 / 74; Pulse 88; Resp 16; Pulse Ox 100% on R/A; jb4 18:50 Body Mass Index 35.99 (101.15 kg, 167.64 cm) iw MDM: 19:37 Patient medically screened. kb 19:47 Data reviewed: vital signs, nurses notes. Data interpreted: Pulse oximetry: on room air kb is 100 %. Interpretation: normal. 20:16 Counseling: I had a detailed discussion with the patient and/or guardian regarding: the kb historical points, exam findings, and any diagnostic results supporting the discharge/admit diagnosis, radiology results, the need for outpatient follow up, a family practitioner, to return to the emergency department if symptoms worsen or persist or if there are any questions or concerns that arise at home. 05/08 18:51 Order name: Ankle Right 3 View XRAY; Complete Time: 20:14 kb 05/08 20:15 Order name: Short Leg Splint; Complete Time: 21:12 kb Administered Medications: 19:47 Drug: [place] (7.5 mg-325 mg) 1 tabs Route: PO; vc 21:00 Follow up: Response: No adverse reaction; Pain is decreased; RASS: Alert and Calm (0) jb4 Disposition: 05/08/20 20:16 Discharged to Home. Impression: Sprain of ankle. - Condition is Stable. - Discharge Instructions: Ankle Sprain, [id number]. - Prescriptions for Ibuprofen 800 mg Oral Tablet - take 1 tablet by ORAL route every 8 hours As needed take with food; 30 tablet. - Medication Reconciliation Form, Thank You Letter, Antibiotic Education, Prescription Opioid Use form. - Follow up: Emergency Department; When: As needed; Reason: Worsening of condition. Follow up: Private Physician; When: 2 - 3 days; Reason: Recheck today's complaints, Continuance of care, Re-evaluation by your physician. Signatures: Dispatcher [employer] EDMichelle Bray, GOLF TEACHER-C GOLF TEACHER-Ckb Grisel Malone RN RN iw Bryson, James, RN RN jb4 Dolores Ramírez RN RN vc Corrections: (The following items were deleted from the chart) 21:12 20:15 Crutches ordered. kb jb4 21:12 20:16 05/08/2020 20:16 Discharged to Home. Impression: Sprain of ankle. Condition is jb4 Stable. Forms are Medication Reconciliation Form, Thank You Letter, Antibiotic Education, Prescription Opioid Use. Follow up: Emergency Department; When: As needed; Reason: Worsening of condition. Follow up: Private Physician; When: 2 - 3 days; Reason: Recheck today's complaints, Continuance of care, Re-evaluation by your physician. kb
== END 2020-05-08 21:12 | disposition home or self-care (01) ==
LOC: ER 18:41
DX: S93.401A Sprain of unspecified ligament of right ankle, initial encounter (principal); W19.XXXA Unspecified fall, initial encounter; Y93.01 Activity, walking, marching and hiking; Y92.9 Unspecified place or not applicable; F31.9 Bipolar disorder, unspecified; Z88.5 Allergy status to narcotic agent; Z91.018 Allergy to other foods
CPT/HCPCS: 99284

== ENCOUNTER 2020-05-14 11:16 | Emergency (ER) | payer SELFPAY ==
--- OUTSIDE RECORDS SUMMARY | 2020-05-14 11:23 | XMS REPORT | Clinical Summary ---
:1980 Author Organization [facility] Address [address] [place] [id number] Care Team Providers Name Role Phone Unavailable [...] needed. Maximum 200mg/24 hours.. fluticasone Use 1 Traer 16 g 0 Active propionate (FLONASE) in [...] as needed for Pain. fluticasone Use 1 Traer 16 g 0 11/04/19 Discon tinued propionate [...] reflux disease, esophagitis presence not specified after 05/14/2019 Immunizations Name Administration Dates Next Due Influenza, Vaccine <FLUCELVAX>(Preservative-Free) 10/20/2019 Td <Unspecified> 03/05/2016 Twinrix-HEP A&b 03/05/2019 Family History Medical History Relation Name Comments Heart Father Hypertension Father Diabetes Mother Psychiatry Mother Stroke Mother Psychiatry Sister Relation Name Status Comments Father [place] at 56 Mother Anxiety, stroke at 55 [...] (203 lb 6.4 oz) 11/13/2019 9:00 PM PAINT PREP TECHNICIAN Height 162.6 cm (5' 4") 11/13/2019 9:00 PM PAINT PREP TECHNICIAN Body Mass Index 34.91 11/13/2019 9:00 PM PAINT PREP TECHNICIAN Plan of Treatment Health Maintenance Due Date [...] Intermittent Resul ts for this MIN PM PAINT PREP TECHNICIAN lightheadedness procedure ar e in the results section. CBC Routine 11/15/2019 3:57 Results for this AM PAINT PREP TECHNICIAN procedure are i n the results section. MAGNESIUM Routine 11/15/2019 3:57 Results for this AM PAINT PREP TECHNICIAN procedure are i n the results section. BASIC METABOLIC Routine 11/15/2019 3:57 Results for this PANEL AM PAINT PREP TECHNICIAN procedure are i n the results section. CBC/DIFF Routine 11/15/2019 3:57 Results for this AM PAINT PREP TECHNICIAN procedure are i n the results section. LEAD, WHOLE BLOOD Timed 11/14/2019 1:14 Result s for this (ADULT) PM PAINT PREP TECHNICIAN procedure are i n the results section. INFUSION PUMP Routine 11/14/2019 9:21 AM PAINT PREP TECHNICIAN CBC Routine 11/14/2019 3:45 Results for this AM PAINT PREP TECHNICIAN procedure are i n the results section. MAGNESIUM Routine 11/14/2019 3:45 Results for this AM PAINT PREP TECHNICIAN procedure are i n the results section. BASIC METABOLIC Routine 11/14/2019 3:45 Results for this PANEL AM PAINT PREP TECHNICIAN procedure are i n the results section. CBC/DIFF Routine 11/14/2019 3:45 Results for this AM PAINT PREP TECHNICIAN procedure are i n the results section. VITAMIN B12 Add-on 11/13/2019 8:01 Results for this PM PAINT PREP TECHNICIAN procedure are i n the results section. VIT D, 25-HYDROXY Routine 11/13/2019 8:01 Result s for this PM PAINT PREP TECHNICIAN procedure are i n the results section. SYPHILIS SCREEN FOR Routine 11/13/2019 8:01 Resu lts for this INFECTION PM PAINT PREP TECHNICIAN procedure are i n the results section. ANASTACIO Routine 11/13/2019 8:01 Results for this PM PAINT PREP TECHNICIAN procedure are i n the results section. HEPATITIS PANEL Routine 11/13/2019 8:01 Results for this PM PAINT PREP TECHNICIAN procedure are i n the results section. HIV AG/AB COMBO Routine 11/13/2019 8:01 Results for this ROUTINE SCREENING PM PAINT PREP TECHNICIAN procedure are in the results section. FOLIC ACID Routine 11/13/2019 8:01 Results for this PM PAINT PREP TECHNICIAN procedure are i n the results section. IRON PROFILE Routine 11/13/2019 8:01 Results for this PM PAINT PREP TECHNICIAN procedure are i n the results section. FERRITIN Routine 11/13/2019 8:01 Results for this PM PAINT PREP TECHNICIAN procedure are i n the results section. BASIC METABOLIC Routine 11/13/2019 8:01 Results for this PANEL PM PAINT PREP TECHNICIAN procedure are i n the results section. VALPROIC ACID Routine 11/13/2019 8:01 Results fo r this PM PAINT PREP TECHNICIAN procedure are i n the results section. POCT URINE DIPSTICK STAT 11/13/2019 9:36 Resu lts for this - AM PAINT PREP TECHNICIAN procedure are i n the results section. TEST STAT 11/13/2019 9:31 Results f or this AM PAINT PREP TECHNICIAN procedure are i n the results section. CT HEAD W/O STAT 11/13/2019 9:26 Intermittent Results for this CONTRAST AM PAINT PREP TECHNICIAN lightheadedness procedure ar e in the results section. CREATININE POC Routine 11/13/2019 6:27 Results f or this AM PAINT PREP TECHNICIAN procedure are i n the results section. BMP POC Routine 11/13/2019 6:26 Results for this AM PAINT PREP TECHNICIAN procedure are i n the results section. CBC STAT 11/13/2019 6:21 Results for this AM PAINT PREP TECHNICIAN procedure are i n the results section. CBC/DIFF STAT 11/13/2019 6:21 Results for this AM PAINT PREP TECHNICIAN procedure are i n the results section. ECHG EKG PROC 12 Routine 11/13/2019 5:20 Results for this LEAD EKG; TRACING AM PAINT PREP TECHNICIAN procedure are in ONLY the results section. GLUCOSE POC Routine 11/13/2019 4:51 Results for this AM PAINT PREP TECHNICIAN procedure are i n the results section. XRAY FOOT 3 VIEWS - STAT 11/12/2019 11:10 Acute right ankle pain Results for this ROUTINE PM PAINT PREP TECHNICIAN procedure are i n the results section. XRAY ANKLE 3 VIEWS STAT 11/12/2019 11:10 Acute right ankle pain Results for this - ROUTINE PM PAINT PREP TECHNICIAN procedure are i n the results section. POCT URINE DIPSTICK STAT 11/12/2019 10:22 Resu lts for this - PM PAINT PREP TECHNICIAN procedure are i n the results section. XRAY FOOT 3 VIEWS - STAT 10/25/2019 9:38 Right foot pain R esults for this ROUTINE PM PAINT PREP TECHNICIAN procedure are i n the results section. CTA HEAD W CONTRAST STAT 10/18/2019 12:51 New onset headach e Results for this AM PAINT PREP TECHNICIAN procedure are i n the results section. CT HEAD W/O STAT 10/17/2019 11:28 New onset headache Resul ts for this CONTRAST PM PAINT PREP TECHNICIAN procedure are i n the results section. AMMONIA STAT 10/17/2019 2:37 Results for this PM PAINT PREP TECHNICIAN procedure are i n the results section. VALPROIC ACID STAT 10/17/2019 2:37 Results fo r this PM PAINT PREP TECHNICIAN procedure are i n the results section. TEST STAT 10/17/2019 1:12 Results f or this PM PAINT PREP TECHNICIAN procedure are i n the results section. CBC STAT 10/17/2019 12:07 Results for this PM PAINT PREP TECHNICIAN procedure are i n the results section. CBC/DIFF STAT 10/17/2019 12:07 Results for this PM PAINT PREP TECHNICIAN procedure are i n the results section. BASIC METABOLIC STAT 10/17/2019 12:07 Results for this PANEL PM PAINT PREP TECHNICIAN procedure are i n the results section. after 05/14/2019 Results XRAY FOOT 3 VIEWS MIN (11/26/2019 2:00 PM CDT) Specimen Impressions Performed At IMPRESSION: [facility] No acute abnormality seen in the right t ibia and fibula, ankle and foot. Signed By: Janet Wilson MD, 11/26/2019 2:17 PM Narrative Performed At RIGHT TIBIA AND FIBULA SERIES, 2 views. [facility] RIGHT ANKLE SERIES, 3 views. RIGHT [...] MD, 11/26/2019 2:17 PM Performing Organization Address [facility] Phone Number [facility] XRAY ANKLE 3 VIEW MIN (11/26/2019 2:00 PM CDT) Specimen Impressions Performed At IMPRESSION: [facility] No acute abnormality seen in the [...] PM Performing Organization Address City/State/Zipcode Phone Number [facility] XRAY TIBIA AND FIBULA 2 VIEWS (11/26/2019 2:00 PM CDT) Specimen Impressions Performed At IMPRESSION: [facility] No acute abnormality seen in the right t ibia and fibula, ankle and foot. Signed By: Janet Wilson MD, 11/26/2019 2:17 PM Narrative Performed At RIGHT TIBIA AND FIBULA SERIES, 2 views. [facility] RIGHT ANKLE SERIES, 3 views. RIGHT [...] Number [facility] [address] [place] [address] Magnesium (11/18/2019 4:22 AM CDT)Only the most recent of5 resultswithin the time period is included. Pathologist Sig nature Magnesium 1.8 (L) 1.9 - 2.7 mg/dL [facility] Specimen Blood Performing Organization Address [facility] Phone Number [facility] [address] [place] [address] [phone] Basic Metabolic Panel (11/18/2019 4:22 AM [...] LABORATORY Glucose 85 70 - 110 mg/dL [facility] Calcium 8.4 (L) 8.6 - 10.3 mg/dL [facility] GFR, Estimated 80 (L) >=90 mL/min/1.73 m2 [facility] Anion Gap 6 5 - 16 mmol/L [facility] Specimen Blood Performing Organization Address [facility] Phone Number [facility] [address] [place] [address] POCT GLUCOSE POC docked device (11/16/2019 3:54 PM CDT)Only the most recent of2 resultswithin the time period is included. Pathologist Sig nature Glucose POC 115 (H) 74 - 106 mg/dL [facility] Specimen Blood Performing Organization Address [facility] Phone Number [facility] [address] [place] [address] [phone] MRI BRAIN W/O CONTRAST (11/16/2019 2:46 PM CDT) Specimen Impressions Performed At IMPRESSION: [facility] 1. No acute intracranial abnormality. 2. No [...] MD, 11/17/2019 4:11 PM Performing Organization Address City[facility] Phone Number SMS XRAY SKULL 4 VIEWS MIN (11/15/2019 12:04 PM PAINT PREP TECHNICIAN) Specimen Impressions Performed At IMPRESSION: SMS Punctate metallic fragments are seen in the right mandibular and cheek soft tissues. Dictated By: Roxi Bocye MD, 0 8:22 AM I have reviewed [...] MD, 11/16/2019 8:56 AM Performing Organization Address City/[facility] Phone Number SMS Lead, Whole Blood (Adult) (11/14/2019 1:14 PM PAINT PREP TECHNICIAN) Lead, Blood <1 0 - 4 ug/dL [facility] (Adult) Comment: Analysis by atomic absorption spectroscopy (AAS). Environmental E xposure: WHO Recommenda tion <20 Occupational Ex posure: OSHA Lead Std 40 CASIMIRO 30 Detect ion Limit = 1 Specimen Blood Narrative Performed At Performed at: 01 - [facility] [address] [place], [place] [id number] 143 Senior Grant Writer: Hemanth Frey MD, Phone: [phone] Performing Organization Address [facility] Phone Number [facility] [address] [place] [address] Syphilis Screen for Infection (11/13/2019 8:01 PM PAINT PREP TECHNICIAN) [facility] nature TPA Negative Negative, Equivocal [facility] Final Report Negative Negative [facility] Specimen Blood Performing Organization Address [facility] Phone Number [facility] [address] [place] [address] Vitamin D, 25-Hydroxycalciferol (11/13/2019 8:01 PM PAINT PREP TECHNICIAN) [facility] Vit D, 25-Hydroxy 33.8 30.0 - 100.0 [facility] ng/mL [facility] Vitamin D Sufficient Sufficient [facility] Interpretation Comment: LABORATORY Sufficient: >30.0 Insufficient: 20.0 - 29.9 Deficient: <20.0 Specimen Blood Performing Organization Address [facility] Phone Number [facility] [address] [place] [address] HIV-1/HIV-2 Routine Screening (11/13/2019 8:01 PM PAINT PREP TECHNICIAN) [facility] HIV Ag/Ab Combo Negative Negative [facility] Specimen Blood Performing Organization Address [facility] Phone Number [facility] [address] [place] [address] Folic Acid (11/13/2019 8:01 PM PAINT PREP TECHNICIAN) [facility] Folic Acid 14.1 5.9 - 24.8 ng/mL [facility] Specimen Blood Performing Organization Address [facility] Phone Number [facility] [address] [place] [address] Ferritin (11/13/2019 8:01 PM PAINT PREP TECHNICIAN) Pathologist [facility] Ferritin 60.2 11.0 - 306.8 ng/mL [facility] Specimen Blood Performing Organization Address [facility] Phone Number [facility] [address] [place] [address] [phone] Vitamin B12 (11/13/2019 8:01 PM PAINT PREP TECHNICIAN) [facility] Vitamin B12 894 See comment pg/mL [facility] Comment: Normal: 180-914 pg/mL Intermittent: 145-180 pg/mL Deficient: <=145.0 pg/mL Specimen Blood Performing Organization Address [facility] Phone Number [facility] [address] [place] [address] [phone] Valproic Acid (11/13/2019 8:01 PM PAINT PREP TECHNICIAN)Only the most recent of2 resultswithin the time period is included. [facility] Valproic Acid 67.2 50.0 - 100.0 ug/mL [facility] Specimen Blood Performing Organization Address [facility] Phone Number [facility] [address] [place] [address] [phone] Iron Profile (11/13/2019 8:01 PM PAINT PREP TECHNICIAN) [facility] Iron 114 50 - 212 ug/dL [facility] TIBC 319 250 - 450 ug/dL [facility] % Iron Sat 36 % [facility] Transferrin 228.14 203.00 - 362.00 mg/dL [facility] Specimen Blood Performing Organization Address [facility] Phone Number [facility] [address] [place] [address] [phone] Hepatitis Panel (11/13/2019 8:01 PM PAINT PREP TECHNICIAN) [facility] Hepatitis C Virus (HCV) Negative Negative [facility] RY Antibody Hep B Surface Ag Negative Negative [facility] Hep A Vir Ab IgM Negative Negative [facility] Hep B Core Ab IgM Negative Negative [facility] Specimen Blood Performing Organization Address [facility] Phone Number [facility] [address] [place] [address] [phone] ANASTACIO (11/13/2019 8:01 PM PAINT PREP TECHNICIAN) Pathologist Sig nature ANASTACIO Screen Negative Negative [facility] Specimen Blood Performing Organization Address City/State/Zipcode Phone Number [facility] [address] [place] [address] [phone] POCT Urine - (11/13/2019 9:36 AM PAINT PREP TECHNICIAN)Only the most recent of2 results within the time period is included. Pathologist Sig nature Control passed negative Test (11/13/2019 9:31 AM PAINT PREP TECHNICIAN)Only the most recent of2 resultswithin the time period is included. Pathologist Sig nature Negative Negative [facility] Specimen Urine Performing Organization Address City/State/Zipcode Phone Number [facility] [address] [place] [address] [phone] HEAD W/O CONTRAST (11/13/2019 9:26 AM PAINT PREP TECHNICIAN)Only the most recent of2 results within the [...] Rad/Mammog In - 11/13/2019 11 :25 AM PAINT PREP TECHNICIAN Exam : Head CT without contrast History: [...] MD, 11/13/2019 11:20 AM Performing Organization Address City/[facility] Phone Number [facility] POCT CREATININE POC docked device (11/13/2019 6:27 AM PAINT PREP TECHNICIAN) Creatinine POC 0.8Comment: 017 0.6 - 1.3 mg/dL [facility] GFR, Estimated >90 >=90 [facility] mL/min/1.73 m2 Specimen Blood, venous Performing Organization Address [facility] Phone Number [facility] [address] [place] [address] POCT BMP POC docked device (11/13/2019 6:26 AM PAINT PREP TECHNICIAN) Sodium POC 141 136 - 145 [facility] [...] Hematocrit POC 40.0 37.0 - 47.0 % [facility] Specimen Blood, venous Performing Organization Address [facility] Phone Number [facility] [address] [place] [address] 12 LEAD EKG (11/13/2019 5:20 AM PAINT PREP TECHNICIAN) [address] 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: [id number] : 1980 Requested By: NEELAM RASHID Order Number: [id number] Nathaniel dunbar MD: Dolores Walker Measu rements Intervals [place] Rate: 70 P: 49 MS: 162 QRS: 38 QRSD: 84 T: 7 QT: 377 QTc: 409 Interpretive S tatements SINUS RHYTHM NONSPECIFIC T-WAVE ABNORMALITY Electronically Signed On 11-13-2019 5:52:58 PAINT PREP TECHNICIAN by Hiren Walker Specimen Performing Organization Address [facility] Phone Number [facility] XRAY FOOT 3 VIEWS - ROUTINE (11/12/2019 11:10 PM PAINT PREP TECHNICIAN)Only the most recent of2 resultswithin the time period is included. Specimen Impressions Performed At IMPRESSION: [facility] No acute abnormalities. Plantar enthesopathy. If the [...] Rad/Mammog In - 11/13/2019 4 :04 AM PAINT PREP TECHNICIAN X-ray right ankle, 3 views X-ray right [...] AM Performing Organization Address City/State/Zipcode Phone Number [facility] XRAY ANKLE 3 VIEWS - ROUTINE (11/12/2019 11:10 PM PAINT PREP TECHNICIAN) Specimen Impressions Performed At IMPRESSION: [facility] No acute abnormalities. Plantar enthesopathy. If the [...] Rad/Mammog In - 11/13/2019 4 :04 AM PAINT PREP TECHNICIAN X-ray right ankle, 3 views X-ray right [...] AM Performing Organization Address City/State/Zipcode Phone Number [facility] CTA HEAD W CONTRAST (10/18/2019 12:51 AM PAINT PREP TECHNICIAN) Specimen Impressions Performed At IMPRESSION: SMS 1. [...] evaluation, multiplanar reconstruction, maximum intensity projections, and [employer] 3-D off-line postprocessing were obtained on a dedicated stand-alone work station under the direct supervision of the interpreting physicia n. IV Contrast 100 cc of Omnipaque. Complication: None Radiation dose: Total DLP: 1032 mGy*cm Estimated Effective Dose: DLP x 0.031 mS v FINDINGS: Head CT with contrast: No interval changes when compared to the previous CT. No enhancing abnormalities. CTA kenaitze of [place]: Carotid arteries: Patent, no abnormalities.. [...] Rad/Mammog In - 10/18/2019 1 :25 AM PAINT PREP TECHNICIAN Exams: Intracranial CT angiogram History: Headache, acute, [...] evaluation, multiplanar reconstruction, maximum intensity projections, and [employer] 3-D off-line postprocessing were obtained on a dedicated stand-alone work station under the direct supervision of the interpreting physicia n. IV Contrast 100 cc of Omnipaque. Complication: None Radiation dose: Total DLP: 1032 mGy*cm Estimated Effective Dose: DLP x 0.031 mS v FINDINGS: Head CT with contrast: No interval changes when compared to the previous CT. No enhancing abnormalities. CTA kenaitze of [place]: Carotid arteries: Patent, no abnormalities.. [...] Phone Number SMS Ammonia (10/17/2019 2:37 PM PAINT PREP TECHNICIAN) Pathologist Sig nature Ammonia 31.0 16.0 - 53.0 umol/L [facility] Specimen Blood Performing Organization Address City/State/Zipcode Phone Number [facility] [address] [place] [address] after 05/14/2019 Insurance Payer Benefit Plan / Subscriber ID Effective Dates Phone Addre ss Type Group [facility] SELF-PAY xxxxxxx 2020-20 [phone] [id number] SELF-PAY SCREENED [address] [place] [address] Advance Directives Code Status Date Activated Date Inactivated Comments Full Code 11/13/2019 6:17 PM 11/18/2019 4:30 PM
--- OUTSIDE RECORDS SUMMARY | 2020-05-14 11:24 | XMS REPORT | Continuity of Care Document ---
:1980 Author Organization [facility] t Address [address] [place] [address] Care Team Providers Name Role Phone Ashanti Agarwal MD Attending Clinician Alondra CARNES T Attending Clinician Mahnaz [place] MD Attending Clinician aCsey MENDOZA Attending Clinician Da Physician Attending Clinician Valencia Attending Clinician Johnie CARNES Attending Clinician Richie Attending Clinician Dustin CARNES P Attending Clinician Herber CARNES M Attending Clinician Alexx CARNES Attending Clinician Lexie Attending Clinician Jason Attending Clinician Herrera Attending Clinician Unavailable Eron Attending Clinician Unavailable Ace Attending Clinician Unavailable Opal Attending Clinician [phone] Acosta Attending Clinician Unavailable Opal Unavailable [phone] Payers Payer Name Policy Type Policy Number Effective Date Expiration Date Madhu gonzalez [facility] xxxxxxx 2020 2030 [facility] SELF-PAYSELF 00:00:00 23:59:59 -PAY SCREENEDxxxx xxx2020- 01/13/[id number]- [phone] [place] [address] [id number] 2019 2020 [facility] 00:00:00 00:00:00 [facility] Health [id number] 2019 2020 [facility] 00:00:00 00:00:00 [facility] Health Problems Condition Condition Condition Status Onset Resolution Last Treating Co mments Source Name Details Category Date Date Treatment Clinician Date BPPV BPPV Disease Active Francisco (benign (benign 308 Health paroxysmal paroxysmal 00:00: positional positional 00 vertigo), vertigo), left left Myopia - Condition Active 2019-05-19 aMrk Joseph egacy OU 05-19 15:30:00 Adimj Khoury [...] in adult adult Iron Iron Disease Active Francisco deficiency deficiency 04-28 He alth anemia anemia 00:00: 00 Gastroesop Gastroesop Disease Active H lissett hageal hageal 04-28 Health reflux reflux 00:00: disease disease 00 Homelessne Homelessne Disease Active H arrlaureano ss ss 04-28 Health 00:00: 00 Menorrhagi Menorrhagi Disease Active H arrlaureano a with a with 04-28 Health irregular irregular 00:00: cycle cycle 00 Blurry Blurry Disease Active Francisco vision, vision, Health bilateral bilateral Nonintract Nonintract Disease Active H arris able able Health headache headache Right foot Right foot Disease Active H arris pain pain Health Dizziness Dizziness Disease Active [facility] Palpitatio Palpitatio Disease Active H arris ns ns Health Syncope Syncope Disease Active [facility] Intermitte Intermitte Disease Active H arris nt [...] Allergie 06-03 Clear s 00:00: Sepulveda 00 [facility] Family History Family Member Diagnosis Comments Start Date Stop Date Source Natural father Heart [facility] Natural father Hypertension [facility] Natural mother Diabetes [facility] Natural mother Psychiatry [facility] Natural mother Stroke [facility] Natural sister Psychiatry [facility] Social History Social Habit Start Date Stop Date Quantity Comments Source Sex Assigned At [facility] Alcohol intake 2019-11-16 2019-11-16 Ex-drinker [facility] 00:00:00 00:00:00 (finding) time of call 2019-05-26 2019-05-26 05/26/2019 10:54 [facility] 10:54:05 10:54:05 AM Health Tobacco Comment 2019-02-17 2019-02-17 Stopped smoking [facility] 00:00:00 00:00:00 in 2018 Smoking Status Start Date Stop Date Source Former smoker 2019-11-16 00:00:00 2019-11-16 00:00:00 [facility] Medications Ordered Filled Start Stop Current Ordering Indication Dosage Frequency Signature Comments Components Source Medication Medication Date Date Medication? Clinician (SIG) Name Name omeprazole Yes Gastroesoph 20mg QD Take 1 Singh (PRILOSEC) 3-11 ageal capsule by Hugh monroy 20 mg 00:00: reflux mouth delayed 00 disease, every release esophagitis morning capsule presence (before not breakfast) specified . lurasidone 2020-0 Yes Take by [facility] is HCl (LATUDA 3-10 mouth. Health OR) 14:30: 02 meclizine 2020-0 Yes Intermitten 25mg Q.5D Take 1 Singh (ANTIVERT) 3-10 t tablet by [facility] 25 mg Tab 00:00: lightheaded mouth [...] Use 1 Singh propionate 2-25 allergic } [place] in H ealth (FLONASE) 00:00: rhinitis, each 50 00 unspecified nostril mcg/actuati trigger daily. on nasal spray loratadine 2020-0 Yes Seasonal 10mg QD Take 1 H arris (CLARITIN) 2-25 allergic tablet by [facility] 10 mg 00:00: rhinitis, mouth tablet 00 unspecified daily. trigger propranolol 2020-0 Yes Intractable 40mg Q.5D Take 1 Singh (INDERAL) 2-25 migraine tablet by ealt 40 mg 00:00: without mouth 2 tablet 00 status times migrainosus daily. , unspecified migraine type propranolol 2020-0 2020- No Intractable 20mg Q.5D Take 1 Singh (INDERAL) 2-25 02-25 migraine tablet by [facility] 20 mg 00:00: 00:00 without mouth 2 tablet 00 :00 status times migrainosus daily. , unspecified migraine type propranolol 2020-0 2020- No 40mg Q.5D Take 1 Adelso ris (INDERAL) 2-25 02-25 tablet by [facility] 40 mg 00:00: 00:00 mouth 2 tablet 00 :00 times daily. ferrous 2020-0 Yes Iron 325mg QD Take 1 [place] sulfate 325 2-10 deficiency tablet by [facility] mg (65 mg 00:00: anemia, mouth [...] 1 Francisco (IMITREX) 10-20 migraine tablet by [facility] 50 mg 00:00: 00:00 without mouth [...] Use 1 Francisco propionate 09-22 sinusitis, } [place] in [facility] (FLONASE) 00:00: 00:00 recurrence each 50 00 :00 not nostril mcg/actuati specified, daily. on nasal unspecified spray location ferrous 2019- No Iron 325mg QD Take 1 Singh sulfate 325 09-22 deficiency tablet by [facility] mg (65 mg 00:00: 00:00 anemia, mouth iron) 00 :00 unspecified daily tablet iron (with deficiency breakfast) anemia type . famotidine Gastroesoph 40mg Take 1 Francisco (PEPCID) 40 09-22 ageal tablet by H ealth mg tablet 00:00: 00:00 reflux mouth 00 :00 disease, daily as esophagitis needed for presence Heartburn. not specified doxycycline 2019- No Acute 100mg Q.5D Take 1 H arris (VIBRA-TABS 09-22 sinusitis, tablet by [facility] ) 100 mg 00:00: 23:59 recurrence mouth 2 tablet 00 :00 not times specified, daily for unspecified 10 days. location TRAZODONE Yes [facility] HCL 05-19 Communi (TRAZODONE 00:00: ty HCL TABS) 00 Health TABS DEPAKOTE Yes [facility] (DIVALPROEX 05-19 Communi SODIUM 00:00: ty TBEC) TBEC 00 [facility] EFFEXOR XR Yes [facility] (VENLAFAXIN 05-19 Communi E HCL) 75 00:00: ty MG 00 [facility] [id number] HYDROXYZINE Yes [facility] HCL 05-19 Communi (HYDROXYZIN 00:00: ty E HCL TABS) 00 Health TABS omeprazole 2020- No Gastroesoph 20mg Take 1 Singh (PRILOSEC) 04-28 ageal capsule by ealth 20 mg 00:00: 00:00 reflux mouth at delayed 00 :00 disease, bedtime release esophagitis nightly. capsule presence not specified ibuprofen 2019- No Pain, 400mg Take 1 Adelso ris (MOTRIN) 04-[address] [facility] 400 mg 00:00: 00:00 mouth tablet 00 :00 every 8 hours as needed for Pain. ferrous 2019- No Iron 325mg QD Take 1 Singh sulfate 325 04-28 deficiency tablet by [facility] mg (65 mg 00:00: 00:00 anemia, mouth iron) 00 :00 unspecified daily tablet iron (with deficiency breakfast) anemia type . traZODone Yes Insomnia, 50mg Take 1-2 Singh (DESYREL) 6-26 unspecified tablets by [facility] 50 mg 00:00: type mouth tablet 00 nightly at bedtime as needed for Sleep. venlafaxine Yes Bipolar 150mg QD Take 1 Singh (EFFEXOR 6-26 disorder in capsule by [facility] XR) 150 mg 00:00: partial mouth extended 00 remission, daily. release most recent capsule episode unspecified type hydrOXYzine Yes Anxiety 25mg Take 1 H arris (ATARAX) 25 6-[address] [facility] mg tablet 00:00: mouth 3 00 times daily as needed for Anxiety or Insomnia. divalproex Yes Bipolar 500mg Q.5D Take 1 H arris (DEPAKOTE) 6-26 disorder in tablet by [facility] 500 mg 00:00: partial mouth 2 delayed 00 remission, times release most recent daily. tablet episode unspecified type propranolol 2019- No Anxiety 40mg Q.5D Take 1 Singh (INDERAL) 6- 02- tablet by [facility] 40 mg 00:00: 00:00 mouth 2 tablet 00 :00 times daily. amitriptyli 2020- Bipolar 50mg Take 1 [place] ne (ELAVIL) 03-05 disorder in tablet by Health 50 mg 00:00: 00:00 partial mouth at tablet 00 :00 remission, bedtime most recent nightly. episode unspecified type Immunizations Ordered Immunization Filled Immunization Date Status Commen ts Source Name Name Influenza, Vaccine 2019-10-20 Completed [facility] <FLUCELVAX>(Preserva 00:00:00 tive-Free) Twinrix-HEP A&b 2019-03-05 Completed [facility] alth 00:00:00 Td <Unspecified> 2016-03-05 [facility] Vital Signs Vital Name Observation Time Observation Value Comments Source Heart rate 2019-11-26 15:13:00 72 /min [facility] Body temperature 2019-11-26 15:13:00 36.72 Navya [facility] Respiratory rate 2019-11-26 15:13:00 18 /min [facility] Oxygen saturation in 2019-11-26 15:13:00 100 /min [facility] Arterial blood by Pulse oximetry Systolic blood pressure 2019-11-26 11:17:00 108 mm[Hg] [facility] Diastolic blood pressure 2019-11-26 11:17:00 68 mm[Hg] [facility] Body height 2019-11-13 21:00:00 162.6 cm [facility] Body weight 2019-11-13 21:00:00 92.262 kg [facility] BMI 2019-11-13 21:00:00 34.91 kg/m2 [facility] Procedures Procedure Date / Time Performing Clinician Source Performed XRAY FOOT 3 VIEWS MIN 2019-11-26 14:00:00 Candie Bonilla [facility] XRAY ANKLE 3 VIEW MIN 2019-11-26 14:00:00 Candie Bonilla [facility] XRAY TIBIA AND FIBULA 2 2019-11-26 14:00:00 Candie Bonilla is Health VIEWS CBC/DIFF 2019-11-18 04:22:00 Timothy Baker [facility] BASIC METABOLIC PANEL 2019-11-18 04:22:00 Timothy Baker [facility] MAGNESIUM 2019-11-18 04:22:00 Timothy Baker [facility] CBC 2019-11-18 04:22:00 Timothy Baker [facility] CBC/DIFF 2019-11-17 03:46:00 Timothy Baker [facility] BASIC METABOLIC PANEL 2019-11-17 03:46:[address] [facility] 2019-11-17 03:46:00 Timothy Baker [facility] CBC 2019-11-17 03:46:00 Timothy Baker [facility] GLUCOSE POC 2019-11-16 15:54:00 Trip [place] h MRI BRAIN W/O CONTRAST 2019-11-16 14:46:18 Deshaun Waldron s [facility] CBC/DIFF 2019-11-16 03:44:00 Katarina-Juan JoseTimothy [facility] BASIC METABOLIC PANEL 2019-11-16 03:44:00 Katar[address]Juan [facility]Tim[address] [facility] MAGNESIUM 2019-11-16 03:44:00 Katarina-Juan JoseTimothy [facility] CBC 2019-11-16 03:44:00 GeorgieoTimothy [facility] XRAY SKULL 4 VIEWS MIN 2019-11-15 12:04:17 Deshaun Waldron s Health CBC/DIFF 2019-11-15 03:57:00 Katarina-Juan JoseTimothy [facility] BASIC METABOLIC PANEL 2019-11-15 03:57:00 Katarina-Juan Jose Timothy arris Health MAGNESIUM 2019-11-15 03:57:00 Fcoa-Juan Jose, Timothy [facility] CBC 2019-11-15 03:57:00 Fcoa-Juan JoseTimothy [facility] LEAD, WHOLE BLOOD 2019-11-14 13:14:00 Trip [place] a lt (ADULT) INFUSION PUMP 2019-11-14 09:21:01 Trip [place] h CBC/DIFF 2019-11-14 03:45:00 Preeta-Juan Jose, Timothy [facility] BASIC METABOLIC PANEL 2019-11-14 03:45:00 Deleija-Juan Jose, Timothy H arris Health MAGNESIUM 2019-11-14 03:45:00 KatarinaJuan Jose Timothy [facility] CBC 2019-11-14 03:45:00 KatarinaJuan Jose Timothy [facility] VALPROIC ACID 2019-11-13 20:01:00 GeorgieoTimothy [facility] BASIC METABOLIC PANEL 2019-11-13 20:01:00 KatarinaJuan Jose, Timothy [facility] FERRITIN 2019-11-13 20:01:00 EdnaJuan Jose Timothy [facility] IRON PROFILE 2019-11-13 20:01:00 KatarinaJuan Jose Timothy [facility] FOLIC ACID 2019-11-13 20:01:00 KatarinaJuan Jose, [facility] HIV AG/AB COMBO ROUTINE 2019-11-13 20:01:00 KatrainaJuan Jose Timothy [facility] SCREENING HEPATITIS PANEL 2019-11-13 20:01:00 KatarinaJuan Jose Timothy [facility] ANASTACIO 2019-11-13 20:01:00 KatarinaJuan Jose, Timothy [facility] SYPHILIS SCREEN FOR 2019-11-13 20:01:00 [facility] INFECTION VIT D, 25-HYDROXY 2019-11-13 20:01:00 [facility] B12 2019-11-13 20:01:00 Deshaun Waldron POCT URINE DIPSTICK - 2019-11-13 09:36:00 [facility] TEST 2019-11-13 09:31:[address] HEAD W/O CONTRAST 2019-11-13 09:26:47 [facility] 2019-11-13 06:27:00 Unknown, Provider Francisco Lee [facility] BMP POC 2019-11-13 06:26:00 Unknown, Provider Francisco Lee lt CBC/DIFF 2019-11-13 06:21:00 Neelam Germain CBC 2019-11-13 06:21:00 Neelam Germain [facility] EKG PROC 12 LEAD 2019-11-13 05:20:07 Neelam Germain [facility] EKG; TRACING ONLY GLUCOSE POC 2019-11-13 04:51:00 Naun Peñaian [facility] h XRAY ANKLE 3 VIEWS - 2019-11-12 23:10:00 Phillip Abraham [facility] ROUTINE XRAY FOOT 3 VIEWS - 2019-11-12 23:10:00 Phillip Abraham [facility] ROUTINE POCT URINE DIPSTICK - 2019-11-12 22:22:00 Phillip Abraham [facility] XRAY FOOT 3 VIEWS - 2019-10-25 21:38:36 Jennifer Vides [facility] ROUTINE CTA HEAD W CONTRAST 2019-10-18 00:51:16 Aries Mcintosh [facility] ealth CT HEAD W/O CONTRAST 2019-10-17 23:28:40 Aries Mcintosh [facility] VALPROIC ACID 2019-10-17 14:37:00 Frank Waldron [facility] h AMMONIA 2019-10-17 14:37:00 Frank Waldron Keith [facility] TEST 2019-10-17 13:12:00 Jennifer Vides [facility] BASIC METABOLIC PANEL 2019-10-17 12:07:00 Jennifer Vides [facility] CBC/DIFF 2019-10-17 12:07:00 Elham Videsah Nathaniel [facility] CBC 2019-10-17 12:07:00 [facility] Sphe[facility], SV, plano to 2019-05-20 09:06:19 Juanita Littlejohn [facility] +/- 4.00d sphere, 0.12 Health to 2.00d cyl, per lens Frames, purchases deluxe 2019-05-20 09:05:57 Juanita Littlejohn [facility] New Patient Intermediate 2019-05-19 15:29:33 Adi Joseph [facility] Opt - [id number] Health Vaccines Ordered - Print 2019-02-14 14:18:30 Macy Shane [facility] Consent/Declination Health Forms Vaccines Ordered - Print 2019-02-12 14:21:00 [facility] Forms Plan of Care Planned Activity Planned Date Details Comments Source Future Scheduled Test 2024-02-27 00:00:00 Screening for [facility] malignant neoplasm of cervix (procedure) [code = 296159521] Future Scheduled Test 2020-06-10 00:00:00 IMM Influenza [facility] Seasonal Jun to November (>/= 19 yrs) [code = IMM Influenza Seasonal Jun to November (>/= 19 yrs)] Encounters Start End Encounter Admission Attending Care Care Encounter Source Date/Time Date/Time Type Type Clinicians Facility Department ID 2020-03-02 2020-03-[address] [facility] [id number] [place] 00:00:00 00:00:00 [facility] 2019-11-26 2019-11-[address] [facility] [id number] [place] 13:47:57 13:47:57 [facility] 2019-11-26 2019-11-26 Emergency [facility] [id number] [place] 11:21:06 11:21:06 Health 2019-11-17 2019-11-17 Outpatient [facility] [id number] [facility] 00:00:00 00:00:00 2019-11-16 2019-11-[address] [facility] [id number] [place] 11:26:52 11:26:52 Health 2019-11-15 2019-11-[address] [facility] [id number] [place] 11:58:23 11:58:23 Health 2019-11-15 2019-11-[address] [facility] [id number] [place] 11:43:04 11:43:04 Health 2019-11-14 2019-11-[address] [facility] [id number] [place] 10:26:02 10:26:02 Health 2019-11-13 2019-11-[address] [facility] [id number] [place] 09:21:23 09:21:23 Health 2019-11-13 2019-11-13 Outpatient [facility] [id number] [place] 06:32:39 06:32:39 Health 2019-11-12 2019-11-[address] [facility] [id number] [place] 22:50:38 22:50:38 Health 2019-11-12 2019-11-12 Emergency [facility] [id number] [place] 19:42:14 19:42:14 Health 2019-11-04 2019-11-04 Outpatient [facility] [id number] [facility] 14:33:46 14:33:46 2019-10-31 2019-10-31 Outpatient [facility] [id number] [facility] 15:44:39 15:44:39 2019-10-25 2019-10-25 Emergency [facility] [id number] [place] 23:23:24 23:23:24 Health 2019-10-25 2019-10-[address] [facility] [id number] [place] 21:03:20 21:03:20 Health 2019-10-25 2019-10-[address] [facility] [id number] [place] 00:00:00 00:00:00 [facility] 2019-10-20 2019-10-20 Outpatient [facility] [id number] [facility] 13:26:36 13:26:36 2019-10-18 2019-10-[address] [facility] [id number] [place] 00:10:57 00:10:57 Health 2019-10-17 2019-10-[address] [facility] [id number] [place] 23:08:41 23:08:41 Health 2019-10-17 2019-10-17 Emergency [facility] [id number] [place] 12:52:25 12:52:25 [facility] 2019-09-24 2019-09-24 Outpatient [facility] [id number] [facility] 09:00:30 09:00:30 2019-09-08 2019-09-08 Office [place], [facility] Vision Encoun ter/ [facility] 00:00:00 00:00:00 Visit Della [id number] Com leighton [id number] [facility] 2019-05-26 2019-05-26 [facility] 00:00:00 00:00:00 Visit Juanita [id number] Com leighton [id number] [facility] 2019-05-26 2019-05-26 Office Graciela [facility] Public Enc ounter/ Legacy 00:00:00 00:00:00 Visit Roxanne schneider [facility] [id number] Or mmuni Services [id number] [facility] 2019-05-21 2019-05-21 Office Adi Joseph [facility] Vision Enc ounter/ Legacy 00:00:00 00:00:00 Visit [id number] Com leighton [id number] [facility] 2019-05-19 2019-05-19 [facility]/ [facility] 00:00:00 00:00:00 Visit Juanita [id number] Com leighton [id number] [facility] 2019-05-19 2019-05-19 Office Adi Joseph [facility] Vision Enc ounter/ Legacy 00:00:00 00:00:00 Visit [id number] Com leighton [id number] [facility] 2019-05-19 2019-05-19 Office Adi Joseph [facility] Vision Enc ounter/ Legacy 00:00:00 00:00:00 Visit [id number] Com leighton [id number] [facility] 2019-05-19 2019-05-19 Office Adi Joseph [facility] Vision Enc ounter/ Legacy 00:00:00 00:00:00 Visit [id number] Com leighton [id number] [facility] 2019-05-19 2019-05-19 Office Adi Joseph [facility] Vision Enc ounter/ Legacy 00:00:00 00:00:00 Visit Juanita Littlejohn [id number] Communi [id number] [facility] 2019-02-14 2019-02-14 Office [facility] Adult Encoun ter/ [facility] 00:00:00 00:00:00 Visit [facility] [id number] Co mmuni [id number] [facility] 2019-02-12 2019-02-12 Office [facility] Adult Encoun ter/ [facility] 00:00:00 00:00:00 Visit [facility] [id number] Co mmuni [id number] [facility] 2019-02-12 2019-02-12 Office [facility] Adult Encoun ter/ [facility] 00:00:00 00:00:00 Visit [facility] [id number] Co mmuni [id number] [facility] Results Test Description Test Test Results Result [...] any concentrations <2 ng/mL are obtained.Performed At: [address] [id number] Hemanth Flores MD Ph:[phone] Novel Coronavirus 2020-02- Not DetectedTesting was (COVID-19), YOLANDA 04 performed using the miguel(R) LC 10:12:58 SARS-CoV-2 test.This test was developed and its performance characteristicsdetermined by [employer]. This test has not beenFDA cleared or [...] (not detected) result in this assay.Performed At: [facility] [id number] [place], [place] [id number] Sanjai MD Ph:[phone] Ferritin 2020-02-11 09:17:16 Test Item Value Reference Range Interpretation Comme nts Ferritin Level (test code = Ferritin Level) 18 ng/mL 13-150 Basic Metabolic [id number] 06:58:24 Test Item Value Reference Range Interpretation [...] ag e have not been validated by [facility] MDRD study and should be [...] ag e have not been validated by [facility] MDRD study and should be interpreted wit h caution. eGFR R esult Interpretation: eGFR > or = 60 is in the Normal RangeeGF R < 60 may mean kid carmelina diseaseeGFR < 1 5 may mean kidney failure Rang es recommended by the National Kidney Foundation, http://nkdep.ni h.gov Hepatic Function [id number] 05:35:45 Test Item Value Reference Range Interpretation [...] 2.8 g/dL 2.9-3.1 L = Globulin) Lactate [id number] 05:35:45 Test Item Value Reference Range Interpretation Comments LDH (test code = LDH) 206 U/L 135-214 C Reactive [id number] 05:35:45 Test Item Value Reference Range Interpretation Comments CRP (test code = CRP) 6.4 mg/L 0.0-5.0 H Lactic Acid, Plasma (Venous)2020-02-11 05:12:57 Test Item Value Reference Range Interpretation Comments Lactic Acid, Plasma (Venous) (test 0.7 mmol/L 0.5-1.9 code = Lactic Acid, Plasma (Venous)) Fibrinogen [id number] 05:04:01 Test Item Value Reference Range Interpretation Comments Fibrinogen Level (test code = 226.0 mg/dL 188.5-473.8 Fibrinogen Level) D-Dimer [id number] 05:04:01 Test Item Value Reference Range Interpretation Comments D Dimer, (Quant.) (test code = D 406 ng/mL 0-500 Dimer, (Quant.)) Complete Blood Count with [id number] 04:56:23 Test Item Value Reference Range Interpretation [...] lled to and read back b y: Radha RN 02/11/2020 04:56:13 CDT CE MPV (test code = 9.1 fL N MPV) Slide Review (test Auto Auto Result cr eated by code = Slide Review) GL_SJM_ SLIDE_REV_AUTO nRBC (test code = 0 N nRBC) NRBC Abs (test code 0.00 x10 N = NRBC Abs) IPF (test code = 0 % N IPF) Automated [id number] 04:56:23 Test Item Value Reference Range Interpretation Comments Neutro Auto (test code = Neutro 45.7 % 36.0-70.0 Auto) Lymph Auto (test code = Lymph Auto) 39.7 % 12.0-44.0 [place] Auto (test code = [place] Auto) 10.7 % 0.0-11.0 Eos, Auto (test code = Eos, Auto) 2.9 % 0.0-7.0 Basophil Auto (test code = Basophil 0.5 % 0.0-2.0 Auto) Neutro Absolute (test code = Neutro 3.0 x10 1.6-7.4 Absolute) Lymph Absolute (test code = Lymph 2.61 x10 .50-4.60 Absolute) [place] Absolute (test code = [place] .70 x10 .00-1.20 Absolute) Eos Absolute (test code = Eos 0.19 x10 0.00-0.74 Absolute) Baso Absolute (test code = Baso 0.03 x10 0.00-0.21 Absolute) IG [id number] 04:56:23 Test Item Value Reference Range Interpretation Comments IG (test code = IG) 0.5 % 0.0-5.0 IG Abs (test code = IG Abs) 0 x10 N Comprehensive Metabolic [id number] 15:04:07 Test Item Value Reference Range Interpretation [...] National Kidney Foundation, http://nkdep.ni h.gov C Reactive Xzkkrkm0768-09-50 12:02:24 Test Item Value Reference Range Interpretation Comments CRP (test code = CRP) 2.8 mg/L 0.0-5.0 Automated Nyojvufmucvg6271-22-53 10:31:00 Test Item Value Reference Range Interpretation Comments Neutro Auto (test code = Neutro 49.7 % 36.0-70.0 Auto) Lymph Auto (test code = Lymph Auto) 31.5 % 12.0-44.0 [place] Auto (test code = [place] Auto) 12.3 % 0.0-11.0 H Eos, Auto (test code = Eos, Auto) 5.5 % 0.0-7.0 Basophil Auto (test code = Basophil 0.6 % 0.0-2.0 Auto) Neutro Absolute (test code = Neutro 2.3 x10 1.6-7.4 Absolute) Lymph Absolute (test code = Lymph 1.48 x10 .50-4.60 Absolute) [place] Absolute (test code = [place] .58 x10 .00-1.20 Absolute) Eos Absolute (test code = Eos 0.26 x10 0.00-0.74 Absolute) Baso Absolute (test code = Baso 0.03 x10 0.00-0.21 Absolute) IG [id number] 10:31:00 Test Item Value Reference Range Interpretation Comments IG (test code = IG) 0.4 % 0.0-5.0 IG Abs (test code = IG Abs) 0 x10 N Complete Blood Count with Xgvgeafctwyb0631-97-91 10:30:59 Test Item Value Reference Range Interpretation [...] code = IPF) 0 % N Urine Vwdikvn9394-32-80 10:00:32 C Urine Added by GL_SJM_UA_CUL_IND>=100,000 cfu/ml Diphtheroids 10,000 cfu/ml Gamma Streptococcus <10,000 cfu/ml Alpha Streptococcus Multiple organisms present, no further workup in progress. Fibrinogen Yigyv7823-57-80 23:35:18 Test Item Value Reference Range Interpretation Comments Fibrinogen Level (test code = 226.0 mg/dL 188.5-473.8 Fibrinogen Level) Tpsgxnyo0761-97-62 23:32:29 Test Item Value Reference Range Interpretation Comments Ferritin Level (test code = Ferritin 17 ng/mL 13-150 Level) Lactate Wzyysjqrestrx9439-05-45 22:35:45 Test Item Value Reference Range Interpretation Comments LDH (test code = LDH) 246 U/L 135-214 H C Reactive Iufvuwl4554-66-74 22:35:45 Test Item Value Reference Range Interpretation Comments CRP (test code = CRP) 2.8 mg/L 0.0-5.0 Complete Blood Count with Uwlbbwdmbnue7114-52-52 22:00:38 Test Item Value Reference Range Interpretation [...] code = 0 % N IPF) Automated Owpuinxlewfb9222-44-18 22:00:38 Test Item Value Reference Range Interpretation Comments Neutro Auto (test code = Neutro 45.4 % 36.0-70.0 Auto) Lymph Auto (test code = Lymph Auto) 37.4 % 12.0-44.0 [place] Auto (test code = [place] Auto) 11.4 % 0.0-11.0 H Eos, Auto (test code = Eos, Auto) 4.6 % 0.0-7.0 Basophil Auto (test code = Basophil 0.7 % 0.0-2.0 Auto) Neutro Absolute (test code = Neutro 2.8 x10 1.6-7.4 Absolute) Lymph Absolute (test code = Lymph 2.27 x10 .50-4.60 Absolute) [place] Absolute (test code = [place] .69 x10 .00-1.20 Absolute) Eos Absolute (test code = Eos 0.28 x10 0.00-0.74 Absolute) Baso Absolute (test code = Baso 0.04 x10 0.00-0.21 Absolute) IG Kmtks2574-48-01 22:00:38 Test Item Value Reference Range Interpretation Comments IG (test code = IG) 0.5 % 0.0-5.0 IG Abs (test code = IG Abs) 0 x10 N Troponin [id number] 19:40:14 Test Item Value Reference Range Interpretation [...] of chronic myocard ial injury. Urine Drug Facsgt6519-87-20 19:31:13 Test Item Value Reference Range Interpretation [...] matory test if desired . HCG Qualitative Fzrjv7261-16-95 19:08:08 Test Item Value Reference Range Interpretation Comments HCG, Serum Qual (test code = HCG, Negative Serum Qual) Lot # (test code = Lot #) [id number] N Expiration Dt (test code = 2021-07-10 N Expiration Dt) Neg Control (test code = Neg Negative Control) Pos Control (test code = Pos Positive Control) Internal QC (test code = Internal Acceptable QC) Urinalysis Bukjpwqotqi5950-53-32 19:04:03 Test Item Value Reference Range Interpretation Comments UA WBC (test code = UA WBC) None Seen 0-5 UA RBC (test code = UA RBC) 6-10 0-5 A UA Bacteria (test code = UA Few A Bacteria) UA Squam Epithelial (test code = UA 20-29 A Squam Epithelial) Comprehensive Metabolic Qgmbk2262-25-73 19:03:43 Test Item Value Reference Range Interpretation [...] A/G 1.3 ratio N Ratio) Comprehensive Metabolic Byabv7637-55-80 19:03:43 Test Item Value Reference Range Interpretation [...] the National Kidney Foundation, http://nkdep.ni h.gov Alcohol Lpeai9164-70-42 19:03:43 Test Item Value Reference Range Interpretation Comments Ethanol Level (test <0.00 g/dL 0.00-0.01 Intoxica ginger 0.080 g/dL code = Ethanol or more Level) Ethanol Inst (test <0 N code = Ethanol Inst) Comprehensive Metabolic Zatsi7887-86-98 19:03:43 Test Item Value Reference Range Interpretation [...] Foundation, http://nkdep.ni h.gov XR Chest 1 View Mwicjtc5527-96-67 18:52:37Patient: SOURAV BEY Date/Time02/09/202018:31 CDTReason for ExamShortness of breathReportDICTATION LOCATION: [id number]: Female, 39 years of age with Shortness [...] Signature): 02/09/2020 6:52 pmUrinalysis with Culture, if widsjkteb1851-19-72 18:46:10 Test Item Value Reference Range Interpretation [...] Micro Indicated Not Indicated A Ind?) IG Owzxp2984-30-89 18:42:20 Test Item Value Reference Range Interpretation Comments IG (test code = IG) 0.7 % 0.0-5.0 IG Abs (test code = IG Abs) 0 x10 N Complete Blood Count with Dydqqjisozxk3606-46-25 18:42:19 Test Item Value Reference Range Interpretation [...] code = IPF) 0 % N Automated Njpdkcxujceq2937-63-60 18:42:19 Test Item Value Reference Range Interpretation Comments Neutro Auto (test code = Neutro 43.0 % 36.0-70.0 Auto) Lymph Auto (test code = Lymph Auto) 39.3 % 12.0-44.0 [place] Auto (test code = [place] Auto) 11.4 % 0.0-11.0 H Eos, Auto (test code = Eos, Auto) 4.9 % 0.0-7.0 Basophil Auto (test code = Basophil 0.7 % 0.0-2.0 Auto) Neutro Absolute (test code = Neutro 2.4 x10 1.6-7.4 Absolute) Lymph Absolute (test code = Lymph 2.17 x10 .50-4.60 Absolute) [place] Absolute (test code = [place] .63 x10 .00-1.20 Absolute) Eos Absolute (test code = Eos 0.27 x10 0.00-0.74 Absolute) Baso Absolute (test code = Baso 0.04 x10 0.00-0.21 Absolute) XRAY TIBIA AND FIBULA 2 GPIKF7567-61-66 14:17:40IMPRESSION: No acute abnormality seen in the [...] 11/26/2019 2:17 PMHarris HealthXRAY ANKLE 3 VIEW [id number] 14:17:40IMPRESSION: No acute abnormality seen in the [...] 11/26/2019 2:17 PMHarris HealthXRAY FOOT 3 VIEWS [id number] 14:17:40IMPRESSION: No acute abnormality seen in the right tibia and fibula, ankle and foot. Signed By: Janet Wilson MD, 11/26/2019 2:17 PM Interface, Naga/Adalgisaog In - 11/26/2019 2:22 PM CDTRIGHT TIBIA [...] foot.Signed By: Janet Wilson MD, 11/26/2019 2:17 [facility], Whole Blood (Adult)2019-11-20 08:12:00 Test Item Value Reference Range Interpretation Comments Lead, Blood <1 0-4 Analysis by yonis malu (Adult) (test absorption code = spectroscopy (A ). 07007-2) Environmental Exposure: WH O Recommendation <20 Occupational Exposure: OS MORENO Lead Std 40 CASIMIRO 30 Detectio n Limit = 1 KARIS (test code Performed at: 01 = KARIS) - [facility] [address] [place], [place] [id number] Director: Hemanth Frey MD, Phone: [phone] [facility] Metabolic Yjvmc6062-38-31 05:35:00 Test Item Value Reference Range Interpretation Comments Sodium (test code = 2951-2) 138 mmol/L 136-145 Potassium (test code = 2823-3) 4.4 mmol/L 3.5-5.1 Chloride (test code = 2075-0) 104 mmol/L 98-107 CO2 (test code = 36417418) 28 mmol/L 21-31 Urea Nitrogen (test code = 23.0 mg/dL 7-25 58754230) Creatinine (test code = 0.8 mg/dL 0.6-1.2 71333237) Glucose (test code = 74185988) 85 mg/dL 70-110 Calcium (test code = 94185858) 8.4 mg/dL 8.6-10.3 L GFR, Estimated (test code = 80 >=90 mL/min/1.73 m2 L 17735226) Anion Gap (test code = 6 mmol/L 5-16 37876671) Lab Interpretation (test code Abnormal = 28639-4) [facility]DylypaAdnmygvwu8041-06-36 05:35:00 Test Item Value Reference Range Interpretation Comments Magnesium (test code = 25897553) 1.8 mg/dL 1.9-2.7 L Lab Interpretation (test code = Abnormal 87904-8) [facility] AdministrationCBC/Lcok8968-33-22 05:11:00 Test Item Value Reference Range Interpretation [...] g/dL 32-36 L RDW (test code = 03594-4) 48.0 fL 36.4-46.3 H Platelet (test code = 777-3) 208 K/uL 150-400 Mean Platelet Volume (test code = 10.1 fL 9.4-12.4 89659-0) Percent NRBC (test code = 04347949) 0.0 % Neutrophil (test code = 770-8) 55.3 % 34-70 Lymphs (test code = 736-9) 31.9 % 20-50 Monocytes (test code = 5905-5) 10.2 % 5-12 Eos (test code = 713-8) 1.4 % 0.7-5 Basos (test code = 706-2) 0.4 % 0.1-1.2 Immature Granulocytes (test code = 0.8 % 0-0.5 H 72032939) Neutrophils (Absolute) (test code = 4.65 K/uL 1.56-6.13 46387882) Lymphs (Absolute) (test code = 2.68 K/uL 1.18-3.74 77250287) Monocytes(Absolute) (test code = 0.86 K/uL 0.24-0.36 H 32414650) Eos (Absolute) (test code = 0.12 K/uL 0.04-0.36 11694160) Baso (Absolute) (test code = 0.03 K/uL 0.01-0.08 03659751) Immature Grans (Abs) (test code = 0.07 K/uL 0-0.03 H 93233083) Absolute NRBC (test code = 0.00 K/uL 71640566) Lab Interpretation (test code = Abnormal 23769-6) [facility] BRAIN W/O KDXQJXFF7872-17-25 16:11:53IMPRESSION: 1. No acute intracranial abnormality.2. No [...] T1 and T2 flair, gradient echo, Coronal E4Qrier, DWI and ADCContrast: NoneComplic ations: NoneFINDINGS: Scalp: [...] this report.SignedBy: Blayne Burgos MD, 11/17/2019 4:11 PMFormerly [facility] GLUCOSE POC docked idguuy8752-18-22 15:55:00 Test Item Value Reference Range Interpretation Comments Glucose POC (test code = 32249600) 115 mg/dL 74-106 H Lab Interpretation (test code = Abnormal 32542-5) [facility] AdministrationX[facility] SKULL 4 VIEWS ARB4265-51-87 08:56:41IMPRESSION: Punctate metallic fragments are seen in [...] this report.Signed By: Gemma Martinez MD,11/16/2019 8:56 [facility] SystemEeswwbPHF4005-50-12 15:22:00 Test Item Value Reference Range Interpretation Comments ANASTACIO Screen (test code = 00225748) Negative Negative Lab Interpretation (test code = Normal 50010-0) [facility] AdministrationHepatitis Jpfrf5906-67-98 14:02:00 Test Item Value Reference Range Interpretation Comments Hepatitis C Virus (HCV) Antibody Negative Negative (test code = 49998-0) Hep B Surface Ag (test code = Negative Negative 5196-1) Hep A Vir Ab IgM (test code = Negative Negative 35602-5) Hep B Core Ab IgM (test code = Negative Negative 81165-4) Lab Interpretation (test code = Normal 02480-7) [facility] AdministrationVitamin B120964-20-12 11:52:00 Test Item Value Reference Range Interpretation Comments Vitamin B12 (test code 894 pg/mL See comment Esther l: 180-914 = 65104022) pg/mLIntermitte nt: 145-180 pg/mLDeficient: <=145.0 pg/mL [facility] AdministrationSyphilis Screen for Jdlrblnmm6279-20-83 08:39:00 Test Item Value Reference Range Interpretation Comments TPA (test code = 10734-4) Negative Negative, Equivocal Final Report (test code = Negative Negative 68899-5) Lab Interpretation (test code = Normal 94969-4) [facility] AdministrationVitamin D, 26-Onckbfysmjjihswbo7730-13-06 08:06:00 Test Item Value Reference Range Interpretation Comments Vit D, 25-Hydroxy (test 33.8 ng/mL 30-100 code = 80471962) Vitamin D Interpretation Sufficient Sufficient Saucedo fficient: (test code = 78638657) >30.0 Insufficient: 20.0 - 29.9Deficient: <20.0 Lab Interpretation (test Normal code = 82759-6) [facility] AdministrationHIV-1/HIV-2 Routine Rsbpqycso9809-75-03 21:34:00 Test Item Value Reference Range Interpretation Comments HIV Ag/Ab Combo (test code = Negative Negative 12926-7) Lab Interpretation (test code = Normal 05880-9) [facility] AdministrationFolic Euxa6309-61-66 21:33:00 Test Item Value Reference Range Interpretation Comments Folic Acid (test code = 81203039) 14.1 ng/mL 5.9-24.8 Lab Interpretation (test code = Normal 08797-9) [facility] AdministrationQshskpYdlmiedj6850-98-15 21:26:00 Test Item Value Reference Range Interpretation Comments Ferritin (test code = 06917123) 60.2 ng/mL 11-306.8 Lab Interpretation (test code = Normal 40818-8) [facility] AdministrationIron Xtnjtgp7238-79-58 21:07:00 Test Item Value Reference Range Interpretation Comments Iron (test code = 14560984) 114 ug/dL 50-212 TIBC (test code = 13446722) 319 ug/dL 250-450 % Iron Sat (test code = 36 % 29713037) Transferrin (test code = 228.14 mg/dL 203-362 19868898) [facility] AdministrationValproic Akll8895-05-36 21:07:00 Test Item Value Reference Range Interpretation Comments Valproic Acid (test code = 67.2 ug/mL 50-100 08644106) Lab Interpretation (test code = Normal 72353-6) [facility] HEAD W/O KDISRVBS8689-53-13 11:20:20IMPRESSION: No acute abnormalities. No change from [...] report.Signed By: Wendy Craft MD, 11/13/2019 11:20 [facility] HealthPregnancy Ikny0578-70-30 09:57:00 Test Item Value Reference Range Interpretation Comments (test code = 21776914) Negative Negative Lab Interpretation (test code = Normal 06142-0) [facility] Urine - Ldkshwxdm8281-67-87 09:36:00 Test Item Value Reference Range Interpretation Comments Control (test code = 7172) passed (test code = 7173) negative Lab Interpretation (test code = Normal 87908-3) [facility] CREATININE POC docked kuepsa6030-87-33 06:31:00 Test Item Value Reference Range Interpretation Comments Creatinine POC (test code = 0.8 mg/dL 0.6-1.3 017 42416711) GFR, Estimated (test code = >90 >=90 mL/min/1.73 m2 12133563) Lab Interpretation (test code = Normal 59844-0) [facility] BMP POC docked niorma5657-81-20 06:30:00 Test Item Value Reference Range Interpretation Comments Sodium POC (test code = 05391693) 141 mmol/L 136-145 Potassium POC (test code = 4.5 mmol/L 3.5-5.1 99622286) Chloride POC (test code = 102 mmol/L 98-107 80431979) TCO2 POC (test code = 55224083) 32 mmol/L 21-32 017 Urea Nitrogen POC (test code = 19 mg/dL 7-18 H 53059638) Glucose POC (test code = 81317887) 86 mg/dL 74-106 Hemoglobin POC (test code = 13.6 g/dL 12-16 97054613) Hematocrit POC (test code = 40.0 % 37-47 60227854) Lab Interpretation (test code = Abnormal 36234-6) [place] [address] LEAD FZP9414-13-86 05:53:0112 LEAD EKG FOR [facility] Test Date: 8823-15-12Ala Name: SOURAV BEY Department: 5520Patient ID: [id number] Room: Gender: F [place]: [id number]: 1980 Requested By: NEELAM GERMAIN Order Number: [id number] Reading MD: Dolores Walker MeasurementsIntervals [place] Rate: 70 P: 49PR: 162 QRS: 38QRSD: 84 T: 7QT: 377 QTc: 409 Interpretive StatementsSINUS RHYTHMNONSPECIFIC T-WAVE ABNORMALITYElectronically Signed On 11-13-2019 5:52:58 CLUB ATTENDANT by Dolores NathanMeadville Medical CenterXRAY ANKLE 3 VIEWS - JCVEDXU7674-09-99 03:59:29 IMPRESSION: No acute abnormalities.Plantar enthesopathy. If the report is "FINALIZED" it indicates that the attending/staffradiologist has reviewed the images and agrees with the resident'sinterpretation. Dictated By: Shakir Boyer MD, 11/13/2019 12:55 AM I have reviewed the study and agree with the findings in this report. Signed By: Nixon Gabriel DO, 11/13/2019 3:59 AM Interface, Rad/Mammog In - 11/13/2019 4:04 AM CSTX-ray right [...] report.Signed By: Nixon Gabriel DO, 11/13/2019 3:59 AMHarris HealthXRAY FOOT 3 VIEWS - ANETDJJ2987-51-16 03:59:29IMPRESSION: No acute abnormalities.Plantar enthesopathy. If the [...] report.Signed By: Nixon Gabriel DO, 11/13/2019 3:59 [facility] HealthCTA HEAD W GJTSSCDS5647-78-97 01:20:17 IMPRESSION: 1. Severely hypoplastic right vertebral [...] compared to the previous CT.No enhancing abnormalities.CTA [place]: Carotid arteries:Patent, no abnormalities.. Vertebrobasilar [...] report.Signed By: Wendy Craft MD, 10/18/2019 1:20 [facility] HospitalKjrqofAdkrpil3244-53-89 16:24:00 Test Item Value Reference Range Interpretation Comments Ammonia (test code = 40548054) 31.0 umol/L 16-53 Lab Interpretation (test code = Normal 84512-0) [facility] hs5826-[facility]-09 14:09:10 Test Item Value Reference Range Interpretation Comments PPD results in mm (test code = 842457) 0 mm [facility]- [facility] CHEST 1 [id number] 12:29:00 FAX: Cali Ramos MD [phone] [place]: St: REG Name: SOURAV BEY [facility] : 1980 Age/S: 38/F [address] [facility] Unit#: [id number] [place]: [place]: [place] [id number] Acct: [id number] Dis Date: Status: REG ER PHONE #: [phone] Exam Date: 12/06/2018 1205 FAX #: [phone] Reason: hyperventilation EXAMS: CPT CODE: [id number] XR CHEST 1 V 83002 Chest Radiograph History: hyperventilation Comparison: None at this time Location: R16 A single frontal view of the chest is submitted. The heart is within normal limits in size. Pulmonary vasculature is unremarkable. The visualized lung christensen appear to be free of disease. The bones appear unremarkable. IMPRESSION: There is no radiographic evidence of acute cardiopulmonary disease. at 8294 Reported and signed by: Mathew Vazquez M.D. CC: Cali Ramos MD Technologist: JOSUE Gamblemird Date/Time/By: 12/06/2018 (9156) : By: HermelindoPMT PAGE 1 Signed Report FAX: Cali Ramos MD [phone] [place]: St: REG Name: SOURAV BEY [facility] : 1980 Age/S: 38/F [address] Unit #: [id number] Loc: [place], [place]: [place] [address] Acct: [id number] Dis Date: Status: REG ER PHONE #: [phone] Exam Date: 12/06/2018 1205 FAX #: [phone] Reason: hyperventilation EXAMS: CPT CODE: [id number] XR CHEST 1 V 46483 <Continued> Orig Print D/T: S: 12/06/2018 (4772) PAGE 2 Signed ReportURINALYSIS [id number] 12:27:00 Test Item Value Reference Range Interpretation [...] (test code = FEW NONE BACU) URINALYSIS MOPSAIPQ8532-48-38 12:18:00 Test Item Value Reference Range Interpretation [...] DIPSTICK (test NEGATIVE Rik/micL NEGATIVE code = SEREINTY) UA PH DIPSTICK (test code = 8.0 [...] NONE BACU) - CT ABD PELVIS W/O [id number] 10:32:00 FAX: Addie Mccarthy MD [phone] [place]: St: REG Name: SOURAV BEY [facility] : 1980 Age/S: 38/F [address] [facility] Unit: [id number] Loc: [place], [place]: [place] [address] Acct: [id number] Dis Date: Status: REG ER PHONE #: [phone] Exam Date: 11/22/2018 1012 FAX #: [phone] Reason: LOW BACK/ FLANK PAIN WITH URINARY SX EXAMS: CPT CODE: [id number] CT ABD PELVIS W/O CONT 90076 HISTORY: Low back pain, flank pain with [...] Signed Report (CONTINUED) FAX: Addie Mccarthy MD [phone] [place]: St: REG Name: SOURAV BEY [facility] : 1980 Age/S: 38/F [address] [facility] Unit: [id number] Loc: [place], [place] Phys: Addie Mccarthy D [address] Acct: [id number] Dis Date: Status: REG ER PHONE #: [phone] Exam Date: 11/22/2018 1012 FAX #: [phone] Reason: LOW BACK/ FLANK PAIN WITH URINARY SXEXAMS: CPT CODE: [id number] CT ABD PELVIS W/O CONT 58839 <Continued> Correlate for any pancreatic enzymeabnormalities as [...] M.D. CC:Addie Mccarthy MD Technologist: JAMES GERARD [facility] D[facility]/Tm: 11/22/2018 (1032) t.TUM Orig Print D/T: S: 11/22/2018(1035 PAGE 2 Signed ReportBASIC METABOLIC [id number] 09:28:00 Test Item Value Reference Range Interpretation [...] N Specimen comments: Clean CatchHEPATIC FUNCTION PANEL [id number] 09:28:00 Test Item Value Reference Range Interpretation [...] N code = ALKP) Specimen comments: Clean JapbkNJVZZU4116-40-03 09:28:00 Test Item Value Reference Range Interpretation Comments LIPASE (test code = LIP) 123 Units/L 65.0-230.0 N Specimen comments: Clean CatchHCG SERUM [id number] 09:28:00 Test Item Value Reference Range Interpretation Comments HCG SERUM QUAL (test code = HCGQL) NEGATIVE NEGATIVE Specimen comments: Clean CatchPROTHROMBIN [id number] 09:26:00 Test Item Value Reference Range Interpretation Comments PROTHROMBIN TIME 10.7 SECONDS 9.9-12.8 N PATIENT (test code = PTP) INTERNATIONAL NORMAL 0.9 0.89-1.14 N THE INR IS TO BE USED RATIO (test code = ONLY FOR MONITORING INR) ORAL ANTICOAGULANTTH ERAPY. THE FOLLOWING A RE SUGGESTED RANGE S FROM THEB[facility]ITALAN [facility] LEGE OF CHEST PHYSICIANS:CARMEN CATION INR VALUEPROPHYLAXI S OF VENOUS THROMBOS IS (ORTHOPEDIC ALHAJI KIMI) 2.0 - 3.0PROP HYLAXIS OF VENOUS THROM BOSIS (OTHER THAN HIG H-RISK SURGERY) 2.0 - 3.0TRE ATMENT OF DEEP VEIN THROMBOSIS OR PULMONARY EMBOL ISM 2.0 - 3.0PREV ENTION OF SYSTEMIC EMB OLISM TISSUE HEART VA LVES 2.0 - 3.0 AC [place] MYOCARDIAL INFA RCTION (TO PREVENT SYSTEMIC EMBOLI [...] - 3 .5 Specimen comments: Clean CatchURINALYSIS [id number] 09:23:00 Test Item Value Reference Range Interpretation [...] = TRICHU) Specimen comments: Clean CatchBASIC METABOLIC [id number] 09:23:00 Test Item Value Reference Range Interpretation [...] = CA) mg/dl 8.0-10.5 Specimen comments: Clean [place] [employer] GroupHEPATIC FUNCTION PANEL [id number] 09:23:00 Test Item Value Reference Range Interpretation [...] 50.0-136.0 code = ALKP) Specimen comments: Clean [id number] 09:23:00 Test Item Value Reference Range Interpretation Comments LIPASE (test code = LIP) Units/L 65.0-230.0 Specimen comments: Clean CatchHCG SERUM [id number] 09:23:00 Test Item Value Reference Range Interpretation Comments HCG SERUM QUAL (test code = HCGQL) NEGATIVE NEGATIVE Specimen comments: Clean [place] [employer] Chain Management GroupBASIC METABOLIC [id number] 09:21:00 Test Item Value Reference Range Interpretation [...] 8.0-10.5 Specimen comments: Clean CatchHEPATIC FUNCTION PANEL [id number] 09:21:00 Test Item Value Reference Range Interpretation [...] 50.0-136.0 code = ALKP) Specimen comments: Clean [id number] 09:21:00 Test Item Value Reference Range Interpretation Comments LIPASE (test code = LIP) Units/L 65.0-230.0 Specimen comments: Clean CatchHCG SERUM [id number] 09:21:00 Test Item Value Reference Range Interpretation Comments HCG SERUM QUAL (test code = HCGQL) NEGATIVE NEGATIVE Specimen comments: Clean CatchURINALYSIS [id number] 09:17:00 Test Item Value Reference Range Interpretation [...] NONE BACU) Specimen comments: Clean CatchCBC W/AUTO [id number] 09:11:00 Test Item Value Reference Range Interpretation [...]
[2020-05-14] MEDS ORDERED: HYDROCODONE/APAP 7.5/325 MG TAB ONE (13:12)
--- NOTE | 2020-05-14 13:43 | RAD REPORT ---
EXAM DESCRIPTION: RAD - Tib Fib Right - 05/14/2020 1:29 pm CLINICAL HISTORY: Right leg pain FINDINGS: No fracture is seen. Soft tissue swelling
--- NOTE | 2020-05-14 14:49 | EDPHYS ---
Physician Documentation [facility] Name: Sariah Maria Age: 39 yrs Sex: Female : 1980 Arrival Date: 05/14/2020 Time: 11:18 Bed 7 Private MD: ED Physician Yaw Kraus HPI: 05/14 15:31 This 39 yrs old Female presents to ER via Wheelchair with complaints of Ankle kb Injury. 15:33 The patient presents with pain, that is acute, tenderness. The complaints affect the kb right ankle and right gibson and right knee. Context: The problem was sustained at home, resulted from the patient falling, the patient can partially bear weight, must have assistance, Problem is a result from a previous injury: No. Onset: The symptoms/episode began/occurred today. Modifying factors: The symptoms are alleviated by nothing. the symptoms are aggravated by weight bearing. Associated signs and symptoms: Pertinent positives: swelling. Treatment prior to arrival includes: no previous treatment. Severity of symptoms: At their worst the symptoms were moderate, in the emergency department the symptoms are unchanged. The patient has not experienced similar symptoms in the past. The patient has not recently seen a physician. Pt reports she was here last week for an ankle sprain. States she was trying to be careful in the shower today and fell causing pain to right gibson just below knee. Still having ankle pain. Also requests refill of her home med of Lasix to get her through to her scheduled appt with PCP this week. . 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 - Social history:: Smoking status: . ROS: 15:32 Constitutional: Negative for fever, chills, and weight loss, Cardiovascular: Negative kb for chest pain, palpitations, and edema, Respiratory: Negative for shortness of breath, cough, wheezing, and pleuritic chest pain, Abdomen/GI: Negative for abdominal pain, nausea, vomiting, diarrhea, and constipation, Back: Negative for injury and pain, Skin: Negative for injury, rash, and discoloration, Neuro: Negative for headache, weakness, numbness, tingling, and seizure. 15:32 MS/extremity: Positive for pain, tenderness, of the right knee, right gibson and anterior aspect of right ankle. Exam: 15:32 Constitutional: This is a well developed, well nourished patient who is awake, alert, kb and in no acute distress. Head/Face: Normocephalic, atraumatic. Chest/axilla: Normal chest wall appearance and motion. Nontender with no deformity. No lesions are appreciated. Cardiovascular: Regular rate and rhythm with a normal S1 and S2. No gallops, murmurs, or rubs. Normal PMI, no JVD. No pulse deficits. Respiratory: Lungs have equal breath sounds bilaterally, clear to auscultation and percussion. No rales, rhonchi or wheezes noted. No increased work of breathing, no retractions or nasal flaring. Abdomen/GI: Soft, non-tender, with normal bowel sounds. No distension or tympany. No guarding or rebound. No evidence of tenderness throughout. Skin: Warm, dry with normal turgor. Normal color with no rashes, no lesions, and no evidence of cellulitis. Neuro: Awake and alert, GCS 15, oriented to person, place, time, and situation. Cranial nerves II-XII grossly intact. Motor strength 5/5 in all extremities. Sensory grossly intact. Cerebellar exam normal. Normal gait. 15:32 Musculoskeletal/extremity: Extremities: grossly normal except: noted in the right ankle and right gibson and right knee: pain, tenderness, ROM: limited active range of motion due to pain, in the right ankle and right knee, Circulation is intact in all extremities. Sensation intact. Weight bearing: can bear weight with assistance only. Vital Signs: 11:23 BP 113 / 71; Pulse 90; Resp 18; Temp 98.6; Pulse Ox 99% ; Weight 101.15 kg; Height 5 sv ft. 6 in. (167.64 cm); 13:31 BP 112 / 71; Pulse 81; Resp 17; Pulse Ox 100% on R/A; tw2 14:24 BP 103 / 64; Pulse 77; Resp 17; Pulse Ox 98% on R/A; tw2 11:23 Body Mass Index 35.99 (101.15 kg, 167.64 cm) sv MDM: 12:44 Patient medically screened. kb 15:31 Data reviewed: vital signs, nurses notes. Data interpreted: Pulse oximetry: on room air kb is 98 %. Interpretation: normal. Counseling: I had a detailed discussion with the patient and/or guardian regarding: the historical points, exam findings, and any diagnostic results supporting the discharge/admit diagnosis, radiology results, the need for outpatient follow up, a family practitioner, to return to the emergency department if symptoms worsen or persist or if there are any questions or concerns that arise at home. 05/14 12:54 Order name: Tib Fib Right XRAY; Complete Time: 13:58 kb Administered Medications: 13:03 Drug: [place] (7.5 mg-325 mg) 1 tabs Route: PO; jl7 14:24 Follow up: Response: No adverse reaction; Pain is decreased; RASS: Alert and Calm (0) tw2 Disposition: 05/15 11:10 Co-signature as Attending Physician, Yaw Kraus MD I agree with the assessment and ana plan of care. Disposition: 05/14/20 14:22 Discharged to Home. Impression: Pain in right lower leg, Edema, unspecified. - Condition is Stable. - Discharge Instructions: Musculoskeletal Pain, Edema, [id number]. - Prescriptions for Lasix 20 mg Oral Tablet - take 1 tablet by ORAL route once daily; 20 tablet. Diclofenac Sodium 75 mg Oral Tablet, Delayed Release (E.C.) - take 1 tablet by ORAL route 2 times per day As needed; 30 tablet. - Medication Reconciliation Form, Thank You Letter, Antibiotic Education, Prescription Opioid Use, Work release form form. - Follow up: Emergency Department; When: As needed; Reason: Worsening of condition. Follow up: Private Physician; When: 2 - 3 days; Reason: Recheck today's complaints, Continuance of care, Re-evaluation by your physician. Signatures: Dispatcher [employer] Michelle Ac, CHIQUIS-C MANNEQUIN MOLD MAKER-Carola Montague, Yaw Zhang RN, MD MD cha Wise, Tara RN RN tw2 Rebecca Zapata RN RN jl7 Corrections: (The following items were deleted from the chart) 05/14 14:29 14:22 05/14/2020 14:22 Discharged to Home. Impression: Pain in right lower leg; Edema, tw2 unspecified. Condition is Stable. Forms are Medication Reconciliation Form, Thank You Letter, Antibiotic Education, Prescription Opioid Use. Follow up: Emergency Department; When: As needed; Reason: Worsening of condition. Follow up: Private Physician; When: 2 - 3 days; Reason: Recheck today's complaints, Continuance of care, Re-evaluation by your physician. kb
--- NOTE | 2020-05-14 14:49 | ER ---
Nurse's Notes [facility] Name: Sariah Maria Age: 39 yrs Sex: Female : 1980 Arrival Date: 05/14/2020 Time: 11:18 Bed 7 Private MD: Diagnosis: Pain in right lower leg;Edema, unspecified Presentation: 05/14 11:21 Chief complaint: Patient states: reports that she was seen here about a week ago and sv had a right ankle fracture with a splint applied. Reports today that she was in the shower and she slipped and fell again and now has right knee pain. Also reports that she ran out of her "fluid medication" and her MD will not refill it until she has her appt, reports generalized swelling. Coronavirus screen: Client denies travel out of the [place] in the last 14 days. At this time, the client does not indicate any symptoms associated with coronavirus-19. Ebola Screen: No symptoms or risks identified at this time. Risk Assessment: Do you want to hurt yourself or someone else? Patient reports no desire to harm self or others. Onset of symptoms was May 14, 2020. 11:21 Method Of Arrival: Wheelchair sv 11:21 Acuity: RICHELLE 3 sv 11:23 Initial Sepsis Screen: Does the patient meet any 2 criteria? No. Patient's initial sv sepsis screen is negative. Does the patient have a suspected source of infection? No. Patient's initial sepsis screen is negative. Triage Assessment: 11:21 General: Appears in no apparent distress. uncomfortable, well developed, Behavior is sv calm, cooperative, appropriate for age. Pain: Complains of pain in right leg. Neuro: Level of Consciousness is awake, alert, obeys commands, Oriented to person, place, time, situation. Cardiovascular: Reports swelling all over. Respiratory: Respiratory effort is even, unlabored. Musculoskeletal: Reports pain in right leg. 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 - Social history:: Smoking status: . Screenin:03 Abuse screen: Denies threats or abuse. Denies injuries from another. Nutritional jl7 screening: No deficits noted. Tuberculosis screening: No symptoms or risk factors identified. Fall Risk None identified. Assessment: 13:03 General: Appears in no apparent distress. uncomfortable, Behavior is calm, cooperative, jl7 appropriate for age. Pain: Complains of pain in right ankle Pain currently is 6 out of 10 on a pain scale. Pain began x 1 week. Neuro: Level of Consciousness is awake, alert, obeys commands, Oriented to person, place, time, situation. Cardiovascular: Capillary refill < 3 seconds in bilateral toes Patient's skin is warm and dry. Pulses are palpable in right dorsalis pedis artery. Respiratory: Airway is patent Respiratory effort is even, unlabored, Respiratory pattern is regular, symmetrical. Derm: Skin is pink, warm \\T\\ dry. 13:31 Reassessment: Patient appears in no apparent distress at this time. No changes from tw2 previously documented assessment. Patient and/or family updated on plan of care and expected duration. Pain level reassessed. Patient is alert, oriented x 3, equal unlabored respirations, skin warm/dry/pink. 14:24 Reassessment: Patient appears in no apparent distress at this time. No changes from tw2 previously documented assessment. Patient and/or family updated on plan of care and expected duration. Pain level reassessed. Patient is alert, oriented x 3, equal unlabored respirations, skin warm/dry/pink. provider at bedside at this time. Vital Signs: 11:23 BP 113 / 71; Pulse 90; Resp 18; Temp 98.6; Pulse Ox 99% ; Weight 101.15 kg; Height 5 sv ft. 6 in. (167.64 cm); 13:31 BP 112 / 71; Pulse 81; Resp 17; Pulse Ox 100% on R/A; tw2 14:24 BP 103 / 64; Pulse 77; Resp 17; Pulse Ox 98% on R/A; tw2 11:23 Body Mass Index 35.99 (101.15 kg, 167.64 cm) sv ED Course: 11:18 Patient arrived in ED. ag5 11:23 Triage completed. sv 11:23 Arm band placed on. sv 12:22 Michelle Rai FNP-C is PHCP. kb 12:22 Yaw Kraus MD is Attending Physician. kb 12:59 Rebecca Zapata, RN is Primary Nurse. jl7 13:03 Patient has correct armband on for positive identification. Bed in low position. Call jl7 light in reach. Side rails up X 1. 13:30 Tib Fib Right XRAY In Process Unspecified. EDMS 14:29 No provider procedures requiring assistance completed. Patient did not have IV access tw2 during this emergency room visit. Administered Medications: 13:03 Drug: [place] (7.5 mg-325 mg) 1 tabs Route: PO; jl7 14:24 Follow up: Response: No adverse reaction; Pain is decreased; RASS: Alert and Calm (0) tw2 Outcome: 14:22 Discharge ordered by . kb 14:29 Discharged to home via wheelchair. tw2 14:29 Condition: stable 14:29 Discharge instructions given to patient, Instructed on discharge instructions, follow up and referral plans. medication usage, Demonstrated understanding of instructions, follow-up care, medications, Prescriptions given X 2. 14:29 Patient left the ED. tw2 Signatures: Dispatcher [employer] EDMS Michelle Rai, COAT FITTER-C COAT FITTER-CkCarola Marrero RN RN Keisha Goff RN RN tw2 Rebecca Zapata, AUDREY RN jl7 Aditi Mack 5 Corrections: (The following items were deleted from the chart) 11:26 11:23 Resp 18bpm; Temp 98.6F; 101.15 kg; Height 5 ft. 6 in.; BMI: 35.9; sv sv
[2020-05-15 22:10] VITALS: TEMP 98.6
[2020-05-15 22:12] VITALS: BP 103/64; O2SAT 98
== END 2020-05-14 14:29 | disposition home or self-care (01) ==
LOC: ER 11:16
DX: R60.9 Edema, unspecified (principal); F31.9 Bipolar disorder, unspecified; W18.2XXA Fall in (into) shower or empty bathtub, initial encounter; Y93.E1 Activity, personal bathing and showering; Y92.9 Unspecified place or not applicable; Z88.5 Allergy status to narcotic agent; Z91.018 Allergy to other foods
CPT/HCPCS: 99283

== ENCOUNTER 2020-05-23 16:12 | Emergency (ER) | payer SELFPAY ==
--- OUTSIDE RECORDS SUMMARY | 2020-05-23 16:15 | XMS REPORT | Clinical Summary ---
:1980 Author Organization [facility] Address [address] [place] [address] Care Team Providers Name Role Phone Unavailable [...] needed. Maximum 200mg/24 hours.. fluticasone Use 1 [place] 16 g 0 Active propionate (FLONASE) in [...] as needed for Pain. fluticasone Use 1 [place] 16 g 0 11/04/19 Discon tinued propionate [...] Elisabeth 09/24/2019 Clinical Case Mgt Social Work JasonQuang 09/22/2019 Office Visit Family Practice Francisca Quiroz Acute si nusitis, recurrence not specified, unspecified location (Primary Dx); Iron deficiency anemia, unspecified iron deficiency anemia type; Gastroesophagea l reflux disease, esophagitis presence not specified after 05/23/2019 Immunizations Name Administration Dates Next Due Influenza, [...] (203 lb 6.4 oz) 11/13/2019 9:00 PM [employer]ES [employer]ER Height 162.6 cm (5' 4") 11/13/2019 9:00 PM [employer]ER Body Mass Index 34.91 11/13/2019 9:00 PM [employer]AKES PLAYER Plan of Treatment Health Maintenance Due Date [...] Intermittent Resul ts for this MIN PM [employer] lightheadedness procedure ar e in the results section. CBC Routine 11/15/2019 3:57 Results for this AM [employer] procedure are i n the results section. MAGNESIUM Routine 11/15/2019 3:57 Results for this AM [employer] procedure are i n the results section. BASIC METABOLIC Routine 11/15/2019 3:57 Results for this PANEL AM [employer] procedure are i n the results section. CBC/DIFF Routine 11/15/2019 3:57 Results for this AM [employer] procedure are i n the results section. LEAD, WHOLE BLOOD Timed 11/14/2019 1:14 Result s for this (ADULT) PM [employer] procedure are i n the results section. INFUSION PUMP Routine 11/14/2019 9:21 AM [employer]AKES PLAYER CBC Routine 11/14/2019 3:45 Results for this AM [employer] procedure are i n the results section. MAGNESIUM Routine 11/14/2019 3:45 Results for this AM [employer] procedure are i n the results section. BASIC METABOLIC Routine 11/14/2019 3:45 Results for this PANEL AM [employer] procedure are i n the results section. CBC/DIFF Routine 11/14/2019 3:45 Results for this AM [employer] procedure are i n the results section. VITAMIN B12 Add-on 11/13/2019 8:01 Results for this PM [employer] procedure are i n the results section. VIT D, 25-HYDROXY Routine 11/13/2019 8:01 Result s for this PM [employer] procedure are i n the results section. SYPHILIS SCREEN FOR Routine 11/13/2019 8:01 Resu lts for this INFECTION PM [employer] procedure are i n the results section. ANASTACIO Routine 11/13/2019 8:01 Results for this PM [employer] procedure are i n the results section. HEPATITIS PANEL Routine 11/13/2019 8:01 Results for this PM [employer] procedure are i n the results section. HIV AG/AB COMBO Routine 11/13/2019 8:01 Results for this ROUTINE SCREENING PM [employer]ER procedure are in the results section. FOLIC ACID Routine 11/13/2019 8:01 Results for this PM [employer] procedure are i n the results section. IRON PROFILE Routine 11/13/2019 8:01 Results for this PM [employer] procedure are i n the results section. FERRITIN Routine 11/13/2019 8:01 Results for this PM [employer] procedure are i n the results section. BASIC METABOLIC Routine 11/13/2019 8:01 Results for this PANEL PM [employer] procedure are i n the results section. VALPROIC ACID Routine 11/13/2019 8:01 Results fo r this PM [employer] procedure are i n the results section. POCT URINE DIPSTICK STAT 11/13/2019 9:36 Resu lts for this - AM [employer]ER procedure are i n the results section. TEST STAT 11/13/2019 9:31 Results f or this AM [employer]ER procedure are i n the results section. CT HEAD W/O STAT 11/13/2019 9:26 Intermittent Results for this CONTRAST AM [employer] lightheadedness procedure ar e in the results section. CREATININE POC Routine 11/13/2019 6:27 Results f or this AM [employer] procedure are i n the results section. BMP POC Routine 11/13/2019 6:26 Results for this AM [employer]ER procedure are i n the results section. CBC STAT 11/13/2019 6:21 Results for this AM [employer] procedure are i n the results section. CBC/DIFF STAT 11/13/2019 6:21 Results for this AM [employer]ER procedure are i n the results section. ECHG EKG PROC 12 Routine 11/13/2019 5:20 Results for this LEAD EKG; TRACING AM [employer]ER procedure are in ONLY the results section. GLUCOSE POC Routine 11/13/2019 4:51 Results for this AM [employer] procedure are i n the results section. XRAY FOOT 3 VIEWS - STAT 11/12/2019 11:10 Acute right ankle pain Results for this ROUTINE PM [employer] procedure are i n the results section. XRAY ANKLE 3 VIEWS STAT 11/12/2019 11:10 Acute right ankle pain Results for this - ROUTINE PM [employer]ER procedure are i n the results section. POCT URINE DIPSTICK STAT 11/12/2019 10:22 Resu lts for this - PM [employer] procedure are i n the results section. XRAY FOOT 3 VIEWS - STAT 10/25/2019 9:38 Right foot pain R esults for this ROUTINE PM [employer]ER procedure are i n the results section. CTA HEAD W CONTRAST STAT 10/18/2019 12:51 New onset headach e Results for this AM [employer] procedure are i n the results section. CT HEAD W/O STAT 10/17/2019 11:28 New onset headache Resul ts for this CONTRAST PM [employer] procedure are i n the results section. AMMONIA STAT 10/17/2019 2:37 Results for this PM [employer] procedure are i n the results section. VALPROIC ACID STAT 10/17/2019 2:37 Results fo r this PM [employer] procedure are i n the results section. TEST STAT 10/17/2019 1:12 Results f or this PM [employer] procedure are i n the results section. CBC STAT 10/17/2019 12:07 Results for this PM [employer] procedure are i n the results section. CBC/DIFF STAT 10/17/2019 12:07 Results for this PM [employer] procedure are i n the results section. BASIC METABOLIC STAT 10/17/2019 12:07 Results for this PANEL PM [employer] procedure are i n the results section. after 05/23/2019 Results XRAY FOOT 3 VIEWS MIN (11/26/2019 2:00 PM CDT) Specimen Impressions Performed At IMPRESSION: [facility] No acute abnormality seen in the right t ibia and fibula, ankle and foot. Signed By: Janet Wilson MD, 11/26/2019 2:17 PM Narrative Performed At RIGHT TIBIA AND FIBULA SERIES, 2 views. [facility] RIGHT ANKLE SERIES, 3 views. RIGHT FOOT [...] MD, 11/26/2019 2:17 PM Performing Organization Address [facility] Phone Number [facility] XRAY ANKLE 3 VIEW MIN (11/26/2019 2:00 PM CDT) Specimen Impressions Performed At IMPRESSION: [facility] No acute abnormality seen in the right [...] Performing Organization Address City/State/Zipcode Phone Number [facility] XRAY TIBIA AND FIBULA 2 VIEWS (11/26/2019 2:00 PM CDT) Specimen Impressions Performed At IMPRESSION: [facility] No acute abnormality seen in the right t ibia and fibula, ankle and foot. Signed By: Janet Wilson MD, 11/26/2019 2:17 PM Narrative Performed At RIGHT TIBIA AND FIBULA SERIES, 2 views. [facility] RIGHT ANKLE SERIES, 3 views. RIGHT FOOT [...] Number [facility] [address] [place] [address] Magnesium (11/18/2019 4:22 AM CDT)Only the most recent of5 resultswithin the time period is included. Pathologist Sig nature Magnesium 1.8 (L) 1.9 - 2.7 mg/dL [facility] Specimen Blood Performing Organization Address [facility] Phone Number [facility] [address] [place] [address] Basic Metabolic Panel (11/18/2019 4:22 AM CDT)Only [...] [facility] Specimen Blood Performing Organization Address [facility] Phone Number [facility] [address] [place] [address] POCT GLUCOSE POC docked device (11/16/2019 3:54 PM CDT)Only the most recent of2 resultswithin the time period is included. Pathologist Sig nature Glucose POC 115 (H) 74 - 106 mg/dL [facility] Specimen Blood Performing Organization Address [facility] Phone Number [facility] [address] [place] [address] MRI BRAIN W/O CONTRAST (11/16/2019 2:46 PM CDT) Specimen Impressions Performed At IMPRESSION: [facility] 1. No acute intracranial abnormality. 2. No [...] 11/17/2019 4:11 PM Performing Organization Address City/[facility] Phone Number SMS XRAY SKULL 4 VIEWS MIN (11/15/2019 12:04 PM STAKES PLAYER) Specimen Impressions Performed At IMPRESSION: SMS Punctate [...] MD, 11/16/2019 8:56 AM Performing Organization Address City/[facility] Phone Number SMS Lead, Whole Blood (Adult) (11/14/2019 1:14 PM STAKES PLAYER) Lead, Blood <1 0 - 4 ug/dL [facility] (Adult) Comment: Analysis by atomic absorption spectroscopy (AAS). Environmental E xposure: WHO Recommenda tion <20 Occupational Ex posure: OSHA Lead Std 40 CASIMIRO 30 Detect ion Limit = 1 Specimen Blood Narrative Performed At Performed at: 01 - [facility] [address], [place] [id number] 143 Hris Developer: Hemanth Frey MD, Phone: [phone] Performing Organization Address [facility] Phone Number [facility] [address] [place] [address] Syphilis Screen for Infection (11/13/2019 8:01 PM STAKES PLAYER) [facility] nature TPA Negative Negative, Equivocal [facility] Final Report Negative Negative [facility] Specimen Blood Performing Organization Address [facility] Phone Number [facility] [address] [place] [address] Vitamin D, 25-Hydroxycalciferol (11/13/2019 8:01 PM STAKES PLAYER) [facility] Vit D, 25-Hydroxy 33.8 30.0 - 100.0 [facility] ng/mL [facility] Vitamin D Sufficient Sufficient [facility] Interpretation Comment: [facility] Sufficient: >30.0 Insufficient: 20.0 - 29.9 Deficient: <20.0 Specimen Blood Performing Organization Address [facility] Phone Number [facility] [address] [place] [address] HIV-1/HIV-2 Routine Screening (11/13/2019 8:01 PM STAKES PLAYER) [facility] HIV Ag/Ab Combo Negative Negative [facility] Specimen Blood Performing Organization Address [facility] Phone Number [facility] [address] [place] [address] [phone] Folic Acid (11/13/2019 8:01 PM STAKES PLAYER) [facility] Folic Acid 14.1 5.9 - 24.8 ng/mL [facility] Specimen Blood Performing Organization Address [facility] Phone Number [facility] [address] [place] [address] Ferritin (11/13/2019 8:01 PM STAKES PLAYER) Pathologist [facility] Ferritin 60.2 11.0 - 306.8 ng/mL [facility] Specimen Blood Performing Organization Address [facility] Phone Number [facility] [address] [place] [address] Vitamin B12 (11/13/2019 8:01 PM STAKES PLAYER) [facility] Vitamin B12 894 See comment pg/mL [facility] Comment: Normal: 180-914 pg/mL Intermittent: 145-180 pg/mL Deficient: <=145.0 pg/mL Specimen Blood Performing Organization Address [facility] Phone Number [facility] [address] [place] [address] Valproic Acid (11/13/2019 8:01 PM STAKES PLAYER)Only the most recent of2 resultswithin the time period is included. [facility] Valproic Acid 67.2 50.0 - 100.0 ug/mL [facility] Specimen Blood Performing Organization Address [facility] Phone Number [facility] [address] [place] [address] Iron Profile (11/13/2019 8:01 PM STAKES PLAYER) [facility] Iron 114 50 - 212 ug/dL [facility] TIBC 319 250 - 450 ug/dL [facility] % Iron Sat 36 % [facility] Transferrin 228.14 203.00 - 362.00 mg/dL [facility] Specimen Blood Performing Organization Address [facility] Phone Number [facility] [address] [place] [address] Hepatitis Panel (11/13/2019 8:01 PM STAKES PLAYER) [facility] Hepatitis C Virus (HCV) Negative Negative [facility] RY Antibody Hep B Surface Ag Negative Negative [facility] Hep A Vir Ab IgM Negative Negative [facility] Hep B Core Ab IgM Negative Negative [facility] Specimen Blood Performing Organization Address [facility] Phone Number [facility] [address] [place] [address] ANASTACIO (11/13/2019 8:01 PM STAKES PLAYER) Pathologist Sig nature ANASTACIO Screen Negative Negative [facility] Specimen Blood Performing Organization Address City/State/Zipcode Phone Number [facility] [address] [place] [address] POCT Urine - (11/13/2019 9:36 AM STAKES PLAYER)Only the most recent of2 results within the time period is included. Pathologist Sig nature Control passed negative Test (11/13/2019 9:31 AM STAKES PLAYER)Only the most recent of2 resultswithin the time period is included. Pathologist Sig nature Negative Negative [facility] Specimen Urine Performing Organization Address City/State/Zipcode Phone Number [facility] [address] [place] [address] CT HEAD W/O CONTRAST (11/13/2019 9:26 AM STAKES PLAYER)Only the most recent of2 results within the [...] Rad/Mammog In - 11/13/2019 11 :25 AM STAKES PLAYER Exam : Head CT without contrast History: [...] MD, 11/13/2019 11:20 AM Performing Organization Address City/[facility] Phone Number [facility] POCT CREATININE POC docked device (11/13/2019 6:27 AM STAKES PLAYER) Creatinine POC 0.8Comment: 017 0.6 - 1.3 mg/dL [facility] GFR, Estimated >90 >=90 [facility] mL/min/1.73 m2 Specimen Blood, venous Performing Organization Address [facility] Phone Number [facility] [address] [place] [address] POCT BMP POC docked device (11/13/2019 6:26 AM STAKES PLAYER) Sodium POC 141 136 - 145 [facility] [...] Hematocrit POC 40.0 37.0 - 47.0 % [facility] Specimen Blood, venous Performing Organization Address [facility] Phone Number [facility] [address] [place] [address] 12 LEAD EKG (11/13/2019 5:20 AM STAKES PLAYER) 12 LEAD EKG FOR [facility] SMS Test Date: 2019-11-13 Pat Name: SARIAH BEY Department : 5520 Room: Gender: F [employer]working Sander: [id number] : 1980 Requested By: NEELAM RASHID Order Number: [id number] Nathaniel dunbar MD: Dolores Walker Measu rements Intervals [place] Rate: 70 P: 49 MI: 162 QRS: 38 QRSD: 84 T: 7 QT: 377 QTc: 409 Interpretive S tatements SINUS RHYTHM NONSPECIFIC T-WAVE ABNORMALITY Electronically Signed On 11-13-2019 5:52:58 STAKES PLAYER by Hiren Walker Specimen Performing Organization Address [facility] Phone Number [facility] XRAY FOOT 3 VIEWS - ROUTINE (11/12/2019 11:10 PM STAKES PLAYER)Only the most recent of2 resultswithin the time period is included. Specimen Impressions Performed At IMPRESSION: [facility] No acute abnormalities. Plantar enthesopathy. If the report is "FINALIZED" it indicate s that the attending/staff radiologist has reviewed the images and agrees with the resident's interpretation. Dictated By: Shakir Boyer MD, 11/13/2019 12: 55 AM I have reviewed the study and agree with the findings in this report. Signed By: Nixon Gabrile DO, 11/13/2019 3 :59 AM Narrative Performed [...] Rad/Mammog In - 11/13/2019 4 :04 AM STAKES PLAYER X-ray right ankle, 3 views X-ray right [...] Performing Organization Address City/State/Zipcode Phone Number [facility] XRAY ANKLE 3 VIEWS - ROUTINE (11/12/2019 11:10 PM STAKES PLAYER) Specimen Impressions Performed At IMPRESSION: [facility] No acute abnormalities. Plantar enthesopathy. If the [...] Rad/Mammog In - 11/13/2019 4 :04 AM STAKES PLAYER X-ray right ankle, 3 views X-ray right [...] Performing Organization Address City/State/Zipcode Phone Number [facility] CTA HEAD W CONTRAST (10/18/2019 12:51 AM STAKES PLAYER) Specimen Impressions Performed At IMPRESSION: SMS 1. [...] evaluation, multiplanar reconstruction, maximum intensity projections, and [employer] 3-D off-line postprocessing were obtained on a dedicated stand-alone work station under the direct supervision of the interpreting physicia n. IV Contrast 100 cc of Omnipaque. Complication: None Radiation dose: Total DLP: 1032 mGy*cm Estimated Effective Dose: DLP x 0.031 mS v FINDINGS: Head CT with contrast: No interval changes when compared to the previous CT. No enhancing abnormalities. CTA [place]: Carotid arteries: Patent, no abnormalities.. [...] Rad/Mammog In - 10/18/2019 1 :25 AM STAKES PLAYER Exams: Intracranial CT angiogram History: Headache, acute, [...] evaluation, multiplanar reconstruction, maximum intensity projections, and [employer] 3-D off-line postprocessing were obtained on a dedicated stand-alone work station under the direct supervision of the interpreting physicia n. IV Contrast 100 cc of Omnipaque. Complication: None Radiation dose: Total DLP: 1032 mGy*cm Estimated Effective Dose: DLP x 0.031 mS v FINDINGS: Head CT with contrast: No interval changes when compared to the previous CT. No enhancing abnormalities. CTA [place]: Carotid arteries: Patent, no abnormalities.. [...] Phone Number SMS Ammonia (10/17/2019 2:37 PM STAKES PLAYER) Pathologist Sig nature Ammonia 31.0 16.0 - 53.0 umol/L [facility] Specimen Blood Performing Organization Address City/State/Zipcode Phone Number [facility] [address] [place] [address] after 05/23/2019 Insurance Payer Benefit Plan / Subscriber ID Effective Dates Phone Addre ss Type Group [facility] SELF-PAY xxxxxxx 2020-20 [phone] [id number] SELF-PAY SCREENED [address] [place] [address] Advance Directives Code Status Date Activated Date Inactivated Comments Full Code 11/13/2019 6:17 PM 11/18/2019 4:30 PM
--- OUTSIDE RECORDS SUMMARY | 2020-05-23 16:17 | XMS REPORT | Continuity of Care Document ---
:1980 Author Organization [facility] t Address [address] [place] [address] Care Team Providers Name Role Phone Ashanti [...] Attending Clinician Unavailable Ace Attending Clinician Unavailable Opla Attending Clinician [phone] Acosta Attending Clinician Unavailable Opal Unavailable [id number] Payers Payer Name Policy Type Policy Number Effective Date Expiration Date Madhu gonzalez [facility] xxxxxxx 2020 2030 [facility] SELF-PAYSELF 00:00:00 23:59:59 -PAY SCREENEDxxxx xxx2020- 01/13/[id number]- [phone] [place] [address] [id number] 2019 2020 [facility] 00:00:00 00:00:00 [facility] Health [id number] 2019 2020 [facility] 00:00:00 00:00:00 [facility] Health Problems Condition Condition Condition Status Onset [...] pain Health Dizziness Dizziness Disease Active Adelso [facility] Health Palpitatio Palpitatio Disease Active H arris ns ns Health Syncope Syncope Disease Active [facility] Intermitte Intermitte Disease Active H arris nt [...] Allergie 06-03 Clear s 00:00: Sepulveda 00 [facility] Family History Family Member Diagnosis Comments Start Date Stop Date Source Natural father Heart [facility] Natural father Hypertension [facility] Natural mother Diabetes [facility] Natural mother Psychiatry [facility] Natural mother Stroke [facility] Natural sister Psychiatry [facility] Social History Social Habit Start Date Stop Date Quantity Comments Source Sex Assigned At [facility] Alcohol intake 2019-11-16 2019-11-16 Ex-drinker [facility] 00:00:00 00:00:00 (finding) time of call 2019-05-26 2019-05-26 05/26/2019 10:54 [facility] 10:54:05 10:54:05 AM Health Tobacco Comment 2019-02-17 2019-02-17 Stopped smoking [facility] 00:00:00 00:00:00 in 2018 Smoking Status Start Date Stop Date Source Former smoker 2019-11-16 00:00:00 2019-11-16 00:00:00 [facility] Medications Ordered Filled Start Stop Current Ordering Indication Dosage Frequency Signature Comments Components Source Medication Medication Date Date Medication? Clinician (SIG) Name Name omeprazole Yes Gastroesoph 20mg QD Take 1 Singh (PRILOSEC) 3-11 ageal capsule by Hugh monroy 20 mg 00:00: reflux mouth delayed 00 disease, every release esophagitis morning capsule presence (before not breakfast) specified . lurasidone 2020-0 Yes Take by [facility] is HCl (LATUDA 3-10 mouth. Health OR) 14:30: 02 meclizine 2020-0 Yes Intermitten 25mg Q.5D Take 1 Singh (ANTIVERT) 3-10 t tablet by [facility] 25 mg Tab 00:00: lightheaded mouth [...] Use 1 Singh propionate 2-25 allergic } [place] in H [facility] (FLONASE) 00:00: rhinitis, each 50 00 unspecified nostril mcg/actuati trigger daily. on nasal spray loratadine 2020-0 Yes Seasonal 10mg QD Take 1 H arris (CLARITIN) 2-25 allergic tablet by [facility] 10 mg 00:00: rhinitis, mouth tablet 00 unspecified daily. trigger propranolol 2020-0 Yes Intractable 40mg Q.5D Take 1 Singh (INDERAL) 2-25 migraine tablet by [facility]alt 40 mg 00:00: without mouth 2 tablet 00 status times migrainosus daily. , unspecified migraine type propranolol 2020-0 2020- No Intractable 20mg Q.5D Take 1 Singh (INDERAL) 2-25 02-25 migraine tablet by [facility] 20 mg 00:00: 00:00 without mouth 2 tablet 00 :00 status times migrainosus daily. , unspecified migraine type propranolol 2020-0 2020- No 40mg Q.5D Take 1 Adelso ris (INDERAL) 2-25 02-25 tablet by [facility] 40 mg 00:00: 00:00 mouth 2 tablet 00 :00 times daily. ferrous 2020-0 Yes Iron 325mg QD Take 1 [place] sulfate 325 2-10 deficiency tablet by [facility] mg (65 mg 00:00: anemia, mouth [...] 1 Francisco (IMITREX) 10-20 migraine tablet by [facility] 50 mg 00:00: 00:00 without mouth [...] Use 1 Francisco propionate 09-22 sinusitis, } [place] in [facility] (FLONASE) 00:00: 00:00 recurrence each 50 00 :00 not nostril mcg/actuati specified, daily. on nasal unspecified spray location ferrous 2019- No Iron 325mg QD Take 1 Singh sulfate 325 09-22 deficiency tablet by [facility] mg (65 mg 00:00: 00:00 anemia, [...] H arris (VIBRA-TABS 09-22 sinusitis, tablet by [facility] ) 100 mg 00:00: 23:59 recurrence mouth 2 tablet 00 :00 not times specified, daily for unspecified 10 days. location TRAZODONE Yes [facility] HCL 05-19 [facility] (TRAZODONE 00:00: ty HCL TABS) 00 Health TABS DEPAKOTE Yes [facility] (DIVALPROEX 05-19 [facility]i SODIUM 00:00: ty TBEC) TBEC 00 [facility] EFFEXOR XR Yes [facility] (VENLAFAXIN 05-19 Communi E HCL) 75 00:00: ty MG 00 [facility] [id number] HYDROXYZINE Yes [facility] HCL 05-19 Communi (HYDROXYZIN 00:00: ty E HCL TABS) 00 Health TABS omeprazole 2020- No Gastroesoph 20mg Take 1 Singh (PRILOSEC) 04-28 ageal capsule by [facility]alth 20 mg 00:00: 00:00 reflux mouth at delayed 00 :00 disease, bedtime release esophagitis nightly. capsule presence not specified ibuprofen 2019- No Pain, 400mg Take 1 Adelso ris (MOTRIN) 04-28 dental tablet by [facility] 400 mg 00:00: 00:00 mouth tablet 00 :00 every 8 hours as needed for Pain. ferrous 2019- No Iron 325mg QD Take 1 Singh sulfate 325 04-28 deficiency tablet by [facility] mg (65 mg 00:00: 00:00 anemia, mouth iron) 00 :00 unspecified daily tablet iron (with deficiency breakfast) anemia type . traZODone Yes Insomnia, 50mg Take 1-2 Singh (DESYREL) 6-26 unspecified tablets by [facility] 50 mg 00:00: type mouth tablet 00 nightly at bedtime as needed for Sleep. venlafaxine Yes Bipolar 150mg QD Take 1 Singh (EFFEXOR 6-26 disorder in capsule by [facility] XR) 150 mg 00:00: partial mouth extended 00 remission, daily. release most recent capsule episode unspecified type hydrOXYzine Yes Anxiety 25mg Take 1 H arris (ATARAX) 25 6-26 tablet by [facility] mg tablet 00:00: mouth 3 00 times daily as needed for Anxiety or Insomnia. divalproex Yes Bipolar 500mg Q.5D Take 1 H arris (DEPAKOTE) 6-26 disorder in tablet by [facility] 500 mg 00:00: partial mouth 2 delayed 00 remission, times release most recent daily. tablet episode unspecified type propranolol 2019- No Anxiety 40mg Q.5D Take 1 Singh (INDERAL) 6- 02- tablet by [facility] 40 mg 00:00: 00:00 mouth 2 tablet 00 :00 times daily. amitriptyli 2020- Bipolar 50mg Take 1 [place] ne (ELAVIL) 03-05 disorder in tablet by Health 50 mg 00:00: 00:00 partial mouth at tablet 00 :00 remission, bedtime most recent nightly. episode unspecified type Immunizations Ordered Immunization Filled Immunization Date Status Commen ts Source Name Name Influenza, Vaccine 2019-10-20 Completed [facility] <FLUCELVAX>(Preserva 00:00:00 tive-Free) Twinrix-HEP A&b 2019-03-05 Completed [facility] alth 00:00:00 Td <Unspecified> 2016-03-05 [facility] V[facility] Sign[facility] Vital Name Observation Time Observation Value Comments Source Heart rate 2019-11-26 15:13:00 72 /min [facility] Body temperature 2019-11-26 15:13:00 36.72 Navya [facility] Respiratory rate 2019-11-26 15:13:00 18 /min [facility] Oxygen saturation in 2019-11-26 15:13:00 100 /min [facility] Arterial blood by Pulse oximetry Systolic blood pressure 2019-11-26 11:17:00 108 mm[Hg] [facility] Diastolic blood pressure 2019-11-26 11:17:00 68 mm[Hg] [facility] Body height 2019-11-13 21:00:00 162.6 cm [facility] Body weight 2019-11-13 21:00:00 92.262 kg [facility] BMI 2019-11-13 21:00:00 34.91 kg/m2 [facility] Procedures Procedure Date / Time Performing Clinician Source Performed XRAY FOOT 3 VIEWS MIN 2019-11-26 14:00:00 Candie Bonilla [facility] XRAY ANKLE 3 VIEW MIN 2019-11-26 14:00:00 Candie Bonilla [facility] XRAY TIBIA AND FIBULA 2 2019-11-26 14:00:00 Candie Bonilla is Health VIEWS CBC/DIFF 2019-11-18 04:22:00 Timothy Baker [facility] BASIC METABOLIC PANEL 2019-11-18 04:22:00 Timothy Baker [facility] MAGNESIUM 2019-11-18 04:22:00 Timothy Baker [facility] CBC 2019-11-18 04:22:00 Timothy Baker [facility] CBC/DIFF 2019-11-17 03:46:00 Timothy Baker [facility] BASIC METABOLIC PANEL 2019-11-17 03:46:00 [facility] 2019-11-17 03:46:00 Timothy Baker [facility] CBC 2019-11-17 03:46:00 Timothy Baker [facility] GLUCOSE POC 2019-11-16 15:54:00 Trip [place] [facility] MRI BRAIN W/O CONTRAST 2019-11-16 14:46:18 Deshaun Waldron s [facility] CBC/DIFF 2019-11-16 03:44:00 Katarina-Juan JoseTimothy [facility] BASIC METABOLIC PANEL 2019-11-16 03:44:00 [facility] MAGNESIUM 2019-11-16 03:44:00 Katarina-Juan JoseTimothy [facility] CBC 2019-11-16 03:44:00 GeorgieoTimothy [facility] XRAY SKULL 4 VIEWS MIN 2019-11-15 12:04:17 Deshaun Waldron s Health CBC/DIFF 2019-11-15 03:57:00 Katarina-Juan JoseTimothy [facility] BASIC METABOLIC PANEL 2019-11-15 03:57:00 Katarina-Juan Jose Timothy arris Health MAGNESIUM 2019-11-15 03:57:00 Fcoa-Juan Jose, Timothy [facility] CBC 2019-11-15 03:57:00 Fcoa-Juan JoseTimothy [facility] LEAD, WHOLE BLOOD 2019-11-14 13:14:00 Trip [place] (ADULT) INFUSION PUMP 2019-11-14 09:21:01 Trip [place] [facility] CBC/DIFF 2019-11-14 03:45:00 Preeta-Juan Jose, Timothy [facility] BASIC METABOLIC PANEL 2019-11-14 03:45:00 Deleija-Juan Jose, Timothy H arris Health MAGNESIUM 2019-11-14 03:45:00 KatarinaJuan Jose Timothy [facility] CBC 2019-11-14 03:45:00 KatarinaJuan Jose Timothy [facility] VALPROIC ACID 2019-11-13 20:01:00 GeorgieoTimothy [facility] BASIC METABOLIC PANEL 2019-11-13 20:01:00 KatarinaJuan Jose, Timothy [facility] FERRITIN 2019-11-13 20:01:00 EdnaJuan Jose [facility] IRON PROFILE 2019-11-13 20:01:00 KatarinaJuan Jose Timothy [facility] FOLIC ACID 2019-11-13 20:01:00 KatarinaJuan Jose, [facility] HIV AG/AB COMBO ROUTINE 2019-11-13 20:01:00 KatarinaJuan Jose Timothy [facility] SCREENING HEPATITIS PANEL 2019-11-13 20:01:00 KatarinaJuan Jose Timothy [facility] ANASTACIO 2019-11-13 20:01:00 KatarinaJuan Jose, Timothy [facility] SYPHILIS SCREEN FOR 2019-11-13 20:01:00 [facility] INFECTION VIT D, 25-HYDROXY 2019-11-13 20:01:00 [facility] V[facility] B12 2019-11-13 20:01:00 Deshaun Waldron POCT URINE DIPSTICK - 2019-11-13 09:36:00 [facility] TEST 2019-11-13 09:31:[address] HEAD W/O CONTRAST 2019-11-13 09:26:[facility] [place] CREATININE POC 2019-11-13 06:27:00 Unknown, Provider Francisco Lee [facility] BMP POC 2019-11-13 06:26:00 Unknown, Provider Francisco Lee lt CBC/DIFF 2019-11-13 06:21:00 Neelam Germain CBC 2019-11-13 06:21:00 Neelam Germain [facility] EKG PROC 12 LEAD 2019-11-13 05:20:07 Neelam Germain [facility] EKG; TRACING ONLY GLUCOSE POC 2019-11-13 04:51:00 Naun Peñaian [facility] h XRAY ANKLE 3 VIEWS - 2019-11-12 23:10:00 Phillip Abraham [facility] ROUTINE XRAY FOOT 3 VIEWS - 2019-11-12 23:10:00 Phillip Abraham [facility] ROUTINE POCT URINE DIPSTICK - 2019-11-12 22:22:00 Phillip Abraham [facility] XRAY FOOT 3 VIEWS - 2019-10-25 21:38:36 Jennifer Vides [facility] ROUTINE CTA HEAD W CONTRAST 2019-10-18 00:51:16 Aries Mcintosh [facility] ealth CT HEAD W/O CONTRAST 2019-10-17 23:28:40 Aries Mcintosh [facility] VALPROIC ACID 2019-10-17 14:37:00 Frank Waldron [facility] h AMMONIA 2019-10-17 14:37:00 Frank Waldron [facility] TEST 2019-10-17 13:12:00 Jennifer Vides [facility] BASIC METABOLIC PANEL 2019-10-17 12:07:00 Jennifer Vides [facility] CBC/DIFF 2019-10-17 12:07:00 Elham Videsah Nathaniel [facility] CBC 2019-10-17 12:07:00 [facility] Sphe[facility], SV, plano to 2019-05-20 09:06:19 Juanita Littlejohn [facility] +/- 4.00d sphere, 0.12 Health to 2.00d cyl, per lens Frames, purchases deluxe 2019-05-20 09:05:57 Juanita Littlejohn [facility] New Patient Intermediate 2019-05-19 15:29:33 Adi Joseph [facility] Opt - [id number] Health Vaccines Ordered - Print 2019-02-14 14:18:30 Macy Shane [facility] Consent/Declination Health Forms Vaccines Ordered - Print 2019-02-12 14:21:00 [facility] Forms Plan of Care Planned Activity Planned Date Details Comments Source Future Scheduled Test 2024-02-27 00:00:00 Screening for [facility] malignant neoplasm of cervix (procedure) [code = 536555642] Future Scheduled Test 2020-06-10 00:00:00 IMM Influenza [facility] Seasonal Jun to November (>/= 19 yrs) [code = IMM Influenza Seasonal Jun to November (>/= 19 yrs)] Encounters Start End Encounter Admission Attending Care Care Encounter Source Date/Time Date/Time Type Type Clinicians Facility Department ID 2020-03-02 2020-03-02 Outpatient [facility] [id number] [place] 00:00:00 00:00:00 [facility] 2019-11-26 2019-11-26 Emergency [facility] [id number] [place] 13:47:57 13:47:57 [facility] 2019-11-26 2019-11-26 Emergency [facility] [id number] [place] 11:21:06 11:21:06 Health 2019-11-17 2019-11-17 Outpatient [facility] [id number] [facility] 00:00:00 00:00:00 2019-11-16 2019-11-16 Outpatient [facility] [id number] [place] 11:26:52 11:26:52 Health 2019-11-15 2019-11-15 Outpatient [facility] [id number] [place] 11:58:23 11:58:23 Health 2019-11-15 2019-11-15 Outpatient [facility] [id number] [place] 11:43:04 11:43:04 Health 2019-11-14 2019-11-14 Outpatient [facility] [id number] [place] 10:26:02 10:26:02 Health 2019-11-13 2019-11-13 Emergency [facility] [id number] [place] 09:21:23 09:21:23 Health 2019-11-13 2019-11-13 Outpatient [facility] [id number] [place] 06:32:39 06:32:39 Health 2019-11-12 2019-11-12 Emergency [facility] [id number] [place] 22:50:38 22:50:38 Health 2019-11-12 2019-11-12 Emergency [facility] [id number] [place] 19:42:14 19:42:14 Health 2019-11-04 2019-11-04 Outpatient [facility] [id number] [facility] 14:33:46 14:33:46 2019-10-31 2019-10-31 Outpatient [facility] [id number] [facility] 15:44:39 15:44:39 2019-10-25 2019-10-25 Emergency [facility] [id number] [place] 23:23:24 23:23:24 Health 2019-10-25 2019-10-25 Emergency [facility] [id number] [place] 21:03:20 21:03:20 Health 2019-10-25 2019-10-25 Emergency [facility] [id number] [place] 00:00:00 00:00:00 [facility] 2019-10-20 2019-10-20 Outpatient [facility] [id number] [facility] 13:26:36 13:26:36 2019-10-18 2019-10-18 Emergency [facility] [id number] [place] 00:10:57 00:10:57 Health 2019-10-17 2019-10-17 Emergency [facility] [id number] [place] 23:08:41 23:08:41 Health 2019-10-17 2019-10-17 Emergency [facility] [id number] [place] 12:52:25 12:52:25 [facility] 2019-09-24 2019-09-24 Outpatient [facility] [id number] [facility] 09:00:30 09:00:30 2019-09-08 2019-09-08 Office Silverman, [facility] Vision Encoun ter/ [facility] 00:00:00 00:00:00 Visit Della [id number] Com [place] [id number] [facility] 2019-05-26 2019-05-[facility]:00 00:00:00 Visit Juanita [id number] Com [place] [id number] [facility] 2019-05-26 2019-05-26 Office Graciela [facility] Public Enc ounter/ [facility] 00:00:00 00:00:00 Visit Roxanne schneider [facility] [id number] [facility] [id number] [facility] 2019-05-21 2019-05-21 Office Adi Joseph [facility] Vision Enc ounter/ [facility] 00:00:00 00:00:00 Visit [id number] Com [place] [id number] [facility] 2019-05-19 2019-05-19 [facility] 00:00:00 00:00:00 Visit Juanita [id number] Com [place] [id number] [facility] 2019-05-19 2019-05-19 Office Adi Joseph [facility] Vision Enc ounter/ [facility] 00:00:00 00:00:00 Visit [id number] Com [place] [id number] [facility] 2019-05-19 2019-05-19 Office Adi Joseph [facility] Vision Enc ounter/ Legacy 00:00:00 00:00:00 Visit [id number] Com [place] [id number] [facility] 2019-05-19 2019-05-19 Office Adi Joseph [facility] Vision Enc ounter/ [facility] 00:00:00 00:00:00 Visit [id number] Com [place] [id number] [facility] 2019-05-19 2019-05-19 Office Adi Joseph [facility] Vision Enc ounter/ [facility] 00:00:00 00:00:00 Visit Juanita Littlejohn [id number] Communi [id number] [facility] 2019-02-14 2019-02-[address] [facility] Adult Encoun ter/ [facility] 00:00:00 00:00:00 Visit [facility] [id number] Co mmuni [id number] [facility] 2019-02-12 2019-02-[address] [facility] Adult Encoun ter/ [facility] 00:00:00 00:00:00 Visit [facility] [id number] Co mmuni [id number] [facility] 2019-02-12 2019-02-[address] [facility] Adult Encoun ter/ [facility] 00:00:00 00:00:00 Visit [facility] [id number] Co [place] [id number] [facility] Results Test Description Test Test Results [...] any concentrations <2 ng/mL are obtained.Performed At: [address] [id number] Hemanth Flores MD Ph:[phone] Novel Coronavirus 2020-02- Not DetectedTesting was (COVID-19), YOLANDA 04 performed using the miguel(R) LC 10:12:58 SARS-CoV-2 test.This test was developed and its performance characteristicsdetermined by [employer]. This test has not beenFDA cleared or [...] (not detected) result in this assay.Performed At: [facility] [id number] [place], [place] [id number] Sanjai MD Ph:[phone] Ferritin 2020-02-11 09:17:16 Test Item Value Reference Range Interpretation Comme nts Ferritin Level (test code = Ferritin Level) 18 ng/mL 13-150 Basic Metabolic [id number] 06:58:24 Test Item Value Reference Range Interpretation [...] ag e have not been validated by [facility] MDRD study and should be interpreted [...] ag e have not been validated by [facility] MDRD study and should be interpreted wit h caution. eGFR R esult Interpretation: eGFR > or = 60 is in the Normal RangeeGF R < 60 may mean kid carmelina diseaseeGFR < 1 5 may mean kidney failure Rang es recommended by the National Kidney Foundation, http://nkdep.ni h.gov Hepatic Function [id number] 05:35:45 Test Item Value Reference Range Interpretation [...] 2.8 g/dL 2.9-3.1 L = Globulin) Lactate [id number] 05:35:45 Test Item Value Reference Range Interpretation Comments LDH (test code = LDH) 206 U/L 135-214 C Reactive [id number] 05:35:45 Test Item Value Reference Range Interpretation Comments CRP (test code = CRP) 6.4 mg/L 0.0-5.0 H Lactic Acid, Plasma (Venous)2020-02-11 05:12:57 Test Item Value Reference Range Interpretation Comments Lactic Acid, Plasma (Venous) (test 0.7 mmol/L 0.5-1.9 code = Lactic Acid, Plasma (Venous)) Fibrinogen [id number] 05:04:01 Test Item Value Reference Range Interpretation Comments Fibrinogen Level (test code = 226.0 mg/dL 188.5-473.8 Fibrinogen Level) D-Dimer [id number] 05:04:01 Test Item Value Reference Range Interpretation Comments D Dimer, (Quant.) (test code = D 406 ng/mL 0-500 Dimer, (Quant.)) Complete Blood Count with [id number] 04:56:23 Test Item Value Reference Range Interpretation [...] code = 0 % N IPF) Automated [id number] 04:56:23 Test Item Value Reference Range Interpretation Comments Neutro Auto (test code = Neutro 45.7 % 36.0-70.0 Auto) Lymph Auto (test code = Lymph Auto) 39.7 % 12.0-44.0 Amite Auto (test code = Amite Auto) 10.7 % 0.0-11.0 Eos, Auto (test code = Eos, Auto) 2.9 % 0.0-7.0 Basophil Auto (test code = Basophil 0.5 % 0.0-2.0 Auto) Neutro Absolute (test code = Neutro 3.0 x10 1.6-7.4 Absolute) Lymph Absolute (test code = Lymph 2.61 x10 .50-4.60 Absolute) Amite Absolute (test code = Amite .70 x10 .00-1.20 Absolute) Eos Absolute (test code = Eos 0.19 x10 0.00-0.74 Absolute) Baso Absolute (test code = Baso 0.03 x10 0.00-0.21 Absolute) IG [id number] 04:56:23 Test Item Value Reference Range Interpretation Comments IG (test code = IG) 0.5 % 0.0-5.0 IG Abs (test code = IG Abs) 0 x10 N Comprehensive Metabolic [id number] 15:04:07 Test Item Value Reference Range Interpretation [...] National Kidney Foundation, http://nkdep.ni h.gov C Reactive [id number] 12:02:24 Test Item Value Reference Range Interpretation Comments CRP (test code = CRP) 2.8 mg/L 0.0-5.0 Automated [id number] 10:31:00 Test Item Value Reference Range Interpretation Comments Neutro Auto (test code = Neutro 49.7 % 36.0-70.0 Auto) Lymph Auto (test code = Lymph Auto) 31.5 % 12.0-44.0 Amite Auto (test code = Amite Auto) 12.3 % 0.0-11.0 H Eos, Auto (test code = Eos, Auto) 5.5 % 0.0-7.0 Basophil Auto (test code = Basophil 0.6 % 0.0-2.0 Auto) Neutro Absolute (test code = Neutro 2.3 x10 1.6-7.4 Absolute) Lymph Absolute (test code = Lymph 1.48 x10 .50-4.60 Absolute) Amite Absolute (test code = Amite .58 x10 .00-1.20 Absolute) Eos Absolute (test code = Eos 0.26 x10 0.00-0.74 Absolute) Baso Absolute (test code = Baso 0.03 x10 0.00-0.21 Absolute) IG [id number] 10:31:00 Test Item Value Reference Range Interpretation Comments IG (test code = IG) 0.4 % 0.0-5.0 IG Abs (test code = IG Abs) 0 x10 N Complete Blood Count with [id number] 10:30:59 Test Item Value Reference Range Interpretation [...] code = IPF) 0 % N Urine [id number] 10:00:32 C Urine Added by GL_SJM_UA_CUL_IND>=100,000 cfu/ml Diphtheroids 10,000 cfu/ml Gamma Streptococcus <10,000 cfu/ml Alpha Streptococcus Multiple organisms present, no further workup in progress. Fibrinogen [id number] 23:35:18 Test Item Value Reference Range Interpretation Comments Fibrinogen Level (test code = 226.0 mg/dL 188.5-473.8 Fibrinogen Level) [id number] 23:32:29 Test Item Value Reference Range Interpretation Comments Ferritin Level (test code = Ferritin 17 ng/mL 13-150 Level) Lactate [id number] 22:35:45 Test Item Value Reference Range Interpretation Comments LDH (test code = LDH) 246 U/L 135-214 H C Reactive [id number] 22:35:45 Test Item Value Reference Range Interpretation Comments CRP (test code = CRP) 2.8 mg/L 0.0-5.0 Complete Blood Count with [id number] 22:00:38 Test Item Value Reference Range Interpretation [...] code = 0 % N IPF) Automated [id number] 22:00:38 Test Item Value Reference Range Interpretation Comments Neutro Auto (test code = Neutro 45.4 % 36.0-70.0 Auto) Lymph Auto (test code = Lymph Auto) 37.4 % 12.0-44.0 Amite Auto (test code = Amite Auto) 11.4 % 0.0-11.0 H Eos, Auto (test code = Eos, Auto) 4.6 % 0.0-7.0 Basophil Auto (test code = Basophil 0.7 % 0.0-2.0 Auto) Neutro Absolute (test code = Neutro 2.8 x10 1.6-7.4 Absolute) Lymph Absolute (test code = Lymph 2.27 x10 .50-4.60 Absolute) Amite Absolute (test code = Amite .69 x10 .00-1.20 Absolute) Eos Absolute (test code = Eos 0.28 x10 0.00-0.74 Absolute) Baso Absolute (test code = Baso 0.04 x10 0.00-0.21 Absolute) IG Hvuxo0284-74-29 22:00:38 Test Item Value Reference Range Interpretation Comments IG (test code = IG) 0.5 % 0.0-5.0 IG Abs (test code = IG Abs) 0 x10 N Troponin [id number] 19:40:14 Test Item Value Reference Range Interpretation [...] of chronic myocard ial injury. Urine Drug Tjmrpl9796-30-65 19:31:13 Test Item Value Reference Range Interpretation [...] matory test if desired . HCG Qualitative [id number] 19:08:08 Test Item Value Reference Range Interpretation Comments HCG, Serum Qual (test code = HCG, Negative Serum Qual) Lot # (test code = Lot #) [id number] N Expiration Dt (test code = 2021-07-10 N Expiration Dt) Neg Control (test code = Neg Negative Control) Pos Control (test code = Pos Positive Control) Internal QC (test code = Internal Acceptable QC) Urinalysis Ssqjbwbnhmj0437-02-53 19:04:03 Test Item Value Reference Range Interpretation Comments UA WBC (test code = UA WBC) None Seen 0-5 UA RBC (test code = UA RBC) 6-10 0-5 A UA Bacteria (test code = UA Few A Bacteria) UA Squam Epithelial (test code = UA 20-29 A Squam Epithelial) Comprehensive Metabolic [id number] 19:03:43 Test Item Value Reference Range Interpretation [...] A/G 1.3 ratio N Ratio) Comprehensive Metabolic [id number] 19:03:43 Test Item Value Reference Range Interpretation [...] the National Kidney Foundation, http://nkdep.ni h.gov Alcohol Hvvgi2371-39-04 19:03:43 Test Item Value Reference Range Interpretation Comments Ethanol Level (test <0.00 g/dL 0.00-0.01 Intoxica ginger 0.080 g/dL code = Ethanol or more Level) Ethanol Inst (test <0 N code = Ethanol Inst) Comprehensive Metabolic Ffijj6964-28-69 19:03:43 Test Item Value Reference Range Interpretation [...] Foundation, [email or web address]://[email or web address].ni h.gov XR Chest 1 View Atwvhtl2176-82-79 18:52:37Patient: SOURAV BEY Date/Time02/09/202018:31 CDTReason for ExamShortness of breathReportDICTATION LOCATION: P51NPJKMTA: Female, 39 years of age with Shortness [...] Signature): 02/09/2020 6:52 pmUrinalysis with Culture, if upjvvdthr7678-46-26 18:46:10 Test Item Value Reference Range Interpretation [...] Micro Indicated Not Indicated A Ind?) IG [id number] 18:42:20 Test Item Value Reference Range Interpretation Comments IG (test code = IG) 0.7 % 0.0-5.0 IG Abs (test code = IG Abs) 0 x10 N Complete Blood Count with Vdebvgxzqxvl7009-28-98 18:42:19 Test Item Value Reference Range Interpretation [...] code = IPF) 0 % N Automated Ksxoiyqcmttt7879-55-94 18:42:19 Test Item Value Reference Range Interpretation Comments Neutro Auto (test code = Neutro 43.0 % 36.0-70.0 Auto) Lymph Auto (test code = Lymph Auto) 39.3 % 12.0-44.0 Amite Auto (test code = Amite Auto) 11.4 % 0.0-11.0 H Eos, Auto (test code = Eos, Auto) 4.9 % 0.0-7.0 Basophil Auto (test code = Basophil 0.7 % 0.0-2.0 Auto) Neutro Absolute (test code = Neutro 2.4 x10 1.6-7.4 Absolute) Lymph Absolute (test code = Lymph 2.17 x10 .50-4.60 Absolute) Amite Absolute (test code = Amite .63 x10 .00-1.20 Absolute) Eos Absolute (test code = Eos 0.27 x10 0.00-0.74 Absolute) Baso Absolute (test code = Baso 0.04 x10 0.00-0.21 Absolute) XRAY TIBIA AND FIBULA 2 [id number] 14:17:40IMPRESSION: No acute abnormality seen in the [...] 11/26/2019 2:17 PMHarris HealthXRAY ANKLE 3 VIEW [id number] 14:17:40IMPRESSION: No acute abnormality seen in the [...] 11/26/2019 2:17 PMHarris HealthXRAY FOOT 3 VIEWS [id number] 14:17:40IMPRESSION: No acute abnormality seen in the [...] foot.Signed By: Janet Wilson MD, 11/26/2019 2:17 [facility] (Adult)2019-11-20 08:12:00 Test Item Value Reference Range Interpretation Comments Lead, Blood <1 0-4 Analysis by yonis malu (Adult) (test absorption code = spectroscopy (A ). 21827-5) Environmental Exposure: WH O Recommendation <20 Occupational Exposure: OS MORENO Lead Std 40 CASIMIRO 30 Detectio n Limit = 1 KARIS (test code Performed at: 01 = KARIS) - [facility] [address] [place], [place] [id number] Director: Hemanth Frey MD, Phone: [phone] [facility] Metabolic [id number] 05:35:00 Test Item Value Reference Range Interpretation Comments Sodium (test code = 2951-2) 138 mmol/L 136-145 Potassium (test code = 2823-3) 4.4 mmol/L 3.5-5.1 Chloride (test code = 2075-0) 104 mmol/L 98-107 CO2 (test code = 69002280) 28 mmol/L 21-31 Urea Nitrogen (test code = 23.0 mg/dL 7-25 04220151) Creatinine (test code = 0.8 mg/dL 0.6-1.2 26879448) Glucose (test code = 98105723) 85 mg/dL 70-110 Calcium (test code = 90876319) 8.4 mg/dL 8.6-10.3 L GFR, Estimated (test code = 80 >=90 mL/min/1.73 m2 L 13613914) Anion Gap (test code = 6 mmol/L 5-16 01425771) Lab Interpretation (test code Abnormal = 25942-6) [facility]Wkw[facility]plfn6233[facility]-39 05:35:00 Test Item Value Reference Range Interpretation Comments Magnesium (test code = 55382765) 1.8 mg/dL 1.9-2.7 L Lab Interpretation (test code = Abnormal 05530-7) [facility]CBC/Ikay7575-33-21 05:11:00 Test Item Value Reference Range Interpretation [...] g/dL 32-36 L RDW (test code = 12384-9) 48.0 fL 36.4-46.3 H Platelet (test code = 777-3) 208 K/uL 150-400 Mean Platelet Volume (test code = 10.1 fL 9.4-12.4 11320-6) Percent NRBC (test code = 65190592) 0.0 % Neutrophil (test code = 770-8) 55.3 % 34-70 Lymphs (test code = 736-9) 31.9 % 20-50 Monocytes (test code = 5905-5) 10.2 % 5-12 Eos (test code = 713-8) 1.4 % 0.7-5 Basos (test code = 706-2) 0.4 % 0.1-1.2 Immature Granulocytes (test code = 0.8 % 0-0.5 H 06409445) Neutrophils (Absolute) (test code = 4.65 K/uL 1.56-6.13 05990605) Lymphs (Absolute) (test code = 2.68 K/uL 1.18-3.74 02928499) Monocytes(Absolute) (test code = 0.86 K/uL 0.24-0.36 H 51710701) Eos (Absolute) (test code = 0.12 K/uL 0.04-0.36 25399594) Baso (Absolute) (test code = 0.03 K/uL 0.01-0.08 38670412) Immature Grans (Abs) (test code = 0.07 K/uL 0-0.03 H 02948604) Absolute NRBC (test code = 0.00 K/uL 06037591) Lab Interpretation (test code = Abnormal 01410-4) [facility] BRAIN W/O [id number] 16:11:53IMPRESSION: 1. No acute intracranial abnormality.2. No [...] T1 and T2 flair, gradient echo, Coronal V4Ucaon, DWI and ADCContrast: NoneComplic ations: NoneFINDINGS: Scalp: [...] this report.SignedBy: Blayne Burgos MD, 11/17/2019 4:11 [facility] docked ikoomo0702-66-60 15:55:00 Test Item Value Reference Range Interpretation Comments Glucose POC (test code = 07689791) 115 mg/dL 74-106 H Lab Interpretation (test code = Abnormal 62669-7) [facility] CenterX[facility] SKULL 4 VIEWS [id number] 08:56:41IMPRESSION: Punctate metallic fragments are seen in [...] this report.Signed By: Gemma Martinez MD,11/16/2019 8:56 [facility] CenterYluyujTXQ6935-10-84 15:22:00 Test Item Value Reference Range Interpretation Comments ANASTACIO Screen (test code = 30769181) Negative Negative Lab Interpretation (test code = Normal 11506-5) [facility] CenterHepatitis Vdowz6801-81-94 14:02:00 Test Item Value Reference Range Interpretation Comments Hepatitis C Virus (HCV) Antibody Negative Negative (test code = 00848-5) Hep B Surface Ag (test code = Negative Negative 5196-1) Hep A Vir Ab IgM (test code = Negative Negative 06423-1) Hep B Core Ab IgM (test code = Negative Negative 62197-5) Lab Interpretation (test code = Normal 64526-7) [facility] CenterVitamin [id number] 11:52:00 Test Item Value Reference Range Interpretation Comments Vitamin B12 (test code 894 pg/mL See comment Esther l: 180-914 = 16092883) pg/mLIntermitte nt: 145-180 pg/mLDeficient: <=145.0 pg/mL [facility] CenterSyphilis Screen for Sqyxemqsu0124-44-38 08:39:00 Test Item Value Reference Range Interpretation Comments TPA (test code = 59503-8) Negative Negative, Equivocal Final Report (test code = Negative Negative 17610-2) Lab Interpretation (test code = Normal 92317-1) [facility] CenterVitamin D, 52-Eozzcgvajurzyxcjo1669-37-06 08:06:00 Test Item Value Reference Range Interpretation Comments Vit D, 25-Hydroxy (test 33.8 ng/mL 30-100 code = 48864788) Vitamin D Interpretation Sufficient Sufficient Saucedo fficient: (test code = 03958209) >30.0 Insufficient: 20.0 - 29.9Deficient: <20.0 Lab Interpretation (test Normal code = 11038-9) [facility]HIV-1/HIV-2 Routine Srmhrwxtp2844-80-51 21:34:00 Test Item Value Reference Range Interpretation Comments HIV Ag/Ab Combo (test code = Negative Negative 75926-8) Lab Interpretation (test code = Normal 54200-3) [facility] CenterFolic Ybeo8183-45-48 21:33:00 Test Item Value Reference Range Interpretation Comments Folic Acid (test code = 58271789) 14.1 ng/mL 5.9-24.8 Lab Interpretation (test code = Normal 44406-1) [facility] CenterGptcxbOeezesll3186-28-98 21:26:00 Test Item Value Reference Range Interpretation Comments Ferritin (test code = 90647143) 60.2 ng/mL 11-306.8 Lab Interpretation (test code = Normal 93629-9) [facility] CenterIron Chnzkua1909-22-08 21:07:00 Test Item Value Reference Range Interpretation Comments Iron (test code = 88754200) 114 ug/dL 50-212 TIBC (test code = 11904881) 319 ug/dL 250-450 % Iron Sat (test code = 36 % 60637951) Transferrin (test code = 228.14 mg/dL 203-362 61291703) [facility] CenterValproic Cyct2824-32-55 21:07:00 Test Item Value Reference Range Interpretation Comments Valproic Acid (test code = 67.2 ug/mL 50-100 67159006) Lab Interpretation (test code = Normal 69092-4) [facility] HEAD W/O FSVMZESO4642-07-68 11:20:20IMPRESSION: No acute abnormalities. No change from [...] Craft MD, 11/13/2019 11:20 [facility] HealthP[facility] Uozh1676-80-98 09:57:00 Test Item Value Reference Range Interpretation Comments (test code = 18981413) Negative Negative Lab Interpretation (test code = Normal 87530-8) [facility] Urine - Hrhimmdxc3142-57-37 09:36:00 Test Item Value Reference Range Interpretation Comments Control (test code = 7172) passed (test code = 7173) negative Lab Interpretation (test code = Normal 94579-1) [facility] CREATININE POC docked ipmojv9705-12-06 06:31:00 Test Item Value Reference Range Interpretation Comments Creatinine POC (test code = 0.8 mg/dL 0.6-1.3 017 29228516) GFR, Estimated (test code = >90 >=90 mL/min/1.73 m2 12947252) Lab Interpretation (test code = Normal 51608-1) [facility] BMP POC docked xdzzgx6867-53-82 06:30:00 Test Item Value Reference Range Interpretation Comments Sodium POC (test code = 81310777) 141 mmol/L 136-145 Potassium POC (test code = 4.5 mmol/L 3.5-5.1 51477404) Chloride POC (test code = 102 mmol/L 98-107 91715282) TCO2 POC (test code = 70020843) 32 mmol/L 21-32 017 Urea Nitrogen POC (test code = 19 mg/dL 7-18 H 62754599) Glucose POC (test code = 22511656) 86 mg/dL 74-106 Hemoglobin POC (test code = 13.6 g/dL 12-16 06471665) Hematocrit POC (test code = 40.0 % 37-47 87949421) Lab Interpretation (test code = Abnormal 75300-3) [place] [address] LEAD EUM3933-13-99 05:53:0112 LEAD EKG FOR [facility] Test Date: 9282-70-09Mts Name: SOURAV BEY Department: 5520Patient ID: [id number] Room: Gender: F Adult Education Professional: [id number]: 1980 Requested By: NEELAM GERMAIN Order Number: [id number] Reading MD: Dolores Walker MeasurementsIntervals Frontier Rate: 70 P: 49PR: 162 QRS: 38QRSD: 84 T: 7QT: 377 QTc: 409 Interpretive StatementsSINUS RHYTHMNONSPECIFIC T-WAVE ABNORMALITYElectronically Signed On 11-13-2019 5:52:58 DUMPSTER OPERATOR by Dolores NathanRegional Hospital of ScrantonXRAY ANKLE 3 VIEWS - VUFQFJV0928-05-31 03:59:29 IMPRESSION: No acute abnormalities.Plantar enthesopathy. If [...] 3:59 AMHarris HealthXRAY FOOT 3 VIEWS - NKUYYEL2037-60-22 03:59:29IMPRESSION: No acute abnormalities.Plantar enthesopathy. If the [...] 11/13/2019 3:59 [facility] HealthCTA HEAD W DHWHRDKH7641-64-09 01:20:17 IMPRESSION: 1. Severely hypoplastic right vertebral [...] compared to the previous CT.No enhancing abnormalities.CTA kletsel dehe wintun of [place]: Carotid arteries:Patent, no abnormalities.. Vertebrobasilar [...] report.Signed By: Wendy Craft MD, 10/18/2019 1:20 [facility] HospitalYnugovBsbrwwz7716-62-94 16:24:00 Test Item Value Reference Range Interpretation Comments Ammonia (test code = 67844539) 31.0 umol/L 16-53 Lab Interpretation (test code = Normal 54641-5) [facility] [id number] 14:09:10 Test Item Value Reference Range Interpretation Comments PPD results in mm (test code = 608134) 0 mm [facility]- XR CHEST 1 [id number] 12:29:00 FAX: Cail Ramos MD [phone] [place]: St: REG Name: SOURAV BEY [facility] : 1980 Age/S: 38/F [address] Unit#: [id number] Loc: [place], [place]: [place] [id number] Acct: [id number] Dis Date: Status: REG ER PHONE #: [phone] Exam Date: 12/06/2018 1205 FAX #: [phone] Reason: hyperventilation EXAMS: CPT CODE: [id number] XR CHEST 1 V 69256 Chest Radiograph History: hyperventilation Comparison: None at this time Location: R16 A single frontal view of the chest is submitted. The heart is within normal limits in size. Pulmonary vasculature is unremarkable. The visualized lung christensen appear to be free of disease. The bones appear unremarkable. IMPRESSION: There is no radiographic evidence of acute cardiopulmonary disease. at 8084 Reported and signed by: Mathew Vazquez M.D. CC: Cali Ramos MD Technologist: JOSUE Gambleilrd Date/Time/By: 12/06/2018 (7243) : By: HermelindoPMT PAGE 1 Signed Report FAX: Cali Ramos MD [phone] [place]: St: REG Name: SOURAV BEY [facility] : 1980 Age/S: 38/F [address] Unit #: [id number] Loc: [place], [place]: [place] [id number] Acct: [id number] Dis Date: Status: REG ER PHONE #: [phone] Exam Date: 12/06/2018 1205 FAX #: [phone] Reason: hyperventilation EXAMS: CPT CODE: [id number] XR CHEST 1 V 54731 <Continued> Orig Print D/T: S: 12/06/2018 (2202) PAGE 2 Signed ReportURINALYSIS [id number] 12:27:00 Test Item Value Reference Range Interpretation [...] (test code = FEW NONE BACU) URINALYSIS CBNVTYFL8552-29-14 12:18:00 Test Item Value Reference Range Interpretation [...] NONE BACU) - CT ABD PELVIS W/O NKIJ8900-18-05 10:32:00 FAX: Addie Mccarthy MD [phone] [place]: St: REG Name: SOURAV BEY [facility] : 1980 Age/S: 38/F [address] [facility] Unit: [id number] Loc: [place], [place]: [place] [address] Acct: [id number] Dis Date: Status: REG ER PHONE #: [phone] Exam Date: 11/22/2018 1012 FAX #: [phone] Reason: LOW BACK/ FLANK PAIN WITH URINARY SX EXAMS: CPT CODE: [id number] CT ABD PELVIS W/O CONT 23732 HISTORY: Low back pain, flank pain with [...] Signed Report (CONTINUED) FAX: Addie Mccarthy MD [phone] [place]: St: REG Name: SOURAV BEY [facility] : 1980 Age/S: 38/F [address] [facility] Unit: [id number] Loc: [place], [place] Phys: Addie Mccarthy D [address] Acct: [id number] Dis Date: Status: REG ER PHONE #: [phone] Exam Date: 11/22/2018 1012 FAX #: [phone] Reason: LOW BACK/ FLANK PAIN WITH URINARY SXEXAMS: CPT CODE: [id number] CT ABD PELVIS W/O CONT 03833 <Continued> Correlate for any pancreatic enzymeabnormalities as [...] CC:Addie Mccarthy MD Technologist: JAMES GERARD [facility] D[facility]/Tm: 11/22/2018 (1032) t.TUM Orig Print D/T: S: 11/22/2018(1035 PAGE 2 Signed ReportBASIC METABOLIC [id number] 09:28:00 Test Item Value Reference Range Interpretation [...] N Specimen comments: Clean CatchHEPATIC FUNCTION PANEL [id number] 09:28:00 Test Item Value Reference Range Interpretation [...] N code = ALKP) Specimen comments: Clean ZiifvSPHEPH2146-05-75 09:28:00 Test Item Value Reference Range Interpretation Comments LIPASE (test code = LIP) 123 Units/L 65.0-230.0 N Specimen comments: Clean CatchHCG SERUM [id number] 09:28:00 Test Item Value Reference Range Interpretation Comments HCG SERUM QUAL (test code = HCGQL) NEGATIVE NEGATIVE Specimen comments: Clean CatchPROTHROMBIN [id number] 09:26:00 Test Item Value Reference Range Interpretation Comments PROTHROMBIN TIME 10.7 SECONDS 9.9-12.8 N PATIENT (test code = PTP) INTERNATIONAL NORMAL 0.9 0.89-1.14 N THE INR IS TO BE USED RATIO (test code = ONLY FOR MONITORING INR) ORAL ANTICOAGULANTTH ERAPY. THE FOLLOWING A RE SUGGESTED RANGE S FROM THEBAN[facility] LEGE OF CHEST PHYSICIANS:CARMEN CATION INR [...] - 3 .5 Specimen comments: Clean CatchURINALYSIS [id number] 09:23:00 Test Item Value Reference Range Interpretation [...] = TRICHU) Specimen comments: Clean CatchBASIC METABOLIC [id number] 09:23:00 Test Item Value Reference Range Interpretation [...] = CA) mg/dl 8.0-10.5 Specimen comments: Clean myaNUMBERHEPATIC FUNCTION PANEL [id number] 09:23:00 Test Item Value Reference Range Interpretation [...] 50.0-136.0 code = ALKP) Specimen comments: Clean [id number] 09:23:00 Test Item Value Reference Range Interpretation Comments LIPASE (test code = LIP) Units/L 65.0-230.0 Specimen comments: Clean CatchHCG SERUM [id number] 09:23:00 Test Item Value Reference Range Interpretation Comments HCG SERUM QUAL (test code = HCGQL) NEGATIVE NEGATIVE Specimen comments: Clean myaNUMBERBASIC METABOLIC [id number] 09:21:00 Test Item Value Reference Range Interpretation [...] 8.0-10.5 Specimen comments: Clean CatchHEPATIC FUNCTION PANEL [id number] 09:21:00 Test Item Value Reference Range Interpretation [...] 50.0-136.0 code = ALKP) Specimen comments: Clean [id number] 09:21:00 Test Item Value Reference Range Interpretation Comments LIPASE (test code = LIP) Units/L 65.0-230.0 Specimen comments: Clean CatchHCG SERUM [id number] 09:21:00 Test Item Value Reference Range Interpretation Comments HCG SERUM QUAL (test code = HCGQL) NEGATIVE NEGATIVE Specimen comments: Clean CatchURINALYSIS [id number] 09:17:00 Test Item Value Reference Range Interpretation [...] NONE BACU) Specimen comments: Clean CatchCBC W/AUTO [id number] 09:11:00 Test Item Value Reference Range Interpretation [...]
[2020-05-23] MEDS ORDERED: HYDROCODONE/APAP 7.5/325 MG TAB ONE (17:13)
--- NOTE | 2020-05-23 17:23 | RAD REPORT ---
EXAM DESCRIPTION: RAD - Knee Right 3 View - 05/23/2020 5:14 pm CLINICAL HISTORY: PAIN COMPARISON: No comparisons FINDINGS: Small suprapatellar joint effusion is seen. No acute fracture or dislocation evident.
--- NOTE | 2020-05-23 17:24 | RAD REPORT ---
EXAM DESCRIPTION: RAD - Knee Left 3 View - 05/23/2020 5:14 pm CLINICAL HISTORY: PAIN COMPARISON: Knee Left 3 view dated 07/25/2013; Knee Left 3 view dated 11/27/2012 FINDINGS: No acute fracture or dislocation seen. No significant joint effusion.
--- NOTE | 2020-05-23 17:29 | EDPHYS ---
Physician Documentation [facility] Name: Sariah Maria Age: 39 yrs Sex: Female : 1980 Arrival Date: 05/23/2020 Time: 16:14 Bed 13 Private MD: ED Physician Yaw Kraus HPI: 05/23 17:17 This 39 yrs old Female presents to ER via EMS with complaints of Knee Pain. kb 17:17 Details of fall: The patient fell from an upright position, while walking. Onset: The kb symptoms/episode began/occurred just prior to arrival. Associated injuries: The patient sustained right knee and left knee, painful injury. Severity of symptoms: At their worst the symptoms were moderate, in the emergency department the symptoms are unchanged. The patient has not experienced similar symptoms in the past. The patient has not recently seen a physician. Pt reports she was walking and her ankle gave out causing her to fall onto knees. c/o bilateral knee pain, worse on right. Historical: - Allergies: 16:26 [place]; hb 16:26 Tylenol-Codeine #3; hb - Home Meds: 16:26 Ambien Oral [Active]; Depakote 500 mg Oral TbEC 2 times per day [Active]; Effexor Oral hb 25 mg twice a day [Active]; gabapentin Oral twice a day [Active]; propranolol 40 mg Oral tab 2 times per day [Active]; Risperdal Oral once daily [Active]; Latuda Oral [Active]; Zoloft Oral [Active]; - PMHx: 16:26 Bipolar disorder; Depression; Anxiety; hb - PSHx: 16:26 ; 3 facial surgery; hb - Immunization history:: Adult Immunizations up to date. - Social history:: Smoking status: Patient denies any tobacco usage or history of. ROS: 17:16 Constitutional: Negative for fever, chills, and weight loss, Cardiovascular: Negative kb for chest pain, palpitations, and edema, Respiratory: Negative for shortness of breath, cough, wheezing, and pleuritic chest pain, Abdomen/GI: Negative for abdominal pain, nausea, vomiting, diarrhea, and constipation, Back: Negative for injury and pain, Skin: Negative for injury, rash, and discoloration, Neuro: Negative for headache, weakness, numbness, tingling, and seizure. 17:16 MS/extremity: Positive for pain, tenderness, of the right knee and left knee. Exam: 17:16 Constitutional: This is a well developed, well nourished patient who is awake, alert, kb and in no acute distress. Head/Face: Normocephalic, atraumatic. Chest/axilla: Normal chest wall appearance and motion. Nontender with no deformity. No lesions are appreciated. Cardiovascular: Regular rate and rhythm with a normal S1 and S2. No gallops, murmurs, or rubs. Normal PMI, no JVD. No pulse deficits. Respiratory: Lungs have equal breath sounds bilaterally, clear to auscultation and percussion. No rales, rhonchi or wheezes noted. No increased work of breathing, no retractions or nasal flaring. Abdomen/GI: Soft, non-tender, with normal bowel sounds. No distension or tympany. No guarding or rebound. No evidence of tenderness throughout. Skin: Warm, dry with normal turgor. Normal color with no rashes, no lesions, and no evidence of cellulitis. Neuro: Awake and alert, GCS 15, oriented to person, place, time, and situation. Cranial nerves II-XII grossly intact. Motor strength 5/5 in all extremities. Sensory grossly intact. Cerebellar exam normal. Normal gait. 17:16 Musculoskeletal/extremity: Extremities: grossly normal except: noted in the right knee and left knee: pain, tenderness, ROM: limited active range of motion due to pain, in the right knee and left knee, Circulation is intact in all extremities. Sensation intact. Vital Signs: 16:24 BP 132 / 94; Pulse 68; Resp 16; Temp 97.9(TE); Pulse Ox 100% on R/A; Weight 99.79 kg; hb Height 5 ft. 6 in. (167.64 cm); Pain 10/10; 16:24 Body Mass Index 35.51 (99.79 kg, 167.64 cm) hb MDM: 16:28 Patient medically screened. kb 17:15 Data reviewed: vital signs, nurses notes. Data interpreted: Pulse oximetry: on room air kb is 100 %. Interpretation: normal. 17:16 Test interpretation: by ED physician or midlevel provider: plain radiologic studies, kb wnl. Counseling: I had a detailed discussion with the patient and/or guardian regarding: the historical points, exam findings, and any diagnostic results supporting the discharge/admit diagnosis, radiology results, the need for outpatient follow up, a family practitioner, to return to the emergency department if symptoms worsen or persist or if there are any questions or concerns that arise at home. 05/23 16:32 Order name: Knee Left 3 View XRAY; Complete Time: 17:29 kb 05/23 16:32 Order name: Knee Right 3 View XRAY; Complete Time: 17:29 kb 05/23 17:34 Order name: Max Wrap; Complete Time: 17:53 kb Administered Medications: 17:05 Drug: [place] (7.5 mg-325 mg) 1 tabs Route: PO; 19:26 Follow up: Response: No adverse reaction Disposition: 05/24 10:58 Co-signature as Attending Physician, Yaw Kraus MD I agree with the assessment and ana plan of care. Disposition: 05/23/20 17:28 Discharged to Home. Impression: Pain in right knee, Pain in left knee. - Condition is Stable. - Discharge Instructions: Musculoskeletal Pain, Knee Effusion, [id number], Knee Pain, Bulg-[id number]. - Prescriptions for Cyclobenzaprine 10 mg Oral Tablet - take 1 tablet by ORAL route every 8 hours As needed; 21 tablet. - Medication Reconciliation Form, Thank You Letter, Antibiotic Education, Prescription Opioid Use form. - Follow up: Emergency Department; When: As needed; Reason: Worsening of condition. Follow up: Private Physician; When: 2 - 3 days; Reason: Recheck today's complaints, Continuance of care, Re-evaluation by your physician. Signatures: Dispatcher [employer] Michelle Ac, NURSE PRIVATE DUTY-C NURSE PRIVATE DUTY-Yaw Tejada MD MD cha Baxter, Heather, Viri De Jesus RN, RN RN Corrections: (The following items were deleted from the chart) 05/23 18:02 17:28 05/23/2020 17:28 Discharged to Home. Impression: Pain in right knee; Pain in left ah knee. Condition is Stable. Forms are Medication Reconciliation Form, Thank You Letter, Antibiotic Education, Prescription Opioid Use. Follow up: Emergency Department; When: As needed; Reason: Worsening of condition. Follow up: Private Physician; When: 2 - 3 days; Reason: Recheck today's complaints, Continuance of care, Re-evaluation by your physician. kb
--- NOTE | 2020-05-23 17:29 | ER ---
Nurse's Notes [facility] Name: Sariah Maria Age: 39 yrs Sex: Female : 1980 Arrival Date: 05/23/2020 Time: 16:14 Bed 13 Private MD: Diagnosis: Pain in right knee;Pain in left knee Presentation: 05/23 16:24 Chief complaint: "My ankle is fractured and sometimes it gives out, today it gave out hb and i landed my knees." Pt c/o right knee pain 06/19. Coronavirus screen: At this time, the client does not indicate any symptoms associated with coronavirus-19. Ebola Screen: No symptoms or risks identified at this time. Initial Sepsis Screen: Does the patient meet any 2 criteria? No. Patient's initial sepsis screen is negative. Does the patient have a suspected source of infection? No. Patient's initial sepsis screen is negative. Risk Assessment: Do you want to hurt yourself or someone else? Patient reports no desire to harm self or others. Onset of symptoms was May 23, 2020. 16:24 Method Of Arrival: EMS: [facility] hb 16:24 Acuity: RICHELLE 4 hb Historical: - Allergies: 16:26 [place]; hb 16:26 Tylenol-Codeine #3; hb - Home Meds: 16:26 Ambien Oral [Active]; Depakote 500 mg Oral TbEC 2 times per day [Active]; Effexor Oral hb 25 mg twice a day [Active]; gabapentin Oral twice a day [Active]; propranolol 40 mg Oral tab 2 times per day [Active]; Risperdal Oral once daily [Active]; Latuda Oral [Active]; Zoloft Oral [Active]; - PMHx: 16:26 Bipolar disorder; Depression; Anxiety; hb - PSHx: 16:26 ; 3 facial surgery; hb - Immunization history:: Adult Immunizations up to date. - Social history:: Smoking status: Patient denies any tobacco usage or history of. Screenin:01 Abuse screen: Denies threats or abuse. Nutritional screening: No deficits noted. Tuberculosis screening: No symptoms or risk factors identified. Fall Risk None identified. Assessment: 16:45 General: Appears in no apparent distress. Behavior is calm, cooperative, appropriate for age. Pain: Complains of pain in right knee Pain does not radiate. Pain currently is 8 out of 10 on a pain scale. Quality of pain is described as aching, Pain began 2 weeks ago Is continuous. Neuro: Level of Consciousness is awake, alert, Oriented to person, place, time, situation, Appropriate for age. Cardiovascular: Capillary refill < 3 seconds Patient's skin is warm and dry. Derm: Skin is intact, is healthy with good turgor. Musculoskeletal: Reports pain in right knee. Vital Signs: 16:24 BP 132 / 94; Pulse 68; Resp 16; Temp 97.9(TE); Pulse Ox 100% on R/A; Weight 99.79 kg; hb Height 5 ft. 6 in. (167.64 cm); Pain 10/10; 16:24 Body Mass Index 35.51 (99.79 kg, 167.64 cm) hb ED Course: 16:14 Patient arrived in ED. ss 16:25 Triage completed. 16:26 Arm band placed on. 16:28 [facility] R[facility]C [facility]. kb 16:28 Yaw Kraus MD is Attending Physician. kb 16:59 Viri Singh, RN is Primary Nurse. 17:14 Knee Left 3 View XRAY In Process Unspecified. EDMS 17:14 Knee Right 3 View XRAY In Process Unspecified. EDMS 18:01 Patient has correct armband on for positive identification. Bed in low position. Call light in reach. Side rails up X 1. 18:01 Max wrap to right ankle. ah 18:02 Patient did not have IV access during this emergency room visit. 18:02 No provider procedures requiring assistance completed. Administered Medications: 17:05 Drug: [place] (7.5 mg-325 mg) 1 tabs Route: PO; 19:26 Follow up: Response: No adverse reaction Outcome: 17:28 Discharge ordered by . kb 18:00 Discharged to home via wheelchair. 18:00 Condition: good 18:00 Discharge instructions given to patient, Instructed on discharge instructions, follow up and referral plans. Demonstrated understanding of instructions, follow-up care, medications, Prescriptions given X 1. 18:02 Patient left the ED. Signatures: Dispatcher [employer] EDAL Michelle Rai FNP-C FNP-Ckb Smirch, Shelby, RN RN ss Tiffany Matos, RN RN Viri Escobar, RN RN
[2020-05-23 18:36] VITALS: BP 132/94; TEMP 97.9; O2SAT 100
== END 2020-05-23 18:02 | disposition home or self-care (01) ==
LOC: ER 16:12
DX: M25.561 Pain in right knee (principal); M25.562 Pain in left knee; W19.XXXA Unspecified fall, initial encounter; Y93.01 Activity, walking, marching and hiking; Y92.9 Unspecified place or not applicable; F31.9 Bipolar disorder, unspecified; Z88.5 Allergy status to narcotic agent; Z91.018 Allergy to other foods
CPT/HCPCS: 99284

== ENCOUNTER 2020-12-19 22:15 | Emergency (ER) | payer SELFPAY ==
--- OUTSIDE RECORDS SUMMARY | 2020-12-19 22:19 | XMS REPORT | Continuity of Care Document ---
:1980 Author Organization [facility] t Address [address] [place] [address] Care Team Providers Name Role Phone Minal Pickering Attending Clinician Herrera Attending Clinician Unavailable Eron Attending Clinician Unavailable Ace Attending Clinician Unavailable Opal Attending Clinician [phone] Acosta Attending Clinician Unavailable Opal Unavailable [phone] Payers Payer Name Policy Type Policy Number Effective Date Expiration Date [id number] 00:00:00 00:00:00 [facility] [id number] 2019 2020 [facility](HTW) 00:00:00 00:00:00 [facility] Problems Condition Condition Condition Status Onset Resolution Last Treating Co mments Source Name Details Category Date Date Treatment Clinician Date Myopia - Condition Active 2019-05-19 Mark Joseph 05-19 15:30:00 [facility] 00:00: ty 00 Health Regular Condition Active 2018-2019-05-19 JohnAditi larry astigmatis 05-19 15:30:00 Adi Comm uni m, 00:00: ty bilateral 00 Health Allergies, Adverse Reactions, Alerts Allergy Allergy Status Severity Reaction(s) Onset Inactive Treating Comm ents Source Name Type Date Date Clinician No Known DA Active U [facility] Allergie 06-03 Clear s 00:00: Sepulveda 00 [facility] Social History Social Habit Start Date Stop Date Quantity Comments Source time of call 2019-05-26 2019-05-26 05/26/2019 10:54 [facility] 10:54:05 10:54:05 AM Health Medications Ordered Filled Start Stop Current Ordering Indication Dosage Frequency Signature Comments Components Source Medication Medication Date Date Medication? Clinician (SIG) Name Name TRAZODONE Yes [facility] HCL 05-19 Communi (TRAZODONE 00:00: ty HCL TABS) 00 Health TABS DEPAKOTE Yes [facility] (DIVALPROEX 05-19 Communi SODIUM 00:00: ty TBEC) TBEC 00 Health EFFEXOR XR Yes [facility] (VENLAFAXIN 05-19 Communi E HCL) 75 00:00: ty MG 00 Health [id number] HYDROXYZINE Yes [facility] HCL 05-19 Communi (HYDROXYZIN 00:00: ty E HCL TABS) 00 Health TABS Procedures Procedure Date / Time Performing Clinician Source Performed Spherocyl, SV, plano to 2019-05-20 09:06:19 Juanita Littlejohn [facility] +/- 4.00d sphere, 0.12 Health to 2.00d cyl, per lens Frames, purchases deluxe 2019-05-20 09:05:57 Juanita Littlejohn [facility] Health New Patient Intermediate 2019-05-19 15:29:33 Adi Joseph [facility] Opth - [id number] Health Vaccines Ordered - Print 2019-02-14 14:18:30 [facility] Forms Vaccines Ordered - Print 2019-02-12 14:21:00 Acosta [facility] Consent/Declination Health Forms Encounters Start End Encounter Admission Attending Care Care Encounter Source Date/Time Date/Time Type Type Clinicians Facility Department ID 2020-05-25 2020-05-27 Emergency Minal Juan [facility] [id number] 15:02:00 13:33:00 Margaret Soria [id number] Surya [id number] [place] [id number] 2020-03-02 2020-03-02 Outpatient [facility] [id number] [place] 00:00:00 00:00:00 Health 2019-11-26 2019-11-26 Emergency [facility] [id number] [place] 13:47:57 13:47:57 Health 2019-11-26 2019-11-26 Emergency [facility] [id number] Singh 11:21:06 11:21:06 Health 2019-11-17 2019-11-17 Outpatient [facility] [id number] [facility] 00:00:00 00:00:00 2019-11-16 2019-11-16 Outpatient [facility] [id number] [place] 11:26:52 11:26:52 Health 2019-11-15 2019-11-15 Outpatient [facility] [id number] [place] 11:58:23 11:58:23 Health 2019-11-15 2019-11-15 Outpatient [facility] [id number] [place] 11:43:04 11:43:04 Health 2019-11-14 2019-11-14 Outpatient [facility] [id number] [place] 10:26:02 10:26:02 Health 2019-11-13 2019-11-13 Emergency [facility] [id number] [place] 09:21:23 09:21:23 Health 2019-11-13 2019-11-13 Outpatient [facility] [id number] [place] 06:32:39 06:32:39 Health 2019-11-12 2019-11-12 Emergency [facility] [id number] Singh 22:50:38 22:50:38 Health 2019-11-12 2019-11-12 Emergency [facility] [id number] [place] 19:42:14 19:42:14 Health 2019-11-04 2019-11-04 Outpatient [facility] [id number] [facility] 14:33:46 14:33:46 2019-10-31 2019-10-31 Outpatient [facility] [id number] [facility] 15:44:39 15:44:39 2019-10-25 2019-10-25 Emergency [facility] [id number] [place] 23:23:24 23:23:24 Health 2019-10-25 2019-10-25 Emergency [facility] [id number] [place] 21:03:20 21:03:20 Health 2019-10-25 2019-10-25 Emergency [facility] [id number] [place] 00:00:00 00:00:[address] [facility] 2019-10-20 2019-10-20 Outpatient [facility] [id number] [facility] 13:26:36 13:26:36 2019-10-18 2019-10-18 Emergency [facility] [id number] [place] 00:10:57 00:10:57 Health 2019-10-17 2019-10-17 Emergency [facility] [id number] [place] 23:08:41 23:08:41 Health 2019-10-17 2019-10-17 Emergency [facility] [id number] [place] 12:52:25 12:52:[address] [facility] 2019-09-24 2019-09-24 Outpatient [facility] [id number] [facility] 09:00:30 09:00:30 2019-09-08 2019-09-08 Office Silverman, [facility] Vision Encoun ter/ Legacy 00:00:00 00:00:00 Visit Della [id number] Com leighton [id number] [facility] 2019-05-26 2019-05-26 [facility] 00:00:00 00:00:00 Visit Juanita [id number] Com leighton [id number] [facility] 2019-05-26 2019-05-26 Office Graciela [facility] Public Enc ounter/ Legacy 00:00:00 00:00:00 Visit wyattRoxanne [facility] [id number] [facility] [employer] [facility] [id number] [facility] 2019-05-21 2019-05-21 Office Adi Joseph [facility] Vision Enc ounter/ Legacy 00:00:00 00:00:00 Visit [id number] Com leighton [id number] [facility] 2019-05-19 2019-05-19 [facility] 00:00:00 00:00:00 Visit Juanita [id number] Corby leighton [id number] [facility] 2019-05-19 2019-05-19 Office Adi Joseph [facility] Vision Enc ounter/ Legacy 00:00:00 00:00:00 Visit [id number] Com leighton [id number] [facility] 2019-05-19 2019-05-19 Office Adi Joseph [facility] Vision Enc ounter/ Legacy 00:00:00 00:00:00 Visit [id number] Com leighton [id number] [facility] 2019-05-19 2019-05-19 Office Adi Joseph [facility] Vision Enc ounter/ Legacy 00:00:00 00:00:00 Visit [id number] Com leighton [id number] [facility] 2019-05-19 2019-05-19 Office Adi Joseph [facility] Vision Enc ounter/ Legacy 00:00:00 00:00:00 Visit Juanita Littlejohn [id number] Communi [id number] [facility] 2019-02-14 2019-02-14 Office [facility] Adult Encoun ter/ Legacy 00:00:00 00:00:00 Visit [facility] [id number] Co mmuni [id number] [facility] 2019-02-12 2019-02-12 Office [facility] Adult Encoun ter/ [facility] 00:00:00 00:00:00 Visit [facility] [id number] Co mmuni [id number] [facility] 2019-02-12 2019-02-12 Office [facility] Adult Encoun ter/ Legacy 00:00:00 00:00:00 Visit [facility] [id number] Co mmuni [id number] [facility] Results Test Description Test Test Results Result [...] any concentrations <2 ng/mL are obtained.Performed At: [address] [id number] Hemanth Flores MD Ph:[phone] Novel Coronavirus 2020-02- Not DetectedTesting was (COVID-19), YOLANDA 04 performed using the miguel(R) LC 10:12:58 SARS-CoV-2 test.This test was developed and its performance characteristicsdetermined by [employer]. This test has not beenFDA cleared or [...] (not detected) result in this assay.Performed At: [facility] [id number] Sanjai MD Ph:[phone] Ferritin 2020-02-11 09:17:16 Test Item Value Reference Range Interpretation Comme nts Ferritin Level (test code = Ferritin Level) 18 ng/mL 13-150 Basic Metabolic [id number] 06:58:24 Test Item Value Reference Range Interpretation [...] ag e have not been validated by [facility] MDRD study and should be interpreted [...] ag e have not been validated by [facility] MDRD study and should be interpreted wit h caution. eGFR R esult Interpretation: eGFR > or = 60 is in the Normal RangeeGF R < 60 may mean kid carmelina diseaseeGFR < 1 5 may mean kidney failure Rang es recommended by the National Kidney Foundation, http://nkdep.ni h.gov Hepatic Function [id number] 05:35:45 Test Item Value Reference Range Interpretation [...] 2.8 g/dL 2.9-3.1 L = Globulin) Lactate [id number] 05:35:45 Test Item Value Reference Range Interpretation Comments LDH (test code = LDH) 206 U/L 135-214 C Reactive [id number] 05:35:45 Test Item Value Reference Range Interpretation Comments CRP (test code = CRP) 6.4 mg/L 0.0-5.0 H Lactic Acid, Plasma (Venous)2020-02-11 05:12:57 Test Item Value Reference Range Interpretation Comments Lactic Acid, Plasma (Venous) (test 0.7 mmol/L 0.5-1.9 code = Lactic Acid, Plasma (Venous)) Fibrinogen [id number] 05:04:01 Test Item Value Reference Range Interpretation Comments Fibrinogen Level (test code = 226.0 mg/dL 188.5-473.8 Fibrinogen Level) D-Dimer [id number] 05:04:01 Test Item Value Reference Range Interpretation Comments D Dimer, (Quant.) (test code = D 406 ng/mL 0-500 Dimer, (Quant.)) Complete Blood Count with Bcjzvfcvsska7725-47-50 04:56:23 Test Item Value Reference Range Interpretation [...] code = 0 % N IPF) Automated Ghbfqadudsfe8624-59-59 04:56:23 Test Item Value Reference Range Interpretation Comments Neutro Auto (test code = Neutro 45.7 % 36.0-70.0 Auto) Lymph Auto (test code = Lymph Auto) 39.7 % 12.0-44.0 [place] Auto (test code = [place] Auto) 10.7 % 0.0-11.0 Eos, Auto (test code = Eos, Auto) 2.9 % 0.0-7.0 Basophil Auto (test code = Basophil 0.5 % 0.0-2.0 Auto) Neutro Absolute (test code = Neutro 3.0 x10 1.6-7.4 Absolute) Lymph Absolute (test code = Lymph 2.61 x10 .50-4.60 Absolute) [place] Absolute (test code = [place] .70 x10 .00-1.20 Absolute) Eos Absolute (test code = Eos 0.19 x10 0.00-0.74 Absolute) Baso Absolute (test code = Baso 0.03 x10 0.00-0.21 Absolute) IG [id number] 04:56:23 Test Item Value Reference Range Interpretation Comments IG (test code = IG) 0.5 % 0.0-5.0 IG Abs (test code = IG Abs) 0 x10 N Comprehensive Metabolic [id number] 15:04:07 Test Item Value Reference Range Interpretation [...] National Kidney Foundation, http://nkdep.ni h.gov C Reactive [id number] 12:02:24 Test Item Value Reference Range Interpretation Comments CRP (test code = CRP) 2.8 mg/L 0.0-5.0 Automated Lnihvpjnvkmh8744-69-90 10:31:00 Test Item Value Reference Range Interpretation Comments Neutro Auto (test code = Neutro 49.7 % 36.0-70.0 Auto) Lymph Auto (test code = Lymph Auto) 31.5 % 12.0-44.0 [place] Auto (test code = [place] Auto) 12.3 % 0.0-11.0 H Eos, Auto (test code = Eos, Auto) 5.5 % 0.0-7.0 Basophil Auto (test code = Basophil 0.6 % 0.0-2.0 Auto) Neutro Absolute (test code = Neutro 2.3 x10 1.6-7.4 Absolute) Lymph Absolute (test code = Lymph 1.48 x10 .50-4.60 Absolute) [place] Absolute (test code = [place] .58 x10 .00-1.20 Absolute) Eos Absolute (test code = Eos 0.26 x10 0.00-0.74 Absolute) Baso Absolute (test code = Baso 0.03 x10 0.00-0.21 Absolute) IG [id number] 10:31:00 Test Item Value Reference Range Interpretation Comments IG (test code = IG) 0.4 % 0.0-5.0 IG Abs (test code = IG Abs) 0 x10 N Complete Blood Count with Mmdivmlmmtfn2766-24-89 10:30:59 Test Item Value Reference Range Interpretation [...] code = IPF) 0 % N Urine Njizzlt6432-69-02 10:00:32 C Urine Added by GL_SJM_UA_CUL_IND>=100,000 cfu/ml Diphtheroids 10,000 cfu/ml Gamma Streptococcus <10,000 cfu/ml Alpha Streptococcus Multiple organisms present, no further workup in progress. Fibrinogen Hynkf0136-03-73 23:35:18 Test Item Value Reference Range Interpretation Comments Fibrinogen Level (test code = 226.0 mg/dL 188.5-473.8 Fibrinogen Level) [id number] 23:32:29 Test Item Value Reference Range Interpretation Comments Ferritin Level (test code = Ferritin 17 ng/mL 13-150 Level) Lactate Wwoxeiisqptxr0231-18-62 22:35:45 Test Item Value Reference Range Interpretation Comments LDH (test code = LDH) 246 U/L 135-214 H C Reactive Zynwank8513-73-93 22:35:45 Test Item Value Reference Range Interpretation Comments CRP (test code = CRP) 2.8 mg/L 0.0-5.0 Complete Blood Count with Cmbspevsgrgh9158-38-36 22:00:38 Test Item Value Reference Range Interpretation [...] code = 0 % N IPF) Automated Qimjjzqmactp0267-80-95 22:00:38 Test Item Value Reference Range Interpretation Comments Neutro Auto (test code = Neutro 45.4 % 36.0-70.0 Auto) Lymph Auto (test code = Lymph Auto) 37.4 % 12.0-44.0 [place] Auto (test code = [place] Auto) 11.4 % 0.0-11.0 H Eos, Auto (test code = Eos, Auto) 4.6 % 0.0-7.0 Basophil Auto (test code = Basophil 0.7 % 0.0-2.0 Auto) Neutro Absolute (test code = Neutro 2.8 x10 1.6-7.4 Absolute) Lymph Absolute (test code = Lymph 2.27 x10 .50-4.60 Absolute) [place] Absolute (test code = [place] .69 x10 .00-1.20 Absolute) Eos Absolute (test code = Eos 0.28 x10 0.00-0.74 Absolute) Baso Absolute (test code = Baso 0.04 x10 0.00-0.21 Absolute) IG [id number] 22:00:38 Test Item Value Reference Range Interpretation Comments IG (test code = IG) 0.5 % 0.0-5.0 IG Abs (test code = IG Abs) 0 x10 N Troponin [id number] 19:40:14 Test Item Value Reference Range Interpretation [...] of chronic myocard ial injury. Urine Drug [id number] 19:31:13 Test Item Value Reference Range Interpretation [...] matory test if desired . HCG Qualitative [id number] 19:08:08 Test Item Value Reference Range Interpretation Comments HCG, Serum Qual (test code = HCG, Negative Serum Qual) Lot # (test code = Lot #) [id number] N Expiration Dt (test code = 2021-07-10 N Expiration Dt) Neg Control (test code = Neg Negative Control) Pos Control (test code = Pos Positive Control) Internal QC (test code = Internal Acceptable QC) Urinalysis [id number] 19:04:03 Test Item Value Reference Range Interpretation Comments UA WBC (test code = UA WBC) None Seen 0-5 UA RBC (test code = UA RBC) 6-10 0-5 A UA Bacteria (test code = UA Few A Bacteria) UA Squam Epithelial (test code = UA 20-29 A Squam Epithelial) Comprehensive Metabolic [id number] 19:03:43 Test Item Value Reference Range Interpretation [...] A/G 1.3 ratio N Ratio) Comprehensive Metabolic [id number] 19:03:43 Test Item Value Reference Range Interpretation [...] the National Kidney Foundation, http://nkdep.ni h.gov Alcohol [id number] 19:03:43 Test Item Value Reference Range Interpretation Comments Ethanol Level (test <0.00 g/dL 0.00-0.01 Intoxica ginger 0.080 g/dL code = Ethanol or more Level) Ethanol Inst (test <0 N code = Ethanol Inst) Comprehensive Metabolic [id number] 19:03:43 Test Item Value Reference Range Interpretation [...] Foundation, http://nkdep.ni h.gov XR Chest 1 View Bbdbzsw4022-05-89 18:52:37Patient: SOURAV BEY Date/Time02/09/202018:31 CDTReason for ExamShortness of breathReportDICTATION LOCATION: [id number]: Female, 39 years of age with Shortness [...] Signature): 02/09/2020 6:52 pmUrinalysis with Culture, if fohrtfvrg0743-42-48 18:46:10 Test Item Value Reference Range Interpretation [...] Micro Indicated Not Indicated A Ind?) IG [id number] 18:42:20 Test Item Value Reference Range Interpretation Comments IG (test code = IG) 0.7 % 0.0-5.0 IG Abs (test code = IG Abs) 0 x10 N Complete Blood Count with Yqftajzobmia2542-57-51 18:42:19 Test Item Value Reference Range Interpretation [...] code = IPF) 0 % N Automated Qhkmfyjdkqfq9100-59-18 18:42:19 Test Item Value Reference Range Interpretation Comments Neutro Auto (test code = Neutro 43.0 % 36.0-70.0 Auto) Lymph Auto (test code = Lymph Auto) 39.3 % 12.0-44.0 [place] Auto (test code = [place] Auto) 11.4 % 0.0-11.0 H Eos, Auto (test code = Eos, Auto) 4.9 % 0.0-7.0 Basophil Auto (test code = Basophil 0.7 % 0.0-2.0 Auto) Neutro Absolute (test code = Neutro 2.4 x10 1.6-7.4 Absolute) Lymph Absolute (test code = Lymph 2.17 x10 .50-4.60 Absolute) [place] Absolute (test code = [place] .63 x10 .00-1.20 Absolute) Eos Absolute (test code = Eos 0.27 x10 0.00-0.74 Absolute) Baso Absolute (test code = Baso 0.04 x10 0.00-0.21 Absolute) PPD results in [id number] 14:09:10 Test Item Value Reference Range Interpretation Comments PPD results in mm (test code = 414751) 0 mm [facility]- XR CHEST 1 [id number] 12:29:00 FAX: Cali Ramos MD [phone] [place]: St: REG Name: SOURAV BEY [facility] : 1980 Age/S: 38/F [address] [facility] Unit#: [id number] [place] [id number] Acct: [id number] Dis Date: Status: REG ER PHONE #: [phone] Exam Date: 12/06/2018 1205 FAX #: [phone] Reason: hyperventilation EXAMS: CPT CODE: [id number] XR CHEST 1 V 76433 Chest Radiograph History: hyperventilation Comparison: None at this time Location: R16 A single frontal view of the chest is submitted. The heart is within normal limits in size. Pulmonary vasculature is unremarkable. The visualized lung christensen appear to be free of disease. The bones appear unremarkable. IMPRESSION: There is no radiographic evidence of acute cardiopulmonary disease. at 0525 Reported and signed by: Mathew Vazquez M.D. CC: Cali Ramos MD Technologist: JOSUE BARBA Trnscrd Date/Time/By: 12/06/2018 (1840) : By: Jazzy PAGE 1 Signed Report FAX: Cali Ramos MD [phone] [place]: St: REG Name: SOURAV BEY [facility] : 1980 Age/S: 38/F [address] [facility] Unit #: [id number] Loc: [place], [place] Phys: [place] [id number] Acct: [id number] Dis Date: Status: REG ER PHONE #: [phone] Exam Date: 12/06/2018 1205 FAX #: [phone] Reason: hyperventilation EXAMS: CPT CODE: [id number] XR CHEST 1 V 28300 <Continued> Orig Print D/T: S: 12/06/2018 (5366) PAGE 2 Signed ReportURINALYSIS [id number] 12:27:00 Test Item Value Reference Range Interpretation [...] (test code = FEW NONE BACU) URINALYSIS [id number] 12:18:00 Test Item Value Reference Range Interpretation [...] = SGU) UA BLOOD DIPSTICK (test NEGATIVE Rki/micL NEGATIVE code = SERENITY) UA PH DIPSTICK [...] NONE BACU) - CT ABD PELVIS W/O [id number] 10:32:00 FAX: Addie Mccarthy MD [phone] [place]: St: REG Name: SOURAV BEY [facility] : 1980 Age/S: 38/F [address] Unit: [id number] Loc: [place], [place]: [place] [id number] Acct: [id number] Dis Date: Status: REG ER PHONE #: [phone] Exam Date: 11/22/2018 1012 FAX #: [phone] Reason: LOW BACK/ FLANK PAIN WITH URINARY SX EXAMS: CPT CODE: [id number] CT ABD PELVIS W/O CONT 92969 HISTORY: Low back pain, flank pain with [...] Signed Report (CONTINUED) FAX: Addie Mccarthy MD [phone] [place]: St: REG Name: SOURAV BEY [facility] : 1980 Age/S: 38/F [address] [facility] Unit: [id number] Loc: [place], [place] Phys: Addie Mccarthy D [id number] Acct: [id number] Dis Date: Status: REG ER PHONE #: [phone] Exam Date: 11/22/2018 1012 FAX #: [phone] Reason: LOW BACK/ FLANK PAIN WITH URINARY SXEXAMS: CPT CODE: [id number] CT ABD PELVIS W/O CONT 23445 <Continued> Correlate for any pancreatic enzymeabnormalities as [...] MD Technologist: JAMES GERARD Trnscrd Dt/Tm: 11/22/2018 (5666) t.SDR.RCM Orig Print D/T: S: 11/22/2018(1035 PAGE 2 Signed ReportBASIC METABOLIC [id number] 09:28:00 Test Item Value Reference Range Interpretation [...] 9.4 mg/dl 8.0-10.5 N Specimen comments: Clean NovaluxHEPATIC FUNCTION PANEL [id number] 09:28:00 Test Item Value Reference Range Interpretation [...] N code = ALKP) Specimen comments: Clean [id number] 09:28:00 Test Item Value Reference Range Interpretation Comments LIPASE (test code = LIP) 123 Units/L 65.0-230.0 N Specimen comments: Clean CatchHCG SERUM [id number] 09:28:00 Test Item Value Reference Range Interpretation Comments HCG SERUM QUAL (test code = HCGQL) NEGATIVE NEGATIVE Specimen comments: Clean CatchPROTHROMBIN [id number] 09:26:00 Test Item Value Reference Range Interpretation Comments PROTHROMBIN TIME 10.7 SECONDS 9.9-12.8 N PATIENT (test code = PTP) INTERNATIONAL NORMAL 0.9 0.89-1.14 N THE INR IS TO BE USED RATIO (test code = ONLY FOR MONITORING INR) ORAL ANTICOAGULANTTH ERAPY. THE FOLLOWING A RE SUGGESTED RANGE S FROM [facility] LE[facility] OF CHEST PHYSICIANS:CARMEN CATION INR [...] - 3 .5 Specimen comments: Clean CatchURINALYSIS [id number] 09:23:00 Test Item Value Reference Range Interpretation [...] = TRICHU) Specimen comments: Clean CatchBASIC METABOLIC [id number] 09:23:00 Test Item Value Reference Range Interpretation [...] 8.0-10.5 Specimen comments: Clean CatchHEPATIC FUNCTION PANEL [id number] 09:23:00 Test Item Value Reference Range Interpretation [...] 50.0-136.0 code = ALKP) Specimen comments: Clean [id number] 09:23:00 Test Item Value Reference Range Interpretation Comments LIPASE (test code = LIP) Units/L 65.0-230.0 Specimen comments: Clean CatchHCG SERUM [id number] 09:23:00 Test Item Value Reference Range Interpretation Comments HCG SERUM QUAL (test code = HCGQL) NEGATIVE NEGATIVE Specimen comments: Clean CatchBASIC METABOLIC [id number] 09:21:00 Test Item Value Reference Range Interpretation [...] = CA) mg/dl 8.0-10.5 Specimen comments: Clean NovaluxHEPATIC FUNCTION PANEL [id number] 09:21:00 Test Item Value Reference Range Interpretation [...] 50.0-136.0 code = ALKP) Specimen comments: Clean [id number] 09:21:00 Test Item Value Reference Range Interpretation Comments LIPASE (test code = LIP) Units/L 65.0-230.0 Specimen comments: Clean CatchHCG SERUM [id number] 09:21:00 Test Item Value Reference Range Interpretation Comments HCG SERUM QUAL (test code = HCGQL) NEGATIVE NEGATIVE Specimen comments: Clean CatchURINALYSIS [id number] 09:17:00 Test Item Value Reference Range Interpretation [...] NONE BACU) Specimen comments: Clean CatchCBC W/AUTO [id number] 09:11:00 Test Item Value Reference Range Interpretation [...]
--- NOTE | 2020-12-19 23:14 | ER ---
Nurse's Notes [facility] Name: Sariah Maria Age: 40 yrs Sex: Female : 1980 Arrival Date: 12/19/2020 Time: 22:20 Bed Waiting Private MD: Diagnosis: ED Course: 12/19 22:20 Patient arrived in ED. bp1 23:09 Patient's name was called from ER lobby. No response. bb 23:13 Patient's name was called from ER lobby. No response. Unable to locate patient. Will bb disposition as left without being seen by a provider. Administered Medications: No medications were administered Outcome: 23:13 Patient left the ED. bb Signatures: Roz Bonilla RN RN bb Farhana Oliveira bp1
== END 2020-12-19 23:13 | disposition left against medical advice (07) ==
LOC: ER 22:15
DX: Z02.9 Encounter for administrative examinations, unspecified (principal)

== ENCOUNTER 2020-12-28 09:14 | Emergency (ER) | payer SELFPAY ==
--- OUTSIDE RECORDS SUMMARY | 2020-12-28 09:18 | XMS REPORT | Continuity of Care Document ---
:1980 Author Organization [facility] t Address [address] [place] [address] Care Team Providers Name Role Phone Minal Pickering Attending Clinician Herrera Attending Clinician Unavailable Eron Attending Clinician Unavailable Ace Attending Clinician Unavailable Opal Attending Clinician [phone] Acosta Attending Clinician Unavailable Oapl Unavailable [phone] Payers Payer Name Policy Type Policy Number Effective Date Expiration Date [id number] 2019 2020 [facility] 00:00:00 00:00:00 [facility] iFLYER [facility] [id number] 2019 2020 [facility](HTW) 00:00:00 00:00:00 [facility] Health Problems Condition Condition Condition Status Onset [...] Allergie 06-03 Clear s 00:00: Sepulveda 00 [facility] Social History Social Habit Start Date [...] HCL) 75 00:00: ty MG 00 Health [id number] HYDROXYZINE Yes [facility] HCL 05-19 Communi (HYDROXYZIN 00:00: ty E HCL TABS) 00 Health TABS Procedures Procedure Date / Time Performing Clinician Source Performed Spherocyl, SV, plano to 2019-05-20 09:06:19 Juanita Littlejohn [facility] +/- 4.00d sphere, 0.12 Health to 2.00d cyl, per lens Frames, purchases deluxe 2019-05-20 09:05:57 Juanita Littlejohn [facility] Health New Patient Intermediate 2019-05-19 15:29:33 Adi Joseph [facility] Opth - 21613 Health Vaccines Ordered - Print 2019-02-14 14:18:30 [facility] Forms Vaccines Ordered - Print 2019-02-12 14:21:00 Acosta [facility] Consent/Declination Health Forms Encounters Start End Encounter Admission Attending Care Care Encounter Source Date/Time Date/Time Type Type Clinicians Facility Department ID 2020-05-25 2020-05-27 Emergency Minal Juan [facility] [id number] 15:02:00 13:33:00 Margaret Soria [id number] [place] [id number] [place] [id number] 2020-03-02 2020-03-02 Outpatient [facility] [id number] [place] 00:00:00 00:00:00 Health 2019-11-26 2019-11-26 Emergency [facility] [id number] [place] 13:47:57 13:47:57 Health 2019-11-26 2019-11-26 Emergency [facility] [id number] [place] 11:21:06 11:21:06 Health 2019-11-17 2019-11-[address] [facility] [id number] [facility] 00:00:00 00:00:00 2019-11-16 2019-11-16 Outpatient [facility] [id number] [place] 11:26:52 11:26:52 Health 2019-11-15 2019-11-15 Outpatient [facility] [id number] [place] 11:58:23 11:58:23 Health 2019-11-15 2019-11-15 Outpatient [facility] [id number] [place] 11:43:04 11:43:04 Health 2019-11-14 2019-11-14 Outpatient [facility] [id number] [place] 10:26:02 10:26:02 Health 2019-11-13 2019-11-13 Emergency [facility] [id number] [place] 09:21:23 09:21:23 Health 2019-11-13 2019-11-13 Outpatient [facility] [id number] [place] 06:32:39 06:32:39 Health 2019-11-12 2019-11-12 Emergency [facility] [id number] [place] 22:50:38 22:50:38 Health 2019-11-12 2019-11-12 Emergency [facility] [id number] [place] 19:42:14 19:42:14 Health 2019-11-04 2019-11-[address] [facility] [id number] [facility] 14:33:46 14:33:46 2019-10-31 2019-10-31 Outpatient [facility] [id number] [facility] 15:44:39 15:44:39 2019-10-25 2019-10-25 Emergency [facility] [id number] [place] 23:23:24 23:23:24 Health 2019-10-25 2019-10-25 Emergency [facility] [id number] [place] 21:03:20 21:03:20 Health 2019-10-25 2019-10-25 Emergency [facility] [id number] [place] 00:00:00 00:00:00 [facility] 2019-10-20 2019-10-[address] [facility] [id number] [facility] 13:26:36 13:26:36 2019-10-18 2019-10-18 Emergency [facility] [id number] [place] 00:10:57 00:10:57 Health 2019-10-17 2019-10-17 Emergency [facility] [id number] [place] 23:08:41 23:08:41 Health 2019-10-17 2019-10-17 Emergency [facility] [id number] [place] 12:52:25 12:52:25 [facility] 2019-09-24 2019-09-[address] [facility] [id number] [facility] 09:00:30 09:00:30 2019-09-08 2019-09-08 Office Silverman, [facility] Vision Encoun ter/ Legacy 00:00:00 00:00:00 Visit Della [id number] Com [place] [id number] [facility] 2019-05-26 2019-05-[facility] 00:00:00 00:00:00 Visit Juanita [id number] Com [place] [id number] [facility] 2019-05-26 2019-05-26 Office Graciela [facility] Public Enc ounter/ Legacy 00:00:00 00:00:00 Visit wyattRoxanne [facility] [id number] [facility] [employer] [facility] [id number] [facility] 2019-05-21 2019-05-21 Office Adi Joseph [facility] Vision Enc ounter/ Legacy 00:00:00 00:00:00 Visit [id number] Com [place] [id number] [facility] 2019-05-19 2019-05-19 [facility] 00:00:00 00:00:00 Visit Juanita [id number] Corby le[place]on [id number] [facility] 2019-05-19 2019-05-19 Office Adi Joseph [facility] Vision Enc ounter/ Legacy 00:00:00 00:00:00 Visit [id number] Com [place] [id number] [facility] 2019-05-19 2019-05-19 Office Adi Joseph [facility] Vision Enc ounter/ Legacy 00:00:00 00:00:00 Visit [id number] Com [place] [id number] [facility] 2019-05-19 2019-05-19 Office Adi Joseph [facility] Vision Enc ounter/ Legacy 00:00:00 00:00:00 Visit [id number] Com [place] [id number] [facility] 2019-05-19 2019-05-19 Office Adi Joseph [facility] Vision Enc ounter/ Legacy 00:00:00 00:00:00 Visit Juanita Littlejohn [id number] Communi [id number] [facility] 2019-02-14 2019-02-14 Office [facility] Adult Encoun ter/ Legacy 00:00:00 00:00:00 Visit [facility] [id number] Co mmuni [id number] [facility] 2019-02-12 2019-02-12 Office [facility] Adult Encoun ter/ Legacy 00:00:00 00:00:00 Visit [facility] [id number] Co mmuni [id number] [facility] 2019-02-12 2019-02-12 Office [facility] Adult Encoun ter/ Legacy 00:00:00 00:00:00 Visit [facility] [id number] Co mmuni [id number] [facility] Results Test Description Test Test Results [...] any concentrations <2 ng/mL are obtained.Performed At: [address] [id number] Hemanth Flores MD Ph:[phone] Novel Coronavirus 2020-02- Not DetectedTesting was (COVID-19), YOLANDA 04 performed using the miguel(R) LC 10:12:58 SARS-CoV-2 test.This test was developed and its performance characteristicsdetermined by [employer]. This test has not beenFDA cleared or [...] (not detected) result in this assay.Performed At: [facility] [id number] Sanjai MD Ph:[phone] Ferritin 2020-02-11 09:17:16 Test Item Value Reference Range Interpretation Comme nts Ferritin Level (test code = Ferritin Level) 18 ng/mL 13-150 Basic Metabolic [id number] 06:58:24 Test Item Value Reference Range Interpretation [...] ag e have not been validated by [facility] MDRD study and should be [...] ag e have not been validated by [facility] MDRD study and should be interpreted wit h caution. eGFR R esult Interpretation: eGFR > or = 60 is in the Normal RangeeGF R < 60 may mean kid carmelina diseaseeGFR < 1 5 may mean kidney failure Rang es recommended by the National Kidney Foundation, http://nkdep.ni h.gov Hepatic Function [id number] 05:35:45 Test Item Value Reference Range Interpretation [...] 2.8 g/dL 2.9-3.1 L = Globulin) Lactate Vlpnczlggvfbu4999-87-80 05:35:45 Test Item Value Reference Range Interpretation Comments LDH (test code = LDH) 206 U/L 135-214 C Reactive [id number] 05:35:45 Test Item Value Reference Range Interpretation Comments CRP (test code = CRP) 6.4 mg/L 0.0-5.0 H Lactic Acid, Plasma (Venous)2020-02-11 05:12:57 Test Item Value Reference Range Interpretation Comments Lactic Acid, Plasma (Venous) (test 0.7 mmol/L 0.5-1.9 code = Lactic Acid, Plasma (Venous)) Fibrinogen [id number] 05:04:01 Test Item Value Reference Range Interpretation Comments Fibrinogen Level (test code = 226.0 mg/dL 188.5-473.8 Fibrinogen Level) D-Dimer [id number] 05:04:01 Test Item Value Reference Range Interpretation Comments D Dimer, (Quant.) (test code = D 406 ng/mL 0-500 Dimer, (Quant.)) Complete Blood Count with Sjjmtpidfofl3346-22-46 04:56:23 Test Item Value Reference Range Interpretation [...] code = 0 % N IPF) Automated Ecclylrdglpo0847-22-43 04:56:23 Test Item Value Reference Range Interpretation Comments Neutro Auto (test code = Neutro 45.7 % 36.0-70.0 Auto) Lymph Auto (test code = Lymph Auto) 39.7 % 12.0-44.0 Knox Auto (test code = Knox Auto) 10.7 % 0.0-11.0 Eos, Auto (test code = Eos, Auto) 2.9 % 0.0-7.0 Basophil Auto (test code = Basophil 0.5 % 0.0-2.0 Auto) Neutro Absolute (test code = Neutro 3.0 x10 1.6-7.4 Absolute) Lymph Absolute (test code = Lymph 2.61 x10 .50-4.60 Absolute) Knox Absolute (test code = Knox .70 x10 .00-1.20 Absolute) Eos Absolute (test code = Eos 0.19 x10 0.00-0.74 Absolute) Baso Absolute (test code = Baso 0.03 x10 0.00-0.21 Absolute) IG [id number] 04:56:23 Test Item Value Reference Range Interpretation Comments IG (test code = IG) 0.5 % 0.0-5.0 IG Abs (test code = IG Abs) 0 x10 N Comprehensive Metabolic Wszsw7622-69-55 15:04:07 Test Item Value Reference Range Interpretation [...] not provided, and t he patient is -Siabel n, multiply by 1.2 12. If sex [...] National Kidney Foundation, http://nkdep.ni h.gov C Reactive [id number] 12:02:24 Test Item Value Reference Range Interpretation Comments CRP (test code = CRP) 2.8 mg/L 0.0-5.0 Automated Otuczbenadro0726-85-20 10:31:00 Test Item Value Reference Range Interpretation Comments Neutro Auto (test code = Neutro 49.7 % 36.0-70.0 Auto) Lymph Auto (test code = Lymph Auto) 31.5 % 12.0-44.0 Knox Auto (test code = Knox Auto) 12.3 % 0.0-11.0 H Eos, Auto (test code = Eos, Auto) 5.5 % 0.0-7.0 Basophil Auto (test code = Basophil 0.6 % 0.0-2.0 Auto) Neutro Absolute (test code = Neutro 2.3 x10 1.6-7.4 Absolute) Lymph Absolute (test code = Lymph 1.48 x10 .50-4.60 Absolute) Knox Absolute (test code = Knox .58 x10 .00-1.20 Absolute) Eos Absolute (test code = Eos 0.26 x10 0.00-0.74 Absolute) Baso Absolute (test code = Baso 0.03 x10 0.00-0.21 Absolute) IG [id number] 10:31:00 Test Item Value Reference Range Interpretation Comments IG (test code = IG) 0.4 % 0.0-5.0 IG Abs (test code = IG Abs) 0 x10 N Complete Blood Count with Djenkppgmlfa2793-25-39 10:30:59 Test Item Value Reference Range Interpretation [...] code = IPF) 0 % N Urine Bldeoob0773-97-93 10:00:32 C Urine Added by GL_SJM_UA_CUL_IND>=100,000 cfu/ml Diphtheroids 10,000 cfu/ml Gamma Streptococcus <10,000 cfu/ml Alpha Streptococcus Multiple organisms present, no further workup in progress. Fibrinogen [id number] 23:35:18 Test Item Value Reference Range Interpretation Comments Fibrinogen Level (test code = 226.0 mg/dL 188.5-473.8 Fibrinogen Level) Uftacpok4180-62-49 23:32:29 Test Item Value Reference Range Interpretation Comments Ferritin Level (test code = Ferritin 17 ng/mL 13-150 Level) Lactate Djfzqjimuacpl9551-07-59 22:35:45 Test Item Value Reference Range Interpretation Comments LDH (test code = LDH) 246 U/L 135-214 H C Reactive Bbqvtuq8524-25-50 22:35:45 Test Item Value Reference Range Interpretation Comments CRP (test code = CRP) 2.8 mg/L 0.0-5.0 Complete Blood Count with Wzekvxtbtlqt9480-96-78 22:00:38 Test Item Value Reference Range Interpretation [...] code = 0 % N IPF) Automated Xlvyhywyphbt0977-45-62 22:00:38 Test Item Value Reference Range Interpretation Comments Neutro Auto (test code = Neutro 45.4 % 36.0-70.0 Auto) Lymph Auto (test code = Lymph Auto) 37.4 % 12.0-44.0 Knox Auto (test code = Knox Auto) 11.4 % 0.0-11.0 H Eos, Auto (test code = Eos, Auto) 4.6 % 0.0-7.0 Basophil Auto (test code = Basophil 0.7 % 0.0-2.0 Auto) Neutro Absolute (test code = Neutro 2.8 x10 1.6-7.4 Absolute) Lymph Absolute (test code = Lymph 2.27 x10 .50-4.60 Absolute) Knox Absolute (test code = Knox .69 x10 .00-1.20 Absolute) Eos Absolute (test code = Eos 0.28 x10 0.00-0.74 Absolute) Baso Absolute (test code = Baso 0.04 x10 0.00-0.21 Absolute) IG Fkapu2560-70-03 22:00:38 Test Item Value Reference Range Interpretation Comments IG (test code = IG) 0.5 % 0.0-5.0 IG Abs (test code = IG Abs) 0 x10 N Troponin [id number] 19:40:14 Test Item Value Reference Range Interpretation [...] of chronic myocard ial injury. Urine Drug Zehfzs1092-94-30 19:31:13 Test Item Value Reference Range Interpretation [...] matory test if desired . HCG Qualitative [id number] 19:08:08 Test Item Value Reference Range Interpretation Comments HCG, Serum Qual (test code = HCG, Negative Serum Qual) Lot # (test code = Lot #) [id number] N Expiration Dt (test code = 2021-07-10 N Expiration Dt) Neg Control (test code = Neg Negative Control) Pos Control (test code = Pos Positive Control) Internal QC (test code = Internal Acceptable QC) Urinalysis Oauerodseei0857-11-65 19:04:03 Test Item Value Reference Range Interpretation Comments UA WBC (test code = UA WBC) None Seen 0-5 UA RBC (test code = UA RBC) 6-10 0-5 A UA Bacteria (test code = UA Few A Bacteria) UA Squam Epithelial (test code = UA 20-29 A Squam Epithelial) Comprehensive Metabolic [id number] 19:03:43 Test Item Value Reference Range Interpretation [...] A/G 1.3 ratio N Ratio) Comprehensive Metabolic Hcfja8312-56-26 19:03:43 Test Item Value Reference Range Interpretation [...] the National Kidney Foundation, http://nkdep.ni h.gov Alcohol [id number] 19:03:43 Test Item Value Reference Range Interpretation Comments Ethanol Level (test <0.00 g/dL 0.00-0.01 Intoxica ginger 0.080 g/dL code = Ethanol or more Level) Ethanol Inst (test <0 N code = Ethanol Inst) Comprehensive Metabolic [id number] 19:03:43 Test Item Value Reference Range Interpretation [...] Foundation, http://nkdep.ni h.gov XR Chest 1 View Fjglaoz0033-19-30 18:52:37Patient: SOURAV BEY Date/Time02/09/202018:31 CDTReason for ExamShortness of breathReportDICTATION LOCATION: [id number]: Female, 39 years of age with Shortness [...] Signature): 02/09/2020 6:52 pmUrinalysis with Culture, if dxptfvqzq4295-36-42 18:46:10 Test Item Value Reference Range Interpretation [...] Micro Indicated Not Indicated A Ind?) IG [id number] 18:42:20 Test Item Value Reference Range Interpretation Comments IG (test code = IG) 0.7 % 0.0-5.0 IG Abs (test code = IG Abs) 0 x10 N Complete Blood Count with Vmacufrsvxud5123-75-02 18:42:19 Test Item Value Reference Range Interpretation [...] code = IPF) 0 % N Automated Ronkevcdumao2090-05-04 18:42:19 Test Item Value Reference Range Interpretation Comments Neutro Auto (test code = Neutro 43.0 % 36.0-70.0 Auto) Lymph Auto (test code = Lymph Auto) 39.3 % 12.0-44.0 Knox Auto (test code = Knox Auto) 11.4 % 0.0-11.0 H Eos, Auto (test code = Eos, Auto) 4.9 % 0.0-7.0 Basophil Auto (test code = Basophil 0.7 % 0.0-2.0 Auto) Neutro Absolute (test code = Neutro 2.4 x10 1.6-7.4 Absolute) Lymph Absolute (test code = Lymph 2.17 x10 .50-4.60 Absolute) Knox Absolute (test code = Knox .63 x10 .00-1.20 Absolute) Eos Absolute (test code = Eos 0.27 x10 0.00-0.74 Absolute) Baso Absolute (test code = Baso 0.04 x10 0.00-0.21 Absolute) PPD results in [id number] 14:09:10 Test Item Value Reference Range Interpretation Comments PPD results in mm (test code = 196116) 0 mm [facility]- XR CHEST 1 [id number] 12:29:00 FAX: Cali Ramos MD [phone] [place]: St: REG Name: SOURAV BEY [facility] : 1980 Age/S: 38/F [address] [facility] Unit#: [id number] [place]: [place]: [place] [id number] Acct: [id number] Dis Date: Status: REG ER PHONE #: [phone] Exam Date: 12/06/2018 1205 FAX #: [phone] Reason: hyperventilation EXAMS: CPT CODE: [id number] XR CHEST 1 V 89615 Chest Radiograph History: hyperventilation Comparison: None at this time Location: R16 A single frontal view of the chest is submitted. The heart is within normal limits in size. Pulmonary vasculature is unremarkable. The visualized lung christensen appear to be free of disease. The bones appear unremarkable. IMPRESSION: There is no radiographic evidence of acute cardiopulmonary disease. at 2087 Reported and signed by: Mathew Vazquez M.D. CC: Cali Ramos MD Technologist: JOSUE BARBA Trnscrd Date/Time/By: 12/06/2018 (7076) : By: Jazzy PAGE 1 Signed Report FAX: Cali Ramos MD [phone] [place]: St: REG Name: SOURAV BEY [facility] : 1980 Age/S: 38/F [address] [facility] Unit #: [id number] Loc: [place], [place]: [place] [id number] Acct: [id number] Dis Date: Status: REG ER PHONE #: [phone] Exam Date: 12/06/2018 1205 FAX #: [phone] Reason: hyperventilation EXAMS: CPT CODE: [id number] XR CHEST 1 V 32653 <Continued> Orig Print D/T: S: 12/06/2018 (7229) PAGE 2 Signed ReportURINALYSIS [id number] 12:27:00 Test Item Value Reference Range Interpretation [...] (test code = FEW NONE BACU) URINALYSIS OLPRJYOX1290-05-15 12:18:00 Test Item Value Reference Range Interpretation [...] NONE BACU) - CT ABD PELVIS W/O [id number] 10:32:00 FAX: Addie Mccarthy MD [phone] [place]: St: REG Name: SOURAV BEY [facility] : 1980 Age/S: 38/F [address] [facility] [address] Unit: [id number] Loc: [place], [place]: [place] [address] Acct: [id number] Dis Date: Status: REG ER PHONE #: [phone] Exam Date: 11/22/2018 1012 FAX #: [phone] Reason: LOW BACK/ FLANK PAIN WITH URINARY SX EXAMS: CPT CODE: [id number] CT ABD PELVIS W/O CONT 94219 HISTORY: Low back pain, flank pain with [...] Signed Report (CONTINUED) FAX: Addie Mccarthy MD [phone] [place]: St: REG Name: SOURAV BEY [facility] : 1980 Age/S: 38/F [address] [facility] Unit: [id number] Loc: [place], [place] Phys: Addie Mccarthy D [address] Acct: [id number] Dis Date: Status: REG ER PHONE #: [phone] Exam Date: 11/22/2018 1012 FAX #: [phone] Reason: LOW BACK/ FLANK PAIN WITH URINARY SXEXAMS: CPT CODE: [id number] CT ABD PELVIS W/O CONT 16223 <Continued> Correlate for any pancreatic enzymeabnormalities as [...] MD Technologist: JAMES GERARD Trnscrd Dt/Tm: 11/22/2018 (6583) t.SDR.RCM Orig Print D/T: S: 11/22/2018(1035 PAGE 2 Signed ReportBASIC METABOLIC [id number] 09:28:00 Test Item Value Reference Range Interpretation [...] 9.4 mg/dl 8.0-10.5 N Specimen comments: Clean OfferpopHEPATIC FUNCTION PANEL [id number] 09:28:00 Test Item Value Reference Range Interpretation [...] N code = ALKP) Specimen comments: Clean [id number] 09:28:00 Test Item Value Reference Range Interpretation Comments LIPASE (test code = LIP) 123 Units/L 65.0-230.0 N Specimen comments: Clean CatchHCG SERUM [id number] 09:28:00 Test Item Value Reference Range Interpretation Comments HCG SERUM QUAL (test code = HCGQL) NEGATIVE NEGATIVE Specimen comments: Clean CatchPROTHROMBIN [id number] 09:26:00 Test Item Value Reference Range Interpretation Comments PROTHROMBIN TIME 10.7 SECONDS 9.9-12.8 N PATIENT (test code = PTP) INTERNATIONAL NORMAL 0.9 0.89-1.14 N THE INR IS TO BE USED RATIO (test code = ONLY FOR MONITORING INR) ORAL ANTICOAGULANTTH ERAPY. THE FOLLOWING A RE SUGGESTED RANGE S FROM [facility] LEGE OF CHEST PHYSICIANS:CARMEN CATION INR VALUEPROPHYLAXI [...] - 3 .5 Specimen comments: Clean CatchURINALYSIS [id number] 09:23:00 Test Item Value Reference Range Interpretation [...] = TRICHU) Specimen comments: Clean CatchBASIC METABOLIC [id number] 09:23:00 Test Item Value Reference Range Interpretation [...] 8.0-10.5 Specimen comments: Clean CatchHEPATIC FUNCTION PANEL [id number] 09:23:00 Test Item Value Reference Range Interpretation [...] 50.0-136.0 code = ALKP) Specimen comments: Clean [id number] 09:23:00 Test Item Value Reference Range Interpretation Comments LIPASE (test code = LIP) Units/L 65.0-230.0 Specimen comments: Clean CatchHCG SERUM [id number] 09:23:00 Test Item Value Reference Range Interpretation Comments HCG SERUM QUAL (test code = HCGQL) NEGATIVE NEGATIVE Specimen comments: Clean CatchBASIC METABOLIC [id number] 09:21:00 Test Item Value Reference Range Interpretation [...] = CA) mg/dl 8.0-10.5 Specimen comments: Clean OfferpopHEPATIC FUNCTION PANEL [id number] 09:21:00 Test Item Value Reference Range Interpretation [...] 50.0-136.0 code = ALKP) Specimen comments: Clean [id number] 09:21:00 Test Item Value Reference Range Interpretation Comments LIPASE (test code = LIP) Units/L 65.0-230.0 Specimen comments: Clean CatchHCG SERUM [id number] 09:21:00 Test Item Value Reference Range Interpretation Comments HCG SERUM QUAL (test code = HCGQL) NEGATIVE NEGATIVE Specimen comments: Clean CatchURINALYSIS [id number] 09:17:00 Test Item Value Reference Range Interpretation [...] NONE BACU) Specimen comments: Clean CatchCBC W/AUTO [id number] 09:11:00 Test Item Value Reference Range Interpretation [...]
--- NOTE | 2020-12-28 11:28 | RAD REPORT ---
EXAM DESCRIPTION: RAD - Knee Left 3 View - 12/28/2020 10:59 am CLINICAL HISTORY: PAIN, worsening with time COMPARISON: Knee Left 3 View dated 05/23/2020; Knee Left 3 view dated 07/25/2013 FINDINGS: No fracture, dislocation or periosteal reaction.Small to moderate joint effusion is eviden t. Medial compartment narrowing is present with marginal spurs. Minimal spurring along the articular margins of the patella. Findings have progressed slightly since May 2020. No soft tissue abnormality. IMPRESSION: Left knee degenerative change as detailed. There does appear to be some progression sinc e May 2020. No acute bone or joint finding. Clinical concerns for internal derangement or occult bony injury could be further assessed with MR im aging.
--- NOTE | 2020-12-28 12:28 | RAD REPORT ---
EXAM DESCRIPTION: US - Extremity Venous Uni Ltd - 12/28/2020 12:10 pm CLINICAL HISTORY: knee pain, swelling COMPARISON: DVT study April 2020 TECHNIQUE: Real-time sonographic evaluation of the left lower extremity deep venous system was perfo rmed. FINDINGS: Normal compressibility, flow augmentation, phasic flow and spontaneous flow are identified in the left lower extremity common femoral, superficial femoral, popliteal and posterior tibial vein s. No intraluminal filling defects seen. Thrombus is identified in the greater saphenous vein more distally near the thigh and medial aspect o f the knee. Fluid is present in the deep soft tissues anterior and medial to knee. This is nonspecifi c and could be reactive fluid or possibly old hematoma. Infected fluid collection is unlikely. IMPRESSION: No DVT in the left lower extremity. Superficial venous thrombosis seen in the greater saphenous vein in the distal thigh and medial knee region. Fluid in the anterior and medial knee deep soft tissues may be reactive fluid or old hematoma. Infect ed fluid collection is unlikely.
[2020-12-28] MEDS ORDERED: KETOROLAC 30 MG/ML INJ ONE (12:48)
--- NOTE | 2020-12-28 12:49 | ER ---
Nurse's Notes [facility] Name: Sariah Maria Age: 40 yrs Sex: Female : 1980 Arrival Date: 12/28/2020 Time: 09:17 Bed 25 Private MD: Diagnosis: Pain in left knee;Phlebitis and thrombophlebitis of superficial vessels of left lower extremity Presentation: 12/28 10:09 Chief complaint: Patient states: L knee pain x 1-2 months. Has gotten worse over the ss past week. Coronavirus screen: Client denies travel out of the [place] in the last 14 days. Ebola Screen: Patient denies exposure to infectious person. Patient denies travel to an Ebola-affected area in the 21 days before illness onset. Initial Sepsis Screen: Does the patient meet any 2 criteria? No. Patient's initial sepsis screen is negative. Does the patient have a suspected source of infection? No. Patient's initial sepsis screen is negative. Risk Assessment: Do you want to hurt yourself or someone else? Patient reports no desire to harm self or others. Onset of symptoms was November 2020. 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 - Social history:: Smoking status: Patient denies any tobacco usage or history of. Screenin:52 Abuse screen: Denies threats or abuse. Nutritional screening: No deficits noted. tw2 Tuberculosis screening: No symptoms or risk factors identified. Fall Risk None identified. Assessment: 11:40 Reassessment: Patient appears in no apparent distress at this time. General: Appears in tw2 no apparent distress. obese, well groomed, Behavior is calm, cooperative, appropriate for age. Pain: Complains of pain in left knee. Neuro: Level of Consciousness is awake, alert, obeys commands, Oriented to person, place, time, situation. Cardiovascular: Capillary refill. Respiratory: Airway is patent Respiratory effort is even, unlabored, Respiratory pattern is regular, symmetrical. Musculoskeletal: Circulation, motion, and sensation intact. Range of motion: intact in all extremities. 12:33 Reassessment: Patient appears in no apparent distress at this time. No changes from tw2 previously documented assessment. Patient and/or family updated on plan of care and expected duration. Pain level reassessed. Patient is alert, oriented x 3, equal unlabored respirations, skin warm/dry/pink. 13:01 Reassessment: Patient appears in no apparent distress at this time. No changes from tw2 previously documented assessment. Patient and/or family updated on plan of care and expected duration. Pain level reassessed. Patient is alert, oriented x 3, equal unlabored respirations, skin warm/dry/pink. Vital Signs: 10:09 BP 126 / 77; Pulse 81; Resp 16; Temp 97.2(TE); Pulse Ox 99% on R/A; Weight 108.86 kg; ss Height 5 ft. 6 in. (167.64 cm); Pain 10/10; 11:40 BP 134 / 73; Pulse 70; Resp 17; Pulse Ox 99% on R/A; tw2 12:32 BP 116 / 71; Pulse 66; Resp 17; Pulse Ox 100% on R/A; tw2 10:09 Body Mass Index 38.74 (108.86 kg, 167.64 cm) ED Course: 09:17 Patient arrived in ED. ds1 10:10 Triage completed. ss 10:11 Arm band placed on right wrist. ss 10:48 XRAY Knee LEFT 3 view In Process Unspecified. EDMS 11:17 Sandor Olmedo PA is PHCP. [facility] 11:17 Kevin Locke MD is Attending Physician. jmm 11:40 Bed in low position. Call light in reach. Side rails up X 1. Pulse ox on. NIBP on. Warm tw2 blanket given. 11:42 Keisha Russ, AUDREY is Primary Nurse. tw2 12:10 US Extremity Venous Unilateral Ltd In Process Unspecified. EDMS 12:48 Benjie Valenzuela MD is Referral Physician. jmm 13:00 No provider procedures requiring assistance completed. Patient did not have IV access tw2 during this emergency room visit. Administered Medications: 12:32 Drug: Ketorolac 30 mg Route: IM; Site: left deltoid; tw2 12:48 Follow up: Response: No adverse reaction tw2 Outcome: 12:48 Discharge ordered by MD. [place] 13:00 Discharged to home via wheelchair. tw2 13:00 Condition: stable 13:00 Discharge instructions given to patient, Instructed on discharge instructions, follow up and referral plans. no drinking with medication, no driving heavy equipment, medication usage, safety practices, Demonstrated understanding of instructions, follow-up care, medications, Prescriptions given X 3. 13:01 Patient left the ED. tw2 Signatures: Dispatcher [employer] EDMS Sandor Olmedo PA PA jmm San[place], Demi ds1 Samia Renteria, RN RN Keisha Rosado RN RN tw2
--- NOTE | 2020-12-28 12:49 | EDPHYS ---
Physician Documentation [facility] Name: Sariah Maria Age: 40 yrs Sex: Female : 1980 Arrival Date: 12/28/2020 Time: 09:17 Bed 25 Private MD: ED Physician Kevin Locke HPI: 12/28 11:19 This 40 yrs old Female presents to ER via Ambulatory with complaints of Knee jmm Pain. 11:19 The patient presents with pain, that is chronic. Onset: The symptoms/episode jmm began/occurred gradually, at an unknown time. Modifying factors: The symptoms are alleviated by nothing. the symptoms are aggravated by nothing. This is a 40 year old female with a history of bipolar, depression, anxiety that presents to the ED with complaints of left knee pain worsening over the past 3 days. Patient states the pain has been chronic. Denies trauma. . RN PRACTITIONER: 11:52 LMP N/A - tw2 Historical: - Allergies: 10:11 [place]; ss 10:11 Tylenol-Codeine #3; ss - PMHx: 10:11 Anxiety; Bipolar disorder; Depression; ss - Immunization history:: Adult Immunizations up to date. - Social history:: Smoking status: Patient denies any tobacco usage or history of. ROS: 11:19 Constitutional: Negative for fever, chills, and weight loss, Cardiovascular: Negative jmm for chest pain, palpitations, and edema, Respiratory: Negative for shortness of breath, cough, wheezing, and pleuritic chest pain. 11:19 MS/extremity: Positive for pain. 11:19 All other systems are negative. Exam: 11:19 Constitutional: This is a well developed, well nourished patient who is awake, alert, jmm and in no acute distress. Head/Face: atraumatic. Eyes: EOMI, no conjunctival erythema appreciated ENT: Moist Mucus Membranes Neck: Trachea midline, Supple Chest/axilla: Normal chest wall appearance and motion. Cardiovascular: Regular rate and rhythm. No edema appreciated Respiratory: Normal respirations, no respiratory distress appreciated Abdomen/GI: Non distended, soft Back: Normal ROM Skin: General appearance color normal 11:19 Musculoskeletal/extremity: swelling noted with painful rom, full dorsalis pulse, compartments are soft, NVI. 11:19 Skin: Appearance: Color: normal in color. 11:19 Neuro: Orientation: is normal, Mentation: is normal, Memory: is normal. 11:19 Psych: Behavior/mood is pleasant, cooperative. Vital Signs: 10:09 BP 126 / 77; Pulse 81; Resp 16; Temp 97.2(TE); Pulse Ox 99% on R/A; Weight 108.86 kg; ss Height 5 ft. 6 in. (167.64 cm); Pain 10/10; 11:40 BP 134 / 73; Pulse 70; Resp 17; Pulse Ox 99% on R/A; tw2 12:32 BP 116 / 71; Pulse 66; Resp 17; Pulse Ox 100% on R/A; tw2 10:09 Body Mass Index 38.74 (108.86 kg, 167.64 cm) MDM: 11:17 Patient medically screened. [facility] 12:42 Data reviewed: vital signs, nurses notes. Counseling: I had a detailed discussion with [facility] the patient and/or guardian regarding: the historical points, exam findings, and any diagnostic results supporting the discharge/admit diagnosis, radiology results, the need for outpatient follow up, to return to the emergency department if symptoms worsen or persist or if there are any questions or concerns that arise at home. ED course: Patient is alert and non toxic in appearance in the ED. Advised to follow up with ortho and otherwise given strict return precautions. patient understood and agrees with the plan of care. . 12/28 10:11 Order name: XRAY Knee LEFT 3 view; Complete Time: 11:41 12/28 11:17 Order name: US Extremity Venous Unilateral Ltd; Complete Time: 12:29 [facility] 12/28 12:42 Order name: Knee Immobilizer; Complete Time: 12:48 [facility] Administered Medications: 12:32 Drug: Ketorolac 30 mg Route: IM; Site: left deltoid; tw2 12:48 Follow up: Response: No adverse reaction tw2 Disposition: 13:14 Co-signature as Attending Physician, Kevin Locke MD. rn Disposition: 12/28/20 12:48 Discharged to Home. Impression: Pain in left knee, Phlebitis and thrombophlebitis of superficial vessels of left lower extremity. - Condition is Stable. - Discharge Instructions: Knee Pain, Phlebitis, [id number]. - Prescriptions for Ibuprofen 800 mg Oral Tablet - take 1 tablet by ORAL route every 8 hours As needed take with food; 30 tablet. Ultracet 37.5- 325 mg Oral Tablet - take 1 tablet by ORAL route every 6 hours - for up to 5 days; do not exceed 8 tablets per day.; 12 tablet. Medrol (Brandin) 4 mg Oral Tablets, Dose Pack - take 1 tablet by ORAL route as directed - follow package instructions; 1 packet. - Medication Reconciliation Form, Thank You Letter, Antibiotic Education, Prescription Opioid Use form. - Follow up: Benjie Valenzuela MD; When: 2 - 3 days; Reason: Recheck today's complaints, Continuance of care, Re-evaluation by your physician. Signatures: Dispatcher [employer] EDMS Sandor Olmedo PA PA jmm Nieto, Roman, MD MD rn Samia Renteria RN RN ss Keisha Russ RN RN tw2 Corrections: (The following items were deleted from the chart) 13:01 12:48 12/28/2020 12:48 Discharged to Home. Impression: Pain in left knee; Phlebitis and tw2 thrombophlebitis of superficial vessels of left lower extremity. Condition is Stable. Forms are Work release form, Medication Reconciliation Form, Thank You Letter, Antibiotic Education, Prescription Opioid Use. Follow up: Dr. Benjie Valenzuela; When: 2 - 3 days; Reason: Recheck today's complaints, Continuance of care, Re-evaluation by your physician. pee
[2020-12-28 13:07] VITALS: TEMP 97.2
[2020-12-28 13:10] VITALS: BP 116/71; O2SAT 100
== END 2020-12-28 13:01 | disposition home or self-care (01) ==
LOC: ER 09:14
DX: I80.02 Phlebitis and thrombophlebitis of superficial vessels of left lower extremity (principal); Z88.5 Allergy status to narcotic agent; Z91.018 Allergy to other foods
CPT/HCPCS: 93971; 96372; 99284

== ENCOUNTER 2021-06-28 17:31 | Emergency (ER) | payer SELFPAY ==
[2021-06-28 18:14] LABS: Urine Blood 1+ (Negative); Urine Glucose Negative (Negative); Urine Protein 2+ (Negative); Urine Specific Gravity >=1.030 (1.005-1.030)
[2021-06-28 18:19] LABS: Absolute Lymphocytes (CBC) 1.8 K/uL (0.7-4.9); Basophils % 0.2 % (0-1.3); MPV 7.8 fL (7.6-11.3); RBC Red Blood Cell Count 3.86 M/uL (3.86-4.86)
[2021-06-28 18:24] LABS: Protime INR 1.03
[2021-06-28 18:27] LABS: Barbiturates NEGATIVE (NEGATIVE); Benzodiazepines NEGATIVE (NEGATIVE); Cocaine NEGATIVE (NEGATIVE); METHAMPHETAM NEGATIVE (NEGATIVE); Methadone NEGATIVE (NEGATIVE); Opiates NEGATIVE (NEGATIVE); Phencyclidine NEGATIVE (NEGATIVE); THC Cannibis NEGATIVE (NEGATIVE)
[2021-06-28] MEDS ORDERED: NALOXONE HCL 2 MG/2 ML VIAL ONE (18:38)
[2021-06-28 18:41] LABS: ALT/SGPT 40 U/L (12-78); AST/SGOT 62 U/L (15-37); Albumin 2.9 g/dL (3.4-5.0); Alkaline Phosphatase 170 U/L (45-117); BUN Blood Urea Nitrogen 6 mg/dL (7-18); Bicarbonate 27 mmol/L (21-32); Bilirubin Direct 0.1 mg/dL (0-0.2); Bilirubin Total 0.4 mg/dL (0.2-1.0); Glucose Level 113 mg/dL (74-106); Potassium 4.4 mmol/L (3.5-5.1); Protein, Total 7.3 g/dL (6.4-8.2); Sodium Level 137 mmol/L (136-145)
[2021-06-28] MEDS ORDERED: NA CHLORIDE 0.9% 1,000 ML ONE ×2 (18:43→23:28)
[2021-06-28 18:58] LABS: Urine Specific Gravity/Preg >1.030 (1.005-1.030)
--- NOTE | 2021-06-28 19:50 | RAD REPORT ---
EXAM DESCRIPTION: CT - Head C Spine Mpr Wo Con - 06/28/2021 7:36 pm CLINICAL HISTORY: Head and neck injury status post fall. Head and neck pain COMPARISON: 2011 TECHNIQUE: Computed axial tomography of the head and cervical spine was obtained. Sagittal and coronal reconstruction was performed. All CT scans are performed using dose optimization technique as appropriate and may include automated exposure control or mA/KV adjustment according to patient size. FINDINGS: An intracranial bleed is not seen. The ventricles are normal in caliber. Large fluid collection within the posterior aspect of the posterior cranial fossa is unchanged. It ma y represent a mauro cisterna magna, Dandy-Walker or arachnoid cyst. Fluid within the visualized sinuses and mastoids is not seen A cervical fracture is not visualized. No dislocation is noted. IMPRESSION: No acute intracranial abnormality is seen. A cervical fracture is not visualized. If the patient continues to have symptoms to suggest intracra nial /spinal cord pathology then MRI would be recommended
[2021-06-28] MEDS ORDERED: KETOROLAC 30 MG/ML INJ ONE (23:28)
--- NOTE | 2021-06-29 02:14 | ER ---
Nurse's Notes [facility] Name: Sariah Maria Age: 40 yrs Sex: Female : 1980 Arrival Date: 06/28/2021 Time: 17:39 Bed 15 Private MD: Diagnosis: Poisoning by other narcotics, accidental (unintentional), initial encounter Presentation: 06/28 18:28 Chief complaint: EMS states: Unresponsive. Coronavirus screen: Vaccine status: Patient tc5 reports being unvaccinated. At this time, the client does not indicate any symptoms associated with coronavirus-19. Ebola Screen: No symptoms or risks identified at this time. Initial Sepsis Screen: Does the patient meet any 2 criteria? No. Patient's initial sepsis screen is negative. Risk Assessment: Do you want to hurt yourself or someone else? Patient reports no desire to harm self or others. Other: Denies SI/HI states she took a "street drug percocet, only took one". Onset of symptoms is unknown. 18:28 Method Of Arrival: EMS tc5 18:28 Acuity: RICHELLE 2 tc5 19:15 Initial Sepsis Screen: Does the patient have a suspected source of infection? No. df1 Patient's initial sepsis screen is negative. Triage Assessment: 18:33 General: Appears distressed, Behavior is drowsy, Ems was called to the home where pt laura lives with her mother for unresponsive. Upon EMS arrival, the found pt supine, blue in the face 02 sats 40, they bagged pt and administered 1 mg Narcan nasally, pt became more alert and 02 sats increased without further BVM. they placed 20 g to RAC where they hung 1 LTR NS that 300 ml have infused upon arrival.. Historical: - Allergies: 06/29 02:56 [place]; df1 02:56 Tylenol-Codeine #3; df1 - Home Meds: 02:56 Ambien Oral [Active]; Depakote 500 mg Oral TbEC 2 times per day [Active]; Effexor Oral df1 25 mg twice a day [Active]; gabapentin Oral twice a day [Active]; Latuda Oral [Active]; propranolol 40 mg Oral tab 2 times per day [Active]; Risperdal Oral once daily [Active]; Zoloft Oral [Active]; - PMHx: 02:56 Anxiety; Bipolar disorder; Depression; df1 - Immunization history:: Adult Immunizations up to date, Client reports having NOT received the Covid vaccine. Last tetanus immunization: up to date. - Social history:: Smoking status: Patient denies any tobacco usage or history of. Patient/guardian denies using alcohol, street drugs, IV drugs. Screenin/19 19:15 Fall Risk None identified. df1 06/29 02:56 Abuse screen: Denies threats or abuse. Denies injuries from another. Nutritional df1 screening: No deficits noted. Tuberculosis screening: No symptoms or risk factors identified. Assessment: 06/28 18:37 Reassessment: No changes from previously documented assessment. General: Appears tc5 distressed, Behavior is cooperative, drowsy. Pain: Complains of pain in right leg, lateral aspect of left knee, posterior aspect of left knee, medial aspect of left knee and left knee. 18:47 General: Pt mother here, states the pt has done this several times, she has been taking tc5 unknown street drugs. Pt mother is scared and wants her to get help. pt mother talking to Chacho LAU for options.. 20:00 Reassessment: Patient appears in no apparent distress at this time. Patient and/or df1 family updated on plan of care and expected duration. Pain level reassessed. Patient is alert, oriented x 3, equal unlabored respirations, skin warm/dry/pink. Patient states feeling better. Patient states symptoms have improved. 21:00 Reassessment: Patient appears in no apparent distress at this time. No changes from df1 previously documented assessment. Patient and/or family updated on plan of care and expected duration. Pain level reassessed. Patient is alert, oriented x 3, equal unlabored respirations, skin warm/dry/pink. Patient states feeling better. Patient states symptoms have improved. 06/29 00:00 Reassessment: Patient appears in no apparent distress at this time. No changes from df1 previously documented assessment. Patient and/or family updated on plan of care and expected duration. Pain level reassessed. Patient is alert, oriented x 3, equal unlabored respirations, skin warm/dry/pink. Patient states feeling better. Patient states symptoms have improved. Vital Signs: 06/28 18:28 BP 121 / 84; Pulse 81; Resp 12; Temp 98.1; Pulse Ox 99% ; Weight 108.41 kg; Height 5 tc5 ft. 6 in. (167.64 cm); Pain 10/10; 18:51 BP 130 / 80; Pulse 84; Resp 20; Pulse Ox 100% 2 lpm ; Pain 10/10; tc5 06/29 03:03 BP 109 / 66; Pulse 77; Resp 13; Temp 98.2; Pulse Ox 100% ; Pain 0/10; df1 06/28 18:28 Body Mass Index 38.58 (108.41 kg, 167.64 cm) tc5 Vitals: 06/28 18:38 Cardiac Rhythm Assessment Regular. tc5 ED Course: 17:39 Patient arrived in ED. ch5 17:41 Patient has correct armband on for positive identification. Bed in low position. Call [facility] light in reach. Side rails up X2. Warm blanket given. Pillow given. back tender fourdrinier on. Pulse ox on. NIBP on. 17:41 Maintain EMS IV. Dressing intact. Good blood return noted. Site clean \\T\\ dry. 5 17:43 Yaw Wilburn PA is PHCP. cp 17:43 Sonam Nowak MD is Attending Physician. cp 18:11 Mariana Ventura, AUDREY is Primary Nurse. tc5 18:32 Triage completed. tc5 18:37 Initial lab(s) drawn, by ED staff, sent to lab. Urine collected: straight cath [facility] specimen, nina colored, EKG done, by ED staff, reviewed by Sonam Nowak MD. Straight cath inserted, using sterile technique, 16 Fr. Specimen obtained. 18:55 Urine --Ancillary (enter results) Sent. 5 18:55 Urine --Ancillary Sent. 5 19:05 Darin Camejo MD is Attending Physician. cp 19:35 CT Head C Spine In Process Unspecified. EDMS 06/29 03:00 No provider procedures requiring assistance completed. IV discontinued, intact, df1 bleeding controlled, No redness/swelling at site. 03:01 Arm band placed on right wrist. df1 Administered Medications: 06/28 18:16 Drug: NARcan (naloxone) 1 mg Route: IVP; Site: left antecubital; tc5 19:07 Follow up: Response: No adverse reaction bs2 18:27 Drug: NS 0.9% 1000 ml Route: IV; Rate: 1 bolus; Site: left antecubital; tc5 22:29 Follow up: IV Status: Completed infusion bs2 23:12 Drug: Ketorolac 15 mg Route: IVP; Site: left antecubital; bs2 06/29 03:02 Follow up: Response: No adverse reaction df1 06/28 23:12 Drug: NS 0.9% 1000 ml Route: IV; Rate: 125 ml/hr; Site: left antecubital; bs2 06/29 03:02 Follow up: IV Status: Completed infusion df1 02:20 Drug: Tylenol 1000 mg Route: PO; bs2 03:02 Follow up: Response: No adverse reaction df1 Outcome: 02:13 Discharge ordered by MD. cp 03:01 Discharged to home ambulatory, with family. df1 03:01 Condition: improved 03:01 Discharge instructions given to patient, family, Instructed on discharge instructions, follow up and referral plans. Demonstrated understanding of instructions, follow-up care. 03:03 Patient left the ED. df1 Signatures: Dispatcher [employer] EDMS Yaw Wilburn PA PA cp Martinez, Maria 5 Johnna Damian, RN RN bs2 Earl Huertas RN RN ch5 Sera Orozco df1 Mariana Ventura RN RN tc5
--- NOTE | 2021-06-29 02:14 | EDPHYS ---
Physician Documentation [facility] Name: Sariah Maria Age: 40 yrs Sex: Female : 1980 Arrival Date: 06/28/2021 Time: 17:39 Bed 15 Private MD: ED Physician Darin Camejo HPI: 06/28 17:59 This 40 yrs old Female presents to ER via Unassigned with complaints of Found cp Unresponsive. 18:00 The patient presents with decreased responsiveness. cp 18:00 Onset: The symptoms/episode began/occurred just prior to arrival. Possible causes: drug cp use, narcotics. Associated signs and symptoms: Pertinent positives: pain all over, Pertinent negatives: abdominal pain, chest pain. Current symptoms: In the emergency department the patient's symptoms have improved, moderately, is more alert. Patient's baseline: Neuro: alert and fully oriented, Motor: no deficits, Ambulation: walks without assistance, Speech: normal. Patient given intranasal Narcan 2 mg prior to arrival after being found on ground by mother. Patient admits to consuming 1 tablet of Percocet that she obtained from "friend". Patient reports she takes Percocet obtained from "friend" for chronic pain and chronic knee pain. Historical: - Allergies: 06/29 02:56 [place]; df1 02:56 Tylenol-Codeine #3; df1 - Home Meds: 02:56 Ambien Oral [Active]; Depakote 500 mg Oral TbEC 2 times per day [Active]; Effexor Oral df1 25 mg twice a day [Active]; gabapentin Oral twice a day [Active]; Latuda Oral [Active]; propranolol 40 mg Oral tab 2 times per day [Active]; Risperdal Oral once daily [Active]; Zoloft Oral [Active]; - PMHx: 02:56 Anxiety; Bipolar disorder; Depression; df1 - Immunization history:: Adult Immunizations up to date, Client reports having NOT received the Covid vaccine. Last tetanus immunization: up to date. - Social history:: Smoking status: Patient denies any tobacco usage or history of. Patient/guardian denies using alcohol, street drugs, IV drugs. ROS: 06/28 18:05 Constitutional: Negative for fever. cp Cardiovascular: Negative for chest pain. Respiratory: Negative for shortness of breath. Abdomen/GI: Negative for vomiting. 18:05 Psych: Negative for auditory hallucinations, visual hallucinations, homicidal ideation, cp suicide gesture, suicidal ideation. 18:05 All other systems are negative. cp Exam: 18:10 Constitutional: The patient appears in no acute distress, alert, awake, cp non-diaphoretic, non-toxic, well developed, well nourished, obese. 18:10 Head/Face: Normocephalic, atraumatic. cp 18:10 Eyes: Periorbital structures: appear normal, Pupils: constricted, bilaterally, Extraocular movements: intact throughout, Conjunctiva: normal, no exudate, no injection, Sclera: no appreciated abnormality, Lids and lashes: appear normal, bilaterally. 18:10 ENT: External ear(s): are unremarkable, Ear canal(s): are normal, clear, TM's: dullness, bilaterally, Nose: is normal, Mouth: Lips: moist, Oral mucosa: moist, Posterior pharynx: Airway: no evidence of obstruction, patent. 18:10 Neck: C-spine: vertebral tenderness, is not appreciated, crepitus, is not appreciated. 18:10 Chest/axilla: Inspection: normal, Palpation: is normal, no crepitus, no tenderness. 18:10 Cardiovascular: Rate: normal, Rhythm: regular, Edema: is not appreciated, JVD: is not appreciated. 18:10 Respiratory: the patient does not display signs of respiratory distress, Respirations: normal, no use of accessory muscles, no retractions, labored breathing, is not present, Breath sounds: are clear throughout, no decreased breath sounds, no stridor, no wheezing. 18:10 Abdomen/GI: Inspection: abdomen appears normal, Bowel sounds: active, all quadrants, Palpation: abdomen is soft and non-tender, in all quadrants. 18:10 Back: pain, that is moderate. 18:10 Musculoskeletal/extremity: Extremities: grossly normal except: noted in the left leg and right leg and left knee and right knee: pain, ROM: full passive range of motion, in the left knee and right knee. 18:10 Skin: cellulitis, is not appreciated, no rash present. 18:10 Neuro: Orientation: to person, situation, Mentation: able to follow commands, slow to respond, Motor: moves all fours, Sensation: no obvious gross deficits. 18:55 ECG was reviewed by the Attending Physician. cp Vital Signs: 18:28 BP 121 / 84; Pulse 81; Resp 12; Temp 98.1; Pulse Ox 99% ; Weight 108.41 kg; Height 5 tc5 ft. 6 in. (167.64 cm); Pain 10/10; 18:51 BP 130 / 80; Pulse 84; Resp 20; Pulse Ox 100% 2 lpm ; Pain 10/10; tc5 06/29 03:03 BP 109 / 66; Pulse 77; Resp 13; Temp 98.2; Pulse Ox 100% ; Pain 0/10; df1 06/28 18:28 Body Mass Index 38.58 (108.41 kg, 167.64 cm) tc5 MDM: 06/28 17:48 Patient medically screened. cp 18:15 Differential Diagnosis: CVA, electrolyte abnormality, alcohol intoxication, cp hypoglycemia, intracranial bleed, overdose, seizure, TIA, UTI, volume depletion. 06/29 02:10 Data reviewed: vital signs, nurses notes, lab test result(s), EKG, radiologic studies, cp CT scan. 02:10 Test interpretation: by ED physician or midlevel provider: ECG. Counseling: I had a cp detailed discussion with the patient and/or guardian regarding: the historical points, exam findings, and any diagnostic results supporting the discharge/admit diagnosis, lab results, radiology results, to return to the emergency department if symptoms worsen or persist or if there are any questions or concerns that arise at home. Response to treatment: the patient's symptoms have markedly improved after treatment, VSS. Patient alert times times three, no signs of respiratory distress. Mother at bedside. Will discharge to home for continued monitoring. 06/28 17:59 Order name: Acetaminophen; Complete Time: 19:06 cp 06/28 17:59 Order name: Basic Metabolic Panel; Complete Time: 19: cp 06/28 19:06 Interpretation: Normal except: GLUC 113; BUN 6; GFR 54. cp 06/28 17:59 Order name: CBC with Diff; Complete Time: 19:06 cp 06/29 02:04 Interpretation: Normal except: HGB 10.1; HCT 31.0; MCH 26.1; PLT 439; RDW 19.1. cp 06/28 17:59 Order name: ETOH Level; Complete Time: 19:06 cp 06/28 17:59 Order name: Hepatic Function; Complete Time: 19:06 cp 06/29 02:04 Interpretation: Normal except: AST 62; ALK 170; ALB 2.9; GLOB 4.4; A/G 0.7. cp 06/28 17:59 Order name: PT-INR; Complete Time: 19:06 cp 06/28 17:59 Order name: Ptt, Activated; Complete Time: 19:06 cp 06/28 17:59 Order name: Salicylate; Complete Time: 19:06 cp 06/28 17:59 Order name: Urine Drug Screen; Complete Time: 19:06 cp 06/28 18:14 Order name: Urine Dipstick-Ancillary; Complete Time: 19:06 EDMS 06/29 02:05 Interpretation: Normal except: UKET Trace; UBLD 1+; UPROT 2+. cp 06/28 18:48 Order name: Urine --Ancillary (enter results) bd 06/28 18:50 Order name: Urine --Ancillary; Complete Time: 19:06 EDMS 06/28 19:07 Order name: CT Head C Spine; Complete Time: 20:09 cp 06/28 17:59 Order name: EKG; Complete Time: 18:01 cp 06/28 17:59 Order name: EKG - Nurse/Tech; Complete Time: 18:55 cp 06/28 17:59 Order name: IV Saline Lock; Complete Time: 18:27 cp 06/28 17:59 Order name: Labs collected and sent; Complete Time: 18:27 cp 06/28 17:59 Order name: Suicide Screening ([place]); Complete Time: 22:29 cp 06/28 17:59 Order name: Urine Dipstick-Ancillary (obtain specimen); Complete Time: 18:55 cp 06/28 17:59 Order name: Urine Test (obtain specimen); Complete Time: 18:55 cp EC/19 18:55 Rate is 79 beats/min. Rhythm is regular. [place] interval is normal. QRS interval is normal. cp QT interval is normal. Interpreted by me. Reviewed by me. Administered Medications: 18:16 Drug: NARcan (naloxone) 1 mg Route: IVP; Site: left antecubital; tc5 19:07 Follow up: Response: No adverse reaction bs2 18:27 Drug: NS 0.9% 1000 ml Route: IV; Rate: 1 bolus; Site: left antecubital; tc5 22:29 Follow up: IV Status: Completed infusion bs2 23:12 Drug: Ketorolac 15 mg Route: IVP; Site: left antecubital; bs2 06/29 03:02 Follow up: Response: No adverse reaction df1 06/28 23:12 Drug: NS 0.9% 1000 ml Route: IV; Rate: 125 ml/hr; Site: left antecubital; bs2 06/29 03:02 Follow up: IV Status: Completed infusion df1 02:20 Drug: Tylenol 1000 mg Route: PO; bs2 03:02 Follow up: Response: No adverse reaction df1 Disposition: 02:20 Chart complete. cp 07:29 Co-signature as Attending Physician, Darin Camejo MD. [email or web address] Disposition Summary: 06/29/21 02:13 Discharge Ordered Location: Home cp Problem: new cp Symptoms: have improved cp Condition: Stable cp Diagnosis - Poisoning by other narcotics, accidental (unintentional), initial encounter cp Followup: cp - With: Private Physician - When: 2 - 3 days - Reason: Recheck today's complaints Discharge Instructions: - Discharge Summary Sheet cp - Chronic Pain, Adult cp - Opioid Overdose cp - Accidental Drug Poisoning, Adult cp Forms: - Medication Reconciliation Form cp - Thank You Letter cp - Antibiotic Education cp - Prescription Opioid Use cp Signatures: Dispatcher [employer] EDMS Yaw Wilburn PA PA cp Darin Camejo MD MD [email or web address] Johnna Damian RN RN bs2 Sera Orozco df1 Mariana Ventura RN RN tc5 Corrections: (The following items were deleted from the chart) :06/28 18:05 All other systems are negative, cp cp
[2021-06-29] MEDS ORDERED: ACETAMINOPHEN 500 MG TAB ONE (02:43)
[2021-06-29 03:59] VITALS: O2SAT 100
[2021-06-29 04:01] VITALS: BP 109/66; TEMP 98.2
== END 2021-06-29 03:03 | disposition home or self-care (01) ==
LOC: ER 17:31
DX: T40.2X1A Poisoning by other opioids, accidental (unintentional), initial encounter (principal); F31.9 Bipolar disorder, unspecified; Z88.5 Allergy status to narcotic agent; Z91.018 Allergy to other foods
CPT/HCPCS: 36415; 70450; 72125; 80048; 80076; 80307; 80320; 80329; 81003; 81025; 85025; 85610; 85730; 93005; J2310; J7030

== ENCOUNTER 2021-08-08 15:36 | Emergency (ER) | payer SELFPAY ==
--- OUTSIDE RECORDS SUMMARY | 2021-08-08 15:49 | XMS REPORT | Continuity of Care Document ---
:1980 Author Organization [facility] t Address [address] [place] [address] Care Team Providers Name Role Phone adithya Attending Clinician Unavailable Minal Pickering Attending Clinician DANIELLA MARTINEZ Attending Clinician Unavailable Herrera Attending Clinician Unavailable Eron Attending Clinician Unavailable Ace Attending Clinician Unavailable Opal Attending Clinician [phone] Acosta Attending Clinician Unavailable Opal Unavailable [phone] Payers Payer Name Policy Type Policy Number Effective Date Expiration Date S carlos Healthy [place] P [id number] 2019 2020 Women(HTW) 00:00:00 00:00:00 Healthy [place] CI [id number] 2019 2020 [facility](HTW) 00:00:00 00:00:00 [facility] Advance Directives Directive Decision Effective Termination Comments Source Date Date Healthcare Agents on N/A 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:00 Adi Comm uni m, 00:00: ty bilateral 00 Health No known No known Disease Unive rs active active ity of problems problems [facility] Allergies, Adverse Reactions, Alerts Allergy Allergy Status Severity Reaction(s) Onset Inactive Treating Comm ents Source Name Type Date Date Clinician Codeine Propensi Active Hives Univers ty to 05-25 ity of adverse 00:00: [place] reaction 00 Medical s Branch CODEINE DRUG Active [facility] Univers INGREDI 05-25 ity of 00:00: [place] 00 Medical Branch No Known DA Active U [facility] Allergie 06-03 Clear s 00:00: [place] 00 [facility] Social History Social Habit Start Date Stop Date Quantity Comments Source Exposure to Not sure [facility] SARS-CoV-2 [facility] [place] (event) Branch Tobacco Comment was social Universit y of smoker, quit in [place] Med ical 2006 Branch Alcohol Comment 2 drinks a month Uni versity of [facility] Sex Assigned At Universit y of [facility] Alcohol intake 2020-05-25 2020-05-25 Current drinker Unive rsity of 00:00:00 00:00:00 of alcohol [place] [facility] (finding) Branch time of call 2019-05-26 2019-05-26 05/26/2019 10:54 [facility] 10:54:05 10:54:05 AM Health Smoking Status Start Date Stop Date Source Former smoker 2020-05-25 00:00:00 2020-05-25 00:00:00 Universi ty of [facility] Medications Ordered Filled Start Stop Current Ordering Indication Dosage Frequency Signature Comments Components Source Medication Medication Date Date Medication? Clinician (SIG) Name Name zolpidem 2020- No 5mg 5 mg, Univers (AMBIEN) 05-27 Oral, ity of tablet 5 mg 03:45[place] 02[place]57 [place] [facility] 05/26/20 at Branch 2245, BRIDGER ibuprofen 2019- 2020- No 600mg 600 mg, Uni vers (IBU) 05-27 Oral, ity of tablet 600 00:15: 23:07 ONCE, 1 [place] as mg 00 :00 dose, Sun05/26/20 at Branch 1915, [place] cephALEXin 2019- 2020- No [id number] 500mg Take 1 Univers (KEFLEX) 05-27 capsule by ity of 500 mg 00:00: 04:59 mouth 4 [place] capsule 00 :00 (four) Medical times [place] daily for 4 days. cephALEXin 2019-0 Yes 500mg 500 mg, Uni vers (KEFLEX) 05-26 Oral, Q8H, ity o f capsule 500 22:06: First dose [place] mg 00 on [facility] 05/26/20 at Branch 1715, Until Discontinu ed, BRIDGER
Re ason for Anti-Infec tive: Documented Infection< br>Documen ginegr Infection Site: Urine
D uration of Therapy: 10 days LORazepam 2019- No 1mg 1 mg, Slow U nivers (ATIVAN) 05-26 IV Push, ity of injection 1 20:00: 18:56 [place] :[place] dose, [facility] 05/26/20 at Branch 1500, STAT zolpidem 2019- No 5mg 5 mg, Univers (AMBIEN) 05-26 Oral, ity of tablet 5 mg 05:00: 04:18 [place] dose, [facility] 05/26/20 at Branch 0000, BR[place] amoxicillin 2019- No 500mg 500 mg, U nivers (TRIMOX) 05-26 Oral, ity of capsule 500 04:15: 03:09 [place] :00 dose, [facility] 05/25/20 at Branch 2315, BRIDGER
Re ason for Anti-Infec tive: Documented Infection< br>Documen ginger Infection Site: Urine
D uration of Therapy: Other (see Comments) ondansetron 2019- No 4mg 4 mg, Slow Univers (ZOFRAN 05-26 IV Push, ity of (PF)) 02:45: 01:37 ONCE, 1 [place] injection 4 00 :00 dose, [facility] Med ical mg 05/25/20 at Branch 2145, BRIDGER LORazepam 2019- No 1mg 1 mg, Slow U nivers (ATIVAN) 05-26 IV Push, ity of injection 1 00:47: 00:52 [place]CE[place] mg [place] :00 dose, [facility] 05/25/20 at Branch 2000, STAT ibuprofen 2019- No 600mg 600 mg, Uni vers (IBU) 05-25 Oral, ity of tablet 600 22:15: 21:26 ONCE, 1 [place] mg 00 :00 dose, [facility] 05/25/20 at Branch 1715, BRIDGER TRAZODONE 2018-0 Yes [facility] HCL 05-19 Communi (TRAZODONE 00:00: ty HCL TABS) 00 Health TABS DEPAKOTE 2018-0 Yes [facility] (DIVALPROEX 05-19 Communi SODIUM 00:00: ty TBEC) TBEC 00 Health EFFEXOR XR 2018-0 Yes [facility] (VENLAFAXIN 05-19 Communi E HCL) 75 00:00: ty MG 00 Health [id number] HYDROXYZINE 2018-0 Yes [facility] HCL 05-19 Communi (HYDROXYZIN 00:00: ty E HCL TABS) 00 Health TABS SERTRALINE 2017-0 Yes Take by Uni vers HCL (ZOLOFT 5-05 mouth. ity of ORAL) 21:04: [place] 50 Medical Branch metaxalone 2018-0 Yes 800mg Take 1 Univ ers (SKELAXIN) 5-05 tablet by ity of 800 mg 00:00: mouth 3 [place] tablet 00 (three) Medical times Branch daily. traMADOL 2017-0 Yes 50mg Take 1 Univers (ULTRAM) 50 5-05 tablet by ity of mg tablet 00:00: mouth [place] 00 every 6 Medical (six) Branch hours as needed for Pain (scale 7-10). traMADOL 2017-0 Yes 50mg Take 1 Univers (ULTRAM) 50 1-02 tablet by ity of mg tablet 00:00: mouth [place] 00 every 6 Medical (six) Branch hours as needed for Pain (scale 4-6). Jd Stearns PA-C / Aries De Anda MD COLEMAN# [id number] [facility]# [id number] x Lic.# [id number] I# [id number] traMADOL 2015-09 Yes 50mg Take 1 Univers (ULTRAM) 50 2-12 tablet by ity of mg tablet 00:00: mouth [place] 00 every 6 Medical (six) Branch hours as needed for Pain (scale 7-10). amoxicillin 2015-09 Yes 1{tbl} Take 1 Un albina -clavulanat 2-12 tablet by ity of e 00:00: mouth 2 [place] (AUGMENTIN) 00 (two) Medical 875-125 mg times Branch per tablet daily. Vital Signs Vital Name Observation Time Observation Value Comments Source Systolic blood 2020-05-27 18:27:00 133 mm[Hg[facility] 2020-05-27 18:27:00 88 mm[Hg] Unive [facility] Heart rate 2020-05-27 18:27:00 88 /min [facility] Respiratory rate 2020-05-27 18:27:00 16 /min [facility] Oxygen saturation in 2020-05-27 18:27:00 99 /min [facility] Arterial blood by [facility] [place] [facility] Pulse oximetry [place] Body temperature 2020-05-26 20:54:[address] [facility] Body height 2020-05-25 20:15:00 167.6 cm [facility] Body weight 2020-05-25 20:15:00 104.327 kg [facility] BMI 2020-05-25 20:15:00 37.12 kg/m2 [facility] Systolic blood 2020-05-27 18:27:00 133 mm[Hg] Univer [facility] Diastolic blood 2020-05-27 18:27:00 88 mm[facility]Hg[facility] 2020-05-27 18:27:00 88 /min [facility] Respiratory rate 2020-05-27 18:27:00 16 /min [facility] Oxygen saturation in 2020-05-27 18:27:00 99 /min University Arterial blood by [facility] [place] [facility] Pulse oximetry Branch Body temperature 2020-05-26 20:54:[address] [facility] Body height 2020-05-25 20:15:00 167.6 cm [facility] Body weight 2020-05-25 20:15:00 104.327 kg [facility] BMI 2020-05-25 20:15:00 37.12 kg/m2 [facility] Procedures Procedure Date / Time Performing Clinician Source Performed COVID-19 (PCR MOLECULAR 2020-05-26 22:21:00 Minal Martinez [facility] TESTING) Medical Branch POCT TEST 2020-05-26 03:06:00 [facility]ivas [facility] COVID-19 (ID NOW RAPID 2020-05-25 22:23:00 Minal Martinez [facility] TESTING) Medical Branch XR ANKLE 3+ VW RIGHT 2020-05-25 21:28:40 Minal Martinez [facility] XR FOOT 3+ VW RIGHT 2020-05-25 21:28:40 Minal Martinez [facility] EKG-12 LEAD 2020-05-25 20:48:28 Doctor Unassigned, [facility] Branch CREATINE KINASE 2020-05-25 20:41:00 Rivas Mae [facility] COMP. METABOLIC PANEL 2020-05-25 20:41:00 Ashlee Malone [facility] ([id number]) [facility] Branch SALICYLATE 2020-05-25 20:41:00 Minal Martinez [facility] ETHANOL 2020-05-25 20:41:00 Ashlee Malone [facility] CBC WITH DIFF 2020-05-25 20:41:00 Minal Martinez [facility] URINALYSIS 2020-05-25 20:41:00 Minal Martinez Daniella [facility] ADC / LCC - DRUG SCREEN 2020-05-25 20:41:00 Minal Martinez [facility] EKG-12 LEAD 2020-05-25 20:33:03 Minal Martinez [facility] o f [facility] Spherocyl, SV, plano to 2019-05-20 09:06:19 Juanita Littlejohn cy Community +/- 4.00d sphere, 0.12 Health to 2.00d cyl, per lens Frames, purchases 2019-05-20 09:05:57 Juanita Littlejohn Com [facility] New Patient 2019-05-19 15:29:33 Adi Joseph Commu nity Intermediate [facility] [id number] Vaccines Ordered - 2019-02-14 14:18:30 Macy [facility] Consent/Declination Forms Vaccines Ordered - 2019-02-12 14:21:00 Macy Shane [facility] Consent/Declination Forms Encounters Start End Encounter Admission Attending Care Care Encounter Source Date/Time Date/Time Type Type Clinicians Facility Department ID 2021-06-23 Outpatient Vitalynyarp [facility] [id number] [facility] 17:24:18 [id number] [facility] 2020-05-25 2020-05-27 Emergency Minal Martinez [facility] [id number] 15:02:00 13:33:00 Daniella Soria [id number] [place] [id number] [place] [id number] [facility] 2020-05-25 2020-05-27 Emergency Minal Martinez [facility] [id number] Univers 15:02:00 13:33:00 Daniella Soria [id number] ty [facility] [id number] [facility] [id number] 2020-05-25 2020-05-25 Emergency X Minal MARTINEZ [facility] ERT [id number] Univers 15:02:00 15:02:00 ity [facility] 2020-03-02 2020-03-02 Outpatient [facility] [id number] 00:00:00 00:00:00 Health 2019-11-26 2019-11-26 Emergency [facility] [id number] [place] 13:47:57 13:47:57 Health 2019-11-26 2019-11-26 Emergency [facility] [id number] [place] 11:21:06 11:21:06 Health 2019-11-17 2019-11-17 Outpatient [facility] [id number] [facility] 00:00:00 00:00:00 2019-11-16 2019-11-16 Outpatient [facility] [id number] [place] 11:26:52 11:26:52 Health 2019-11-15 2019-11-15 Outpatient [facility] [id number] [place] 11:58:23 11:58:23 Health 2019-11-15 2019-11-15 Outpatient [facility] [id number] [place] 11:43:04 11:43:04 Health 2019-11-14 2019-11-14 Outpatient [facility] [id number] [place] 10:26:02 10:26:02 Health 2019-11-13 2019-11-13 Emergency [facility] [id number] [place] 09:21:23 09:21:23 Health 2019-11-13 2019-11-13 Outpatient [facility] [id number] [place] 06:32:39 06:32:39 Health 2019-11-12 2019-11-12 Emergency [facility] [id number] [place] 22:50:38 22:50:38 Health 2019-11-12 2019-11-12 Emergency [facility] [id number] [place] 19:42:14 19:42:14 Health 2019-11-04 2019-11-04 Outpatient [facility] [id number] [facility] 14:33:46 14:33:46 2019-10-31 2019-10-[address] [facility] [id number] [facility] 15:44:39 15:44:39 2019-10-25 2019-10-25 Emergency [facility] [id number] [place] 23:23:24 23:23:24 Health 2019-10-25 2019-10-25 Emergency [facility] [id number] [place] 21:03:20 21:03:20 Health 2019-10-25 2019-10-25 Emergency [facility] [id number] [place] 00:00:00 00:00:00 Health 2019-10-20 2019-10-20 Outpatient [facility] [id number] [facility] 13:26:36 13:26:36 2019-10-18 2019-10-18 Emergency [facility] [id number] [place] 00:10:57 00:10:57 Health 2019-10-17 2019-10-17 Emergency [facility] [id number] [place] 23:08:41 23:08:41 Health 2019-10-17 2019-10-17 Emergency [facility] [id number] [place] 12:52:25 12:52:25 Health 2019-09-24 2019-09-24 Outpatient [facility] [id number] [facility] 09:00:30 09:00:30 2019-09-08 2019-09-08 Office Silverman, [facility] Vision Encoun ter/ Legacy 00:00:00 00:00:00 Visit Della [id number] Com leighton [id number] [facility] 2019-05-26 2019-05-26 Office Littlejohn, [facility] Vision Encoun ter/ Legacy 00:00:00 00:00:00 Visit Juanita [id number] Com [place] [id number] [facility] 2019-05-26 2019-05-26 Office Raheem-Cali [facility] Public Enc ounter/ Legacy 00:00:00 00:00:00 Visit wyatt [facility] [id number] [place] [facility] [id number] [facility] 2019-05-21 2019-05-21 Office Adi Joseph [facility] Vision Enc ounter/ Legacy 00:00:00 00:00:00 Visit [id number] Com leighton [id number] [facility] 2019-05-19 2019-05-19 Office Littlejohn, [facility] Vision Encoun ter/ Legacy 00:00:00 00:00:00 Visit Juanita [id number] Com [place] [id number] [facility] 2019-05-19 2019-05-19 Office Adi Joseph [facility] Vision Enc ounter/ Legacy 00:00:00 00:00:00 Visit [id number] Com [place] [id number] [facility] 2019-05-19 2019-05-19 Office Adi Joseph [facility] Vision Enc ounter/ Legacy 00:00:00 00:00:00 Visit [id number] Com [place] [id number] [facility] 2019-05-19 2019-05-19 Office Adi Joseph [facility] LM Vision Enc ounter/ Legacy 00:00:00 00:00:00 Visit [id number] Com [place] [id number] [facility] 2019-05-19 2019-05-19 Office Opal, Adi [facility] Vision Enc ounter/ Legacy 00:00:00 00:00:00 Visit Juanita Littlejohn [id number] Communi [id number] [facility] 2019-02-14 2019-02-14 Office [facility] Adult Encoun ter/ Legacy 00:00:00 00:00:[address] [facility] [id number] Co mmuni [id number] [facility] 2019-02-12 2019-02-12 Office [facility] Adult Encoun ter/ Legacy 00:00:00 00:00:[address] [facility] [id number] Co mmuni [id number] [facility] 2019-02-12 2019-02-12 Office [facility] Adult Encoun ter/ Legacy 00:00:00 00:00:[address] [facility] [id number] Co mmuni [id number] [facility] Results Test Description Test Time Test Comments Results Result Comments Source CORONAVIRUS COVID-19 TESTING 2020-05-27 16:52:00 Test Item Value Reference Range Interpretation Comme nts SARS-CoV-2 PCR (test code = Not Detected Not Detected 88510-7) KARIS (test code = KARIS) Cepheid Xpert ?Xpress SARS-CoV-2 Assay is a rapid, real-time RT-PCR test intended for the qualitative detection of nucleic acid from the SARS-CoV-2 in nasopharyngeal (COMPUTER SUPPORT ANALYST) specimens. It is used under Emergency Use Authorization (EUA) by FDA. A positive result is indicative of the presence of SARS-CoV-2 RNA. ?Clinical correlation with patient history and other diagnostic information is necessary to determine patient infection status. A negative (Not Detected) result does not preclude SARS-CoV-2 infection. A negative result does not rule out the presence of PCR inhibitors in the patient specimen or SARS-CoV-2 virus RNA concentrations below the limit of detection by the assay. Clinical correlation with patient history and other diagnostic information should be used in patient management decisions. Invalid: Please collect a new specimen for repeat patient testing if clinically indicated. Lab Interpretation (test code = Normal 66598-7) [facility] [id number] 04:02:00 Test Item Value Reference Range Interpretation Comments CK (test code = 5333767395) 69 U/L 33-194 Lab Interpretation (test code = Normal 94249-0) [facility]PO[facility] [id number] 03:06:00 Test Item Value Reference Range Interpretation Comments POCT PREG (test code = 1605) negative On board controls acceptable with positive C Line (test code = 3574) POCT PREG LOT # (test code = 3575) [id number] POCT PREG TEST DATE (test 07/10/2021 code = 3576) Lab Interpretation (test code = Normal 08186-5) [facility] (ID NOW RAPID TESTING)2020-05-25 22:57:00 Test Item Value Reference Range Interpretation Comments SARS-CoV-2 Rapid ID NOW Not Detected Not Detected (test code = 08251-1) KARIS (test code = KARIS) ID NOW COVID-19 Assay is an isothermal nucleic acid amplification test intended for the qualitative detection of nucleic acid from SARS-CoV-2 viral RNA in nasopharyngeal (COMPUTER SUPPORT ANALYST) specimens. It is used under Emergency Use Authorization (EUA) by FDA. The limit of detection (LOD) of the assay is 125 Genome Equivalents/mL. A positive result is indicative of the presence of SARS-CoV-2 RNA. ?Clinical correlation with patient history and other diagnostic information is necessary to determine patient infection status. A negative (Not Detected) result does not preclude SARS-CoV-2 infection. In patients with clinical symptoms and other tests that are consistent with SARS-CoV-2 infection, negative results should be treated as presumptive negative and a new specimen should be tested with alternative PCR molecular test. Invalid: Please collect a new specimen for repeat patient testing if clinically indicated. Lab Interpretation Normal (test code = 17070-1) [facility] CenterACETAMINOPHEN2020-09-15 21:53:00 Test Item Value Reference Range Interpretation Comments ACETAMINOP (test code = <10.0 10-30 L 0051468037) KARIS (test code = KARIS) Toxic: Greater than 200 ug/mL @ 4 hour post ingestion or greater than 50 ug/mL @ 12 hour post ingestion Lab Interpretation (test Abnormal code = 65253-0) [facility] Center[facility]AL[facility]YLATE2020-09-15 21:53:00 Test Item Value Reference Range Interpretation Comments SALICYLATE (test code <10 mg/L = 3411499037) KARIS (test code = KARIS) Therapeutic Range: ? Analgesic and Antipyretic Use ? 20-100 mg/L ? ? Anti-Inflammatory Use ? 100-250 mg/L Toxic Range: ? Greater than 300 mg/L [facility] CenterEthanol [id number] 21:41:00 Test Item Value Reference Range Interpretation Comments ALCOHOL (test code = <10 mg/dL 3846765233) KARIS (test code = KARIS) <10 Hsfmwpso48-190 Toxic>100 Depression of EQUIPMENT CLEANER AND TESTER>400 Fatalities Reported [facility] CenterXR FOOT 3+ VW [id number] 21:34:00HISTORY: ?Pain. FINDINGS: AP, lateral, oblique views of right foot showed no acute fractureor dislocation. 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 CONCLUSIONS: No acute fracture or dislocation in left foot. [facility], Radiant Results Inft User - 05/25/2020 4:35 PM CDTHISTORY: Pain.FINDINGS: AP, lateral, oblique views of right foot showed no acute fractureor dislocation. 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 FINDINGS: AP, lateral, oblique views of right ankle showed no acutefracture or dislocation. No significant changes of arthritis or aggressivebone lesions seen. Mild soft tissue swellingaround the ankle noted. Noankle joint effusion. Note also made of 4 mm heel spur. CONCLUSIONS: No acute fracture or dislocation in right ankle. [facility], Radiant Results Inft User - 05/25/2020 4:34 PM CDTHISTORY: Pain.FINDINGS: AP, lateral, oblique views of right ankle showed no acutefracture or dislocation. No significant changes of arthritis or aggressivebone lesions seen. Mild soft tissue swelling around the ankle noted. Noankle joint effusion. Note also made of 4 mm heel spur.CONCLUSIONS: No acutefracture or dislocation in right ankle.[facility]. METABOLIC PANEL (52247)2020-05-25 21:22:00 Test Item Value Reference Range Interpretation Comments NA (test code = 137 mmol/L 135-145 1394144628) K (test code = 4.0 mmol/L 3.5-5 8582921580) CL (test code = 101 mmol/L 98-108 2089264353) CO2 TOTAL (test code = 28 mmol/L 23-31 3096085885) AGAP (test code = 2-16 7743508226) BUN (test code = 18 mg/dL 7-23 8828464781) GLUCOSE (test code = 97 mg/dL 70-110 8884158310) CREATININE (test code 0.94 mg/dL 0.5-1.04 = 8566664917) TOTAL BILI (test code 0.3 mg/dL 0.1-1.1 = 4046792792) CALCIUM (test code = 8.9 mg/dL 8.6-10.6 6932140533) T PROTEIN (test code = 7.6 g/dL 6.3-8.2 6689993762) ALBUMIN (test code = 3.9 g/dL 3.5-5 1061879154) ALK PHOS (test code = 87 U/L 34-122 3833571242) ALTv (test code = 16 U/L 5-35 1742-6) AST(SGOT) (test code = 31 U/L 13-40 0822860867) eGFR Calculation mL/min/1.73m2 (Non-) (test code = 6646274706) eGFR Calculation mL/min/1.73m2 () (test code = 4098635496) KARIS (test code = KARIS) Association of Glomerular Filtration Rate (GFR) and Staging of Kidney Disease* + -+ + ---+| GFR (mL/min/1.73 m2) ?| With Kidney Damage ?| ?Without Kidney Damage+ -------+ ------+ ---------+| ?>90 ?| ?Stage one ?| ? Normal ?+ --+ -+ ----+| ?60-89 ?| ?Stage two ?| ? Decreased GFR ? + -+ + ---+| ?30-59 ?| ?Stage three ?| ? Stage three ? + -+ + ---+| ?15-29 ?| ?Stage four ? | ? Stage four ?+ --+ -+ ----+| ?<15 (or dialysis) ? ?| ?Stage five ? | ? Stage five ?+ --+ -+ ----+ *Each stage assumes the associated GFR level has been in effect for at least three months. ?Stages 1 to 5, with or without kidney disease, indicate chronic kidney disease. Notes: Determination of stages one and two (with eGFR >59mL/min/1.73 m2) requires estimation of kidney damage for at least three months as defined by structural or functional abnormalities of the kidney, manifested by either:Pathological abnormalities or Markers of kidney damage (including abnormalities in the composition of the blood or urine or abnormalities in imaging tests). [facility]URINALYSIS2020-09-15 21:08:00 Test Item Value Reference Range Interpretation Comments APPEARANCE (test code = Cloudy Clear A 4165854413) COLOR (test code = Yellow Yellow 3831247501) PH (test code = 4.8-8.0 6775727325) SP GRAVITY (test code = 1.003-1.030 9480062529) GLU U QUAL (test code = Normal Normal 5740404829) BLOOD (test code = Negative Negative 9596947124) KETONES (test code = Negative Negative 0433958991) PROTEIN (test code = Negative Negative 2887-8) UROBILIN (test code = Normal Normal 5108065139) BILIRUBIN (test code = Negative Negative 1793090396) NITRITE (test code = Negative Negative 8087412553) LEUK CHERELLE (test code = 250/uL Negative A 2659349025) RBC/HPF (test code = See_Comment H [Autom ated message] 8403491315) The system [employer] generated this result transmitted ref erence range: 0 - 3 HP F. The reference range was not used to int erpret this result as normal/abnormal . WBC/HPF (test code = See_Comment H [Autom ated message] [id number]) The system [employer] generated this result transmitted ref erence range: 0 - 5 HP F. The reference range was not used to int erpret this result as normal/abnormal . BACTERIA (test code = Few Negative A 0564469558) MUCOUS (test code = Slight Negative LPF A 9248926446) AMORPHOUS (test code = Rare Rare HPF 2662005125) SQ EPITH (test code = HPF 0680024719) WBC CLUMPS (test code = See_Comment H [Au tomated message] 8725724591) The system [employer] generated this result transmitted ref erence range: <=1 HPF. The reference range was not used to int erpret this result as normal/abnormal . YEAST BUD (test code = See_Comment H [Aut omated message] 6520497341) The system [employer] generated this result transmitted ref erence range: <=1 HPF. The reference range was not used to int erpret this result as normal/abnormal . Lab Interpretation (test Abnormal code = 68587-3) [facility] / [facility] - DRUG SCREEN FPLFIQ4997-98-58 21:05:00 Test Item Value Reference Range Interpretation Comments BENZO U (test code = Negative Negative 8699079102) EMELY U (test code = Negative Negative 7107443661) AMPHET (test code = Presumptive Positive Negative A 7488609944) THC (test code = Negative Negative 8703862845) METHADONE (test code = Negative Negative 8569177068) Meth U (test code = Presumptive Positive Negative A 9916858449) OPIATES (test code = Negative Negative 9202776826) Cocaine Metabolite (test Negative Negative code = 6161411191) PROPOXY (test code = Negative Negative 5370979174) Tric U (test code = Negative Negative 7708061662) PCP (test code = Negative Negative 6363325787) OXYCOD (test code = Negative Negative 2019234391) KARIS (test code = KARIS) Urine Drug Cutoff Ranges Benzodiazepines: ? ? 150 ng/mLBarbiturates: ?200 ng/mLAmphetamine: ? 500 ng/mLCannabinoids: ?50 ?ng/mLMethadone: ? 200 ng/mLMethamphetamine: ? ? 500 ng/mL Opiates: ? 100 ng/mL or 2000 ng/mLCocaine: ? 150 ng/mLPropoxyphene: ?300 ng/mLTricyclics: ?300 ng/mLOxycodone: ? 100 ng/mLPCP: ? 25 ?ng/mL The results are to be used only for medical (i.e., treatment) purposes. Unconfirmed screening results must not be used for non-medical purposes (e.g., employment testing, legal testing). Lab Interpretation (test Abnormal code = 57385-9) [facility] WITH [id number] 20:57:00 Test Item Value Reference Range Interpretation Comments WBC (test code = See_Comment [Automated 2990-2) message] The sy stem which generated this result transmitted reference range : 4.30 - 11.10 10*3/?L. The reference range was not used to interpret this result as normal/abnormal . RBC (test code = See_Comment [Automated 789-8) message] The sy stem which generated this result transmitted reference range : 3.93 - 5.25 10*6/?L. The reference range was not used to interpret this result as normal/abnormal . HGB (test code = 10.1 g/dL 11.6-15 L 718-7) HCT (test code = 33.2 % 35.7-45.2 L 4544-3) MCV (test code = 78.7 fL 80.6-95.5 L 787-2) MCH (test code = 23.9 pg 25.9-32.8 L 785-6) MCHC (test code = 30.4 g/dL 31.6-35.1 L 786-4) RDW-SD (test code = 43.8 fL 39-49.9 47027-3) RDW-CV (test code = 15.4 % 12-15.5 788-0) PLT (test code = See_Comment H [Automated 777-3) message] The sy stem which generated this result transmitted reference range : 166 - 358 10*3/ ?L. The reference r rema was not used to interpret this result as normal/abnormal . MPV (test code = 9.9 fL 9.5-12.9 83263-1) NRBC/100 WBC (test See_Comment [Automat ed code = 2338801267) message] The system which generated this result transmitted reference range : 0.0 - 10.0 /100 WBCs. The refer ence range was not u sed to interpret th is result as normal/abnormal . NRBC x10^3 (test code <0.01 See_Comment [Auto mated = 1009616051) message] The s ystem which generated this result transmitted reference range : 10*3/?L. The reference range was not used to interpret this result as normal/abnormal . GRAN MAT (NEUT) % 60.3 % (test code = 770-8) IMM GRAN % (test code 0.30 % = 2078003173) LYMPH % (test code = 27.0 % 736-9) MONO % (test code = 9.8 % 5905-5) EOS % (test code = 1.9 % 713-8) BASO % (test code = 0.7 % 706-2) GRAN MAT x10^3(ANC) 3.46 10*3/uL 1.88-7.09 (test code = 1613372290) IMM GRAN x10^3 (test <0.03 0-0.06 code = 9326919016) LYMPH x10^3 (test code 1.55 10*3/uL 1.32-3.29 = 731-0) MONO x10^3 (test code 0.56 10*3/uL 0.33-0.92 = 742-7) EOS x10^3 (test code = 0.11 10*3/uL 0.03-0.39 711-2) BASO x10^3 (test code 0.04 10*3/uL 0.01-0.07 = 704-7) Lab Interpretation Abnormal (test code = 54168-7) [facility] Nutnrzc0284-38-27 16:17:32 Patient: SOURAV BEY Date/Time02/12/202016:10 CDTReason for ExamPneumoniaReportDictation location R16:Portable chest one view.HISTORY: PneumoniaCOMMENT: Compared to 02/09/2020 . There is moderate peribronchial thickening with no consolidation, pneumothorax or effusion. The heart and pulmonary vasculature is normal. Visualized soft tissues andskeletal structures are unremarkable.IMPRESSION: No active disease or changes in the chest. Final Dictated by: MD Glez Phebe CDictated DT/TM: 02/12/2020 4:16 pmSigned by: MD Glez Phebe CSigned (Electronic Signature): 02/12/2020 4:17 pmProcalcitonin [id number] 12:09:38 <0.02 A procalcitonin (PCT) level above 2.0 ng/mL on the firstday of ICU admission is associated with [...] within 6-24 hoursif any concentrations <2 ng/mL areobtained.Performed At: [address] [id number] Kyle L MD Ph:[phone] Novel Coronavirus (COVID-19), YOLANDA SB1328-83-72 10:12:58Not DetectedTesting was performed using the miguel(R) SARS-CoV-2 test.This test was developed and its performance characteristicsdetermined by [employer]. This test has not beenFDA cleared or approved. This test has been authorized byFDA under an Emergency Use Authorization (EUA). This testisonly authorized for the duration of time the [...] (not detected) result in this assay.Performed At: [facility] [id number] Sanjai MD Ph:[phone] 09:17:16 Test Item Value Reference Range Interpretation Comments Ferritin Level (test code = Ferritin 18 ng/mL 13-150 Level) Basic Metabolic Gkhvx3834-85-22 06:58:24 Test Item Value Reference Range Interpretation [...] ag e have not been validated by [facility] MDRD study and should be interpreted [...] ag e have not been validated by [facility] MDRD study and should be interpreted wit h caution. eGFR R esult Interpretation: eGFR > or = 60 is in the Normal RangeeGF R < 60 may mean kid carmelina diseaseeGFR < 1 5 may mean kidney failure Rang es recommended by the National Kidney Foundation, http://nkdep.ni h.gov Hepatic Function Fbwpa6118-06-18 05:35:45 Test Item Value Reference Range Interpretation [...] 2.8 g/dL 2.9-3.1 L = Globulin) Lactate Xpdmisyggnasv2080-91-21 05:35:45 Test Item Value Reference Range Interpretation Comments LDH (test code = LDH) 206 U/L 135-214 C Reactive Qmmtgwl5155-05-46 05:35:45 Test Item Value Reference Range Interpretation Comments CRP (test code = CRP) 6.4 mg/L 0.0-5.0 H Lactic Acid, Plasma (Venous)2020-02-11 05:12:57 Test Item Value Reference Range Interpretation Comments Lactic Acid, Plasma (Venous) (test 0.7 mmol/L 0.5-1.9 code = Lactic Acid, Plasma (Venous)) Fibrinogen Ymwly1985-54-34 05:04:01 Test Item Value Reference Range Interpretation Comments Fibrinogen Level (test code = 226.0 mg/dL 188.5-473.8 Fibrinogen Level) D-Dimer Wubtfiwvoccm8424-29-60 05:04:01 Test Item Value Reference Range Interpretation Comments D Dimer, (Quant.) (test code = D 406 ng/mL 0-500 Dimer, (Quant.)) Complete Blood Count with Kwqhlkxnvpsl3675-26-16 04:56:23 Test Item Value Reference Range Interpretation [...] code = 0 % N IPF) Automated Jbtqqnoogvjr4115-79-40 04:56:23 Test Item Value Reference Range Interpretation Comments Neutro Auto (test code = Neutro 45.7 % 36.0-70.0 Auto) Lymph Auto (test code = Lymph Auto) 39.7 % 12.0-44.0 Licking Auto (test code = Licking Auto) 10.7 % 0.0-11.0 Eos, Auto (test code = Eos, Auto) 2.9 % 0.0-7.0 Basophil Auto (test code = Basophil 0.5 % 0.0-2.0 Auto) Neutro Absolute (test code = Neutro 3.0 x10 1.6-7.4 Absolute) Lymph Absolute (test code = Lymph 2.61 x10 .50-4.60 Absolute) Licking Absolute (test code = Licking .70 x10 .00-1.20 Absolute) Eos Absolute (test code = Eos 0.19 x10 0.00-0.74 Absolute) Baso Absolute (test code = Baso 0.03 x10 0.00-0.21 Absolute) IG Ztina1173-59-19 04:56:23 Test Item Value Reference Range Interpretation Comments IG (test code = IG) 0.5 % 0.0-5.0 IG Abs (test code = IG Abs) 0 x10 N Comprehensive Metabolic Smtca1351-64-98 15:04:07 Test Item Value Reference Range Interpretation [...] National Kidney Foundation, http://nkdep.ni h.gov C Reactive Zcngfao4279-68-52 12:02:24 Test Item Value Reference Range Interpretation Comments CRP (test code = CRP) 2.8 mg/L 0.0-5.0 Automated Ckmfkebuyrlz3201-50-08 10:31:00 Test Item Value Reference Range Interpretation Comments Neutro Auto (test code = Neutro 49.7 % 36.0-70.0 Auto) Lymph Auto (test code = Lymph Auto) 31.5 % 12.0-44.0 Licking Auto (test code = Licking Auto) 12.3 % 0.0-11.0 H Eos, Auto (test code = Eos, Auto) 5.5 % 0.0-7.0 Basophil Auto (test code = Basophil 0.6 % 0.0-2.0 Auto) Neutro Absolute (test code = Neutro 2.3 x10 1.6-7.4 Absolute) Lymph Absolute (test code = Lymph 1.48 x10 .50-4.60 Absolute) Licking Absolute (test code = Licking .58 x10 .00-1.20 Absolute) Eos Absolute (test code = Eos 0.26 x10 0.00-0.74 Absolute) Baso Absolute (test code = Baso 0.03 x10 0.00-0.21 Absolute) IG Fdphh5213-75-90 10:31:00 Test Item Value Reference Range Interpretation Comments IG (test code = IG) 0.4 % 0.0-5.0 IG Abs (test code = IG Abs) 0 x10 N Complete Blood Count with Qmvjgrhqttwu4908-57-24 10:30:59 Test Item Value Reference Range Interpretation [...] code = IPF) 0 % N Urine Mbhuumy5418-14-02 10:00:32 C Urine Added by GL_SJM_UA_CUL_IND>=100,000 cfu/ml Diphtheroids 10,000 cfu/ml Gamma Streptococcus <10,000 cfu/ml Alpha Streptococcus Multiple organisms present, no further workup in progress. Fibrinogen Yftdg1962-62-26 23:35:18 Test Item Value Reference Range Interpretation Comments Fibrinogen Level (test code = 226.0 mg/dL 188.5-473.8 Fibrinogen Level) Jrxugzfl1928-24-77 23:32:29 Test Item Value Reference Range Interpretation Comments Ferritin Level (test code = Ferritin 17 ng/mL 13-150 Level) Lactate Otuyidnulcfrx7964-32-81 22:35:45 Test Item Value Reference Range Interpretation Comments LDH (test code = LDH) 246 U/L 135-214 H C Reactive Etbmhrr9840-90-49 22:35:45 Test Item Value Reference Range Interpretation Comments CRP (test code = CRP) 2.8 mg/L 0.0-5.0 Complete Blood Count with Twzjohumisbk8869-33-04 22:00:38 Test Item Value Reference Range Interpretation [...] code = 0 % N IPF) Automated Tmaycakokpdn2676-73-75 22:00:38 Test Item Value Reference Range Interpretation Comments Neutro Auto (test code = Neutro 45.4 % 36.0-70.0 Auto) Lymph Auto (test code = Lymph Auto) 37.4 % 12.0-44.0 Licking Auto (test code = Licking Auto) 11.4 % 0.0-11.0 H Eos, Auto (test code = Eos, Auto) 4.6 % 0.0-7.0 Basophil Auto (test code = Basophil 0.7 % 0.0-2.0 Auto) Neutro Absolute (test code = Neutro 2.8 x10 1.6-7.4 Absolute) Lymph Absolute (test code = Lymph 2.27 x10 .50-4.60 Absolute) Licking Absolute (test code = Licking .69 x10 .00-1.20 Absolute) Eos Absolute (test code = Eos 0.28 x10 0.00-0.74 Absolute) Baso Absolute (test code = Baso 0.04 x10 0.00-0.21 Absolute) IG Swejf5550-95-43 22:00:38 Test Item Value Reference Range Interpretation Comments IG (test code = IG) 0.5 % 0.0-5.0 IG Abs (test code = IG Abs) 0 x10 N Troponin [id number] 19:40:14 Test Item Value Reference Range Interpretation [...] of chronic myocard ial injury. Urine Drug Gpzgsp5451-09-96 19:31:13 Test Item Value Reference Range Interpretation [...] matory test if desired . HCG Qualitative Aexcz2207-26-80 19:08:08 Test Item Value Reference Range Interpretation Comments HCG, Serum Qual (test code = HCG, Negative Serum Qual) Lot # (test code = Lot #) [id number] N Expiration Dt (test code = 2021-07-10 N Expiration Dt) Neg Control (test code = Neg Negative Control) Pos Control (test code = Pos Positive Control) Internal QC (test code = Internal Acceptable QC) Urinalysis Dzswhqvkyzc3351-11-80 19:04:03 Test Item Value Reference Range Interpretation Comments UA WBC (test code = UA WBC) None Seen 0-5 UA RBC (test code = UA RBC) 6-10 0-5 A UA Bacteria (test code = UA Few A Bacteria) UA Squam Epithelial (test code = UA 20-29 A Squam Epithelial) Comprehensive Metabolic Xndfr9071-04-77 19:03:43 Test Item Value Reference Range Interpretation [...] A/G 1.3 ratio N Ratio) Comprehensive Metabolic Ibkof0853-07-58 19:03:43 Test Item Value Reference Range Interpretation [...] the National Kidney Foundation, http://nkdep.ni h.gov Alcohol Wuwly7960-10-43 19:03:43 Test Item Value Reference Range Interpretation Comments Ethanol Level (test <0.00 g/dL 0.00-0.01 Intoxica ginger 0.080 g/dL code = Ethanol or more Level) Ethanol Inst (test <0 N code = Ethanol Inst) Comprehensive Metabolic Ydczd0120-74-45 19:03:43 Test Item Value Reference Range Interpretation [...] Foundation, http://nkdep.ni h.gov XR Chest 1 View Stejqyg7206-19-50 18:52:37Patient: SOURAV BEY Date/Time02/09/202018:31 CDTReason for ExamShortness of breathReportDICTATION LOCATION: S75JDJOBOH: Female, 39 years of age with Shortness [...] Signature): 02/09/2020 6:52 pmUrinalysis with Culture, if cbzqrdfog3883-87-29 18:46:10 Test Item Value Reference Range Interpretation [...] Micro Indicated Not Indicated A Ind?) IG Rhfsu0960-64-19 18:42:20 Test Item Value Reference Range Interpretation Comments IG (test code = IG) 0.7 % 0.0-5.0 IG Abs (test code = IG Abs) 0 x10 N Complete Blood Count with Jpwcwdlwbgqm3710-80-23 18:42:19 Test Item Value Reference Range Interpretation [...] code = IPF) 0 % N Automated Cqnjkmxdxpko5378-88-01 18:42:19 Test Item Value Reference Range Interpretation Comments Neutro Auto (test code = Neutro 43.0 % 36.0-70.0 Auto) Lymph Auto (test code = Lymph Auto) 39.3 % 12.0-44.0 Licking Auto (test code = Licking Auto) 11.4 % 0.0-11.0 H Eos, Auto (test code = Eos, Auto) 4.9 % 0.0-7.0 Basophil Auto (test code = Basophil 0.7 % 0.0-2.0 Auto) Neutro Absolute (test code = Neutro 2.4 x10 1.6-7.4 Absolute) Lymph Absolute (test code = Lymph 2.17 x10 .50-4.60 Absolute) Licking Absolute (test code = Licking .63 x10 .00-1.20 Absolute) Eos Absolute (test code = Eos 0.27 x10 0.00-0.74 Absolute) Baso Absolute (test code = Baso 0.04 x10 0.00-0.21 Absolute) PPD results in [id number] 14:09:10 Test Item Value Reference Range Interpretation Comments PPD results in mm (test code = 462182) 0 mm [facility]- XR CHEST 1 L9412-06-44 12:29:00 FAX: Cali Ramos MD [phone] [place]: St: REG Name: SOURAV BEY [facility] : 1980 Age/S: 38/F [address] [facility] Unit#: [id number] Loc: [place], [place] Phys: [place] [id number] Acct: [id number] Dis Date: Status: REG ER PHONE #: [phone] Exam Date: 12/06/2018 1205 FAX #: [phone] Reason: hyperventilation EXAMS: CPT CODE: [id number] XR CHEST 1 V 15708 Chest Radiograph History: hyperventilation Comparison: None at this time Location: R16 A single frontal view of the chest is submitted. The heart is within normal limits in size. Pulmonary vasculature is unremarkable. The visualized lung christensen appear to be free of disease. The bones appear unremarkable. IMPRESSION: There is no radiographic evidence of acute cardiopulmonary disease. at 9663 Reported and signed by: Mathew Vazquez M.D. CC: Cali Ramos MD Technologist: JOSUE BARBA Trnnjrd Date/Time/By: 12/06/2018 (0182) : By: Jazzy PAGE 1 Signed Report FAX: Cali Ramos MD [phone] [place]: St: REG Name: SOURAV BEY [facility] : 1980 Age/S: 38/F [address] [facility] Unit #: [id number] Loc: [place], [place]: [place] [id number] Acct: [id number] Dis Date: Status: REG ER PHONE #: [phone] Exam Date: 12/06/2018 1205 FAX #: [phone] Reason: hyperventilation EXAMS: CPT CODE: [id number] XR CHEST 1 V 91289 <Continued> Orig Print D/T: S: 12/06/2018 (4241) PAGE 2 Signed ReportURINALYSIS [id number] 12:27:00 Test Item Value Reference Range Interpretation [...] (test code = FEW NONE BACU) URINALYSIS LQIMFCHI5477-87-53 12:18:00 Test Item Value Reference Range Interpretation [...] NONE BACU) - CT ABD PELVIS W/O [id number] 10:32:00 FAX: Addie Mccarthy MD [phone] [place]: St: REG Name: SOURAV BEY [facility] : 1980 Age/S: 38/F [address] Unit: [id number] Loc: [place], [place]: [place] [id number] Acct: [id number] Dis Date: Status: REG ER PHONE #: [phone] Exam Date: 11/22/2018 1012 FAX #: [phone] Reason: LOW BACK/ FLANK PAIN WITH URINARY SX EXAMS: CPT CODE: [id number] CT ABD PELVIS W/O CONT 63166 HISTORY: Low back pain, flank pain with [...] Signed Report (CONTINUED) FAX: Addie Mccarthy MD [phone] [place]: St: REG Name: SOURAV BEY [facility] : 1980 Age/S: 38/F [address] [facility] Unit: [id number] Loc: [place], [place] Phys: Addie Mccarthy [facility] [address] Acct: [id number] Dis Date: Status: REG ER PHONE #: [phone] Exam Date: 11/22/2018 1012 FAX #: [phone] Reason: LOW BACK/ FLANK PAIN WITH URINARY SXEXAMS: CPT CODE: [id number] CT ABD PELVIS W/O CONT 27610 <Continued> Correlate for any pancreatic enzymeabnormalities as [...] MD Technologist: JAMES GERARD Trnscrd Dt/Tm: 11/22/2018 (1914) t.SDR.RCM Orig Print D/T: S: 11/22/2018(1035 PAGE 2 Signed ReportBASIC METABOLIC [id number] 09:28:00 Test Item Value Reference Range Interpretation [...] CA) 9.4 mg/dl 8.0-10.5 N Specimen comments: [employer]HEPATIC FUNCTION PANEL [id number] 09:28:00 Test Item Value Reference Range Interpretation [...] N code = ALKP) Specimen comments: Clean LaxsfDYJLHN4339-58-62 09:28:00 Test Item Value Reference Range Interpretation Comments LIPASE (test code = LIP) 123 Units/L 65.0-230.0 N Specimen comments: Clean CatchHCG SERUM [id number] 09:28:00 Test Item Value Reference Range Interpretation Comments HCG SERUM QUAL (test code = HCGQL) NEGATIVE NEGATIVE Specimen comments: Clean CatchPROTHROMBIN [id number] 09:26:00 Test Item Value Reference Range Interpretation Comments PROTHROMBIN TIME 10.7 SECONDS 9.9-12.8 N PATIENT (test code = PTP) INTERNATIONAL NORMAL 0.9 0.89-1.14 N THE INR IS TO BE USED RATIO (test code = ONLY FOR MONITORING INR) ORAL ANTICOAGULANTTH ERAPY. THE FOLLOWING A RE SUGGESTED RANGE S [facility] LE[facility] OF CHEST PHYSICIANS:CARMEN CATION INR VALUEPROPHYLAXI S OF VENOUS THROMBOS IS (ORTHOPEDIC ALHAJI KIMI) 2.0 - 3.0PROP HYLAXIS OF VENOUS THROM BOSIS (OTHER THAN HIG H-RISK SURGERY) 2.0 - 3.0TRE ATMENT OF DEEP VEIN THROMBOSIS OR PULMONARY EMBOL ISM 2.0 - 3.0PREV ENTION OF SYSTEMIC EMB OLISM TISSUE HEART VA LVES 2.0 - 3.0 AC RINCON MYOCARDIAL INFA RCTION (TO PREVENT SYSTEMIC EMBOLI [...] - 3 .5 Specimen comments: Clean CatchURINALYSIS [id number] 09:23:00 Test Item Value Reference Range Interpretation [...] = TRICHU) Specimen comments: Clean CatchBASIC METABOLIC [id number] 09:23:00 Test Item Value Reference Range Interpretation [...] 8.0-10.5 Specimen comments: Clean CatchHEPATIC FUNCTION PANEL [id number] 09:23:00 Test Item Value Reference Range Interpretation [...] 50.0-136.0 code = ALKP) Specimen comments: Clean DtzjlYMDZXR7282-50-04 09:23:00 Test Item Value Reference Range Interpretation Comments LIPASE (test code = LIP) Units/L 65.0-230.0 Specimen comments: Clean CatchHCG SERUM [id number] 09:23:00 Test Item Value Reference Range Interpretation Comments HCG SERUM QUAL (test code = HCGQL) NEGATIVE NEGATIVE Specimen comments: Clean CatchBASIC METABOLIC [id number] 09:21:00 Test Item Value Reference Range Interpretation [...] = CA) mg/dl 8.0-10.5 Specimen comments: Clean VesetHEPATIC FUNCTION PANEL [id number] 09:21:00 Test Item Value Reference Range Interpretation [...] 50.0-136.0 code = ALKP) Specimen comments: Clean [id number] 09:21:00 Test Item Value Reference Range Interpretation Comments LIPASE (test code = LIP) Units/L 65.0-230.0 Specimen comments: Clean CatchHCG SERUM [id number] 09:21:00 Test Item Value Reference Range Interpretation Comments HCG SERUM QUAL (test code = HCGQL) NEGATIVE NEGATIVE Specimen comments: Clean CatchURINALYSIS [id number] 09:17:00 Test Item Value Reference Range Interpretation [...] NONE BACU) Specimen comments: Clean CatchCBC W/AUTO [id number] 09:11:00 Test Item Value Reference Range Interpretation [...] (test code = BA#) 0.0 K/mm3 0.0-0.2 N"
[2021-08-08] MEDS ORDERED: IBUPROFEN 400 MG TAB ONE (16:13)
--- NOTE | 2021-08-08 16:19 | RAD REPORT ---
EXAM DESCRIPTION: RAD - Knee Left 3 View - 08/08/2021 4:09 pm CLINICAL HISTORY: PAIN COMPARISON: Knee Left 3 View dated 12/28/2020; Knee Left 3 View dated 05/23/2020 FINDINGS: Severe medial compartment space osteoarthritis is present with dvje-wt-diqo. Small suprapa tellar joint effusion is present with small ossified loose body suspected in the suprapatellar joint space. No fracture or aggressive marrow lesion. IMPRESSION: Severe medial compartment space osteoarthritis.
--- NOTE | 2021-08-08 16:26 | EDPHYS ---
Physician Documentation [facility] Name: Sariah Maria Age: 40 yrs Sex: Female : 1980 Arrival Date: 08/08/2021 Time: 15:45 Bed 12 Private MD: ED Physician Yaw Kraus HPI: 08/08 16:12 This 40 yrs old Female presents to ER via EMS with complaints of Leg Pain. kb 16:12 The patient presents with pain. The complaints affect the left knee. Context: The kb problem was sustained at home, resulted from the patient falling, the patient can partially bear weight, the patient is not able to ambulate. Onset: The symptoms/episode began/occurred yesterday. Modifying factors: The symptoms are alleviated by nothing. the symptoms are aggravated by movement, weight bearing. Associated signs and symptoms: Pertinent positives: swelling, Pertinent negatives calf tenderness, fever, nausea, numbness, rash, tingling, vomiting, warmth, weakness. Treatment prior to arrival includes: no previous treatment. Severity of symptoms: At their worst the symptoms were moderate, in the emergency department the symptoms are unchanged. The patient has not experienced similar symptoms in the past. The patient has not recently seen a physician. Pt reports she fell yesterday, but caught herself. States she twisted her knee in the process. Today woke up with pain and swelling to left knee. 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 - Social history:: Smoking status: Patient denies any tobacco usage or history of. Patient/guardian denies using street drugs. ROS: 16:11 Constitutional: Negative for fever, chills, and weight loss. kb 16:11 MS/extremity: Positive for pain, of the left knee. 16:11 All other systems are negative. Exam: 16:11 Constitutional: This is a well developed, well nourished patient who is awake, alert, kb and in no acute distress. Head/Face: Normocephalic, atraumatic. ENT: Moist Mucous membranes Respiratory: Respirations even and unlabored. No increased work of breathing, no retractions or nasal flaring. Skin: Warm, dry with normal turgor. Normal color. Neuro: Awake and alert, GCS 15, oriented to person, place, time, and situation. Moves all extremities. Normal gait. Psych: Awake, alert, with orientation to person, place and time. Behavior, mood, and affect are within normal limits. 16:11 Musculoskeletal/extremity: Extremities: grossly normal except: noted in the left knee: pain, swelling, tenderness, ROM: intact in all extremities, Circulation is intact in all extremities. Sensation intact. Weight bearing: can bear weight with assistance only. Vital Signs: 15:47 BP 119 / 79; Pulse 114; Resp 15; Temp 97.3(TE); Pulse Ox 100% on R/A; Weight 99.79 kg; ss Height 5 ft. 6 in. (167.64 cm); Pain 10/10; 15:47 Body Mass Index 35.51 (99.79 kg, 167.64 cm) ss MDM: 15:57 Patient medically screened. kb 16:11 Data reviewed: vital signs, nurses notes. Data interpreted: Pulse oximetry: on room air kb is 100 %. Interpretation: normal. 16:24 Counseling: I had a detailed discussion with the patient and/or guardian regarding: the kb historical points, exam findings, and any diagnostic results supporting the discharge/admit diagnosis, radiology results, the need for outpatient follow up, a orthopedic surgeon, to return to the emergency department if symptoms worsen or persist or if there are any questions or concerns that arise at home. 08/08 15:50 Order name: XRAY Knee LEFT 3 view; Complete Time: 16:22 ss Administered Medications: 16:15 Drug: Ibuprofen 800 mg Route: PO; ld1 Disposition: 08/09 08:31 Co-signature as Attending Physician, Yaw Kraus MD I agree with the assessment and ana plan of care. Disposition Summary: 08/08/21 16:25 Discharge Ordered Location: Home kb Condition: Stable kb Diagnosis - Osteoarthritis of knee, unspecified kb Followup: kb - With: Emergency Department - When: As needed - Reason: Worsening of condition Followup: kb - With: Private Physician - When: 2 - 3 days - Reason: Recheck today's complaints, Continuance of care, Re-evaluation by your physician Discharge Instructions: - Discharge Summary Sheet kb - Arthritis, [id number] kb Forms: - Medication Reconciliation Form kb - Thank You Letter kb - Antibiotic Education kb - Prescription Opioid Use kb Prescriptions: - Diclofenac Sodium 75 mg Oral tablet,delayed release (DR/EC) - take 1 tablet by ORAL route 2 times per day As needed; 30 tablet; Refills: 0, kb Product Selection Permitted Signatures: Dispatcher [employer] EDMichelle Bray, CHIQUIS-C EARLY BREASTFEEDING CARE SPECIALIST-Yaw Tejada MD MD cha Smirch, Shelby RN RN ss Germaine Donnelly RN RN ld1
--- NOTE | 2021-08-08 16:26 | ER ---
Nurse's Notes [facility] Name: Sariah Maria Age: 40 yrs Sex: Female : 1980 Arrival Date: 08/08/2021 Time: 15:45 Bed 12 Private MD: Diagnosis: Osteoarthritis of knee, unspecified Presentation: 08/08 15:45 Chief complaint: Patient states: chronic leg pain, feels worse after falling yesterday. ss 15:47 Coronavirus screen: Client denies travel out of the [place] in the last 14 days. Ebola ss Screen: Patient denies exposure to infectious person. Patient denies travel to an Ebola-affected area in the 21 days before illness onset. Initial Sepsis Screen: Does the patient meet any 2 criteria? No. Patient's initial sepsis screen is negative. Does the patient have a suspected source of infection? No. Patient's initial sepsis screen is negative. Risk Assessment: Do you want to hurt yourself or someone else? Patient reports no desire to harm self or others. Onset of symptoms was August 07, 2021. 15:47 Method Of Arrival: EMS: [facility] ss 15:47 Acuity: RICHELLE 4 ss BREAKER HAND: 15:49 LMP 02/2021 ss Historical: - Allergies: 15:49 Howells; ss 15:49 Tylenol-Codeine #3; ss - PMHx: 15:49 Anxiety; Bipolar disorder; Depression; ss - Immunization history:: Client reports having NOT received the Covid vaccine. - Social history:: Smoking status: Patient denies any tobacco usage or history of. Patient/guardian denies using street drugs. Screenin:00 Abuse screen: Denies threats or abuse. Denies injuries from another. Nutritional ss screening: No deficits noted. Tuberculosis screening: Never had TB. Fall Risk None identified. Assessment: 16:00 General: Appears in no apparent distress. comfortable, Behavior is calm, cooperative, ss quiet. Pain: Complains of pain in left knee Pain currently is 10 out of 10 on a pain scale. Quality of pain is described as aching, Pain began is chronic, but is worse after fall yesterday. Is continuous. Neuro: Level of Consciousness is awake, alert, obeys commands, Oriented to person, place, time, situation. Cardiovascular: Capillary refill < 3 seconds is brisk in bilateral fingers Patient's skin is warm and dry. Respiratory: Airway is patent Respiratory effort is even, unlabored, Respiratory pattern is regular, symmetrical. Derm: Skin is intact, is healthy with good turgor, Skin is dry, Skin is pink, warm \T\ dry. normal. Musculoskeletal: Range of motion: intact in all extremities, Swelling absent. 16:01 Reassessment: XRAY at bedside. Awaiting results. Vital Signs: 15:47 BP 119 / 79; Pulse 114; Resp 15; Temp 97.3(TE); Pulse Ox 100% on R/A; Weight 99.79 kg; ss Height 5 ft. 6 in. (167.64 cm); Pain 10/10; 15:47 Body Mass Index 35.51 (99.79 kg, 167.64 cm) ED Course: 15:45 Patient arrived in ED. iw 15:49 Triage completed. ss 15:49 Arm band placed on right wrist. ss 15:56 Michelle Rai FNP-C is PHCP. kb 15:56 Yaw Kraus MD is Attending Physician. kb 16:00 Samia Renteria, RN is Primary Nurse. ss 16:00 Patient has correct armband on for positive identification. Bed in low position. Call ss light in reach. 16:09 XRAY Knee LEFT 3 view In Process Unspecified. EDMS 16:49 No provider procedures requiring assistance completed. Patient did not have IV access iw during this emergency room visit. Administered Medications: 16:15 Drug: Ibuprofen 800 mg Route: PO; ld1 Outcome: 16:25 Discharge ordered by . kb 16:51 Patient left the ED. iw Signatures: Dispatcher [employer] EDMS Michelle Rai FNP-C FNP-Grisel Lay RN RN Samia Renteria, AUDREY RN Germaine Donnelly, AUDREY RN ld1 Corrections: (The following items were deleted from the chart) 15:49 15:45 Chief complaint: Patient states: chronic leg pain, feels different than usual pain iw
[2021-08-08 17:03] VITALS: BP 119/79; TEMP 97.3; O2SAT 100
== END 2021-08-08 16:51 | disposition home or self-care (01) ==
LOC: ER 15:36
DX: M17.12 Unilateral primary osteoarthritis, left knee (principal); Z88.6 Allergy status to analgesic agent; Z91.018 Allergy to other foods
CPT/HCPCS: 99283